=== PATIENT | male | born 1935 | race Caucasian/White ===

== ENCOUNTER 2016-10-31 03:19 | Inpatient (IN) | payer MEDICARE ==
[2016-10-31] VITALS (27 sets, daily range): BP systolic 87–135; BP diastolic 55–97
[~2016-10-31] VITALS: Ht 177.8 cm; Wt 83.6 kg
[~2016-10-31 03:19] MED LIST: AC500T PO; ACHD5005 PO; ADDR10T PO; ANTI1CAP2 PO; ATOR10TA PO; ATOR10TA66 PO; BISA5TAB PO; BISA5TAB8 PO; CALC-760 PO; CHOL200010 PO; CHOL200035 PO; CIPR-226 PO; CLON1TAB2 PO; CLON1TAB3 PO; CYAN10007 PO; CYAN3000 PO; CYCL10TA9 PO; DGX.125T PO; DIGO0.12 PO; DIGO125T PO; DIGO125T18 PO; DILT120C63 PO; DILT120T PO; DILT30TA PO; DLT180CCR PO; DLT30T PO; DOCU-161 PO; DULO60CA6 PO; DZPM2T PO; FLUC100T6 PO; GABA-488 PO; GABA-490 PO; GABA600T2 PO; GABA800T2 PO; GLUC-132 PO; GLUC-138 PO; GLUC-174 PO; GLUC-203 PO; Gabapentin PO; HYDR1TAB PO; KRIL1CAP PO; LACT1TAB19 PO; LAMO25TA PO; LEVO500T69 PO; LEVO50TA6 PO; LEVO750T6 PO; LEVO750T9 PO; LEVO75TA6 PO; LISI10TA PO; LORA0.5T PO; LORA1TAB PO; LVT.05T PO; MAGN400C PO; METO25TA6 PO; MIRT15TA6 PO; MULT-116 PO; NF-URO10 PO; NITR-65 PO; NSTR15C TP; Non Medication Item TP; OMEG1CAP51 PO; OMEP20CA12 PO; OMEP20CA6 PO; ONDA4TAB10 PO; ONDA4TAB11 PO; ONDA4TAB11 SL; ONDA4TAB8 PO; ONDN4T PO; OXYC-272 PO; OXYC-465 PO; OXYC1TAB12 PO; OXYC1TAB17 PO; PANT20TA PO; PANT20TA2 PO; PHEN-639 PO; POLY17PO6 PO; POLY255P PO; POTA10CA43 PO; POTA10TA17 PO; POTA10TA36 PO; POTA5TAB2 PO; PRM25T PO; PROBIOTIC1 EACH PO; QTP100T PO; QTP25T PO; QUET100T32 PO; QUET200T PO; QUET200T57 PO; QUET300T3 PO; Quetiapine Fumarate PO; SCP1.5TD TOP; TAMS0.4C2 PO; TAMS0.4C9 PO; TMSL.4C PO; TRAM50TA2 PO; VENL150C PO; VENL150C53 PO; VENL150C98 PO; VENL75CA PO; VIT1CAPS31 PO; VITA1CAP59 PO; Venlafaxine Hcl PO; ZLP5T PO; ZOLP10TA5 PO; ZOLP5TAB7 PO
[2016-10-31] MEDS ORDERED: NS IV 1000 ML 1,000 ML IV ONE (03:31)
[2016-10-31 03:44] LABS: BASOPHILS % (AUTO) 0 % (0-10); EOSINOPHILS # (AUTO) 0.3 10^3/uL (0.0-0.3); EOSINOPHILS % (AUTO) 3 % (0-10); LYMPHOCYTES # (AUTO) 4.4 X 10^3 (1.0-4.0); LYMPHOCYTES % (AUTO) 36 % (12-44); MEAN CORPUSCULAR HEMOGLOBIN 32 PG (25-34); MEAN CORPUSCULAR HGB CONC 34 G/DL (32-36); MEAN CORPUSCULAR VOLUME 93 FL (80-99); MEAN PLATELET VOLUME 9.1 FL (7.4-10.4); MONOCYTES # (AUTO) 1.2 X 10^3 (0.0-1.0); MONOCYTES % (AUTO) 10 % (0-12); NEUTROPHILS # (AUTO) 6.1 X 10^3 (1.8-7.8); NEUTROPHILS % (AUTO) 51 % (42-75); PLATELET COUNT 301 10^3/uL (130-400); RED BLOOD COUNT 4.45 10^6/uL (4.35-5.85); WHITE BLOOD COUNT 12.1 10^3/uL (4.3-11.0)
[2016-10-31 03:53] LABS: BILIRUBIN,URINE NEGATIVE (NEGATIVE); INR 1.1 (0.8-1.4); KETONES,URINE NEGATIVE (NEGATIVE); LEUKOCYTE ESTERASE ,URINE 1+ (NEGATIVE); NITRITE,URINE NEGATIVE (NEGATIVE); PH,URINE 8 (5-9); PROTEIN,URINE NEGATIVE (NEGATIVE); PROTHROMBIN TIME PATIENT 14.3 SEC (12.2-14.7); UROBILINOGEN,URINE NORMAL (NORMAL)
--- NOTE | 2016-10-31 03:55 | ED General ---
General Chief Complaint: Altered Mental Status Stated Complaint: AMS Source of Information: Patient, EMS Exam Limitations: Physical Impairments History of Present Illness Time Seen by Provider: 03:20 Initial Comments Here by EMS with report of altered mental status and apparently becoming unresponsive and pulseless briefly. Family called EMS to the scene because the patient was very confused. They noted this at about midnight. He apparently had slurred speech and was weak. On EMS arrival, patient was altered. They were assisting him up when he became unresponsive. They laid him to the ground and he was pulseless and apneic. EMS did provide 1 compression and the patient then moved and so they ceased and patient apparently started breathing. He was noted to be hypotensive. He apparently has had a cough for some dullness over the last several days. Patient has history of sepsis and altered mental status previously. Patient is unable to provide any details. Timing/Duration: 4-6 Hours, Getting Worse Severity: Moderate, Severe Associated Systoms: No Chest Pain, Cough, Syncope, Weakness Allergies and Home Medications Allergies Coded Allergies: Penicillins (Verified Allergy, Severe, PT HAS RECEIVED CEFEPIME & ROCEPHIN W/O ISSUE, 12/21/15) Shellfish (Verified Allergy, Unknown, 12/21/15) temazepam (Verified Adverse Reaction, Mild, PATIENT TAKES LORAZEPAM, ) VERY BAD DREAMS Home Medications Antiox#10/Om3/Dha/Epa/Lut/Zeax 1 Each Capsule, 1 CAP PO DAILY, (Reported) Atorvastatin Calcium 10 Mg Tablet, 10 MG PO HS, (Reported) Atorvastatin Calcium 10 Mg Tablet, 10 MG PO HS, #30 Prescribed by: ARRON ELLISON on 05/27/16 0852 Digoxin 125 Mcg Tablet, 125 MCG PO DAILY, (Reported) Glucosam/Chond/Hyalu/Cf Borate 1 Each Tablet, 1 TAB PO DAILY, (Reported) Levothyroxine Sodium 75 Mcg Tablet, 75 MCG PO DAILY, (Reported) LAST FILLED #90 11-24-15 Lorazepam 0.5 Mg Tablet, 0.5 MG PO BID PRN for ANXIETY, (Reported) Mirtazapine 15 Mg Tablet, 15 MG PO HS, (Reported) Omeprazole 20 Mg Capsule.dr, 20 MG PO DAILY, (Reported) Ondansetron 4 Mg Tab.rapdis, 4 MG PO Q4H, #10 Prescribed by: SHONDA JAMES on 06/24/16 0147 Potassium Citrate 10 Meq Tablet.er, 10 MEQ PO QID, (Reported) LAST FILLED 03-27-16 #120 Tamsulosin HCl 0.4 Mg Cap.er.24h, 0.4 MG PO DAILY, (Reported) Venlafaxine HCl 150 Mg Cap.er.24h, 150 MG PO DAILY, (Reported) Constitutional: see HPI, weakness Respiratory: see HPI Cardiovascular: see HPI, syncope Other Unable to complete review of systems due to altered mental status. Past Lpaiqvu-Rzxyfa-Fhwglu Hx Patient Social History Alcohol Use: Denies Use Recreational Drug Use: No Smoking Status: Never a Smoker Recent Foreign Travel: No Contact w/Someone Who Travel: No Recent Hopitalizations: Yes Immunizations Up To Date Tetanus Booster (TDap): More than 5yrs PED Vaccines UTD: No Date of Pneumonia Vaccine: Jan 29, 2015 Date of Influenza Vaccine: Apr 10, 2016 Seasonal Allergies Seasonal Allergies: No Surgeries HX Surgeries: Yes Surgeries: Gallbladder, Orthopedic Respiratory Hx Respiratory Disorders: Yes Respiratory Disorders: Pneumonia, Sleep Apnea, COPD Cardiovascular Hx Cardiac Disorders: Yes Cardiac Disorders: Atrial Fibrillation, Hypertension, Hypotension Neurological Hx Neurological Disorders: Yes Neurological Disorders: Dementia Reproductive System Hx Reproductive Disorders: No Sexually Transmitted Disease: No HIV/AIDS: No Genitourinary Hx Genitourinary Disorders: Yes (ONLY HAVE LEFT KIDNEY, erectile dysfunction) Genitourinary Disorders: Renal Failure Gastrointestinal Hx Gastrointestinal Disorders: Yes Gastrointestinal Disorders: Chronic Constipation Musculoskeletal Hx Musculoskeletal Disorders: Yes Musculoskeletal Disorders: Osteoporosis, Chronic Back Pain, Fractures Endocrine Hx Endocrine Disorders: Yes Endocrine Disorders: Hypothyroidsim HEENT HX ENT Disorders: Yes Loss of Vision: Denies Hearing Impairment: Denies Cancer Hx Cancer: No Psychosocial Hx Psychiatric Problems: Yes Behavioral Health Disorders: Anxiety, Depression Integumentary HX Skin/Integumentary Disorder: No Blood Transfusions Hx Blood Disorders: No Adverse Reaction to a Blood Tr: No Reviewed Nursing Assessment Reviewed/Agree w Nursing PMH: Yes Family Medical History Significant Family History: No Pertinent Family Hx Family Medial History: Patient reports no known family medical history. Physical Exam-Suspected Sepsis Physical Exam Vital Signs Vital Sign - Last 12Hours Capillary Refill : General Appearance: Chronically ill, Mild Distress HEENT: PERRL/EOMI, Pharynx Normal Neck: Normal Inspection, Non Tender, Supple Respiratory: No Accessory Muscle Use, Other (shallow and sometimes snoring type respirations) Cardiovascular: Regular Rate, Rhythm, No Murmur Gastrointestinal: Non Tender, Soft Back: Normal Inspection, No CVA Tenderness, No Vertebral Tenderness Extremity: Normal Range of Motion, Non Tender Neurologic/Psychiatric: Disoriented x3, Motor Weakness (global) Skin: cool, pallor Focused Exam Lactic Acid Level Laboratory Tests Test 10/31/16 03:30 Lactic Acid Level 2.16 MMOL/L (0.50-2.00) *H Lumen: triple Central Line Procedure: betadine prep, sterile drapes applied, sterile dressing applied Position: internal jugular (R) Anesthesia: Lidocaine Volume Anesthetic (ccs): 3 Complications: none Post Position: sutured, good blood return, position confirmed w/ CXR Progress Placed via ultrasound guidance using sterile procedure. One stick. Tolerated procedure well. No complications. Progress/Results/Core Measures Suspected Sepsis SIRS Temperature: Pulse: Respiratory Rate: Laboratory Tests 10/31/16 03:30: White Blood Count 12.1H Blood Pressure / Mean: Laboratory Tests 10/31/16 03:30: Creatinine 1.30, INR Comment 1.1, Platelet Count 301, Total Bilirubin 0.6 Results/Orders Lab Results Laboratory Tests Test 10/31/16 03:30 10/31/16 03:35 Range/Units White Blood Count 12.1 H 4.3-11.0 10^3/uL Red Blood Count 4.45 4.35-5.85 10^6/uL Hemoglobin 14.0 13.3-17.7 G/DL Hematocrit 41 40-54 % Mean Corpuscular Volume 93 80-99 FL Mean Corpuscular Hemoglobin 32 25-34 PG Mean Corpuscular Hemoglobin Concent 34 32-36 G/DL Red Cell Distribution Width 14.0 10.0-14.5 % Platelet Count 301 130-400 10^3/uL Mean Platelet Volume 9.1 7.4-10.4 FL Neutrophils (%) (Auto) 51 42-75 % Lymphocytes (%) (Auto) 36 12-44 % Monocytes (%) (Auto) 10 0-12 % Eosinophils (%) (Auto) 3 0-10 % Basophils (%) (Auto) 0 0-10 % Neutrophils # (Auto) 6.1 1.8-7.8 X 10^3 Lymphocytes # (Auto) 4.4 H 1.0-4.0 X 10^3 Monocytes # (Auto) 1.2 H 0.0-1.0 X 10^3 Eosinophils # (Auto) 0.3 0.0-0.3 10^3/uL Basophils # (Auto) 0.0 0.0-0.1 10^3/uL Prothrombin Time 14.3 12.2-14.7 SEC INR Comment 1.1 0.8-1.4 Activated Partial Thromboplast Time 30 24-35 SEC Urine Color YELLOW Urine Clarity VERY CLOUDY H Urine pH 8 5-9 Urine Specific Reading 1.010 L 1.016-1.022 Urine Protein NEGATIVE NEGATIVE Urine Glucose (UA) NEGATIVE NEGATIVE Urine Ketones NEGATIVE NEGATIVE Urine Nitrite NEGATIVE NEGATIVE Urine Bilirubin NEGATIVE NEGATIVE Urine Urobilinogen NORMAL NORMAL MG/DL Urine Leukocyte Esterase 1+ H NEGATIVE Urine RBC (Auto) NEGATIVE NEGATIVE Urine RBC NONE /HPF Urine WBC RARE /HPF Urine Squamous Epithelial Cells 5-10 /HPF Urine Crystals PRESENT H /LPF Urine Amorphous Sediment LARGE CHIOMA PHOSPHATE H /LPF Urine Bacteria NEGATIVE /HPF Urine Casts NONE /LPF Urine Mucus NEGATIVE /LPF Urine Culture Indicated NO Sodium Level 138 135-145 MMOL/L Potassium Level 3.7 3.6-5.0 MMOL/L Chloride Level 101 98-107 MMOL/L Carbon Dioxide Level 26 21-32 MMOL/L Anion Gap 11 5-14 MMOL/L Blood Urea Nitrogen 11 7-18 MG/DL Creatinine 1.30 0.60-1.30 MG/DL Estimat Glomerular Filtration Rate 53 BUN/Creatinine Ratio 8 Glucose Level 121 H 70-105 MG/DL Lactic Acid Level 2.16 *H 0.50-2.00 MMOL/L Calcium Level 8.7 8.5-10.1 MG/DL Total Bilirubin 0.6 0.1-1.0 MG/DL Aspartate Amino Transf (AST/SGOT) 25 5-34 U/L Alanine Aminotransferase (ALT/SGPT) 23 0-55 U/L Alkaline Phosphatase 91 40-136 U/L Total Protein 6.0 L 6.4-8.2 G/DL Albumin 3.1 L 3.2-4.5 G/DL Digoxin Level < 0.30 L 0.80-2.00 NG/ML Salicylates Level < 5.0 L 5.0-20.0 MG/DL Urine Opiates Screen NEGATIVE NEGATIVE Urine Oxycodone Screen NEGATIVE NEGATIVE Urine Methadone Screen NEGATIVE NEGATIVE Urine Propoxyphene Screen NEGATIVE NEGATIVE Acetaminophen Level < 10 L 10-30 UG/ML Urine Barbiturates Screen NEGATIVE NEGATIVE Ur Tricyclic Antidepressants Screen POSITIVE H NEGATIVE Urine Phencyclidine Screen NEGATIVE NEGATIVE Urine Amphetamines Screen NEGATIVE NEGATIVE Urine Methamphetamines Screen NEGATIVE NEGATIVE Urine Benzodiazepines Screen NEGATIVE NEGATIVE Urine Cocaine Screen NEGATIVE NEGATIVE Urine Cannabinoids Screen NEGATIVE NEGATIVE Serum Alcohol < 10 <10 MG/DL Blood Gas Puncture Site RIGHT RADIAL Blood Gas Patient Temperature 96.9 Arterial Blood pH 7.39 7.37-7.43 Arterial Blood Partial Pressure CO2 48 H 35-45 MMHG Arterial Blood Partial Pressure O2 102 H 79-93 MMHG Arterial Blood HCO3 29 H 23-27 MMOL/L Arterial Blood Total CO2 30.2 21.0-31.0 MMOL/L Arterial Blood Oxygen Saturation 99 94-100 % Arterial Blood Base Excess 3.8 H -2.5-2.5 MMOL/L Scar Test YES-POS Blood Gas Ventilator Setting NO Blood Gas Inspired Oxygen UNK My Orders Orders - SIENNA WHITMORE MD Cbc With Automated Diff (10/31/16 03:29) Comprehensive Metabolic Panel (10/31/16 03:29) Lactic Acid Analyzer (10/31/16 03:29) Blood Culture (10/31/16 03:29) Sputum Culture (10/31/16 03:29) Ua Culture If Indicated (10/31/16 03:29) Protime With Inr (10/31/16 03:29) Partial Thromboplastin Time (10/31/16 03:29) Chest 1 View, Ap/Pa Only (10/31/16 03:29) O2 (10/31/16 03:29) Saline Lock/Iv-Start (10/31/16 03:29) Ekg Tracing (10/31/16 03:29) Troponin I (10/31/16 03:29) Vital Signs Adult Sepsis Patie Q1HR (10/31/16 03:29) Remove Rings In Anticipation O (10/31/16 03:29) Arterial Blood Gas (10/31/16 03:29) Ns Iv 1000 Ml (Sodium Chloride 0.9%) (10/31/16 03:31) Saline Lock/Iv-Start (10/31/16 03:51) Ns Iv 1000 Ml (Sodium Chloride 0.9%) (10/31/16 04:00) Catheter(Urinary) Insert & Ass 03,15 (10/31/16 03:51) Digoxin (10/31/16 03:59) Acetaminophen (10/31/16 04:08) Alcohol (10/31/16 04:08) Drug Screen Stat (Urine) (10/31/16 04:08) Salicylate (10/31/16 04:08) Chest 1 View, Ap/Pa Only (10/31/16 04:33) Ceftriaxone Injection (Rocephin Injectio (10/31/16 04:45) Levofloxacin 750 Mg/150 Ml Iv (Levaquin (10/31/16 04:44) Medications Given in ED Current Medications Medications Dose Ordered Sig/Per Route Start Time Stop Time Status Last Admin Dose Admin Sodium Chloride 2,500 ml @ 1,250 mls/hr PRN PRN IV 10/31/16 04:00 10/31/16 03:54 1,250 MLS/HR Vital Signs/I&O Vital Sign - Last 12Hours 10/31/16 10/31/16 10/31/16 10/31/16 03:30 03:30 04:12 04:15 Temp 96.9 97.0 Pulse 95 96 94 Resp 14 16 14 B/P (MAP) 82/22 91/50 87/55 Pulse Ox 99 95 98 97 O2 Delivery Nasal Cannula Nasal Cannula Nasal Cannula Nasal Cannula O2 Flow Rate 2.00 2.00 2.00 2.00 10/31/16 10/31/16 04:32 04:47 Pulse 96 92 Resp 18 16 B/P (MAP) 113/67 117/67 Pulse Ox 97 98 O2 Delivery Nasal Cannula Nasal Cannula O2 Flow Rate 2.00 2.00 2.00 Capillary Refill : Progress Note : Progress Note Seen and evaluated on arrival by EMS. Patient is confused and even occasionally was snoring respirations. EMS did give 2 mg of Narcan without change in status. Second IV established, labs, UA, blood cultures, lactic acid , EKG and chest x-ray ordered. Initially ordered normal saline 1 L bolus with changed to 30 mL/kg bolus due to hypotension. Monitor patient. Central line placement indicated. This was discussed with patient and friend. Emergent consent the patient verbally consented. Placed via ultrasound guidance. Tolerated procedure well. Post x-ray shows line good position without pneumothorax. I did discuss the case with Dr. Ellison at 0440 and he accepts patient for admission, inpatient status to ICU. Consult Dr. Swanson in the morning. 30 mL/kg bolus continuing. Patient has improved mental status. 0450: I attest to focused exam. Admit ICU. Heart rate 95 with O2 sat 98 percent on 2 lt via nasal cannula, blood pressure 117/67 and respiratory rate 17. ECG Initial ECG Impression Date: Oct 31, 2016 Initial ECG Impression Time: 03:36 Initial ECG Rate: 99 Initial ECG Rhythm: Normal Sinus Comment Sinus rhythm with left axis deviation. No evidence of ST elevation [place]. [place] change from previous but otherwise similar morphology. Interpreted by me. Diagnostic Imaging Diagonstic Imaging: Xray Plain Films/CT/US/NM/MRI: chest Comments Right lung infiltrates noted. Reviewed: Reviewed by Me Diagonstic Imaging: Xray Plain Films/CT/US/NM/MRI: chest Comments Central line in good position without pneumothorax. No other acute findings. Departure Communication Time/Spoke to Admitting Phy: 04:40 Impression Impression: Primary Impression: Septic shock Additional Impression: Pneumonia Qualified Codes: J18.1 - Lobar pneumonia, unspecified organism Disposition: ADMITTED INPATIENT Condition: Critical Decision to Admit Reason: Admit from ER (General) Decision to Admit/Date: Oct 31, 2016 Time/Decision to Admit Time: 04:40 Departure-Patient Inst. Referrals: ARRON ELLISON DO (PCP/Family) Primary Care Physician SIENNA WHITMORE MD Oct 31, 2016 03:55
[2016-10-31] MEDS ORDERED: NS IV 1000 ML 2,500 ML IV PRN (04:00)
[2016-10-31 04:02] LABS: ABG BASE EXCESS 3.8 MMOL/L (-2.5-2.5); ABG HCO3 29 MMOL/L (23-27); ABG OXYGEN SATURATION 99 % (94-100); ABG PCO2 48 MMHG (35-45); ABG PH 7.39 (7.37-7.43); ABG PO2 102 MMHG (79-93); ABG TCO2 30.2 MMOL/L (21.0-31.0)
[2016-10-31 04:03] LABS: ALLENS TEST YES-POS; PATIENT TEMP 96.9
[2016-10-31 04:04] LABS: ALANINE AMINOTRANSFERASE 23 U/L (0-55); ALBUMIN 3.1 G/DL (3.2-4.5); ANION GAP 11 MMOL/L (5-14); ASPARTATE AMINO TRANSFERASE 25 U/L (5-34); BILIRUBIN,TOTAL 0.6 MG/DL (0.1-1.0); BLOOD UREA NITROGEN 11 MG/DL (7-18); BUN/CREATININE RATIO 8; CALCIUM 8.7 MG/DL (8.5-10.1); CARBON DIOXIDE 26 MMOL/L (21-32); CHLORIDE 101 MMOL/L (98-107); GFR ESTIMATED 53; GLUCOSE 121 MG/DL (70-105); POTASSIUM 3.7 MMOL/L (3.6-5.0); SODIUM 138 MMOL/L (135-145)
[2016-10-31 04:06] LABS: WBC,URINE RARE /HPF
[2016-10-31 04:31] LABS: SALICYLATE < 5.0 MG/DL (5.0-20.0)
[2016-10-31 04:36] LABS: ACETAMINOPHEN < 10 UG/ML (10-30); ALCOHOL < 10 MG/DL (<10)
[2016-10-31] MEDS ORDERED: LEVOFLOXACIN 750 MG/150 ML IV 150 ML IV STA (04:44)
[2016-10-31] MEDS ORDERED: cefTRIAXone INJECTION 1,000 MG in NS (IVPB) 50 ML IV ONE (04:45)
[2016-10-31] MEDS ORDERED: NS IV 500 ML 500 ML ONE (04:55)
[2016-10-31 05:16] LABS: TROPONIN I < 0.30 NG/ML (<0.30)
[2016-10-31] MEDS: NS IV 1000 ML 1,000 ML IV SCH ×5 (05:44→21:31)
[2016-10-31] MEDS: MAGNESIUM 1 GM/100 ML IVPB 100 ML IV SCH (05:44)
[2016-10-31] MEDS: POTASSIUM CL 10MEQ/50ML IVPB 50 ML IV SCH (05:44)
[2016-10-31] MEDS: KCL 20 MEQ TAB (K-DUR) PO SCH (05:44)
[2016-10-31] MEDS ORDERED: RT-ALBUTEROL/IPRATROPIUM 3 ML (DUONEB) VIAL INH PRN (06:30)
[2016-10-31] MEDS ORDERED: ACETAMINOPHEN 325 MG TABLET/CAPLET (TYLENOL) PO PRN (06:45)
[2016-10-31] MEDS ORDERED: ONDANSETRON 4 MG/2 ML (SDV) Z0FRAN IV PRN (06:45)
--- NOTE | 2016-10-31 07:07 | Pulmonary Consultation ---
History of Present Illness History of Present Illness Date of Consultation 10/31/16 07:01 Date of Admission History of Present Illness 80yo presented to ED secondary to altered MS, weakness, and slurred speech. PT was initially hypotensive however responded to IVF. Pt is still lethargic and hard to understand. I am consulted for ICU management. Allergies and Home Medications Allergies Coded Allergies: Penicillins (Verified Allergy, Severe, PT HAS RECEIVED CEFEPIME & ROCEPHIN W/O ISSUE, 12/21/15) Shellfish (Verified Allergy, Unknown, 12/21/15) temazepam (Verified Adverse Reaction, Mild, PATIENT TAKES LORAZEPAM, ) VERY BAD DREAMS Home Medications Antiox#10/Om3/Dha/Epa/Lut/Zeax 1 Each Capsule, 1 CAP PO DAILY, (Reported) Atorvastatin Calcium 10 Mg Tablet, 10 MG PO HS, (Reported) Atorvastatin Calcium 10 Mg Tablet, 10 MG PO HS, #30 Prescribed by: ARRON ELLISON on 05/27/16 0852 Digoxin 125 Mcg Tablet, 125 MCG PO DAILY, (Reported) Glucosam/Chond/Hyalu/Cf Borate 1 Each Tablet, 1 TAB PO DAILY, (Reported) Levothyroxine Sodium 75 Mcg Tablet, 75 MCG PO DAILY, (Reported) LAST FILLED #90 11-24-15 Lorazepam 0.5 Mg Tablet, 0.5 MG PO BID PRN for ANXIETY, (Reported) Mirtazapine 15 Mg Tablet, 15 MG PO HS, (Reported) Omeprazole 20 Mg Capsule.dr, 20 MG PO DAILY, (Reported) Ondansetron 4 Mg Tab.rapdis, 4 MG PO Q4H, #10 Prescribed by: SHONDA JAMES on 06/24/16 0147 Potassium Citrate 10 Meq Tablet.er, 10 MEQ PO QID, (Reported) LAST FILLED 03-27-16 #120 Tamsulosin HCl 0.4 Mg Cap.er.24h, 0.4 MG PO DAILY, (Reported) Venlafaxine HCl 150 Mg Cap.er.24h, 150 MG PO DAILY, (Reported) Past Pxzzour-Unhyqz-Oszkdd Hx Patient Social History Alcohol Use: Denies Use Recreational Drug Use: No Smoking Status: Never a Smoker Recent Foreign Travel: No Contact w/Someone Who Travel: No Recent Infectious Disease Expo: No Recent Hopitalizations: Yes Physical Abuse Screen: No Sexual Abuse: No Immunizations Up To Date Tetanus Booster (TDap): More than 5yrs PED Vaccines UTD: No Date of Pneumonia Vaccine: Jan 29, 2015 Date of Influenza Vaccine: Apr 10, 2016 Seasonal Allergies Seasonal Allergies: No Surgeries HX Surgeries: Yes Surgeries: Gallbladder, Orthopedic Respiratory Hx Respiratory Disorders: Yes Respiratory Disorders: Pneumonia, Sleep Apnea, COPD Cardiovascular Hx Cardiac Disorders: Yes Cardiac Disorders: Atrial Fibrillation, Hypertension, Hypotension Neurological Hx Neurological Disorders: Yes Neurological Disorders: Dementia Reproductive System Hx Reproductive Disorders: No Sexually Transmitted Disease: No HIV/AIDS: No Genitourinary Hx Genitourinary Disorders: Yes (ONLY HAVE LEFT KIDNEY, erectile dysfunction) Genitourinary Disorders: Renal Failure Gastrointestinal Hx Gastrointestinal Disorders: Yes Gastrointestinal Disorders: Chronic Constipation Musculoskeletal Hx Musculoskeletal Disorders: Yes Musculoskeletal Disorders: Osteoporosis, Chronic Back Pain, Fractures Endocrine Hx Endocrine Disorders: Yes Endocrine Disorders: Hypothyroidsim HEENT HX ENT Disorders: Yes Loss of Vision: Denies Hearing Impairment: Denies Cancer Hx Cancer: No Psychosocial Hx Psychiatric Problems: Yes Behavioral Health Disorders: Anxiety, Depression Integumentary HX Skin/Integumentary Disorder: No Blood Transfusions Hx Blood Disorders: No Adverse Reaction to a Blood Tr: No Reviewed Nursing Assessment Reviewed/Agree w Nursing PMH: Yes Family Medical History Significant Family History: No Pertinent Family Hx Family Medial History: Patient reports no known family medical history. Exam Exam Vital Signs Date Time Temp Pulse Resp B/P (MAP) Pulse Ox O2 Delivery O2 Flow Rate FiO2 10/31/16 06:45 100 17 129/83 97 Nasal Cannula 2.00 10/31/16 06:30 104 18 129/79 96 Nasal Cannula 2.00 10/31/16 06:15 99 10/31/16 06:15 99 2.00 10/31/16 06:15 99 16 102/88 96 Nasal Cannula 2.00 10/31/16 06:00 102 16 131/97 96 Nasal Cannula 2.00 10/31/16 05:50 2.00 10/31/16 05:46 101 10/31/16 05:40 98 22 117/77 96 Nasal Cannula 2.00 10/31/16 05:36 96.8 Nasal Cannula 2.00 10/31/16 05:30 96 17 118/67 96 Nasal Cannula 2.00 10/31/16 05:10 96 12 124/79 96 Nasal Cannula 2.00 10/31/16 05:04 97.1 94 16 97 2.00 10/31/16 04:47 92 16 117/67 98 Nasal Cannula 2.00 2.00 10/31/16 04:32 96 18 113/67 97 Nasal Cannula 2.00 10/31/16 04:15 94 14 87/55 97 Nasal Cannula 2.00 10/31/16 04:12 97.0 96 16 91/50 98 Nasal Cannula 2.00 10/31/16 03:30 95 Nasal Cannula 2.00 10/31/16 03:30 96.9 95 14 82/22 99 Nasal Cannula 2.00 I & O 10/31/16 07:00 Intake Total 2200 ml Output Total 650 ml Balance 1550 ml General Appearance: Chronically ill, Mild Distress HEENT: PERRL/EOMI, Pharynx Normal Neck: Normal Inspection, Non Tender, Supple Respiratory: No Accessory Muscle Use, Other (shallow and sometimes snoring type respirations) Cardiovascular: Regular Rate, Rhythm, No Murmur Capillary Refill: Less Than 3 Seconds Extremity: Normal Range of Motion, Non Tender Neurologic/Psychiatric: Disoriented x3, Motor Weakness (global) Skin: Normal Color, Warm/Dry Lymphatic: No Adenopathy Results Lab Laboratory Tests 10/31/16 03:30 Assessment/Plan Assessment/Plan Pneumonia with severe sepsis -Continue levaquin, and rocephin for now Clinical Quality Measures DVT/VTE Risk/Contraindication: Risk Factor Score Per Nursin RFS Level Per Nursing on Admit: 4+=Very High JERRY RODRIGUEZ DO Oct 31, 2016 07:07
--- NOTE | 2016-10-31 07:34 | History & Physicial ---
History of Present Illness History of Present Illness Reason for visit/HPI 80-year-old male patient with acute mental status change, weakness and hypotensive. EMS called to take patient to the hospital the patient had a short unresponsive spell and pulseless. Chest x-ray shows pneumonia. Serum lactic acid elevated. Patient has sepsis. Patient admitted to ICU Date of Admission Oct 31, 2016 at 04:45 I consulted on this patient on 10/31/16 07:29 Attending Physician Joel Ellison DO Admitting Physician Joel Ellison DO Consult Allergies and Home Medications Allergies Coded Allergies: Penicillins (Verified Allergy, Severe, PT HAS RECEIVED CEFEPIME & ROCEPHIN W/O ISSUE, 12/21/15) Shellfish (Verified Allergy, Unknown, 12/21/15) temazepam (Verified Adverse Reaction, Mild, PATIENT TAKES LORAZEPAM, ) VERY BAD DREAMS Home Medications Antiox#10/Om3/Dha/Epa/Lut/Zeax 1 Each Capsule, 1 CAP PO DAILY, (Reported) Atorvastatin Calcium 10 Mg Tablet, 10 MG PO HS, (Reported) Atorvastatin Calcium 10 Mg Tablet, 10 MG PO HS, #30 Prescribed by: JOEL ELLISON on 05/27/16 0852 Digoxin 125 Mcg Tablet, 125 MCG PO DAILY, (Reported) Glucosam/Chond/Hyalu/Cf Borate 1 Each Tablet, 1 TAB PO DAILY, (Reported) Levothyroxine Sodium 75 Mcg Tablet, 75 MCG PO DAILY, (Reported) LAST FILLED #90 11-24-15 Lorazepam 0.5 Mg Tablet, 0.5 MG PO BID PRN for ANXIETY, (Reported) Mirtazapine 15 Mg Tablet, 15 MG PO HS, (Reported) Omeprazole 20 Mg Capsule.dr, 20 MG PO DAILY, (Reported) Ondansetron 4 Mg Tab.rapdis, 4 MG PO Q4H, #10 Prescribed by: SHONDA JAMES on 06/24/16 0147 Potassium Citrate 10 Meq Tablet.er, 10 MEQ PO QID, (Reported) LAST FILLED 03-27-16 #120 Tamsulosin HCl 0.4 Mg Cap.er.24h, 0.4 MG PO DAILY, (Reported) Venlafaxine HCl 150 Mg Cap.er.24h, 150 MG PO DAILY, (Reported) Past Aryiekh-Gebxtp-Hrocej Hx Patient Social History Alcohol Use: Denies Use Recreational Drug Use: No Smoking Status: Never a Smoker Physical Abuse Screen: No Sexual Abuse: No Recent Foreign Travel: No Contact w/other who traveled: No Recent Hopitalizations: Yes Recent Infectious Disease Expo: No Immunizations Up To Date Tetanus Booster (TDap): More than 5yrs Date of Pneumonia Vaccine: Jan 29, 2015 Date of Influenza Vaccine: Apr 10, 2016 Seasonal Allergies Seasonal Allergies: No Surgeries HX Surgeries: Yes Surgeries: Gallbladder, Orthopedic Respiratory Hx Respiratory Disorders: Yes Respiratory Disorders: Pneumonia Cardiovascular Hx Cardiovascular Disorders: Yes Cardiac Disorders: Atrial Fibrillation, Hypertension, Hypotension Neurological Hx Neurological Disorders: Yes Neurological Disorders: Dementia Reproductive System Hx Reproductive Disorders: No Sexually Transmitted Disease: No HIV/AIDS: No Genitourinary Hx Genitourinary Disorders: Yes (ONLY HAVE LEFT KIDNEY, erectile dysfunction) Genitourinary Disorders: Renal Failure Gastrointestinal Hx Gastrointestinal Disorders: Yes Gastrointestinal Disorders: Chronic Constipation Musculoskeletal Hx Musculoskeletal Disorders: Yes Musculoskeletal Disorders: Osteoporosis, Chronic Back Pain, Fractures Endocrine Hx Endocrine Disorders: Yes Endocrine Disorders: Hypothyroidsim HEENT HX ENT Disorders: Yes Loss of Vision: Denies Hearing Impairment: Denies Cancer Hx Cancer: No Psychosocial Hx Psychiatric Problems: Yes Behavioral Health Disorders: Anxiety, Depression Integumentary HX Skin/Integumentary Disorder: No Blood Transfusions Hx Blood Disorders: No Adverse Reaction to a Blood Tr: No Reviewed Nursing Assessment Reviewed/Agree w Nursing PMH: Yes Family Medical History Significant Family History: No Pertinent Family Hx Family Hx: Patient reports no known family medical history. Constitutional: malaise, weakness, other (acute mental status change) EENTM: no symptoms reported Respiratory: no symptoms reported Cardiovascular: other (short episode of pulseless) Gastrointestinal: no symptoms reported Genitourinary: no symptoms reported Physical Exam Vital Signs Vital Sign - Last 12Hours Capillary Refill : Less Than 3 Seconds General Appearance: No Apparent Distress, WD/WN Eyes: Bilateral Eye Normal Inspection HEENT: Normal ENT Inspection Neck: Normal Inspection Respiratory: Chest Non Tender, Normal Breath Sounds, No Accessory Muscle Use, No Respiratory Distress Cardiovascular: Regular Rate, Rhythm, No Murmur Gastrointestinal: Non Tender, Soft Assessment/Plan Assessment and Plan septic shock. Pneumonia. Hypertension history. Hypotensive. Dementia history. Psychiatric history Problems: Clinical Quality Measures DVT/VTE Risk/Contraindication: Risk Factor Score Per Nursin RFS Level Per Nursing on Admit: 4+=Very High GELLENDER,JOEL A DO Oct 31, 2016 07:34
[2016-10-31] MEDS: ENOXAPARIN 40 MG/0.4 ML (LOVENOX) SYR SC SCH (08:17)
--- NOTE | 2016-10-31 08:21 | Diagnostic Imaging Report ---
INDICATION: Shortness of breath. Portable chest 4:39 AM FINDINGS: There is an infiltrate present in the right upper lung. Right IJ central line tip projects over the SVC. There is no effusion or pneumothorax. IMPRESSION: Infiltrate anterior segment right upper lobe stable compared to earlier in the day. Dictated by: Dictated on workstation # [id number]
--- NOTE | 2016-10-31 08:34 | Diagnostic Imaging Report ---
Portable AP view of the chest. INDICATION: Altered mental status. FINDINGS: There is a patchy interstitial infiltrates in the right perihilar region. The left lung appears clear. The heart size is normal. No effusion or pneumothorax. Mediastinum and isela appear unremarkable. Impression: There is mild interstitial right perihilar infiltrate may relate to atypical or viral pneumonia. Dictated by: Dictated on workstation # [id number]
[2016-10-31] MEDS ORDERED: ONDA4TAB10 PO (08:45)
[2016-10-31] MEDS ORDERED: LORA1TAB PO (08:45)
[2016-10-31] MEDS ORDERED: ONDA4TAB8 PO (08:45)
[2016-10-31] MEDS ORDERED: QUET200T57 PO (08:45)
[2016-10-31] MEDS: RT-ALBUTEROL/IPRATROPIUM 3 ML (DUONEB) VIAL INH SCH ×4 (10:31→21:31)
[2016-11-01] VITALS (12 sets, daily range): BP systolic 97–151; BP diastolic 55–87
[2016-11-01] MEDS: NS IV 1000 ML 1,000 ML IV SCH ×2 (01:27→08:56)
[2016-11-01] MEDS: RT-ALBUTEROL/IPRATROPIUM 3 ML (DUONEB) VIAL INH SCH ×6 (02:50→21:00)
[2016-11-01 04:30] LABS: BASOPHILS % (AUTO) 0 % (0-10); EOSINOPHILS # (AUTO) 0.5 10^3/uL (0.0-0.3); EOSINOPHILS % (AUTO) 4 % (0-10); LYMPHOCYTES # (AUTO) 2.8 X 10^3 (1.0-4.0); LYMPHOCYTES % (AUTO) 25 % (12-44); MEAN CORPUSCULAR HEMOGLOBIN 31 PG (25-34); MEAN CORPUSCULAR HGB CONC 32 G/DL (32-36); MEAN CORPUSCULAR VOLUME 97 FL (80-99); MONOCYTES # (AUTO) 1.3 X 10^3 (0.0-1.0); MONOCYTES % (AUTO) 12 % (0-12); NEUTROPHILS # (AUTO) 6.8 X 10^3 (1.8-7.8); NEUTROPHILS % (AUTO) 59 % (42-75); PLATELET COUNT 214 10^3/uL (130-400); RED BLOOD COUNT 3.67 10^6/uL (4.35-5.85); RED CELL DISTRIBUTION WIDTH 14.3 % (10.0-14.5); WHITE BLOOD COUNT 11.4 10^3/uL (4.3-11.0)
[2016-11-01 04:46] LABS: ANION GAP 9 MMOL/L (5-14); BLOOD UREA NITROGEN 7 MG/DL (7-18); BUN/CREATININE RATIO 9; CALCIUM 7.7 MG/DL (8.5-10.1); CARBON DIOXIDE 21 MMOL/L (21-32); CHLORIDE 108 MMOL/L (98-107); CREATININE SERUM 0.82 MG/DL (0.60-1.30); GFR ESTIMATED > 60; GLUCOSE 85 MG/DL (70-105); MAGNESIUM 1.6 MG/DL (1.8-2.4); PHOSPHORUS 3.2 MG/DL (2.3-4.7); POTASSIUM 3.8 MMOL/L (3.6-5.0); SODIUM 138 MMOL/L (135-145)
[2016-11-01] MEDS: cefTRIAXone INJECTION 1,000 MG in NS (IVPB) 50 ML IV SCH (04:52)
[2016-11-01] MEDS ORDERED: LEVOFLOXACIN 750 MG/D5W 150 ML (PRE-MIX) IV SCH (05:00)
[2016-11-01] MEDS: MAGNESIUM 1 GM/100 ML IVPB 100 ML IV SCH ×3 (05:50→06:51)
[2016-11-01] MEDS: POTASSIUM CL 10MEQ/50ML IVPB 50 ML IV SCH (06:00)
[2016-11-01] MEDS: KCL 20 MEQ TAB (K-DUR) PO SCH (06:00)
--- NOTE | 2016-11-01 06:54 | Pulmonary Progress Note ---
Subjective Subjective/Events-last exam Pt appears to be much improved. Exam Exam Vital Signs Date Time Temp Pulse Resp B/P (MAP) Pulse Ox O2 Delivery O2 Flow Rate FiO2 11/01/16 06:00 96 22 151/84 92 Nasal Cannula 1.00 11/01/16 05:00 90 12 135/79 97 Nasal Cannula 1.00 11/01/16 04:39 97.3 63 13 105/59 95 Nasal Cannula 1.00 11/01/16 04:00 98 1.00 11/01/16 03:00 65 13 97/55 96 Nasal Cannula 2.00 11/01/16 02:50 99 2.00 11/01/16 02:00 92 13 134/70 100 Nasal Cannula 2.00 11/01/16 01:07 90 11/01/16 01:00 95 10 140/73 99 Nasal Cannula 2.00 11/01/16 00:00 98 2.00 11/01/16 00:00 96.9 94 13 132/73 99 Nasal Cannula 2.00 10/31/16 23:00 93 12 132/72 100 Nasal Cannula 2.00 10/31/16 22:00 97 15 129/71 99 Nasal Cannula 2.00 10/31/16 21:31 98 2.00 10/31/16 21:00 92 10 125/62 97 Nasal Cannula 2.00 10/31/16 20:00 97.7 96 11 128/76 97 Nasal Cannula 2.00 10/31/16 20:00 98 2.00 10/31/16 19:00 96 10/31/16 19:00 97 12 135/78 97 Nasal Cannula 2.00 10/31/16 18:40 98 2.00 10/31/16 18:00 96 11 133/77 98 Nasal Cannula 2.00 10/31/16 17:00 101 15 133/77 97 Nasal Cannula 2.00 10/31/16 16:00 98 2.00 10/31/16 16:00 105 18 130/84 95 Nasal Cannula 2.00 10/31/16 16:00 98.7 Nasal Cannula 2.00 10/31/16 15:06 97 2.00 10/31/16 15:00 107 20 133/86 99 Nasal Cannula 2.00 10/31/16 14:00 106 18 124/80 97 Nasal Cannula 2.00 10/31/16 13:00 110 24 125/78 95 Nasal Cannula 2.00 10/31/16 13:00 112 10/31/16 12:04 97.9 Nasal Cannula 2.00 10/31/16 12:01 98 2.00 10/31/16 12:00 115 17 126/83 93 Nasal Cannula 2.00 10/31/16 11:00 108 29 89/62 98 Nasal Cannula 2.00 10/31/16 10:31 97 2.00 10/31/16 10:00 111 21 122/91 96 Nasal Cannula 2.00 10/31/16 09:00 109 23 100/59 92 Nasal Cannula 2.00 10/31/16 08:35 97.5 Nasal Cannula 2.00 10/31/16 08:21 98 2.00 10/31/16 08:00 110 22 130/83 97 Nasal Cannula 2.00 10/31/16 07:09 98 2.00 10/31/16 07:00 109 19 116/68 95 Nasal Cannula 2.00 10/31/16 07:00 105 I & O 11/01/16 07:00 Intake Total 5475 ml Output Total 3425 ml Balance 2050 ml General Appearance: No Apparent Distress, WD/WN HEENT: Normal ENT Inspection Neck: Normal Inspection Respiratory: Chest Non Tender, Normal Breath Sounds, No Accessory Muscle Use, No Respiratory Distress Cardiovascular: Regular Rate, Rhythm, No Murmur Capillary Refill: Less Than 3 Seconds Extremity: Normal Range of Motion, Non Tender Neurologic/Psychiatric: Disoriented x3, Motor Weakness (global) Skin: Normal Color, Warm/Dry Lymphatic: No Adenopathy Results Lab Laboratory Tests 10/31/16 03:30 11/01/16 04:20 Assessment/Plan Assessment/Plan Pneumonia with severe sepsis -Continue levaquin, and rocephin for now Pt is much improved will KVO IVF, D/C castro, D/c central line and transfer to 4th floor. Clinical Quality Measures DVT/VTE Risk/Contraindication: Risk Factor Score Per Nursin RFS Level Per Nursing on Admit: 4+=Very High JERRY RODRIGUEZ DO Nov 01, 2016 06:54
--- NOTE | 2016-11-01 07:55 | Progress Note (SOAP) ---
Subjective Subjective/Events-last exam patient looking better today. Patient breathing better today. Patient not confused and alert. Patient to be transferred to medical floor. Pneumonia. Sepsis. Hypomagnesemia Objective Exam Vital Signs Date Time Temp Pulse Resp B/P (MAP) Pulse Ox O2 Delivery O2 Flow Rate FiO2 11/01/16 06:57 97 1.00 11/01/16 06:00 96 22 151/84 92 Nasal Cannula 1.00 11/01/16 05:00 90 12 135/79 97 Nasal Cannula 1.00 11/01/16 04:39 97.3 63 13 105/59 95 Nasal Cannula 1.00 11/01/16 04:00 98 1.00 11/01/16 03:00 65 13 97/55 96 Nasal Cannula 2.00 11/01/16 02:50 99 2.00 11/01/16 02:00 92 13 134/70 100 Nasal Cannula 2.00 11/01/16 01:07 90 11/01/16 01:00 95 10 140/73 99 Nasal Cannula 2.00 11/01/16 00:00 98 2.00 11/01/16 00:00 96.9 94 13 132/73 99 Nasal Cannula 2.00 10/31/16 23:00 93 12 132/72 100 Nasal Cannula 2.00 10/31/16 22:00 97 15 129/71 99 Nasal Cannula 2.00 10/31/16 21:31 98 2.00 10/31/16 21:00 92 10 125/62 97 Nasal Cannula 2.00 10/31/16 20:00 97.7 96 11 128/76 97 Nasal Cannula 2.00 10/31/16 20:00 98 2.00 10/31/16 19:00 96 10/31/16 19:00 97 12 135/78 97 Nasal Cannula 2.00 10/31/16 18:40 98 2.00 10/31/16 18:00 96 11 133/77 98 Nasal Cannula 2.00 10/31/16 17:00 101 15 133/77 97 Nasal Cannula 2.00 10/31/16 16:00 98 2.00 10/31/16 16:00 105 18 130/84 95 Nasal Cannula 2.00 10/31/16 16:00 98.7 Nasal Cannula 2.00 10/31/16 15:06 97 2.00 10/31/16 15:00 107 20 133/86 99 Nasal Cannula 2.00 10/31/16 14:00 106 18 124/80 97 Nasal Cannula 2.00 10/31/16 13:00 110 24 125/78 95 Nasal Cannula 2.00 10/31/16 13:00 112 10/31/16 12:04 97.9 Nasal Cannula 2.00 10/31/16 12:01 98 2.00 10/31/16 12:00 115 17 126/83 93 Nasal Cannula 2.00 10/31/16 11:00 108 29 89/62 98 Nasal Cannula 2.00 10/31/16 10:31 97 2.00 10/31/16 10:00 111 21 122/91 96 Nasal Cannula 2.00 10/31/16 09:00 109 23 100/59 92 Nasal Cannula 2.00 10/31/16 08:35 97.5 Nasal Cannula 2.00 10/31/16 08:21 98 2.00 10/31/16 08:00 110 22 130/83 97 Nasal Cannula 2.00 I & O 11/01/16 07:00 Intake Total 5570 ml Output Total 3425 ml Balance 2145 ml Capillary Refill : Less Than 3 Seconds General Appearance: No Apparent Distress, WD/WN HEENT: Normal ENT Inspection Neck: Normal Inspection Respiratory: Chest Non Tender, Lungs Clear, Normal Breath Sounds, No Accessory Muscle Use, No Respiratory Distress Cardiovascular: Regular Rate, Rhythm, No Murmur Gastrointestinal: non tender, soft Results Lab Laboratory Tests 11/01/16 04:20 Laboratory Tests 10/31/16 12:01: Glucometer 107 10/31/16 18:30: Glucometer 85 11/01/16 00:13: Glucometer 73 11/01/16 04:20: White Blood Count 11.4H, Red Blood Count 3.67L, Hemoglobin 11.5L, Hematocrit 36L , Mean Corpuscular Volume 97, Mean Corpuscular Hemoglobin 31, Mean Corpuscular Hemoglobin Concent 32, Red Cell Distribution Width 14.3, Platelet Count 214, Mean Platelet Volume 9.0, Neutrophils (%) (Auto) 59, Lymphocytes (%) (Auto) 25, Monocytes (%) (Auto) 12, Eosinophils (%) (Auto) 4, Basophils (%) (Auto) 0, Neutrophils # (Auto) 6.8, Lymphocytes # (Auto) 2.8, Monocytes # (Auto) 1.3H, Eosinophils # (Auto) 0.5H, Basophils # (Auto) 0.0, Sodium Level 138, Potassium Level 3.8, Chloride Level 108H, Carbon Dioxide Level 21, Anion Gap 9, Blood Urea Nitrogen 7, Creatinine 0.82, Estimat Glomerular Filtration Rate > 60, BUN/ Creatinine Ratio 9, Glucose Level 85, Calcium Level 7.7L, Phosphorus Level 3.2, Magnesium Level 1.6L Assessment/Plan Assessment/Plan Assess & Plan/Chief Complaint pneumonia. Sepsis. Clinical Quality Measures DVT/VTE Risk/Contraindication: Risk Factor Score Per Nursin RFS Level Per Nursing on Admit: 4+=Very High ARRON ELLISON DO Nov 01, 2016 07:55
[2016-11-01] MEDS: DIGOXIN 0.125 MG (LANOXIN) TAB PO SCH (08:56)
[2016-11-01] MEDS: LEVOTHYROXINE 75 MCG (LEVOTHROID) TABLET PO SCH (08:56)
[2016-11-01] MEDS: ENOXAPARIN 40 MG/0.4 ML (LOVENOX) SYR SC SCH (08:56)
--- NOTE | 2016-11-01 09:07 | Diagnostic Imaging Report ---
EXAMINATION: Portable upright radiograph of the chest. INDICATION: Dyspnea. FINDINGS: When compared to 10/31/2016, similar predominately interstitial infiltrates in the right upper lobe and right perihilar region are seen. The left lung is clear. The heart size is normal. No effusion or pneumothorax. The mediastinum and isela appear unremarkable. IMPRESSION: Mild interstitial right upper lobe and perihilar infiltrates may relate to atypical pneumonia. Dictated by: Dictated on workstation # [id number]
--- NOTE | 2016-11-01 10:57 | Physical Therapy Evaluation ---
PT Evaluation-General Medical Diagnosis Admission Date Oct 31, 2016 at 04:45 Medical Diagnosis: sepsis, pneumonia Onset Date: Oct 31, 2016 Therapy Diagnosis Therapy Diagnosis: weakness;abn gait Height/Weight Height (Feet): 5 Height (Inches): 10.00 Weight (Pounds): 190 Weight (Ounces): 8.0 Precautions Precautions/Isolations: Fall Prevention, Standard Precautions Referral Physician: Noemy Reason for Referral: Evaluation/Treatment Medical History Pertinent Medical History: Atrial Fib, Arthritis, Dementia, HTN, Hypothroidism , OA, Renal Insufficiency Current History Pt admitted with altered mental status; found to have sepsis and pneumonia. Reviewed History: Yes Social History Home: Single Level Current Living Status: Friend Entry Into Home: Level Entry Prior/Core FIM Prior Level of Function Functional [place] Measure 0=Not Assessed/NA 4=Minimal Assistance 1=Total Assistance 5=Supervision or Setup 2=Maximal Assistance 6=Modified [place] 3=Moderate Assistance 7=Complete [place] Bed Mobility: 6 Transfers (B,C,W/C) (FIM): 6 Gait: 6 Limited out of house ambulation. PT Evaluation-Current Subjective Agreeable to PT. Reports he feels weak. Pain Numeric Pain Scale: 0-No Pain Location: No Pain Reported Pt/Family Goals Home when medically able. Objective Patient Orientation: Person, Place, Time, Situation Problem Solving: Fair Attachments: IV ROM/Strength ROM Lower Extremities WFL Strenght Lower Extremities WFL Integumentary/Posture Integumentary Intact Bowel Incontinence: No Bladder Incontinence: No Posture slight rounded shoulders; symmetrical and normal Neuromuscular (Tone, Coordination, Reflexes) WFL Sensory Vision: Functional Hearing: Functional Hand Dominance: Right Sensation Right Lower Extremit: Intact Sensation Left Lower Extremity: Intact Transfers Functional [place] Measure 0=Not Assessed/NA 4=Minimal Assistance 1=Total Assistance 5=Supervision or Setup 2=Maximal Assistance 6=Modified [place] 3=Moderate Assistance 7=Complete [place] Transfers (B, C, W/C) (FIM): 4 Supine to/from Sit: 4 Sit to/from Stand: 4 Min assist with transfers for safety and due to weakness generally. Rquires skilled cues to sequence as well. Gait Mode of Locomotion: Walk Anticipated Mode of Locomotion: Walk Gait (FIM): 2 Distance (FIM): 9=007-22 ft Distance: 75 ft Gait Assistive Device: FWW Comments/Gait Description slow gait with decreased foot clearance and decreased step length B Balance Sitting Static: Good Sitting Dynamic: Good Standing Static: Fair Standing Dynamic: Fair Treatment Functional transfers and gait training. Education on importance of mobility to promote improvement of pneumonia. Pt in chair post treatement with needs met Assessment/Needs Pt presents with generalized weakness with a decline in functional mobility. He is motivated and cooperative. He will benefit from short term skilled intervention to work on functional strength and mobility to allow him to return home as before. Rehab Potential: Good PT [facility] Goals [facility]itentiary Goals PT [facility] Goals Time Frame: November 08, 2016 Transfers (B,C,W/C) (FIM): 6 Gait (FIM): 6 Gait distance (FIM): 3=150 ft PT Plan Problem List Problem List: Activity Tolerance, Functional Strength, Safety, Balance, Gait, Transfer, Bed Mobility Treatment/Plan Treatment Plan: Continue Plan of Care Treatment Plan: Bed Mobility, Education, Functional Activity Silvio, Functional Strength, Gait, Safety, Therapeutic Exercise, Transfers Treatment Duration: November 08, 2016 # of days/week 5-6 Visits Per Week: 5-6 Pt/Family Agrees w/Plan: Yes Safety Risks/Education Patient Education: Safety Issues Teaching Recipient: Patient Teaching Methods: Discussion Response to Teaching: Reinforcement Needed Time/GCodes Time In: 1025 Time Out: 1055 Total Billed Treatment Time: 30 Total Billed Treatment visit EVM 15 FA 15 FAVIO CHRISTOPHER PT Nov 01, 2016 10:57
[2016-11-01] MEDS: LORazepam 1 MG (ATIVAN) TAB PO PRN (13:37)
[2016-11-01] MEDS ORDERED: FUROSEMIDE 40 MG/4 ML INJ (LASIX) IVP ONE (14:30)
[2016-11-01] MEDS: MILK OF MAGNESIA 400 MG/5 ML 30 ML UDC PO PRN (14:36)
[2016-11-01] MEDS: KCL 10 MEQ TAB (MICRO K) PO SCH ×2 (17:00→20:00)
[2016-11-01] MEDS: ATORVASTATIN 10 MG (LIPITOR) TABLET PO SCH (20:00)
[2016-11-01] MEDS: QUEtiapine 200 MG (SEROquel) TAB IMMEDIATE RELEASE PO SCH (20:00)
[2016-11-02] VITALS: BP 123/80
[2016-11-02] MEDS: RT-ALBUTEROL/IPRATROPIUM 3 ML (DUONEB) VIAL INH SCH ×5 (02:38→18:37)
[2016-11-02 04:03] VITALS: BP 116/74
[2016-11-02] MEDS: cefTRIAXone INJECTION 1,000 MG in NS (IVPB) 50 ML IV SCH (04:24)
[2016-11-02 04:51] LABS: BASOPHILS % (AUTO) 0 % (0-10); EOSINOPHILS # (AUTO) 0.5 10^3/uL (0.0-0.3); EOSINOPHILS % (AUTO) 4 % (0-10); LYMPHOCYTES % (AUTO) 21 % (12-44); MEAN CORPUSCULAR HEMOGLOBIN 32 PG (25-34); MEAN CORPUSCULAR HGB CONC 33 G/DL (32-36); MEAN CORPUSCULAR VOLUME 95 FL (80-99); MEAN PLATELET VOLUME 9.5 FL (7.4-10.4); MONOCYTES % (AUTO) 14 % (0-12); NEUTROPHILS # (AUTO) 8.9 X 10^3 (1.8-7.8); NEUTROPHILS % (AUTO) 61 % (42-75); PLATELET COUNT 225 10^3/uL (130-400); RED BLOOD COUNT 3.94 10^6/uL (4.35-5.85); RED CELL DISTRIBUTION WIDTH 13.8 % (10.0-14.5); WHITE BLOOD COUNT 14.5 10^3/uL (4.3-11.0)
[2016-11-02 05:09] LABS: ANION GAP 8 MMOL/L (5-14); BLOOD UREA NITROGEN 9 MG/DL (7-18); BUN/CREATININE RATIO 10; CALCIUM 8.3 MG/DL (8.5-10.1); CARBON DIOXIDE 26 MMOL/L (21-32); CHLORIDE 104 MMOL/L (98-107); CREATININE SERUM 0.86 MG/DL (0.60-1.30); GFR ESTIMATED > 60; GLUCOSE 88 MG/DL (70-105); PHOSPHORUS 3.2 MG/DL (2.3-4.7); POTASSIUM 3.9 MMOL/L (3.6-5.0); SODIUM 138 MMOL/L (135-145)
[2016-11-02 05:28] LABS: BAND NEUTROPHILS 0 %; BASOPHILS % (MANUAL) 0 %; EOSINOPHILS % (MANUAL) 0 %; LYMPHOCYTES % (MANUAL) 21 %; NEUTROPHILS % (MANUAL) 69 %
[2016-11-02] MEDS: NS IV 1000 ML 1,000 ML IV SCH ×2 (05:53→08:12)
[2016-11-02] MEDS: PANTOPRAZOLE 40 MG (PROTONIX) TAB PO SCH (06:00)
[2016-11-02] MEDS: VENlafaxine XR 75 MG (EFFEXOR XR) CAP PO SCH (06:00)
[2016-11-02 07:29] VITALS: BP 117/67
--- NOTE | 2016-11-02 08:00 | Progress Note (SOAP) ---
Subjective Subjective/Events-last exam septic shock. Pneumonia. Patient doing better today. patient states he feels 50 percent. White blood cell count increased 14,500. Objective Exam Vital Signs Date Time Temp Pulse Resp B/P (MAP) Pulse Ox O2 Delivery O2 Flow Rate FiO2 11/02/16 07:29 98.5 104 18 117/67 97 Nasal Cannula 2.00 11/02/16 06:14 97 2.00 11/02/16 04:03 97.8 96 12 116/74 98 Nasal Cannula 2.00 11/02/16 02:38 97 2.00 11/02/16 00:00 96.7 93 16 123/80 99 Nasal Cannula 2.00 11/01/16 21:00 95 2.00 11/01/16 19:50 98.2 98 20 134/76 98 Nasal Cannula 2.00 11/01/16 18:09 90 11/01/16 15:35 98.0 99 19 144/87 98 Room Air 11/01/16 12:00 97.2 104 18 129/75 92 Room Air 11/01/16 11:08 93 11/01/16 09:00 101 15 94 Nasal Cannula 1.00 11/01/16 08:00 92 12 142/73 95 Nasal Cannula 1.00 11/01/16 08:00 98 I & O 11/02/16 06:59 Intake Total 2040 ml Output Total 4375 ml Balance -2335 ml Capillary Refill : Less Than 3 Seconds General Appearance: No Apparent Distress, WD/WN, Other (Alert) HEENT: Normal ENT Inspection Neck: Full Range of Motion, Normal Inspection Respiratory: Chest Non Tender, Normal Breath Sounds, No Accessory Muscle Use, No Respiratory Distress Cardiovascular: Regular Rate, Rhythm, No Murmur Gastrointestinal: non tender, soft Results Lab Laboratory Tests 11/02/16 04:05 Laboratory Tests 11/01/16 12:28: Glucometer 121H 11/02/16 04:05: White Blood Count 14.5H, Red Blood Count 3.94L, Hemoglobin 12.5L, Hematocrit 37L , Mean Corpuscular Volume 95, Mean Corpuscular Hemoglobin 32, Mean Corpuscular Hemoglobin Concent 33, Red Cell Distribution Width 13.8, Platelet Count 225, Mean Platelet Volume 9.5, Neutrophils (%) (Auto) 61, Lymphocytes (%) (Auto) 21, Monocytes (%) (Auto) 14H, Eosinophils (%) (Auto) 4, Basophils (%) (Auto) 0, Neutrophils # (Auto) 8.9H, Lymphocytes # (Auto) 3.0, Monocytes # (Auto) 2.0H, Eosinophils # (Auto) 0.5H, Basophils # (Auto) 0.0, Neutrophils % (Manual) 69, Lymphocytes % (Manual) 21, Monocytes % (Manual) 10, Eosinophils % (Manual) 0, Basophils % (Manual) 0, Band Neutrophils 0, Blood Morphology Comment NORMAL, Sodium Level 138, Potassium Level 3.9, Chloride Level 104, Carbon Dioxide Level 26, Anion Gap 8, Blood Urea Nitrogen 9, Creatinine 0.86, Estimat Glomerular Filtration Rate > 60, BUN/Creatinine Ratio 10, Glucose Level 88, Calcium Level 8.3L, Phosphorus Level 3.2, Magnesium Level 2.0 Microbiology 10/31/16 Blood Culture - Preliminary, Resulted No growth 10/31/16 MRSA Screen - Final, Complete MRSA not isolated Assessment/Plan Assessment/Plan Assess & Plan/Chief Complaint pneumonia. Sepsis.. . 11/02/16. Sepsis. Pneumonia. Patient feeling better. White blood cell count 14,500 leukocytosis. Chest x-ray yesterday shows mild interstitial right upper lobe and perihilar infiltrates. Patient improving Clinical Quality Measures DVT/VTE Risk/Contraindication: Risk Factor Score Per Nursin RFS Level Per Nursing on Admit: 4+=Very High ARRON ELLISON DO Nov 02, 2016 08:00
[2016-11-02] MEDS: AZITHROMYCIN 500 MG/NS 250 ML IVPB IV SCH ×2 (08:11)
[2016-11-02] MEDS: ENOXAPARIN 40 MG/0.4 ML (LOVENOX) SYR SC SCH (08:11)
[2016-11-02] MEDS: KCL 10 MEQ TAB (MICRO K) PO SCH ×4 (08:11→20:12)
[2016-11-02] MEDS: DIGOXIN 0.125 MG (LANOXIN) TAB PO SCH (08:11)
[2016-11-02] MEDS: LEVOTHYROXINE 75 MCG (LEVOTHROID) TABLET PO SCH (08:12)
[2016-11-02] MEDS: MILK OF MAGNESIA 400 MG/5 ML 30 ML UDC PO PRN (08:12)
[2016-11-02] MEDS: LORazepam 1 MG (ATIVAN) TAB PO PRN ×2 (09:24→22:42)
--- NOTE | 2016-11-02 11:03 | Diagnostic Imaging Report ---
EXAM: AP and lateral views of the chest. INDICATION: Followup pneumonia. COMPARISON: 11/01/2016. FINDINGS: There is improvement in right upper lobe interstitial infiltrates. The heart size is normal. No effusion or pneumothorax The mediastinum and isela appear unremarkable. IMPRESSION: Improvement with minimal residual right upper lobe interstitial thickening suggestive of resolving atypical pneumonia. Dictated by: Dictated on workstation # [id number]
--- NOTE | 2016-11-02 11:21 | Physical Therapy Progress Note ---
Therapy Progress Note Patient adamantly declined PT this a.m. due to patient states, "All I want to do is sleep. Leave me alone." PT will attempt in p.m. 1 ref JAGRUTI SAUCEDO PT Nov 02, 2016 11:21
[2016-11-02 11:31] VITALS: BP 133/85
--- NOTE | 2016-11-02 13:38 | Physical Therapy Daily Note ---
PT Daily Note-Current Subjective Patient is in bed and incontinent urine requiring dependent assist to cleanse and change patient. Pain Numeric Pain Scale: 0-No Pain Location: No Pain Reported Mental Status Patient Orientation: Person, Time, Situation Attachments: Oxygen, IV Transfers Functional [place] Measure 0=Not Assessed/NA 4=Minimal Assistance 1=Total Assistance 5=Supervision or Setup 2=Maximal Assistance 6=Modified [place] 3=Moderate Assistance 7=Complete IndependenceIRFPAI Quality Coding Scale 6 Independent with activity with or without an assistive device 5 Patient requires set up or clean up by helper. Patient completes activity by themselves 4 Supervision or touching assist (CGA). [place] provide cues , steadying assist 3 The helper provides less than half the effort to complete the activity 2 The helper provides more than half the effort to complete the activity 1 Dependent. The helper does all the effort to complete an activity 7 Patient refused to complete or attempt activity 9 The patient did not perform the activity before the current illness or injury 88 Not attempted due to Medical conditions or safety concerns Transfers (B, C, W/C) (FIM): 4 Scootin Rollin Supine to/from Sit: 4 Sit to/from Stand: 4 CGA with gait belt in place for safety Gait Training Gait (FIM): 1 Distance (FIM): 1=up to 49 ft Distance: 35' Gait Level of Assist: 4 Gait Persons Needed: 1 Gait Assistive Device: FWW functional gait sequence, however, noted weakness with ambulation Assessment Patient has not eaten today and is up in recliner with ENVIRONMENTAL PROTECTION SPECIALIST ordering him lunch. PT to increase activity as tolerated by patient. 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
[2016-11-02 16:50] VITALS: BP 109/62
[2016-11-02] MEDS: ATORVASTATIN 10 MG (LIPITOR) TABLET PO SCH (20:12)
[2016-11-02] MEDS: QUEtiapine 200 MG (SEROquel) TAB IMMEDIATE RELEASE PO SCH (20:12)
[2016-11-02 20:45] VITALS: BP 137/86
[2016-11-03 00:15] VITALS: BP 131/68
[2016-11-03] MEDS: RT-ALBUTEROL/IPRATROPIUM 3 ML (DUONEB) VIAL INH SCH ×2 (01:56→06:59)
[2016-11-03 04:00] VITALS: BP 132/79
[2016-11-03] MEDS: cefTRIAXone INJECTION 1,000 MG in NS (IVPB) 50 ML IV SCH (04:32)
[2016-11-03] MEDS: VENlafaxine XR 75 MG (EFFEXOR XR) CAP PO SCH (06:33)
[2016-11-03] MEDS: PANTOPRAZOLE 40 MG (PROTONIX) TAB PO SCH (06:33)
[2016-11-03 06:54] LABS: BASOPHILS % (AUTO) 0 % (0-10); EOSINOPHILS # (AUTO) 0.5 10^3/uL (0.0-0.3); EOSINOPHILS % (AUTO) 5 % (0-10); LYMPHOCYTES # (AUTO) 3.2 X 10^3 (1.0-4.0); LYMPHOCYTES % (AUTO) 28 % (12-44); MEAN CORPUSCULAR HEMOGLOBIN 31 PG (25-34); MEAN CORPUSCULAR HGB CONC 33 G/DL (32-36); MEAN CORPUSCULAR VOLUME 96 FL (80-99); MEAN PLATELET VOLUME 9.4 FL (7.4-10.4); MONOCYTES # (AUTO) 1.5 X 10^3 (0.0-1.0); MONOCYTES % (AUTO) 13 % (0-12); NEUTROPHILS # (AUTO) 6.3 X 10^3 (1.8-7.8); NEUTROPHILS % (AUTO) 54 % (42-75); PLATELET COUNT 223 10^3/uL (130-400); RED BLOOD COUNT 3.95 10^6/uL (4.35-5.85); WHITE BLOOD COUNT 11.6 10^3/uL (4.3-11.0)
[2016-11-03 07:22] LABS: ALANINE AMINOTRANSFERASE 18 U/L (0-55); ALBUMIN 2.9 G/DL (3.2-4.5); ANION GAP 6 MMOL/L (5-14); ASPARTATE AMINO TRANSFERASE 22 U/L (5-34); BILIRUBIN,TOTAL 0.5 MG/DL (0.1-1.0); BLOOD UREA NITROGEN 10 MG/DL (7-18); BUN/CREATININE RATIO 12; CALCIUM 8.4 MG/DL (8.5-10.1); CARBON DIOXIDE 30 MMOL/L (21-32); CHLORIDE 104 MMOL/L (98-107); CREATININE SERUM 0.84 MG/DL (0.60-1.30); GFR ESTIMATED > 60; GLUCOSE 87 MG/DL (70-105); POTASSIUM 4.3 MMOL/L (3.6-5.0); SODIUM 140 MMOL/L (135-145); TOTAL PROTEIN 5.5 G/DL (6.4-8.2)
[2016-11-03 08:00] VITALS: BP 121/81
--- NOTE | 2016-11-03 08:00 | Progress Note (SOAP) ---
Subjective Subjective/Events-last exam sepsis. Pneumonia. History of psychiatric problems. Patient states she's feeling better. White blood cell count 11,000 compared to yesterday over 14,000. Patient afebrile. Patient did not get chest x-ray yet today Objective Exam Vital Signs Date Time Temp Pulse Resp B/P (MAP) Pulse Ox O2 Delivery O2 Flow Rate FiO2 11/03/16 07:00 96 2.00 11/03/16 04:00 97.9 94 19 132/79 96 Nasal Cannula 1.00 11/03/16 01:57 77 11/03/16 00:15 97.8 84 19 131/68 94 Nasal Cannula 1.00 11/02/16 21:00 2.00 11/02/16 20:45 97.2 95 20 137/86 98 Nasal Cannula 1.00 11/02/16 18:37 97 11/02/16 18:37 97 2.00 11/02/16 16:50 97.9 106 20 109/62 98 Nasal Cannula 2.00 11/02/16 14:23 95 2.00 11/02/16 11:31 98.6 101 20 133/85 95 Nasal Cannula 2.00 11/02/16 10:48 97 2.00 11/02/16 08:51 2.00 I & O 11/03/16 07:00 Intake Total 2210 ml Output Total 1925 ml Balance 285 ml Capillary Refill : Less Than 3 Seconds General Appearance: No Apparent Distress, WD/WN HEENT: Normal ENT Inspection Neck: Full Range of Motion, Normal Inspection Respiratory: Chest Non Tender, Lungs Clear, Normal Breath Sounds, No Accessory Muscle Use, No Respiratory Distress Cardiovascular: Regular Rate, Rhythm, No Murmur Gastrointestinal: non tender, soft Results Lab Laboratory Tests 11/03/16 06:15 Laboratory Tests 11/03/16 06:15: White Blood Count 11.6H, Red Blood Count 3.95L, Hemoglobin 12.4L, Hematocrit 38L , Mean Corpuscular Volume 96, Mean Corpuscular Hemoglobin 31, Mean Corpuscular Hemoglobin Concent 33, Red Cell Distribution Width 14.0, Platelet Count 223, Mean Platelet Volume 9.4, Neutrophils (%) (Auto) 54, Lymphocytes (%) (Auto) 28, Monocytes (%) (Auto) 13H, Eosinophils (%) (Auto) 5, Basophils (%) (Auto) 0, Neutrophils # (Auto) 6.3, Lymphocytes # (Auto) 3.2, Monocytes # (Auto) 1.5H, Eosinophils # (Auto) 0.5H, Basophils # (Auto) 0.0, Sodium Level 140, Potassium Level 4.3, Chloride Level 104, Carbon Dioxide Level 30, Anion Gap 6, Blood Urea Nitrogen 10, Creatinine 0.84, Estimat Glomerular Filtration Rate > 60, BUN/ Creatinine Ratio 12, Glucose Level 87, Calcium Level 8.4L, Total Bilirubin 0.5, Aspartate Amino Transf (AST/SGOT) 22, Alanine Aminotransferase (ALT/SGPT) 18, Alkaline Phosphatase 73, Total Protein 5.5L, Albumin 2.9L Microbiology 10/31/16 Blood Culture - Preliminary, Resulted No growth 10/31/16 MRSA Screen - Final, Complete MRSA not isolated Assessment/Plan Assessment/Plan Assess & Plan/Chief Complaint pneumonia. Sepsis.. . 11/02/16. Sepsis. Pneumonia. Patient feeling better. White blood cell count 14,500 leukocytosis. Chest x-ray yesterday shows mild interstitial right upper lobe and perihilar infiltrates. Patient improving. . 11/03/16. Sepsis. Pneumonia. Leukocytosis better patient improving. Waiting for chest x-ray report Clinical Quality Measures DVT/VTE Risk/Contraindication: Risk Factor Score Per Nursin RFS Level Per Nursing on Admit: 4+=Very High ARRON ELLISON DO Nov 03, 2016 08:00
[2016-11-03] MEDS: ENOXAPARIN 40 MG/0.4 ML (LOVENOX) SYR SC SCH (09:02)
[2016-11-03] MEDS: LEVOTHYROXINE 75 MCG (LEVOTHROID) TABLET PO SCH (09:02)
[2016-11-03] MEDS: KCL 10 MEQ TAB (MICRO K) PO SCH (09:02)
[2016-11-03] MEDS: AZITHROMYCIN 500 MG/NS 250 ML IVPB IV SCH ×2 (09:02)
[2016-11-03] MEDS: DIGOXIN 0.125 MG (LANOXIN) TAB PO SCH (09:02)
[2016-11-03] MEDS: NS IV 1000 ML 1,000 ML IV SCH (09:17)
--- NOTE | 2016-11-03 09:28 | Diagnostic Imaging Report ---
INDICATION: Dyspnea. TECHNIQUE: Single-view chest 8:32 AM. CORRELATION STUDY: 11/02/2016. FINDINGS: Heart size is mildly enlarged. Mediastinum is mildly prominent with calcification of the aortic arch. Pulmonary vasculature within normal limits. There is vague irregular density in the lateral aspect of the right mid/ upper lung field. This does appear to be somewhat changed from prior study. Additionally, there are slightly prominent markings about the right suprahilar region present. Asymmetric elevation of the right hemidiaphragm. IMPRESSION: 1. Irregular parenchymal density about the peripheral aspect of the right mid/ upper lung field with questionable fullness of the right isela. This may very well reflect area of continued infiltrate; however, close clinical and imaging followup correlation is recommended as possibility of underlying neoplasm is not excluded at this time. 2. Stable cardiac enlargement without overt failure. Dictated by: Dictated on workstation # [id number]
[2016-11-03] MEDS: MILK OF MAGNESIA 400 MG/5 ML 30 ML UDC PO PRN (10:13)
--- NOTE | 2016-11-03 10:52 | Physical Therapy Daily Note ---
PT Daily Note-Current Subjective Pt. in bed, asks if this DENTAL BILLER would leave pt in shower after rx as she anticipates he is DCing today and she would like for him to have a shower before he leaves. States she will help him in shower Pain Numeric Pain Scale: 0-No Pain Comment: pt. comments he feels weak when he stars moving around Mental Status Patient Orientation: Mumbles Attachments: IV Transfers Functional [place] Measure 0=Not Assessed/NA 4=Minimal Assistance 1=Total Assistance 5=Supervision or Setup 2=Maximal Assistance 6=Modified [place] 3=Moderate Assistance 7=Complete IndependenceIRFPAI Quality Coding Scale 6 Independent with activity with or without an assistive device 5 Patient requires set up or clean up by helper. Patient completes activity by themselves 4 Supervision or touching assist (CGA). Shirley provide cues , steadying assist 3 The helper provides less than half the effort to complete the activity 2 The helper provides more than half the effort to complete the activity 1 Dependent. The helper does all the effort to complete an activity 7 Patient refused to complete or attempt activity 9 The patient did not perform the activity before the current illness or injury 88 Not attempted due to Medical conditions or safety concerns Transfers (B, C, W/C) (FIM): 5 Scootin Rollin Supine to/from Sit: 5 Sit to/from Stand: 5 pt. slow moving and needed cues for rolling and technique Gait Training Gait (FIM): 1 Distance (FIM): 1=up to 49 ft Gait Level of Assist: 4 Gait Persons Needed: 1 Gait Assistive Device: FWW pt. ambulated 5-6 ft at a time and then wanted to sit stating his legs were so weak Exercises Supine Ex: Ankle pumps, Rolling, Heel Slides, Scooting, Hip abd/add Supine Reps: 12 Treatments pt. ambulated with min assist very slow with 2 sitting rest breaks into shower. with shower ready to go to assist pt with bathing Assessment Current Status: Fair Progress pts. PLOF requiring assist for many years waxing and waning in level of assist needed PT Residential Goals Residential Goals PT Residential Goals Time Frame: November 08, 2016 Transfers (B,C,W/C) (FIM): 6 Gait (FIM): 6 Gait distance (FIM): 3=150 ft PT Plan Treatment/Plan Treatment Plan: Continue Plan of Care Treatment Plan: Bed Mobility, Education, Functional Activity Silvio, Functional Strength, Gait, Safety, Therapeutic Exercise, Transfers Treatment Duration: November 08, 2016 Visits Per Week: 5-6 Safety Risks/Education Patient Education: Gait Training, Transfer Techniques, Correct Positioning, Instructions to Caregiver, Safety Issues Teaching Recipient: Patient, Significant Other Teaching Methods: Demonstration, Discussion Response to Teaching: Verbalize Understanding, Return Demonstration Time/GCodes Time In: 900 Time Out: 925 Total Billed Treatment Time: 25 Total Billed Treatment 1,FA10,GT15 G Codes Necessary: KAMILLA Reynoso DENTAL BILLER Nov 03, 2016 10:52
[2016-11-03] MEDS ORDERED: CEFD300C3 PO (11:27)
[2016-11-04] MEDS ORDERED: AZITHROMYCIN 250 MG TAB (ZITHROMAX) PO SCH (09:00)
--- NOTE | 2016-11-09 19:12 | Discharge Summary ---
Diagnosis/Chief Complaint Date of Admission Oct 31, 2016 at 04:45 Date of Discharge Nov 03, 2016 at 12:55 Discharge Date: Nov 03, 2016 Admission Diagnosis Admission Diagnosis septic shock. Pneumonia. Hypertension history. Hypotensive. Dementia history. Psychiatric history Discharge Diagnosis Sepsis. Acute mental status change. Unresponsive. Apnea. Pneumonia. Dementia. Osteoporosis. Anxiety. Chronic obstructive pulmonary disease. DO NOT RESUSCITATE. Essential hypertension. Hypothyroid. Hypomagnesemia. Reason Hospital Visit 80-year-old male patient with acute mental status change, weakness and hypotensive. EMS called to take patient to the hospital the patient had a short unresponsive spell and pulseless. Chest x-ray shows pneumonia. Serum lactic acid elevated. Patient has sepsis. Patient admitted to ICU Discharge Summary Consultations Pulmonology Discharge Physical Examination Allergies: Coded Allergies: Penicillins (Verified Allergy, Severe, PT HAS RECEIVED CEFEPIME & ROCEPHIN W/O ISSUE, 12/21/15) Shellfish (Verified Allergy, Unknown, 12/21/15) temazepam (Verified Adverse Reaction, Mild, PATIENT TAKES LORAZEPAM, ) VERY BAD DREAMS Vitals & I&Os Vital Signs Date Time Temp Pulse Resp B/P (MAP) Pulse Ox O2 Delivery O2 Flow Rate FiO2 11/03/16 08:00 96.3 95 20 121/81 95 Nasal Cannula 1.00 Hospital Course Patient did much better. Patient became more alert. Patient discharged home with workers' compensation magistrate Labs (last 24 hrs) Laboratory Tests 10/31/16 03:30: White Blood Count 12.1H, Red Blood Count 4.45, Hemoglobin 14.0, Hematocrit 41, Mean Corpuscular Volume 93, Mean Corpuscular Hemoglobin 32, Mean Corpuscular Hemoglobin Concent 34, Red Cell Distribution Width 14.0, Platelet Count 301, Mean Platelet Volume 9.1, Neutrophils (%) (Auto) 51, Lymphocytes (%) (Auto) 36, Monocytes (%) (Auto) 10, Eosinophils (%) (Auto) 3, Basophils (%) (Auto) 0, Neutrophils # (Auto) 6.1, Lymphocytes # (Auto) 4.4H, Monocytes # (Auto) 1.2H, Eosinophils # (Auto) 0.3, Basophils # (Auto) 0.0, Prothrombin Time 14.3, INR Comment 1.1, Activated Partial Thromboplast Time 30, Urine Color YELLOW, Urine Clarity VERY CLOUDYH, Urine pH 8, Urine Specific [place] 1.010L, Urine Protein NEGATIVE, Urine Glucose (UA) NEGATIVE, Urine Ketones NEGATIVE, Urine Nitrite NEGATIVE, Urine Bilirubin NEGATIVE, Urine Urobilinogen NORMAL, Urine Leukocyte Esterase 1+H, Urine RBC (Auto) NEGATIVE, Urine RBC NONE, Urine WBC RARE, Urine Squamous Epithelial Cells 5-10, Urine Crystals PRESENTH, Urine Amorphous Sediment LARGE CHIOMA PHOSPHATEH, Urine Bacteria NEGATIVE, Urine Casts NONE, Urine Mucus NEGATIVE, Urine Culture Indicated NO, Sodium Level 138, Potassium Level 3.7, Chloride Level 101, Carbon Dioxide Level 26, Anion Gap 11, Blood Urea Nitrogen 11, Creatinine 1.30, Estimat Glomerular Filtration Rate 53, BUN/ Creatinine Ratio 8, Glucose Level 121H, Lactic Acid Level 2.16*H, Calcium Level 8.7, Total Bilirubin 0.6, Aspartate Amino Transf (AST/SGOT) 25, Alanine Aminotransferase (ALT/SGPT) 23, Alkaline Phosphatase 91, Troponin I < 0.30, Total Protein 6.0L, Albumin 3.1L, Digoxin Level < 0.30L, Salicylates Level < 5.0L, Urine Opiates Screen NEGATIVE, Urine Oxycodone Screen NEGATIVE, Urine Methadone Screen NEGATIVE, Urine Propoxyphene Screen NEGATIVE, Acetaminophen Level < 10L, Urine Barbiturates Screen NEGATIVE, Ur Tricyclic Antidepressants Screen POSITIVEH, Urine Phencyclidine Screen NEGATIVE, Urine Amphetamines Screen NEGATIVE, Urine Methamphetamines Screen NEGATIVE, Urine Benzodiazepines Screen NEGATIVE, Urine Cocaine Screen NEGATIVE, Urine Cannabinoids Screen NEGATIVE, Serum Alcohol < 10 10/31/16 03:35: Blood Gas Puncture Site RIGHT RADIAL, Blood Gas Patient Temperature 96.9, Arterial Blood pH 7.39, Arterial Blood Partial Pressure CO2 48H, Arterial Blood Partial Pressure O2 102H, Arterial Blood HCO3 29H, Arterial Blood Total CO2 30.2 , Arterial Blood Oxygen Saturation 99, Arterial Blood Base Excess 3.8H, Scar Test YES-POS, Blood Gas Ventilator Setting NO, Blood Gas Inspired Oxygen UNK 10/31/16 05:53: Lactic Acid Level 1.48 10/31/16 12:01: Glucometer 107 10/31/16 18:30: Glucometer 85 11/01/16 00:13: Glucometer 73 11/01/16 04:20: White Blood Count 11.4H, Red Blood Count 3.67L, Hemoglobin 11.5L, Hematocrit 36L , Mean Corpuscular Volume 97, Mean Corpuscular Hemoglobin 31, Mean Corpuscular Hemoglobin Concent 32, Red Cell Distribution Width 14.3, Platelet Count 214, Mean Platelet Volume 9.0, Neutrophils (%) (Auto) 59, Lymphocytes (%) (Auto) 25, Monocytes (%) (Auto) 12, Eosinophils (%) (Auto) 4, Basophils (%) (Auto) 0, Neutrophils # (Auto) 6.8, Lymphocytes # (Auto) 2.8, Monocytes # (Auto) 1.3H, Eosinophils # (Auto) 0.5H, Basophils # (Auto) 0.0, Sodium Level 138, Potassium Level 3.8, Chloride Level 108H, Carbon Dioxide Level 21, Anion Gap 9, Blood Urea Nitrogen 7, Creatinine 0.82, Estimat Glomerular Filtration Rate > 60, BUN/ Creatinine Ratio 9, Glucose Level 85, Calcium Level 7.7L, Phosphorus Level 3.2, Magnesium Level 1.6L 11/01/16 12:28: Glucometer 121H 11/02/16 04:05: White Blood Count 14.5H, Red Blood Count 3.94L, Hemoglobin 12.5L, Hematocrit 37L , Mean Corpuscular Volume 95, Mean Corpuscular Hemoglobin 32, Mean Corpuscular Hemoglobin Concent 33, Red Cell Distribution Width 13.8, Platelet Count 225, Mean Platelet Volume 9.5, Neutrophils (%) (Auto) 61, Lymphocytes (%) (Auto) 21, Monocytes (%) (Auto) 14H, Eosinophils (%) (Auto) 4, Basophils (%) (Auto) 0, Neutrophils # (Auto) 8.9H, Lymphocytes # (Auto) 3.0, Monocytes # (Auto) 2.0H, Eosinophils # (Auto) 0.5H, Basophils # (Auto) 0.0, Neutrophils % (Manual) 69, Lymphocytes % (Manual) 21, Monocytes % (Manual) 10, Eosinophils % (Manual) 0, Basophils % (Manual) 0, Band Neutrophils 0, Blood Morphology Comment NORMAL, Sodium Level 138, Potassium Level 3.9, Chloride Level 104, Carbon Dioxide Level 26, Anion Gap 8, Blood Urea Nitrogen 9, Creatinine 0.86, Estimat Glomerular Filtration Rate > 60, BUN/Creatinine Ratio 10, Glucose Level 88, Calcium Level 8.3L, Phosphorus Level 3.2, Magnesium Level 2.0 11/03/16 06:15: White Blood Count 11.6H, Red Blood Count 3.95L, Hemoglobin 12.4L, Hematocrit 38L , Mean Corpuscular Volume 96, Mean Corpuscular Hemoglobin 31, Mean Corpuscular Hemoglobin Concent 33, Red Cell Distribution Width 14.0, Platelet Count 223, Mean Platelet Volume 9.4, Neutrophils (%) (Auto) 54, Lymphocytes (%) (Auto) 28, Monocytes (%) (Auto) 13H, Eosinophils (%) (Auto) 5, Basophils (%) (Auto) 0, Neutrophils # (Auto) 6.3, Lymphocytes # (Auto) 3.2, Monocytes # (Auto) 1.5H, Eosinophils # (Auto) 0.5H, Basophils # (Auto) 0.0, Sodium Level 140, Potassium Level 4.3, Chloride Level 104, Carbon Dioxide Level 30, Anion Gap 6, Blood Urea Nitrogen 10, Creatinine 0.84, Estimat Glomerular Filtration Rate > 60, BUN/ Creatinine Ratio 12, Glucose Level 87, Calcium Level 8.4L, Total Bilirubin 0.5, Aspartate Amino Transf (AST/SGOT) 22, Alanine Aminotransferase (ALT/SGPT) 18, Alkaline Phosphatase 73, Total Protein 5.5L, Albumin 2.9L Microbiology 10/31/16 Blood Culture - Final, Complete No growth 10/31/16 MRSA Screen - Final, Complete MRSA not isolated Laboratory Tests 10/31/16 03:30 11/01/16 04:20 11/02/16 04:05 11/03/16 06:15 Pending Labs Microbiology Date/Time Source Procedure Growth Status 10/31/16 03:50 Peripheral Lt Ac Blood Culture - Final No growth Complete 10/31/16 03:30 Peripheral Rt Ac Blood Culture - Final No growth Complete 10/31/16 05:30 Nasal MRSA Screen - Final MRSA not isolated Complete Laboratory Tests 10/31/16 03:30: White Blood Count 12.1, Red Blood Count 4.45, Hemoglobin 14.0, Hematocrit 41, Mean Corpuscular Volume 93, Mean Corpuscular Hemoglobin 32, Mean Corpuscular Hemoglobin Concent 34, Red Cell Distribution Width 14.0, Platelet Count 301, Mean Platelet Volume 9.1, Neutrophils (%) (Auto) 51, Lymphocytes (%) (Auto) 36, Monocytes (%) (Auto) 10, Eosinophils (%) (Auto) 3, Basophils (%) (Auto) 0, Neutrophils # (Auto) 6.1, Lymphocytes # (Auto) 4.4, Monocytes # (Auto) 1.2, Eosinophils # (Auto) 0.3, Basophils # (Auto) 0.0, Prothrombin Time 14.3, INR Comment 1.1, Activated Partial Thromboplast Time 30, Urine Color YELLOW, Urine Clarity VERY CLOUDY, Urine pH 8, Urine Specific [place] 1.010, Urine Protein NEGATIVE, Urine Glucose (UA) NEGATIVE, Urine Ketones NEGATIVE, Urine Nitrite NEGATIVE, Urine Bilirubin NEGATIVE, Urine Urobilinogen NORMAL, Urine Leukocyte Esterase 1+, Urine RBC (Auto) NEGATIVE, Urine RBC NONE, Urine WBC RARE, Urine Squamous Epithelial Cells 5-10, Urine Crystals PRESENT, Urine Amorphous Sediment LARGE CHIOMA PHOSPHATE, Urine Bacteria NEGATIVE, Urine Casts NONE, Urine Mucus NEGATIVE, Urine Culture Indicated NO, Sodium Level 138, Potassium Level 3.7, Chloride Level 101, Carbon Dioxide Level 26, Anion Gap 11, Blood Urea Nitrogen 11, Creatinine 1.30, Estimat Glomerular Filtration Rate 53, BUN/ Creatinine Ratio 8, Glucose Level 121, Lactic Acid Level 2.16, Calcium Level 8.7 , Total Bilirubin 0.6, Aspartate Amino Transf (AST/SGOT) 25, Alanine Aminotransferase (ALT/SGPT) 23, Alkaline Phosphatase 91, Troponin I < 0.30, Total Protein 6.0, Albumin 3.1, Digoxin Level < 0.30, Salicylates Level < 5.0, Urine Opiates Screen NEGATIVE, Urine Oxycodone Screen NEGATIVE, Urine Methadone Screen NEGATIVE, Urine Propoxyphene Screen NEGATIVE, Acetaminophen Level < 10, Urine Barbiturates Screen NEGATIVE, Ur Tricyclic Antidepressants Screen POSITIVE , Urine Phencyclidine Screen NEGATIVE, Urine Amphetamines Screen NEGATIVE, Urine Methamphetamines Screen NEGATIVE, Urine Benzodiazepines Screen NEGATIVE, Urine Cocaine Screen NEGATIVE, Urine Cannabinoids Screen NEGATIVE, Serum Alcohol < 10 10/31/16 03:35: Blood Gas Puncture Site RIGHT RADIAL, Blood Gas Patient Temperature 96.9, Arterial Blood pH 7.39, Arterial Blood Partial Pressure CO2 48, Arterial Blood Partial Pressure O2 102, Arterial Blood HCO3 29, Arterial Blood Total CO2 30.2, Arterial Blood Oxygen Saturation 99, Arterial Blood Base Excess 3.8, Scar Test YES-POS, Blood Gas Ventilator Setting NO, Blood Gas Inspired Oxygen UNK 10/31/16 05:53: Lactic Acid Level 1.48 10/31/16 12:01: Glucometer 107 10/31/16 18:30: Glucometer 85 11/01/16 00:13: Glucometer 73 11/01/16 04:20: White Blood Count 11.4, Red Blood Count 3.67, Hemoglobin 11.5, Hematocrit 36, Mean Corpuscular Volume 97, Mean Corpuscular Hemoglobin 31, Mean Corpuscular Hemoglobin Concent 32, Red Cell Distribution Width 14.3, Platelet Count 214, Mean Platelet Volume 9.0, Neutrophils (%) (Auto) 59, Lymphocytes (%) (Auto) 25, Monocytes (%) (Auto) 12, Eosinophils (%) (Auto) 4, Basophils (%) (Auto) 0, Neutrophils # (Auto) 6.8, Lymphocytes # (Auto) 2.8, Monocytes # (Auto) 1.3, Eosinophils # (Auto) 0.5, Basophils # (Auto) 0.0, Sodium Level 138, Potassium Level 3.8, Chloride Level 108, Carbon Dioxide Level 21, Anion Gap 9, Blood Urea Nitrogen 7, Creatinine 0.82, Estimat Glomerular Filtration Rate > 60, BUN/ Creatinine Ratio 9, Glucose Level 85, Calcium Level 7.7, Phosphorus Level 3.2, Magnesium Level 1.6 11/01/16 12:28: Glucometer 121 11/02/16 04:05: White Blood Count 14.5, Red Blood Count 3.94, Hemoglobin 12.5, Hematocrit 37, Mean Corpuscular Volume 95, Mean Corpuscular Hemoglobin 32, Mean Corpuscular Hemoglobin Concent 33, Red Cell Distribution Width 13.8, Platelet Count 225, Mean Platelet Volume 9.5, Neutrophils (%) (Auto) 61, Lymphocytes (%) (Auto) 21, Monocytes (%) (Auto) 14, Eosinophils (%) (Auto) 4, Basophils (%) (Auto) 0, Neutrophils # (Auto) 8.9, Lymphocytes # (Auto) 3.0, Monocytes # (Auto) 2.0, Eosinophils # (Auto) 0.5, Basophils # (Auto) 0.0, Neutrophils % (Manual) 69, Lymphocytes % (Manual) 21, Monocytes % (Manual) 10, Eosinophils % (Manual) 0, Basophils % (Manual) 0, Band Neutrophils 0, Blood Morphology Comment NORMAL, Sodium Level 138, Potassium Level 3.9, Chloride Level 104, Carbon Dioxide Level 26, Anion Gap 8, Blood Urea Nitrogen 9, Creatinine 0.86, Estimat Glomerular Filtration Rate > 60, BUN/Creatinine Ratio 10, Glucose Level 88, Calcium Level 8.3, Phosphorus Level 3.2, Magnesium Level 2.0 11/03/16 06:15: White Blood Count 11.6, Red Blood Count 3.95, Hemoglobin 12.4, Hematocrit 38, Mean Corpuscular Volume 96, Mean Corpuscular Hemoglobin 31, Mean Corpuscular Hemoglobin Concent 33, Red Cell Distribution Width 14.0, Platelet Count 223, Mean Platelet Volume 9.4, Neutrophils (%) (Auto) 54, Lymphocytes (%) (Auto) 28, Monocytes (%) (Auto) 13, Eosinophils (%) (Auto) 5, Basophils (%) (Auto) 0, Neutrophils # (Auto) 6.3, Lymphocytes # (Auto) 3.2, Monocytes # (Auto) 1.5, Eosinophils # (Auto) 0.5, Basophils # (Auto) 0.0, Sodium Level 140, Potassium Level 4.3, Chloride Level 104, Carbon Dioxide Level 30, Anion Gap 6, Blood Urea Nitrogen 10, Creatinine 0.84, Estimat Glomerular Filtration Rate > 60, BUN/ Creatinine Ratio 12, Glucose Level 87, Calcium Level 8.4, Total Bilirubin 0.5, Aspartate Amino Transf (AST/SGOT) 22, Alanine Aminotransferase (ALT/SGPT) 18, Alkaline Phosphatase 73, Total Protein 5.5, Albumin 2.9 Radiology Reviewed Chest x-ray emergency room mild interstitial right perihilar infiltrate atypical a viral pneumonia area Chest x-ray another day infiltrate right upper lobe. resolving atypical pneumonia. Chest x-ray. Chest x-ray if not improved to do CAT scan Discussion & Recommendations Patient to come to the office. To order another chest x-ray. If not resolved to do CAT scan Discharge Home Medications: Active Scripts Active Cefdinir 300 Mg Capsule 300 Mg PO BID Reported Ondansetron HCl 4 Mg Tablet 4 Mg PO Q4H PRN Lorazepam 1 Mg Tablet 1 Mg PO BID PRN Quetiapine Fumarate 200 Mg Tablet 200 Mg PO HS I-Caps with Lutein-[place] 3 Sfg (Antiox#10/Om3/Dha/Epa/Lut/Zeax) 1 Each Capsule 1 Cap PO DAILY Move Free Joint Health Tablet (Glucosam/Chond/Hyalu/Cf Borate) 1 Each Tablet 1 Tab PO DAILY Levothyroxine Sodium 75 Mcg Tablet 75 Mcg PO DAILY Digoxin 125 Mcg Tablet 125 Mcg PO DAILY Atorvastatin Calcium 10 Mg Tablet 10 Mg PO HS Potassium Citrate ER (Potassium Citrate) 10 Meq Tablet.er 10 Meq PO QID Omeprazole 20 Mg Capsule.dr 20 Mg PO DAILY Venlafaxine HCl ER (Venlafaxine HCl) 150 Mg Cap.er.24h 150 Mg PO DAILY Instructions to patient/family Please see electonic discharge instructions given to patient. Clinical Quality Measures DVT/VTE Risk/Contraindication: Risk Factor Score Per Nursin RFS Level Per Nursing on Admit: 4+=Very High ARRON ELLISON DO November 09, 2016 19:12
== END 2016-11-03 12:55 | disposition home or self-care (01) | DRG 871 ==
LOC: EDUNIT# 03:19 → ER 03:20 → ICU 04:45 → 4TH 11-01 10:16
PROVIDERS: ADMIT Family Medicine; ATTEND Family Medicine
PROC: 02HV33Z Insertion of Infusion Device into Superior Vena Cava, Percutaneous Approach (ICD-10-PCS; principal; 2016-10-31)
DX: A41.9 Sepsis, unspecified organism (principal); R65.21 Severe sepsis with septic shock; J44.0 Chronic obstructive pulmonary disease with (acute) lower respiratory infection; J18.9 Pneumonia, unspecified organism; G47.30 Sleep apnea, unspecified; I48.91 Unspecified atrial fibrillation; I10 Essential (primary) hypertension; Z66 Do not resuscitate; F03.90 Unspecified dementia, unspecified severity, without behavioral disturbance, psychotic disturbance, mood disturbance, and anxiety; N52.9 Male erectile dysfunction, unspecified; K59.09 Other constipation; M81.0 Age-related osteoporosis without current pathological fracture; M54.9 Dorsalgia, unspecified; E03.9 Hypothyroidism, unspecified; F41.9 Anxiety disorder, unspecified; F32.9 Major depressive disorder, single episode, unspecified; E83.42 Hypomagnesemia
CPT/HCPCS: 36415; 36556; 51702; 71010; 71020; 80048; 80053; 80162; 80306; 80320; 80329; 81000; 82805; 82962; 83605; 83735; 84100; 84484; 85007; 85025; 85027; 85610; 85730; 87040; 87081; 93005; 94640; 94664; 94760; 96361; 96374

== ENCOUNTER → 2016-11-23 | Outpatient (CLI) | payer MEDICARE ==
[~2016-11-23] MED LIST changes: +CEFD300C3 PO
--- NOTE | 2016-11-23 14:48 | Diagnostic Imaging Report ---
INDICATION: Lower respiratory infection. PA and lateral chest. Heart size and pulmonary vascularity are normal. Interval improvement of the infiltrate in the right upper lobe since 11/03/2016. There is no effusion or pneumothorax. IMPRESSION: Interval clearing of the right upper lobe pneumonia. Dictated by: Dictated on workstation # [id number]
== END ==
LOC: RAD 14:08
PROVIDERS: ATTEND Family Medicine
DX: J18.9 Pneumonia, unspecified organism (principal)
CPT/HCPCS: 71020

== ENCOUNTER 2017-01-02 13:38 | Inpatient (IN) | payer MEDICARE ==
[2017-01-02] VITALS (11 sets, daily range): BP systolic 91–111; BP diastolic 55–78
[~2017-01-02] VITALS: Ht 177.8 cm; Wt 88.3 kg
[2017-01-02] MEDS: NS IV 1000 ML 2,500 ML IV PRN ×2 (10:00→15:28)
--- OUTSIDE RECORDS SUMMARY | 2017-01-02 13:42 | XMS REPORT | Continuity of Care Document ---
Author Author [facility] Organization [facility] Address Unknown Phone Unavailable Care Team Providers Care Barbed Wire Machine Operator Name Role Phone Pedro Lux PCP [phone] Source Comments Some departments are not documenting in the electronic medical record. If you do not see the information that you expected, contact Release of Information in the Health Information Management department at [phone] for further assistance in locating additional records.[facility] Active Allergies and Adverse Reactions Allergen Noted Date Severity Reactions Comments Cheese 04/10/2012 UNKNOWN Dairy Products 04/10/2012 UNKNOWN Penicillins 08/21/2003 Medium Allergy recorded in SMS: PCN~Reactions: ANAPHYLAXIS Current Medications Prescription Sig. Disp. Refills Start End Date Status Date DULOXETINE HCL (CYMBALTA Take by mouth. Active PO) QUETIAPINE FUMARATE Take by mouth. Active (SEROQUEL PO) TAMSULOSIN HCL (FLOMAX Take by mouth. Active PO) CLONAZEPAM (KLONOPIN PO) Take by mouth. Active LISINOPRIL PO Take by mouth. Active LEVOTHYROXINE SODIUM Take by mouth. Active (LEVOTHYROXINE PO) OMEPRAZOLE PO Take by mouth. Active [id number] Take by mouth. Active D2 PO DOCOSAHEXANOIC ACID/EPA Take by mouth. Active (FISH OIL PO) ASCORBATE CALCIUM Take by mouth. Active (VITAMIN C PO) GLUCOSAMINE HCL/CHONDR QUEEN Take by mouth. Active A NA (OSTEO BI-FLEX PO) CYANOCOBALAMIN (VITAMIN Take by mouth. Active B-12) (VITAMIN B-12 PO) GLUCOSAMINE HCL/CHONDRO Take by mouth. Active QUEEN A (GLUCOSAMINE-CHONDROITIN PO) MAGNESIUM PO Take by mouth. Active LACTOBACILLUS RHAMNOSUS Take by mouth. Active GG (PROBIOTIC PO) CALCIUM CITRATE PO Take by mouth. Active lactobacillus acidoph & Take 1 Tab by mouth twice Active bulgar(+) (LACTINEX) 100 daily. million cell packet traMADol-acetaminophen(+) Take 1 Tab by mouth every Active (ULTRACET) 37.5-325 mg 4 hours as needed. tablet potassium citrate(+) TAKE 1 TABLET BY MOUTH 180 Tab 0 05/14/20 Active (UROCIT-K) 10 mEq tablet FOUR TIMES DAILY 13 Active Problems Problem Noted Date BPH (benign prostatic hyperplasia) 05/16/2012 Overview: Doing well on flomax 0.4 mg daily. L ast Assessment & Plan: Continue on flomax 0.4mg daily Erectile dysfunction 05/16/2012 Overview: Failed PO medications and max dose Caverject Doing well with RASHMI. 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 L ast Assessment & Plan: Continue RASHMI prn. Calculus of kidney 07/11/2007 Overview: Known history of nephrolithiasis, complicated by a solitary functioning left kidney. KUB reviewed: ABDOMEN AP ONLY IMPRESSION: TINY CALCIFIC DENSITIES OVERLYING THE LEFT RENAL [place]ET[place] LIKELY REPRESENTING NEPHROLITHIASIS. PERSISTENT CALCIFIC DENSITIES OVERLYING THE RIGHT RENAL [place] BUT IS ALSO OVERLYING THE TRANSVERSE COLON FILLED WITH MODERATE AMOUNT OF FECAL MATERIAL. THIS MAY BE DUE TO FECAL MATERIAL OR TINY NONOBSTRUCTIVE RENAL CALCULI. L ast Assessment & Plan: No evidence of calculi on today's KUB - Repeat KUB in 1 year - Check BMP at that time - Continue to maintain hydration and Urocit K - Encouraged increased dietary fiber, OTC daily stool softener, or supplement to maintain daily bowel regimen given stool burden on KUB RTC in 1 year Seen and examined with Dr. Mcwilliams. Plan of care directed under his supervision. Cassie Valencia MD ' Social History Tobacco Use Types Packs/Day Years Used Date Never Smoker Smokeless Tobacco: Never Used Alcohol Use Drinks/Week oz/Week Comments No Last Filed Vital Signs Vital Sign Reading Time Taken Blood Pressure 123/81 01/12/2014 3:59 PM CDT Pulse 96 01/12/2014 3:59 PM CDT Temperature - - Respiratory Rate 14 12/07/2011 1:46 AM CDT Height 1.753 m (5' 9") 01/12/2014 3:59 PM CDT Weight 117.028 kg (258 lb) 01/12/2014 3:59 PM CDT Body Mass Index 38.08 01/12/2014 3:59 PM CDT Oxygen Saturation - - Plan of Care Health Maintenance Due Date Last Done Comments Physical (Comprehensive) 1944 Exam Pertussis Vaccine 1948 Tetanus Vaccine 1954 Shingles Vaccine 1997 Prevnar/Pneumovax (#1) 2002 Influenza Vaccine 03/09/2017 Results from Last 3 Months Not on file
[2017-01-02 14:00] LABS: BASOPHILS # (AUTO) 0.1 10^3/uL (0.0-0.1); BASOPHILS % (AUTO) 1 % (0-10); EOSINOPHILS # (AUTO) 0.3 10^3/uL (0.0-0.3); EOSINOPHILS % (AUTO) 3 % (0-10); LYMPHOCYTES # (AUTO) 3.4 X 10^3 (1.0-4.0); LYMPHOCYTES % (AUTO) 33 % (12-44); MEAN CORPUSCULAR HEMOGLOBIN 31 PG (25-34); MEAN CORPUSCULAR HGB CONC 34 G/DL (32-36); MEAN CORPUSCULAR VOLUME 91 FL (80-99); MEAN PLATELET VOLUME 9.6 FL (7.4-10.4); MONOCYTES # (AUTO) 1.6 X 10^3 (0.0-1.0); MONOCYTES % (AUTO) 15 % (0-12); NEUTROPHILS % (AUTO) 49 % (42-75); PLATELET COUNT 237 10^3/uL (130-400); RED BLOOD COUNT 4.27 10^6/uL (4.35-5.85); RED CELL DISTRIBUTION WIDTH 13.9 % (10.0-14.5); WHITE BLOOD COUNT 10.3 10^3/uL (4.3-11.0)
[2017-01-02 14:08] LABS: BILIRUBIN,URINE NEGATIVE (NEGATIVE); KETONES,URINE NEGATIVE (NEGATIVE); LEUKOCYTE ESTERASE ,URINE 1+ (NEGATIVE); NITRITE,URINE NEGATIVE (NEGATIVE); PH,URINE 8 (5-9); PROTEIN,URINE 2+ (NEGATIVE); UROBILINOGEN,URINE 8 MG/DL (NORMAL)
[2017-01-02 14:09] LABS: INR 1.2 (0.8-1.4); PROTHROMBIN TIME PATIENT 15.3 SEC (12.2-14.7)
[2017-01-02 14:19] LABS: ALANINE AMINOTRANSFERASE 38 U/L (0-55); ANION GAP 9 MMOL/L (5-14); ASPARTATE AMINO TRANSFERASE 34 U/L (5-34); BILIRUBIN,TOTAL 0.9 MG/DL (0.1-1.0); BLOOD UREA NITROGEN 12 MG/DL (7-18); BUN/CREATININE RATIO 10; CALCIUM 8.1 MG/DL (8.5-10.1); CARBON DIOXIDE 23 MMOL/L (21-32); CHLORIDE 108 MMOL/L (98-107); CREATININE SERUM 1.16 MG/DL (0.60-1.30); GFR ESTIMATED > 60; GLUCOSE 111 MG/DL (70-105); HEMOLYSIS 10 (-100-29); ICTERUS 0.8 (-100-1.9); LIPEMIA 13 (-100-49); POTASSIUM 3.3 MMOL/L (3.6-5.0); SODIUM 140 MMOL/L (135-145); TOTAL PROTEIN 5.5 GM/DL (6.4-8.2)
[2017-01-02 14:20] LABS: SQUAMOUS EPITHELIAL CELL,UR 0-2 /HPF; WBC,URINE 0-2 /HPF
[2017-01-02 14:25] LABS: TROPONIN I < 0.30 NG/ML (<0.30)
--- NOTE | 2017-01-02 14:35 | ED General ---
General Chief Complaint: Cardiac/General Problems Stated Complaint: N/V Nursing Triage Note: PT ARRIVED PER EMS, PT VERY PALE SKIN W/D, PT HAS SL IN R HAND BY EMS, NS INFUSING PER EMS. PT VERY WEAK AND CONFUSED, PT STATES PASSED OUT AFTER GETTING UP OUT OF CHAIR, Nursing Sepsis Screen: No Definite Risk Source of Information: Patient Exam Limitations: No Limitations History of Present Illness Time Seen by Provider: 13:40 Initial Comments Here by EMS with report of confusion and altered mental status as well as significant weakness this morning. Apparently he passed out after standing up. Patient does have dementia and has history of pneumonia. Reported nausea and vomiting to EMS. IV established and fluids started. Zofran 4 mg IV given by EMS. Initial blood pressure 120s systolic but then noted to be in 90s systolic by EMS. On arrival here: Blood pressure declining into the 80s systolic. No reported fevers or diarrhea. Timing/Duration: 1-3 Hours Severity: Moderate Associated Systoms: No Chest Pain, No Cough, No Fever/Chills, Nausea/Vomiting, Weakness Allergies and Home Medications Allergies Coded Allergies: Penicillins (Verified Allergy, Severe, PT HAS RECEIVED CEFEPIME & ROCEPHIN W/O ISSUE, 12/21/15) Shellfish (Verified Allergy, Unknown, 12/21/15) temazepam (Verified Adverse Reaction, Mild, PATIENT TAKES LORAZEPAM, ) VERY BAD DREAMS Home Medications Antiox#10/Om3/Dha/Epa/Lut/Zeax 1 Each Capsule, 1 CAP PO DAILY, (Reported) Atorvastatin Calcium 10 Mg Tablet, 10 MG PO HS, (Reported) Digoxin 125 Mcg Tablet, 125 MCG PO DAILY, (Reported) Gabapentin 300 Mg Capsule, 300 MG PO TID PRN for LEG TWITCHES, (Reported) Glucosam/Chond/Hyalu/Cf Borate 1 Each Tablet, 1 TAB PO DAILY, (Reported) Levothyroxine Sodium 75 Mcg Tablet, 75 MCG PO DAILY, (Reported) Lorazepam 1 Mg Tablet, 1 MG PO BID PRN for ANXIETY, (Reported) Omeprazole 20 Mg Capsule.dr, 20 MG PO DAILY, (Reported) Ondansetron HCl 4 Mg Tablet, 4 MG PO TID PRN for NAUSEA/VOMITING-1ST LINE, ( Reported) Potassium Citrate 10 Meq Tablet.er, 10 MEQ PO BID, (Reported) Quetiapine Fumarate 200 Mg Tablet, 200 MG PO HS, (Reported) Tamsulosin HCl 0.4 Mg Cap, 0.4 MG PO DAILY, (Reported) Venlafaxine HCl 150 Mg Cap.er.24h, 150 MG PO DAILY, (Reported) Constitutional: see HPI, No chills, No fever, malaise, weakness EENTM: no symptoms reported Respiratory: no symptoms reported Cardiovascular: see HPI, No chest pain, syncope Gastrointestinal: No abdominal pain, No constipation, No diarrhea, nausea, vomiting Genitourinary: no symptoms reported Musculoskeletal: no symptoms reported Skin: no symptoms reported Psychiatric/Neurological: See HPI Hematologic/Lymphatic: No Symptoms Reported All Other Systems Reviewed Negative Unless Noted: Yes Past Yczzvir-Ptgouz-Qvsrsx Hx Patient Social History Alcohol Use: Denies Use Recreational Drug Use: No Smoking Status: Former Smoker Recent Foreign Travel: No Contact w/Someone Who Travel: No Recent Infectious Disease Expo: No Recent Hopitalizations: No Immunizations Up To Date Tetanus Booster (TDap): More than 5yrs PED Vaccines UTD: No Date of Pneumonia Vaccine: Jan 29, 2015 Date of Influenza Vaccine: Apr 10, 2016 Seasonal Allergies Seasonal Allergies: No Surgeries HX Surgeries: Yes Surgeries: Gallbladder, Orthopedic Respiratory Hx Respiratory Disorders: Yes Respiratory Disorders: Pneumonia, Sleep Apnea, COPD Cardiovascular Hx Cardiac Disorders: Yes Cardiac Disorders: Atrial Fibrillation, Hypertension, Hypotension Neurological Hx Neurological Disorders: Yes Neurological Disorders: Dementia Reproductive System Hx Reproductive Disorders: No Sexually Transmitted Disease: No HIV/AIDS: No Genitourinary Hx Genitourinary Disorders: Yes (ONLY HAVE LEFT KIDNEY, erectile dysfunction) Genitourinary Disorders: Renal Failure Gastrointestinal Hx Gastrointestinal Disorders: Yes Gastrointestinal Disorders: Chronic Constipation Musculoskeletal Hx Musculoskeletal Disorders: Yes Musculoskeletal Disorders: Osteoporosis, Chronic Back Pain, Fractures Endocrine Hx Endocrine Disorders: Yes Endocrine Disorders: Hypothyroidsim HEENT HX ENT Disorders: Yes Loss of Vision: Denies Hearing Impairment: Denies Cancer Hx Cancer: No Psychosocial Hx Psychiatric Problems: Yes Behavioral Health Disorders: Anxiety, Depression Integumentary HX Skin/Integumentary Disorder: No Blood Transfusions Hx Blood Disorders: No Adverse Reaction to a Blood Tr: No Reviewed Nursing Assessment Reviewed/Agree w Nursing PMH: Yes Family Medical History Significant Family History: No Pertinent Family Hx Family Medial History: Patient reports no known family medical history. Physical Exam-Suspected Sepsis Physical Exam Vital Signs Vital Sign - Last 12Hours 01/02/17 13:38 Temp 97.8 Pulse 71 Resp 18 B/P (MAP) 100/67 Pulse Ox 97 O2 Delivery Nasal Cannula O2 Flow Rate 2.00 Capillary Refill : Less Than 3 Seconds Blood Pressure Mean: 78 General Appearance: WD/WN, Mild Distress (nauseated) HEENT: PERRL/EOMI, Pharynx Normal Neck: Non Tender, Supple Respiratory: Lungs Clear, Normal Breath Sounds Cardiovascular: Regular Rate, Rhythm, No Murmur Gastrointestinal: Non Tender, Soft Back: Normal Inspection, No CVA Tenderness, No Vertebral Tenderness Extremity: Normal Capillary Refill, Normal Inspection, Normal Range of Motion, Non Tender Neurologic/Psychiatric: Alert, Normal Mood/Affect, Other (underlying dementia but at baseline.) Skin: normal color, warm/dry Focused Exam Evaluation Sepsis Stage: Septic Shock Possible Source: Pulmonary Time of Focused Exam: 15:50 Respiratory: Chest Non Tender, Lungs Clear, Normal Breath Sounds, No Accessory Muscle Use, No Respiratory Distress Cardiovascular: Regular Rate, Rhythm, No Murmur Capillary Refill: Less Than 3 Seconds Peripheral Pulses: 2+ Dorsalis Pedis (R), 2+ Left Dors-Pedis (L), 2+ Radial Pulses (R), 2+ Radial Pulses (L) Skin: normal color, warm/dry, No rash Lactic Acid Level Laboratory Tests Test 01/02/17 13:50 Lactic Acid Level 2.52 MMOL/L (0.50-2.00) *H Progress/Results/Core Measures Suspected Sepsis Recent Fever Within 48 Hours: No Infection Criteria Present: None New/Unexplained Altered Menta: No Sepsis Screen: No Definite Risk Sepsis Diagnosis: SIRS Temperature:97.8 Pulse: 71 Respiratory Rate: 18 Laboratory Tests 01/02/17 13:50: White Blood Count 10.3 Blood Pressure 100 /67 Mean: 78 Laboratory Tests 01/02/17 13:50: Creatinine 1.16, INR Comment 1.2, Platelet Count 237, Total Bilirubin 0.9 Results/Orders Lab Results Laboratory Tests Test 01/02/17 13:50 01/02/17 13:55 Range/Units White Blood Count 10.3 4.3-11.0 10^3/uL Red Blood Count 4.27 L 4.35-5.85 10^6/uL Hemoglobin 13.2 L 13.3-17.7 G/DL Hematocrit 39 L 40-54 % Mean Corpuscular Volume 91 80-99 FL Mean Corpuscular Hemoglobin 31 25-34 PG Mean Corpuscular Hemoglobin Concent 34 32-36 G/DL Red Cell Distribution Width 13.9 10.0-14.5 % Platelet Count 237 130-400 10^3/uL Mean Platelet Volume 9.6 7.4-10.4 FL Neutrophils (%) (Auto) 49 42-75 % Lymphocytes (%) (Auto) 33 12-44 % Monocytes (%) (Auto) 15 H 0-12 % Eosinophils (%) (Auto) 3 0-10 % Basophils (%) (Auto) 1 0-10 % Neutrophils # (Auto) 5.0 1.8-7.8 X 10^3 Lymphocytes # (Auto) 3.4 1.0-4.0 X 10^3 Monocytes # (Auto) 1.6 H 0.0-1.0 X 10^3 Eosinophils # (Auto) 0.3 0.0-0.3 10^3/uL Basophils # (Auto) 0.1 0.0-0.1 10^3/uL Prothrombin Time 15.3 H 12.2-14.7 SEC INR Comment 1.2 0.8-1.4 Activated Partial Thromboplast Time 30 24-35 SEC Sodium Level 140 135-145 MMOL/L Potassium Level 3.3 L 3.6-5.0 MMOL/L Chloride Level 108 H 98-107 MMOL/L Carbon Dioxide Level 23 21-32 MMOL/L Anion Gap 9 5-14 MMOL/L Blood Urea Nitrogen 12 7-18 MG/DL Creatinine 1.16 0.60-1.30 MG/DL Estimat Glomerular Filtration Rate > 60 BUN/Creatinine Ratio 10 Glucose Level 111 H 70-105 MG/DL Lactic Acid Level 2.52 *H 0.50-2.00 MMOL/L Calcium Level 8.1 L 8.5-10.1 MG/DL Total Bilirubin 0.9 0.1-1.0 MG/DL Aspartate Amino Transf (AST/SGOT) 34 5-34 U/L Alanine Aminotransferase (ALT/SGPT) 38 0-55 U/L Alkaline Phosphatase 94 40-136 U/L Troponin I < 0.30 <0.30 NG/ML Total Protein 5.5 L 6.4-8.2 GM/DL Albumin 3.0 L 3.2-4.5 GM/DL Thyroid Stimulating Hormone (TSH) 7.02 H 0.35-4.94 UIU/ML Digoxin Level 0.45 L 0.80-2.00 NG/ML Urine Color YELLOW Urine Clarity CLEAR Urine pH 8 5-9 Urine Specific [place] 1.015 L 1.016-1.022 Urine Protein 2+ H NEGATIVE Urine Glucose (UA) NEGATIVE NEGATIVE Urine Ketones NEGATIVE NEGATIVE Urine Nitrite NEGATIVE NEGATIVE Urine Bilirubin NEGATIVE NEGATIVE Urine Urobilinogen 8 H NORMAL MG/DL Urine Leukocyte Esterase 1+ H NEGATIVE Urine RBC (Auto) NEGATIVE NEGATIVE Urine RBC NONE /HPF Urine WBC 0-2 /HPF Urine Squamous Epithelial Cells 0-2 /HPF Urine Crystals PRESENT H /LPF Urine Amorphous Sediment FEW CHIOMA PHOSPHATE H /LPF Urine Bacteria NEGATIVE /HPF Urine Casts NONE /LPF Urine Mucus SMALL H /LPF Urine Culture Indicated NO My Orders Orders - SIENNA WHITMORE MD Cbc With Automated Diff (01/02/17 13:44) Comprehensive Metabolic Panel (01/02/17 13:44) Lactic Acid Analyzer (01/02/17 13:44) Blood Culture (01/02/17 13:44) Sputum Culture (01/02/17 13:44) Ua Culture If Indicated (01/02/17 13:44) Protime With Inr (01/02/17 13:44) Partial Thromboplastin Time (01/02/17 13:44) Chest 1 View, Ap/Pa Only (01/02/17 13:44) O2 (01/02/17 13:44) Saline Lock/Iv-Start (01/02/17 13:44) Ekg Tracing (01/02/17 13:44) Troponin I (01/02/17 13:44) Ns Iv 1000 Ml (Sodium Chloride 0.9%) (01/02/17 13:45) Vital Signs Adult Sepsis Patie Q1HR (01/02/17 13:44) Remove Rings In Anticipation O (01/02/17 13:44) Digoxin (01/02/17 14:52) Thyroid Stimulating Hormone (01/02/17 14:52) Ns Iv 500 Ml (Sodium Chloride 0.9%) (01/02/17 15:24) Levofloxacin 750 Mg/150 Ml Iv (Levaquin (01/02/17 15:53) Meropenem (Merrem 500 Mg) (01/02/17 15:49) Levofloxacin 750 Mg/150 Ml Iv (Levaquin (01/02/17 15:50) Medications Given in ED Current Medications Medications Dose Ordered Sig/Per Route Start Time Stop Time Status Last Admin Dose Admin Sodium Chloride 2,500 ml @ 1,250 mls/hr PRN PRN IV 01/02/17 13:45 01/02/17 15:28 500 MLS/HR Vital Signs/I&O Vital Sign - Last 12Hours 01/02/17 01/02/17 13:38 13:38 Temp 97.8 Pulse 71 Resp 18 B/P (MAP) 100/67 Pulse Ox 97 97 O2 Delivery Nasal Cannula O2 Flow Rate 2.00 Capillary Refill : Less Than 3 Seconds Blood Pressure Mean: 78 Progress Note : Progress Note Seen and evaluated on arrival by EMS. IV saline 1 L bolus running from EMS and this will be completed. Patient with hypotension. High volume fluid resuscitation initiated at 30 mL for kilogram which would be 2.5 L. 1 L will be from EMS bolus that has been started. Labs, blood cultures, lactic acid, chest x-ray, Ibanez catheter and UA ordered. Monitor patient. Lactic acid is elevated at 2.5. 1536: Patient is improved with blood pressure of 110 over 70s. I did discuss the case with Dr. Ellison in [facility]'s patient for admission, inpatient status. 1550: Focused assessment done by me and noted in chart. Levaquin 750 mg IV initiated. Admit, inpatient status. Family agrees with plan. ECG Initial ECG Impression Date: Jan 02, 2017 Initial ECG Impression Time: 14:18 Initial ECG Rate: 66 Initial ECG Rhythm: Normal Sinus Comment Sinus rhythm with first-degree AV block. No evidence of ST elevation [place]. Normal axis. Similar to previous of 10/31/16. Interpreted by me. Diagnostic Imaging Diagonstic Imaging: Xray Plain Films/CT/US/NM/MRI: chest Comments NAME: VISHNU BAJWA Carlos MED REC#: [id number] PT STATUS: REG ER : 1935 PHYSICIAN: SIENNA WHITMORE MD ADMIT DATE: 01/02/17/ER Signed Date of Exam: 01/02/17 CHEST 1 VIEW, AP/PA ONLY INDICATION: Nausea and vomiting. TECHNIQUE: Frontal chest obtained at 2:18 p.m. and compared to 11/23/2016. FINDINGS: Heart is normal in size. There is some minimal infiltrate or scarring in the right perihilar region. Left lung is clear. There is no pneumothorax or pleural fluid. IMPRESSION: Minimal infiltrate versus scarring in the right perihilar region. No consolidation, otherwise. No pneumothorax or pleural fluid. Consider followup as clinically warranted. Dictated by: Dictated on workstation # [id number] Dict: 01/02/17 1440 Trans: 01/02/17 1601 Interpreted by: RICARDO TIDWELL MD Electronically signed by: RICARDO TIDWELL MD 01/02/17 1601 Departure Communication Time/Spoke to Admitting Phy: 15:36 Impression Impression: Primary Impression: Right middle lobe pneumonia Qualified Codes: J18.1 - Lobar pneumonia, unspecified organism Disposition: ADMITTED INPATIENT Condition: Critical Decision to Admit Reason: Admit from ER (General) Decision to Admit/Date: Jan 02, 2017 Time/Decision to Admit Time: 16:06 Departure-Patient Inst. Referrals: ARRON ELLISON DO (PCP/Family) Primary Care Physician SIENNA WHITMORE MD Jan 02, 2017 14:35
--- NOTE | 2017-01-02 14:47 | Diagnostic Imaging Report ---
INDICATION: Nausea and vomiting. TECHNIQUE: Frontal chest obtained at 2:18 p.m. and compared to 11/23/2016. FINDINGS: Heart is normal in size. There is some minimal infiltrate or scarring in the right perihilar region. Left lung is clear. There is no pneumothorax or pleural fluid. IMPRESSION: Minimal infiltrate versus scarring in the right perihilar region. No consolidation, otherwise. No pneumothorax or pleural fluid. Consider followup as clinically warranted. Dictated by: Dictated on workstation # [id number]
[2017-01-02] MEDS ORDERED: GABA-488 PO (15:06)
[2017-01-02] MEDS ORDERED: TAMS0.4C98 PO (15:06)
[2017-01-02] MEDS ORDERED: NS IV 500 ML 500 ML ONE ×2 (15:24→17:27)
[2017-01-02 15:28] LABS: DIGOXIN 0.45 NG/ML (0.80-2.00); THYROID STIMULATING HORMONE 7.02 UIU/ML (0.35-4.94)
[2017-01-02] MEDS ORDERED: MEROPENEM 500 MG VIAL (MERREM) IV ONE (15:49)
[2017-01-02] MEDS ORDERED: LEVOFLOXACIN 750 MG/150 ML IV 150 ML IV ONE (15:50)
[2017-01-02] MEDS ORDERED: LEVOFLOXACIN 750 MG/150 ML IV 150 ML IV STA (15:53)
--- OUTSIDE RECORDS SUMMARY | 2017-01-02 16:18 | XMS REPORT | Continuity of Care Document ---
Author Author [facility] Organization [facility] Address Unknown Phone Unavailable Care Team Providers Care [employer] Worker Name Role Phone Pedro Lux PCP [phone] Source Comments Some departments are not documenting in the electronic medical record. If you do not see the information that you expected, contact Release of Information in the Health Information Management department at [phone] for further assistance in locating additional records.[facility] Active Allergies and Adverse [...] PO) OMEPRAZOLE PO Take by mouth. Active [id number] Take by mouth. Active D2 PO DOCOSAHEXANOIC [...]
[2017-01-02] MEDS ORDERED: CATHETER FLUSH 10 ML SYR IV PRN (16:45)
[2017-01-02] MEDS: NS IV 1000 ML 1,000 ML IV SCH (16:51)
[2017-01-02] MEDS ORDERED: VASOPRESSIN INJECTION 20 UNIT in NS (IVPB) 50 ML IV PRN (17:00)
[2017-01-02] MEDS ORDERED: NS IV 1000 ML 1,000 ML IV PRN (17:00)
[2017-01-02] MEDS ORDERED: VANCOMYCIN 2,500 MG/NS 500 ML IVPB IV NR ×2 (17:01)
[2017-01-02] MEDS: CEFEPIME INJECTION 1,000 MG in NS (IVPB) 50 ML IV SCH ×2 (17:30→19:24)
--- NOTE | 2017-01-02 19:23 | Diagnostic Imaging Report ---
INDICATION: Central line placement. EXAM: Frontal chest obtained at 6:47 hours p.m. COMPARISON to same day at 2:18 hours p.m. FINDINGS: The heart and mediastinal silhouette are normal in appearance. The lungs are unchanged with minimal scarring or infiltrate in the right midlung. There is no pneumothorax or pleural fluid. There is a new right IJ central line with tip overlying the upper SVC. IMPRESSION: New right IJ central catheter tip overlies the upper SVC. There is no pneumothorax or pleural fluid following line placement. Minimal scarring versus infiltrate in the right midlung again noted. Dictated by: Dictated on workstation # [id number]
[2017-01-02] MEDS: inSUlin (REGULAR) HUMAN 1 UNIT/0.01 ML (CHARGE PER UNIT) SC SCH (19:32)
[2017-01-02] MEDS ORDERED: RT-ALBUTEROL SULF 2.5 MG/3 ML PRE-MIX VIAL IH PRN (20:30)
[2017-01-03] VITALS (13 sets, daily range): BP systolic 112–138; BP diastolic 63–83
[2017-01-03] MEDS: NS IV 1000 ML 1,000 ML IV SCH ×3 (00:27→20:24)
[2017-01-03] MEDS: CEFEPIME INJECTION 1,000 MG in NS (IVPB) 50 ML IV SCH (01:37)
[2017-01-03 04:20] LABS: ABG BASE EXCESS -4.1 MMOL/L (-2.5-2.5); ABG HCO3 21 MMOL/L (23-27); ABG OXYGEN SATURATION 99 % (94-100); ABG PCO2 36 MMHG (35-45); ABG PH 7.37 (7.37-7.43); ABG PO2 139 MMHG (79-93); ABG TCO2 21.6 MMOL/L (21.0-31.0)
[2017-01-03 04:21] LABS: ALLENS TEST YES-POS; PATIENT TEMP 97.1
[2017-01-03 04:48] LABS: ALANINE AMINOTRANSFERASE 33 U/L (0-55); ALBUMIN 2.8 GM/DL (3.2-4.5); ANION GAP 7 MMOL/L (5-14); ASPARTATE AMINO TRANSFERASE 29 U/L (5-34); BILIRUBIN,TOTAL 1.2 MG/DL (0.1-1.0); BLOOD UREA NITROGEN 10 MG/DL (7-18); BUN/CREATININE RATIO 11; CARBON DIOXIDE 22 MMOL/L (21-32); CHLORIDE 114 MMOL/L (98-107); CREATININE SERUM 0.87 MG/DL (0.60-1.30); GFR ESTIMATED > 60; GLUCOSE 98 MG/DL (70-105); MAGNESIUM 1.7 MG/DL (1.8-2.4); PHOSPHORUS 3.7 MG/DL (2.3-4.7); POTASSIUM 3.9 MMOL/L (3.6-5.0); SODIUM 143 MMOL/L (135-145); TOTAL PROTEIN 5.5 GM/DL (6.4-8.2)
[2017-01-03] MEDS ORDERED: VANCOMYCIN 1500 MG/NS 500 ML IVPB IV SCH ×4 (05:00→06:00)
[2017-01-03 05:06] LABS: BASOPHILS % (AUTO) 0 % (0-10); EOSINOPHILS # (AUTO) 0.3 10^3/uL (0.0-0.3); EOSINOPHILS % (AUTO) 3 % (0-10); LYMPHOCYTES % (AUTO) 21 % (12-44); MEAN CORPUSCULAR HEMOGLOBIN 31 PG (25-34); MEAN CORPUSCULAR HGB CONC 33 G/DL (32-36); MEAN CORPUSCULAR VOLUME 93 FL (80-99); MONOCYTES # (AUTO) 1.4 X 10^3 (0.0-1.0); MONOCYTES % (AUTO) 15 % (0-12); NEUTROPHILS # (AUTO) 5.8 X 10^3 (1.8-7.8); NEUTROPHILS % (AUTO) 61 % (42-75); PLATELET COUNT 216 10^3/uL (130-400); RED CELL DISTRIBUTION WIDTH 14.5 % (10.0-14.5); WHITE BLOOD COUNT 9.4 10^3/uL (4.3-11.0)
[2017-01-03 05:16] LABS: INR 1.3 (0.8-1.4); PROTHROMBIN TIME PATIENT 15.7 SEC (12.2-14.7)
[2017-01-03] MEDS ORDERED: POTASSIUM CL 10MEQ/50ML IVPB 50 ML IV SCH (06:00)
[2017-01-03] MEDS ORDERED: KCL 20 MEQ TAB (K-DUR) PO SCH (06:00)
[2017-01-03] MEDS ORDERED: MAGNESIUM 1 GM/100 ML IVPB 100 ML IV SCH (06:00)
[2017-01-03] MEDS: inSUlin (REGULAR) HUMAN 1 UNIT/0.01 ML (CHARGE PER UNIT) SC SCH ×2 (06:00)
[2017-01-03] MEDS: MAGNESIUM 1 GM/100 ML IVPB 100 ML IV SCH ×2 (06:11→07:32)
[2017-01-03] MEDS: NOREPINEPHRINE 4 MG in D5W 250 ML (IVPB) 250 ML IV SCH ×3 (06:20)
--- NOTE | 2017-01-03 07:52 | History & Physicial ---
History of Present Illness History of Present Illness Reason for visit/HPI patient was seen last night. Computer was down and unable to do the H&P last night. Patient brought the hospital by ambulance. According to patient's helper patient was very weak and confused and passed out after getting out of chair. Patient was confused and had altered mental status and weak. Patient has history of dementia and history of pneumonia when x-rays are always taken. Patient had nausea and vomiting. Patient hypotensive. Serum lactic acid elevated. Patient has history of mental illness. Patient was confused last night. Patient this morning doing much better and less confused Date of Admission Jan 02, 2017 at 15:50 Time Seen by Provider: 19:00 I consulted on this patient on 01/03/17 07:46 Attending Physician Joel Ellison DO Admitting Physician Joel Ellison DO Consult Allergies and Home Medications Allergies Coded Allergies: Penicillins (Verified Allergy, Severe, PT HAS RECEIVED CEFEPIME & ROCEPHIN W/O ISSUE, 12/21/15) Shellfish (Verified Allergy, Unknown, 12/21/15) temazepam (Verified Adverse Reaction, Mild, PATIENT TAKES LORAZEPAM, ) VERY BAD DREAMS Home Medications Antiox#10/Om3/Dha/Epa/Lut/Zeax 1 Each Capsule, 1 CAP PO DAILY, (Reported) Atorvastatin Calcium 10 Mg Tablet, 10 MG PO HS, (Reported) Digoxin 125 Mcg Tablet, 125 MCG PO DAILY, (Reported) Gabapentin 300 Mg Capsule, 300 MG PO TID PRN for LEG TWITCHES, (Reported) Glucosam/Chond/Hyalu/Cf Borate 1 Each Tablet, 1 TAB PO DAILY, (Reported) Levothyroxine Sodium 75 Mcg Tablet, 75 MCG PO DAILY, (Reported) Lorazepam 1 Mg Tablet, 1 MG PO BID PRN for ANXIETY, (Reported) Omeprazole 20 Mg Capsule.dr, 20 MG PO DAILY, (Reported) Ondansetron HCl 4 Mg Tablet, 4 MG PO TID PRN for NAUSEA/VOMITING-1ST LINE, ( Reported) Potassium Citrate 10 Meq Tablet.er, 10 MEQ PO BID, (Reported) Quetiapine Fumarate 200 Mg Tablet, 200 MG PO HS, (Reported) Tamsulosin HCl 0.4 Mg Cap, 0.4 MG PO DAILY, (Reported) Venlafaxine HCl 150 Mg Cap.er.24h, 150 MG PO DAILY, (Reported) Past Xpcajpo-Gxjrkt-Ymlyee Hx Patient Social History Alcohol Use: Denies Use Recreational Drug Use: No Smoking Status: Never a Smoker Physical Abuse Screen: No Sexual Abuse: No Recent Foreign Travel: No Contact w/other who traveled: No Recent Hopitalizations: No Recent Infectious Disease Expo: No Immunizations Up To Date Tetanus Booster (TDap): More than 5yrs Date of Pneumonia Vaccine: Jan 29, 2015 Date of Influenza Vaccine: Apr 10, 2016 Seasonal Allergies Seasonal Allergies: No Surgeries HX Surgeries: Yes Surgeries: Gallbladder, Orthopedic Respiratory Hx Respiratory Disorders: Yes Respiratory Disorders: Pneumonia Cardiovascular Hx Cardiovascular Disorders: Yes Cardiac Disorders: Atrial Fibrillation, Hypertension, Hypotension Neurological Hx Neurological Disorders: Yes Neurological Disorders: Dementia Reproductive System Hx Reproductive Disorders: No Sexually Transmitted Disease: No HIV/AIDS: No Genitourinary Hx Genitourinary Disorders: Yes (ONLY HAVE LEFT KIDNEY, erectile dysfunction) Genitourinary Disorders: Kidney Stones, Renal Failure Gastrointestinal Hx Gastrointestinal Disorders: Yes Gastrointestinal Disorders: Chronic Constipation, Pancreatitis Musculoskeletal Hx Musculoskeletal Disorders: Yes Musculoskeletal Disorders: Osteoporosis, Chronic Back Pain, Fractures Endocrine Hx Endocrine Disorders: Yes Endocrine Disorders: Hypothyroidsim HEENT HX ENT Disorders: Yes Loss of Vision: Denies Hearing Impairment: Denies Cancer Hx Cancer: No Psychosocial Hx Psychiatric Problems: Yes Behavioral Health Disorders: Anxiety, Depression Integumentary HX Skin/Integumentary Disorder: No Blood Transfusions Hx Blood Disorders: No Adverse Reaction to a Blood Tr: No Reviewed Nursing Assessment Reviewed/Agree w Nursing PMH: Yes Family Medical History Significant Family History: No Pertinent Family Hx Family Hx: FH: stroke G8 SISTER, Onset:75 Constitutional: malaise, weakness EENTM: no symptoms reported Respiratory: no symptoms reported Cardiovascular: no symptoms reported Gastrointestinal: no symptoms reported Genitourinary: no symptoms reported Physical Exam Vital Signs Vital Sign - Last 12Hours 01/02/17 13:38 Temp 97.8 Pulse 71 Resp 18 B/P (MAP) 100/67 Pulse Ox 97 O2 Delivery Nasal Cannula O2 Flow Rate 2.00 Capillary Refill : Less Than 3 Seconds General Appearance: No Apparent Distress, WD/WN Eyes: Bilateral Eye Normal Inspection HEENT: Normal ENT Inspection Neck: Full Range of Motion, Normal Inspection Respiratory: Chest Non Tender, Lungs Clear, Normal Breath Sounds, No Accessory Muscle Use, No Respiratory Distress Cardiovascular: Regular Rate, Rhythm, No Murmur Gastrointestinal: Non Tender, Soft Assessment/Plan Assessment and Plan altered mental status. Syncope. Elevated lactic acid. Dementia. Hypotension. Pneumonia. Psychiatric problems. Hyperlipidemia Problems: Clinical Quality Measures DVT/VTE Risk/Contraindication: Risk Factor Score Per Nursin RFS Level Per Nursing on Admit: 2=Moderate JOEL ELLISON DO Jan 03, 2017 07:52
[2017-01-03] MEDS ORDERED: GABAPENTIN 300 MG (NEURONTIN) CAP PO PRN (08:00)
[2017-01-03] MEDS ORDERED: LORazepam 1 MG (ATIVAN) TAB PO PRN (08:00)
--- NOTE | 2017-01-03 08:04 | Pulmonary Consultation ---
History of Present Illness History of Present Illness Date of Consultation 01/03/17 07:56 Date of Admission History of Present Illness 81yo with hx of dementia presented to ED via EMS secondary to worsening confusion, n/v, weakness, and syncope upon standing from chair. Zofran was given via EMS which helped. Pt was hypotensive in ED with SBP 80's. No fever, diarrhea, or SOB. I am consulted for ICU management. Pt has lost 20-30 lbs over 6mo and is progressively becoming weaker. Allergies and Home Medications Allergies Coded Allergies: Penicillins (Verified Allergy, Severe, PT HAS RECEIVED CEFEPIME & ROCEPHIN W/O ISSUE, 12/21/15) temazepam (Verified Adverse Reaction, Mild, PATIENT TAKES LORAZEPAM, ) VERY BAD DREAMS Home Medications Antiox#10/Om3/Dha/Epa/Lut/Zeax 1 Each Capsule, 1 CAP PO DAILY, (Reported) Atorvastatin Calcium 10 Mg Tablet, 10 MG PO HS, (Reported) Digoxin 125 Mcg Tablet, 125 MCG PO DAILY, (Reported) Gabapentin 300 Mg Capsule, 300 MG PO TID PRN for LEG TWITCHES, (Reported) Glucosam/Chond/Hyalu/Cf Borate 1 Each Tablet, 1 TAB PO DAILY, (Reported) Levothyroxine Sodium 75 Mcg Tablet, 75 MCG PO DAILY, (Reported) Lorazepam 1 Mg Tablet, 1 MG PO BID PRN for ANXIETY, (Reported) Omeprazole 20 Mg Capsule.dr, 20 MG PO DAILY, (Reported) Ondansetron HCl 4 Mg Tablet, 4 MG PO TID PRN for NAUSEA/VOMITING-1ST LINE, ( Reported) Potassium Citrate 10 Meq Tablet.er, 10 MEQ PO BID, (Reported) Quetiapine Fumarate 200 Mg Tablet, 200 MG PO HS, (Reported) Tamsulosin HCl 0.4 Mg Cap, 0.4 MG PO DAILY, (Reported) Venlafaxine HCl 150 Mg Cap.er.24h, 150 MG PO DAILY, (Reported) Past Aeycqyu-Ymjuhd-Oyfwyq Hx Patient Social History Alcohol Use: Denies Use Recreational Drug Use: No Smoking Status: Never a Smoker Recent Foreign Travel: No Contact w/Someone Who Travel: No Recent Infectious Disease Expo: No Recent Hopitalizations: No Physical Abuse Screen: No Sexual Abuse: No Immunizations Up To Date Tetanus Booster (TDap): More than 5yrs PED Vaccines UTD: No Date of Pneumonia Vaccine: Jan 29, 2015 Date of Influenza Vaccine: Apr 10, 2016 Seasonal Allergies Seasonal Allergies: No Surgeries HX Surgeries: Yes Surgeries: Gallbladder, Orthopedic Respiratory Hx Respiratory Disorders: Yes Respiratory Disorders: Pneumonia, Sleep Apnea, COPD Cardiovascular Hx Cardiac Disorders: Yes Cardiac Disorders: Atrial Fibrillation, Hypertension, Hypotension Neurological Hx Neurological Disorders: Yes Neurological Disorders: Dementia Reproductive System Hx Reproductive Disorders: No Sexually Transmitted Disease: No HIV/AIDS: No Genitourinary Hx Genitourinary Disorders: Yes (ONLY HAVE LEFT KIDNEY, erectile dysfunction) Genitourinary Disorders: Kidney Stones, Renal Failure Gastrointestinal Hx Gastrointestinal Disorders: Yes Gastrointestinal Disorders: Chronic Constipation, Pancreatitis Musculoskeletal Hx Musculoskeletal Disorders: Yes Musculoskeletal Disorders: Osteoporosis, Chronic Back Pain, Fractures Endocrine Hx Endocrine Disorders: Yes Endocrine Disorders: Hypothyroidsim HEENT HX ENT Disorders: Yes Loss of Vision: Denies Hearing Impairment: Denies Cancer Hx Cancer: No Psychosocial Hx Psychiatric Problems: Yes Behavioral Health Disorders: Anxiety, Depression Integumentary HX Skin/Integumentary Disorder: No Blood Transfusions Hx Blood Disorders: No Adverse Reaction to a Blood Tr: No Reviewed Nursing Assessment Reviewed/Agree w Nursing PMH: Yes Family Medical History Significant Family History: No Pertinent Family Hx Family Medial History: FH: stroke G8 SISTER, Onset:77 Exam Exam Vital Signs Date Time Temp Pulse Resp B/P (MAP) Pulse Ox O2 Delivery O2 Flow Rate FiO2 01/03/17 06:00 66 14 122/74 97 Nasal Cannula 2.00 01/03/17 05:00 72 11 122/72 98 Nasal Cannula 2.00 01/03/17 04:00 99 Nasal Cannula 2.00 01/03/17 04:00 97.1 71 9 121/68 96 Nasal Cannula 2.00 01/03/17 03:00 89 16 138/71 97 Nasal Cannula 2.00 01/03/17 02:00 81 19 126/83 92 Nasal Cannula 2.00 01/03/17 01:00 30 01/03/17 01:00 61 11 112/63 100 Nasal Cannula 2.00 01/03/17 00:00 99 Nasal Cannula 2.00 01/03/17 00:00 97.4 68 15 121/72 97 Nasal Cannula 2.00 01/02/17 23:00 73 14 109/69 96 Nasal Cannula 2.00 01/02/17 22:00 71 8 98/61 95 Nasal Cannula 2.00 01/02/17 21:00 76 11 99/55 97 Nasal Cannula 2.00 01/02/17 20:00 93 Nasal Cannula 2.00 01/02/17 20:00 97.3 76 17 106/64 91 Nasal Cannula 2.00 01/02/17 19:37 98 01/02/17 19:37 Nasal Cannula 2.00 01/02/17 19:00 57 12 109/58 99 Nasal Cannula 2.00 01/02/17 19:00 57 01/02/17 18:00 58 9 110/78 99 Nasal Cannula 2.00 01/02/17 17:45 62 12 107/71 98 Nasal Cannula 2.00 01/02/17 17:30 61 11 91/67 97 Nasal Cannula 2.00 01/02/17 17:15 62 10 99/68 100 Nasal Cannula 2.00 01/02/17 17:05 Nasal Cannula 2.00 01/02/17 17:00 62 10 99/74 100 Nasal Cannula 2.00 01/02/17 16:45 97.4 64 10 111/57 97 Nasal Cannula 2.00 01/02/17 16:14 66 18 100 Nasal Cannula 2.00 01/02/17 13:38 97 Nasal Cannula 2.00 01/02/17 13:38 97.8 71 18 100/67 97 I & O 01/03/17 07:00 Intake Total 4586 ml Output Total 1550 ml Balance 3036 ml General Appearance: No Apparent Distress, WD/WN HEENT: Normal ENT Inspection Neck: Full Range of Motion, Normal Inspection Respiratory: Chest Non Tender, Lungs Clear, Normal Breath Sounds, No Accessory Muscle Use, No Respiratory Distress Cardiovascular: Regular Rate, Rhythm, No Murmur Capillary Refill: Less Than 3 Seconds Peripheral Pulses: 2+ Dorsalis Pedis (R), 2+ Left Dors-Pedis (L), 2+ Radial Pulses (R), 2+ Radial Pulses (L) Extremity: Normal Capillary Refill, Normal Inspection, Normal Range of Motion, Non Tender Neurologic/Psychiatric: Alert, Normal Mood/Affect, Other (underlying dementia but at baseline.) Results Lab Laboratory Tests 01/02/17 13:50 01/03/17 04:08 Assessment/Plan Assessment/Plan -Dehydration -IVF -Poor IV access upon admission so central line placed -RML infiltration - PNA 10/23 -Check CT with contrast r/o mass -PT is a never smoker -Weakness/debility -PT/OT Hypothyroid -Increase Synthroid to 125mcg -check T4,T3 255 60min spent with patient and medical team discussing current medical condition. Clinical Quality Measures DVT/VTE Risk/Contraindication: Risk Factor Score Per Nursin RFS Level Per Nursing on Admit: 2=Moderate JERRY RODRIGUEZ DO Jan 03, 2017 08:04
[2017-01-03 08:49] LABS: AMYLASE 48 U/L (25-125); LIPASE 10 U/L (8-78)
[2017-01-03] MEDS ORDERED: LEVOTHYROXINE 75 MCG (LEVOTHROID) TABLET PO SCH (09:00)
[2017-01-03] MEDS ORDERED: POTASSIUM CITRATE 10 MEQ (UROCIT-K) NON-FORMULARY PO SCH (09:00)
[2017-01-03] MEDS ORDERED: LEVOFLOXACIN 750 MG/D5W 150 ML PRE-MIX IV SCH (09:00)
[2017-01-03] MEDS: DIGOXIN 0.125 MG (LANOXIN) TAB PO SCH (09:22)
[2017-01-03] MEDS: LEVOTHYROXINE 125 MCG (LEVOTHROID) TABLET PO SCH (09:22)
[2017-01-03] MEDS: ENOXAPARIN 40 MG/0.4 ML (LOVENOX) SYR SC SCH (09:22)
--- NOTE | 2017-01-03 09:44 | Diagnostic Imaging Report ---
EXAMINATION: Portable upright radiograph of the chest. INDICATION: Dyspnea. FINDINGS: The lungs demonstrate slight interstitial thickening, similar to the prior exams. There is subsegmental right suprahilar infiltrate or atelectasis. The left lung is clear of airspace opacity. No effusion or pneumothorax. The mediastinum and isela appear unremarkable. There is a right internal jugular line with the tip at the SVC level. IMPRESSION: Mild right suprahilar subsegmental infiltrate or atelectasis. Dictated by: Dictated on workstation # [id number]
--- NOTE | 2017-01-03 09:49 | Consultation ---
History of Present Illness History of Present Illness Patient Consulted On(bi/time) 01/02/17 18:44 Date Seen by Provider: Jan 02, 2017 Time Seen by Provider: 18:44 History of Present Illness Consult requested by Dr. Salguero for central line placement. Late entry due to computer system being down. Patient is a 81-year-old male admitted for possible pneumonia and questionable sepsis. Patient with some slight confusion and fainting spell. Patient has had multiple x-rays demonstrating pneumonia. The patient blood pressure was in the 80s and low 90s systolic and was asked to place central line. Patient notes that he is had weight loss over the last 6 months. He states that he had colonoscopy approximately 7 years ago and he has had multiple polyps every time he's had a scope. Patient denies any nausea vomiting fever sweats chills chest pain abdominal pain at this time. Allergies and Home Medications Allergies Coded Allergies: Penicillins (Verified Allergy, Severe, PT HAS RECEIVED CEFEPIME & ROCEPHIN W/O ISSUE, 12/21/15) temazepam (Verified Adverse Reaction, Mild, PATIENT TAKES LORAZEPAM, ) VERY BAD DREAMS Home Medications Antiox#10/Om3/Dha/Epa/Lut/Zeax 1 Each Capsule, 1 CAP PO DAILY, (Reported) Atorvastatin Calcium 10 Mg Tablet, 10 MG PO HS, (Reported) Digoxin 125 Mcg Tablet, 125 MCG PO DAILY, (Reported) Gabapentin 300 Mg Capsule, 300 MG PO TID PRN for LEG TWITCHES, (Reported) Glucosam/Chond/Hyalu/Cf Borate 1 Each Tablet, 1 TAB PO DAILY, (Reported) Levothyroxine Sodium 75 Mcg Tablet, 75 MCG PO DAILY, (Reported) Lorazepam 1 Mg Tablet, 1 MG PO BID PRN for ANXIETY, (Reported) Omeprazole 20 Mg Capsule.dr, 20 MG PO DAILY, (Reported) Ondansetron HCl 4 Mg Tablet, 4 MG PO TID PRN for NAUSEA/VOMITING-1ST LINE, ( Reported) Potassium Citrate 10 Meq Tablet.er, 10 MEQ PO BID, (Reported) Quetiapine Fumarate 200 Mg Tablet, 200 MG PO HS, (Reported) Tamsulosin HCl 0.4 Mg Cap, 0.4 MG PO DAILY, (Reported) Venlafaxine HCl 150 Mg Cap.er.24h, 150 MG PO DAILY, (Reported) Past Xlonhoy-[place]tquau-Yysjeq Hx Patient Social History Alcohol Use: Denies Use Recreational Drug Use: No Smoking Status: Never a Smoker Recent Foreign Travel: No Contact w/Someone Who Travel: No Recent Infectious Disease Expo: No Recent Hopitalizations: No Physical Abuse Screen: No Sexual Abuse: No Immunizations Up To Date Tetanus Booster (TDap): More than 5yrs PED Vaccines UTD: No Date of Pneumonia Vaccine: Jan 29, 2015 Date of Influenza Vaccine: Apr 10, 2016 Seasonal Allergies Seasonal Allergies: No Surgeries HX Surgeries: Yes Surgeries: Gallbladder, Orthopedic Respiratory Hx Respiratory Disorders: Yes Respiratory Disorders: Pneumonia, Sleep Apnea, COPD Cardiovascular Hx Cardiac Disorders: Yes Cardiac Disorders: Atrial Fibrillation, Hypertension, Hypotension Neurological Hx Neurological Disorders: Yes Neurological Disorders: Dementia Reproductive System Hx Reproductive Disorders: No Sexually Transmitted Disease: No HIV/AIDS: No Genitourinary Hx Genitourinary Disorders: Yes (ONLY HAVE LEFT KIDNEY, erectile dysfunction) Genitourinary Disorders: Kidney Stones, Renal Failure Gastrointestinal Hx Gastrointestinal Disorders: Yes Gastrointestinal Disorders: Chronic Constipation, Pancreatitis Musculoskeletal Hx Musculoskeletal Disorders: Yes Musculoskeletal Disorders: Osteoporosis, Chronic Back Pain, Fractures Endocrine Hx Endocrine Disorders: Yes Endocrine Disorders: Hypothyroidsim HEENT HX ENT Disorders: Yes Loss of Vision: Denies Hearing Impairment: Denies Cancer Hx Cancer: No Psychosocial Hx Psychiatric Problems: Yes Behavioral Health Disorders: Anxiety, Depression Integumentary HX Skin/Integumentary Disorder: No Blood Transfusions Hx Blood Disorders: No Adverse Reaction to a Blood Tr: No Reviewed Nursing Assessment Reviewed/Agree w Nursing PMH: Yes Family Medical History Significant Family History: No Pertinent Family Hx Family Medial History: FH: stroke G8 SISTER, Onset:77 Review of Systems-General Constitutional: weight loss EENTM: no symptoms reported Respiratory: short of breath Cardiovascular: no symptoms reported Gastrointestinal: no symptoms reported, No abdominal pain Genitourinary: no symptoms reported Musculoskeletal: no symptoms reported Skin: no symptoms reported Psychiatric/Neurological: No Symptoms Reported Physical Exam-General Problems Physical Exam Vital Signs Vital Sign - Last 12Hours 01/02/17 13:38 Temp 97.8 Pulse 71 Resp 18 B/P (MAP) 100/67 Pulse Ox 97 O2 Delivery Nasal Cannula O2 Flow Rate 2.00 Capillary Refill : Less Than 3 Seconds General Appearance: no apparent distress HEENT: PERRL/EOMI, normal ENT inspection Neck: full range of motion, supple Respiratory: no respiratory distress, no accessory muscle use Cardiovascular: regular rate, rhythm Gastrointestinal: non tender, soft, no organomegaly Rectal: deferred Back: normal inspection Extremities: non-tender Neurologic/Psychiatric: woodwind reeds cutter II-XII nml as tested, alert, normal mood/affect, oriented x 3 Skin: warm/dry Data Review Labs Laboratory Tests 01/02/17 13:50: White Blood Count 10.3, Red Blood Count 4.27L, Hemoglobin 13.2L, Hematocrit 39L , Mean Corpuscular Volume 91, Mean Corpuscular Hemoglobin 31, Mean Corpuscular Hemoglobin Concent 34, Red Cell Distribution Width 13.9, Platelet Count 237, Mean Platelet Volume 9.6, Neutrophils (%) (Auto) 49, Lymphocytes (%) (Auto) 33, Monocytes (%) (Auto) 15H, Eosinophils (%) (Auto) 3, Basophils (%) (Auto) 1, Neutrophils # (Auto) 5.0, Lymphocytes # (Auto) 3.4, Monocytes # (Auto) 1.6H, Eosinophils # (Auto) 0.3, Basophils # (Auto) 0.1, Prothrombin Time 15.3H, INR Comment 1.2, Activated Partial Thromboplast Time 30, Sodium Level 140, Potassium Level 3.3L, Chloride Level 108H, Carbon Dioxide Level 23, Anion Gap 9 , Blood Urea Nitrogen 12, Creatinine 1.16, Estimat Glomerular Filtration Rate > 60, BUN/Creatinine Ratio 10, Glucose Level 111H, Lactic Acid Level 2.52*H, Calcium Level 8.1L, Total Bilirubin 0.9, Aspartate Amino Transf (AST/SGOT) 34, Alanine Aminotransferase (ALT/SGPT) 38, Alkaline Phosphatase 94, Troponin I < 0.30, Total Protein 5.5L, Albumin 3.0L, Thyroid Stimulating Hormone (TSH) 7.02H , Digoxin Level 0.45L 01/02/17 13:55: Urine Color YELLOW, Urine Clarity CLEAR, Urine pH 8, Urine Specific [place] 1.015L, Urine Protein 2+H, Urine Glucose (UA) NEGATIVE, Urine Ketones NEGATIVE, Urine Nitrite NEGATIVE, Urine Bilirubin NEGATIVE, Urine Urobilinogen 8H, Urine Leukocyte Esterase 1+H, Urine RBC (Auto) NEGATIVE, Urine RBC NONE, Urine WBC 0-2 , Urine Squamous Epithelial Cells 0-2, Urine Crystals PRESENTH, Urine Amorphous Sediment FEW CHIOMA PHOSPHATEH, Urine Bacteria NEGATIVE, Urine Casts NONE, Urine Mucus SMALLH, Urine Culture Indicated NO 01/02/17 15:55: Lactic Acid Level 1.21 01/02/17 19:29: Glucometer 82 01/02/17 20:55: Lactic Acid Level 0.98 01/03/17 00:24: Glucometer 87 01/03/17 04:08: Lactic Acid Level 0.66, White Blood Count 9.4, Red Blood Count 4.10L, Hemoglobin 12.6L, Hematocrit 38L, Mean Corpuscular Volume 93, Mean Corpuscular Hemoglobin 31, Mean Corpuscular Hemoglobin Concent 33, Red Cell Distribution Width 14.5, Platelet Count 216, Mean Platelet Volume 10.0, Neutrophils (%) (Auto ) 61, Lymphocytes (%) (Auto) 21, Monocytes (%) (Auto) 15H, Eosinophils (%) (Auto ) 3, Basophils (%) (Auto) 0, Neutrophils # (Auto) 5.8, Lymphocytes # (Auto) 2.0 , Monocytes # (Auto) 1.4H, Eosinophils # (Auto) 0.3, Basophils # (Auto) 0.0, Prothrombin Time 15.7H, INR Comment 1.3, Activated Partial Thromboplast Time 35 , Blood Gas Puncture Site R RAD, Blood Gas Patient Temperature 97.1, Arterial Blood pH 7.37, Arterial Blood Partial Pressure CO2 36, Arterial Blood Partial Pressure O2 139H, Arterial Blood HCO3 21L, Arterial Blood Total CO2 21.6, Arterial Blood Oxygen Saturation 99, Arterial Blood Base Excess -4.1L, Scar Test YES-POS, Blood Gas Ventilator Setting NO, Blood Gas Inspired Oxygen 2L, Sodium Level 143, Potassium Level 3.9, Chloride Level 114H, Carbon Dioxide Level 22, Anion Gap 7, Blood Urea Nitrogen 10, Creatinine 0.87, Estimat Glomerular Filtration Rate > 60, BUN/Creatinine Ratio 11, Glucose Level 98, Calcium Level 8.0L, Phosphorus Level 3.7, Magnesium Level 1.7L, Total Bilirubin 1.2H, Aspartate Amino Transf (AST/SGOT) 29, Alanine Aminotransferase (ALT/SGPT) 33, Alkaline Phosphatase 86, Total Protein 5.5L, Albumin 2.8L, Amylase Level 48 , Lipase 10 01/03/17 09:30: Assessment/Plan Assessment/Plan Assessment/Plan pneumonia right lung hypotension likely secondary to dehydration poor venous access weight loss history of colon polyps asked to place central line, discussed risk and benefits of central line placement with u/s guidance understands risks and benefits and wishes to proceed to be placed would recommend outpatient colonoscopy Clinical Quality Measures DVT/VTE Risk/Contraindication: Risk Factor Score Per Nursin RFS Level Per Nursing on Admit: 2=Moderate TYE GARCIA DO Jan 03, 2017 09:49
--- NOTE | 2017-01-03 09:58 | Progress Note ---
Subjective Date Seen by Provider: Jan 03, 2017 Time Seen by Provider: 09:56 Subjective/Events-last exam Patient with no new complaints. Central line place last night. Breathing a little easier. No cough. Patient no abdominal pain. Denies n/v fever sweats chills shortness of breath or chest pain at this time. Objective Exam Vital Signs Date Time Temp Pulse Resp B/P (MAP) Pulse Ox O2 Delivery O2 Flow Rate FiO2 01/03/17 08:52 97.6 66 7 131/73 96 Room Air 01/03/17 08:30 96 Room Air 01/03/17 07:00 69 01/03/17 06:00 66 14 122/74 97 Nasal Cannula 2.00 01/03/17 05:00 72 11 122/72 98 Nasal Cannula 2.00 01/03/17 04:00 99 Nasal Cannula 2.00 01/03/17 04:00 97.1 71 9 121/68 96 Nasal Cannula 2.00 01/03/17 03:00 89 16 138/71 97 Nasal Cannula 2.00 01/03/17 02:00 81 19 126/83 92 Nasal Cannula 2.00 01/03/17 01:00 30 01/03/17 01:00 61 11 112/63 100 Nasal Cannula 2.00 01/03/17 00:00 99 Nasal Cannula 2.00 01/03/17 00:00 97.4 68 15 121/72 97 Nasal Cannula 2.00 01/02/17 23:00 73 14 109/69 96 Nasal Cannula 2.00 01/02/17 22:00 71 8 98/61 95 Nasal Cannula 2.00 01/02/17 21:00 76 11 99/55 97 Nasal Cannula 2.00 01/02/17 20:00 93 Nasal Cannula 2.00 01/02/17 20:00 97.3 76 17 106/64 91 Nasal Cannula 2.00 01/02/17 19:37 98 01/02/17 19:37 Nasal Cannula 2.00 01/02/17 19:00 57 12 109/58 99 Nasal Cannula 2.00 01/02/17 19:00 57 01/02/17 18:00 58 9 110/78 99 Nasal Cannula 2.00 01/02/17 17:45 62 12 107/71 98 Nasal Cannula 2.00 01/02/17 17:30 61 11 91/67 97 Nasal Cannula 2.00 01/02/17 17:15 62 10 99/68 100 Nasal Cannula 2.00 01/02/17 17:05 Nasal Cannula 2.00 01/02/17 17:00 62 10 99/74 100 Nasal Cannula 2.00 01/02/17 16:45 97.4 64 10 111/57 97 Nasal Cannula 2.00 01/02/17 16:14 66 18 100 Nasal Cannula 2.00 01/02/17 13:38 97 Nasal Cannula 2.00 01/02/17 13:38 97.8 71 18 100/67 97 I & O 01/03/17 07:00 Intake Total 4586 ml Output Total 1550 ml Balance 3036 ml Capillary Refill : Less Than 3 Seconds General Appearance: No Apparent Distress, WD/WN HEENT: Normal ENT Inspection Neck: Full Range of Motion, Normal Inspection Respiratory: Chest Non Tender, No Accessory Muscle Use, No Respiratory Distress Cardiovascular: Regular Rate, Rhythm Peripheral Pulses: 2+ Dorsalis Pedis (R), 2+ Left Dors-Pedis (L), 2+ Radial Pulses (R), 2+ Radial Pulses (L) Gastrointestinal: non tender, soft, no organomegaly Extremity: Normal Inspection, Non Tender Neurologic/Psychiatric: Alert, Normal Mood/Affect Skin: Warm/Dry Results Lab Laboratory Tests 01/02/17 13:50: White Blood Count 10.3, Red Blood Count 4.27L, Hemoglobin 13.2L, Hematocrit 39L , Mean Corpuscular Volume 91, Mean Corpuscular Hemoglobin 31, Mean Corpuscular Hemoglobin Concent 34, Red Cell Distribution Width 13.9, Platelet Count 237, Mean Platelet Volume 9.6, Neutrophils (%) (Auto) 49, Lymphocytes (%) (Auto) 33, Monocytes (%) (Auto) 15H, Eosinophils (%) (Auto) 3, Basophils (%) (Auto) 1, Neutrophils # (Auto) 5.0, Lymphocytes # (Auto) 3.4, Monocytes # (Auto) 1.6H, Eosinophils # (Auto) 0.3, Basophils # (Auto) 0.1, Prothrombin Time 15.3H, INR Comment 1.2, Activated Partial Thromboplast Time 30, Sodium Level 140, Potassium Level 3.3L, Chloride Level 108H, Carbon Dioxide Level 23, Anion Gap 9 , Blood Urea Nitrogen 12, Creatinine 1.16, Estimat Glomerular Filtration Rate > 60, BUN/Creatinine Ratio 10, Glucose Level 111H, Lactic Acid Level 2.52*H, Calcium Level 8.1L, Total Bilirubin 0.9, Aspartate Amino Transf (AST/SGOT) 34, Alanine Aminotransferase (ALT/SGPT) 38, Alkaline Phosphatase 94, Troponin I < 0.30, Total Protein 5.5L, Albumin 3.0L, Thyroid Stimulating Hormone (TSH) 7.02H , Digoxin Level 0.45L 01/02/17 13:55: Urine Color YELLOW, Urine Clarity CLEAR, Urine pH 8, Urine Specific [place] 1.015L, Urine Protein 2+H, Urine Glucose (UA) NEGATIVE, Urine Ketones NEGATIVE, Urine Nitrite NEGATIVE, Urine Bilirubin NEGATIVE, Urine Urobilinogen 8H, Urine Leukocyte Esterase 1+H, Urine RBC (Auto) NEGATIVE, Urine RBC NONE, Urine WBC 0-2 , Urine Squamous Epithelial Cells 0-2, Urine Crystals PRESENTH, Urine Amorphous Sediment FEW CHIOMA PHOSPHATEH, Urine Bacteria NEGATIVE, Urine Casts NONE, Urine Mucus SMALLH, Urine Culture Indicated NO 01/02/17 15:55: Lactic Acid Level 1.21 01/02/17 19:29: Glucometer 82 01/02/17 20:55: Lactic Acid Level 0.98 01/03/17 00:24: Glucometer 87 01/03/17 04:08: Lactic Acid Level 0.66, White Blood Count 9.4, Red Blood Count 4.10L, Hemoglobin 12.6L, Hematocrit 38L, Mean Corpuscular Volume 93, Mean Corpuscular Hemoglobin 31, Mean Corpuscular Hemoglobin Concent 33, Red Cell Distribution Width 14.5, Platelet Count 216, Mean Platelet Volume 10.0, Neutrophils (%) (Auto ) 61, Lymphocytes (%) (Auto) 21, Monocytes (%) (Auto) 15H, Eosinophils (%) (Auto ) 3, Basophils (%) (Auto) 0, Neutrophils # (Auto) 5.8, Lymphocytes # (Auto) 2.0 , Monocytes # (Auto) 1.4H, Eosinophils # (Auto) 0.3, Basophils # (Auto) 0.0, Prothrombin Time 15.7H, INR Comment 1.3, Activated Partial Thromboplast Time 35 , Blood Gas Puncture Site R RAD, Blood Gas Patient Temperature 97.1, Arterial Blood pH 7.37, Arterial Blood Partial Pressure CO2 36, Arterial Blood Partial Pressure O2 139H, Arterial Blood HCO3 21L, Arterial Blood Total CO2 21.6, Arterial Blood Oxygen Saturation 99, Arterial Blood Base Excess -4.1L, Scar Test YES-POS, Blood Gas Ventilator Setting NO, Blood Gas Inspired Oxygen 2L, Sodium Level 143, Potassium Level 3.9, Chloride Level 114H, Carbon Dioxide Level 22, Anion Gap 7, Blood Urea Nitrogen 10, Creatinine 0.87, Estimat Glomerular Filtration Rate > 60, BUN/Creatinine Ratio 11, Glucose Level 98, Calcium Level 8.0L, Phosphorus Level 3.7, Magnesium Level 1.7L, Total Bilirubin 1.2H, Aspartate Amino Transf (AST/SGOT) 29, Alanine Aminotransferase (ALT/SGPT) 33, Alkaline Phosphatase 86, Total Protein 5.5L, Albumin 2.8L, Amylase Level 48 , Lipase 10 01/03/17 09:30: Assessment/Plan Assessment/Plan Assessment/Plan pneumonia right lung hypotension likely secondary to dehydration poor venous access weight loss history of colon polyps central line okay and functioning would recommend outpatient colonoscopy will sign off at this time call if needed. Clinical Quality Measures DVT/VTE Risk/Contraindication: Risk Factor Score Per Nursin RFS Level Per Nursing on Admit: 2=Moderate TYE GARCIA DO Jan 03, 2017 09:58
[2017-01-03] MEDS ORDERED: PATIENT MAY USE OWN MED,SINGLE MED PO SCH (10:15)
[2017-01-03] MEDS ORDERED: ONDANSETRON 4 MG/2 ML (SDV) Z0FRAN IVP PRN (10:30)
--- NOTE | 2017-01-03 11:37 | Physical Therapy Evaluation ---
PT Evaluation-General Medical Diagnosis Admission Date Jan 02, 2017 at 15:50 Medical Diagnosis: Dehydration, AMS Onset Date: Jan 02, 2017 Therapy Diagnosis Therapy Diagnosis: decreased mobility Height/Weight Height (Feet): 5 Height (Inches): 10.00 Weight (Pounds): 184 Weight (Ounces): 1.6 Precautions Precautions/Isolations: Fall Prevention, Standard Precautions Referral Physician: Kiki Reason for Referral: Evaluation/Treatment Medical History Pertinent Medical History: Atrial Fib, Arthritis, Dementia, HTN, Hypothroidism , OA, Renal Insufficiency Additional Medical History mental illness, osteoporosis, chronic back pain Current History Presented to ER via EMS due to weakness, confusion, AMS Reviewed History: Yes Social History Home: Single Level Current Living Status: Significant Other Prior/Core FIM Prior Level of Function Functional [place] Measure 0=Not Assessed/NA 4=Minimal Assistance 1=Total Assistance 5=Supervision or Setup 2=Maximal Assistance 6=Modified [place] 3=Moderate Assistance 7=Complete [place] Bed Mobility: 6 Transfers (B,C,W/C) (FIM): 6 Gait: 5 Locomotion: 5 (limited to household ambulation) PT Evaluation-Current Subjective Pt. in bed and agrees to therapy. He denies pain. Pt/Family Goals home with SO Objective Patient Orientation: Person, Place, Time, Situation Attachments: Central Line, Ibanez Catheter ROM/Strength ROM Upper Extremities WFL ROM Lower Extremities WFL Strength Upper Extremities WFL Strenght Lower Extremities Grossly 4/5 (B) Integumentary/Posture Integumentary see nursing notes Bowel Incontinence: No Bladder Incontinence: Ibanez Cath Posture generally upright standing posture Neuromuscular (Tone, Coordination, Reflexes) unremarkable Sensory Vision: Functional Hearing: Functional Sensation Right Upper Extremit: Intact Sensation Left Upper Extremity: Intact Sensation Right Lower Extremit: Intact Sensation Left Lower Extremity: Intact Transfers Functional [place] Measure 0=Not Assessed/NA 4=Minimal Assistance 1=Total Assistance 5=Supervision or Setup 2=Maximal Assistance 6=Modified [place] 3=Moderate Assistance 7=Complete [place] Transfers (B, C, W/C) (FIM): 4 Supine to/from Sit: 4 Sit to/from Stand: 4 (CGA) Gait Anticipated Mode of Locomotion: Walk Distance (FIM): 0=does not occure Comments/Gait Description pt. declined ambulation at this time Balance Sitting Static: Good Sitting Dynamic: Good Standing Static: Good Standing Dynamic: Fair Assessment/Needs Pt. is a 81 y.o. male who presented to ED with AMS, dehydration. Pt. stood at EOB with therapy requiring min A with supine to/from sit and CGA sit to stand. Pt. was steady with standing using a FWW, completed sidestepping to HOB with CGA. Pt. returned to supine position post session, all needs met. Pt. will benefit from skilled PT to progress mobility and strength to return to prior level of function of mod (I) with household mobility using a FWW. Rehab Potential: Good PT Accounts Payable Payroll Coordinator Goals Accounts Payable Payroll Coordinator Goals PT Accounts Payable Payroll Coordinator Goals Time Frame: Jan 12, 2017 Transfers (B,C,W/C) (FIM): 6 Gait (FIM): 5 Gait distance (FIM): 8=435-35 ft Distance: 50-100 ft Gait Level of Assist: 6 Gait Assistive Device: FWW PT Plan Problem List Problem List: Activity Tolerance, Functional Strength, Safety, Balance, Gait, Transfer, Bed Mobility, ROM Treatment/Plan Treatment Plan: Continue Plan of Care Treatment Plan: Bed Mobility, Education, Functional Activity Silvio, Functional Strength, Gait, Safety, Therapeutic Exercise, Transfers Treatment Duration: Jan 12, 2017 # of days/week 6 Visits Per Week: 6 Pt/Family Agrees w/Plan: Yes Time/GCodes Time In: 1100 Time Out: 1125 Total Billed Treatment Time: 25 Total Billed Treatment 1, ANDREI [address]' [address] PT Jan 03, 2017 11:37
--- NOTE | 2017-01-03 14:07 | Occupational Therapy Eval ---
OT Evaluation-General/PLF Medical Diagnosis Admission Date Jan 02, 2017 at 15:50 Medical Diagnosis: Dehydration, AMS Onset Date: Jan 02, 2017 Therapy Diagnosis Therapy Diagnosis: decreased self care skills Height/Weight Height (Feet): 5 Height (Inches): 10.00 Weight (Pounds): 184 Weight (Ounces): 1.6 Precautions Precautions/Isolations: Fall Prevention, Standard Precautions Safety Interventions: None Referral Physician: Kiki Medical History Pertinent Medical History: Atrial Fib, Arthritis, Dementia, HTN, Hypothroidism , OA, Renal Insufficiency Additional Medical History chronic constipation, only has left kidney, chronic back pain, anxiety, depression, sleep apnea, COPD, osteoporosis. Reviewed History: Yes Social History Home: Single Level Current Living Status: Significant Other Entry Into Home: Stairs With Railing Steps Into Home: 2 ADL-Prior Level of Function ADL PLOF Comments Pt reports minimal activity level. Uses FWW for mobility. Has some assist for most ADLs. DME/Equipment: Bath Chair, Bedside Commode (Uses BSC over toilet), Grab Bars, Tub/Shower OT Current Status Subjective Pt agrees to therapy. Pt has no c/o pain. Mental Status/Objective Patient Orientation: Person, Place Attachments: IV Current Hand Dominance: Right Upper Extremity ROM decreased shoulder ROM Upper Extremity Coordination Fair Upper Extremity Sensation intact per pt report Upper Extremity Strength Fair ADL-Treatment ADL-Current Pt in restroom when therapist arrives. Gait to EOB with minimal assistance for balance using FWW, cues for safety and assist to steer FWW. Pt participated in UE assessment while seated EOB. Pt has good sitting balance. Pt states he would like to remain seated EOB to eat lunch, RN notified. All needs met and visitor present after session. Functional [place] Measure 0=Not Assessed/NA 4=Minimal Assistance 1=Total Assistance 5=Supervision or Setup 2=Maximal Assistance 6=Modified [place] 3=Moderate Assistance 7=Complete IndependenceIRFPAI Quality Coding Scale 6 Independent with activity with or without an assistive device 5 Patient requires set up or clean up by helper. Patient completes activity by themselves 4 Supervision or touching assist (CGA). [place] provide cues , steadying assist 3 The helper provides less than half the effort to complete the activity 2 The helper provides more than half the effort to complete the activity 1 Dependent. The helper does all the effort to complete an activity 7 Patient refused to complete or attempt activity 9 The patient did not perform the activity before the current illness or injury 88 Not attempted due to Medical conditions or safety concerns Transfers (B, C, W/C) (FIM): 4 Education OT Patient Education: Rehab process Teaching Recipient: Patient Teaching Methods: Discussion Response to Teaching: Verbalize Understanding, Reinforcement Needed OT Short Term Goals Short Term Goals 1=Demonstrate adherence to instructed precautions during ADL tasks. 2=Patient will verbalize/demonstrate understanding of assistive devices/ modifications for ADL. 3=Patient will improve strength/tolerance for activity to enable patient to perform ADL's. OT [facility] Goals Supplemental Manager Goals Time Frame: Jan 17, 2017 Eating (FIM): 5 Grooming(FIM): 5 Upper Body Dressing(FIM): 5 Lower Body Dressing(FIM): 4 Toileting(FIM): 5 Toilet/Commode Transfer(FIM): 5 Additional Goals: 1-Demonstrate ADL Tasks, 2-Verbalize Understanding, 3- ImproveStrength/Silvio 1=Demonstrate adherence to instructed precautions during ADL tasks. 2=Patient will verbalize/demonstrate understanding of assistive devices/ modifications for ADL. 3=Patient will improve strength/tolerance for activity to enable patient to perform ADL's. OT Education/Plan Problem List/Assessment Assessment: Decreased Activ Tolerance, Decreased Safety Aware, Decreased UE Strength, Dependent Transfers, Impaired Self-Care Skills Pt demonstrates decreased mobility, strength, ADL performance, and activity tolerance. Pt to benefit from skilled OT intervention for ADL training, transfers, strengthening, and home safety education to maximize level of function and allow safe discharge plan. Discharge Recommendations Plan/Recommendations: Continue POC Treatment Plan/Plan of Care Treatment,Training & Education: Yes Patient would benefit from OT for education, treatment and training to promote independence in ADL's, mobility, safety and/or upper extremity function for ADL' s. Plan of Care: ADL Retraining, Functional Mobility, UE Funct Exercise/Act Treatment Duration: Jan 17, 2017 # of days/week 5 Visits Per Week: 5 Rehab Potential: Good Time/GCodes Start Time: 13:34 Stop Time: 13:53 Total Time Billed (hr/min): 19 Billed Treatment Time 1 visit, EVL(19minutes) ANITA TOM OT Jan 03, 2017 14:07
--- NOTE | 2017-01-03 14:28 | Diagnostic Imaging Report ---
PROCEDURE: CT chest, abdomen, and pelvis without contrast. TECHNIQUE: Multiple contiguous axial images were obtained through the chest, abdomen, and pelvis without the use of intravenous contrast. INDICATION: History of PE. Study compared with abdominopelvic CT 05/22/2015. FINDINGS: Chest: Pulmonary arterial patency cannot be addressed owing to the absence of vascular contrast media. There is air trapping and features of COPD. No bronchiectasis, blebs, bullous disease or cysts. There is groundglass opacity and infiltrate in the right upper lobe suspect for pneumonia. No effusion or pneumothorax. While hilar and mediastinal evaluation is limited by the absence of vascular contrast, no convincing evidence for pathological tissue within those spaces. Few fat-containing mediastinal nodes are felt to be within normal limits. There is no pleural or pericardial effusion. There are mild atherosclerotic calcifications. No acute chest wall abnormality. Abdomen and pelvis: The unopacified liver was nonfocal and unremarkable. The adrenals are negative. The pancreas negative. There are renal calcifications nonobstructing bilaterally. There is chronic nonobstructive right renal cortical atrophy. Left-sided nephrolithiasis showed mild increase from the prior with the largest stone measuring 7 mm, previously 4 mm. The unopacified pancreas appeared nonfocal. No peripancreatic fluid collection. There are no pathological appearing abdominopelvic mesenteric or retroperitoneal lymph nodes. There is no ascites, abscess, hematoma or other fluid collection. There appears to be some fluid within the right inguinal canal. The urinary bladder catheterized limiting its evaluation. The osseous structures nonacute. IMPRESSION: 1. Chest: Infiltrate in the right upper lobe. No suspicious mass or adenopathy. No chest effusion. Chronic COPD. 2. Abdomen and pelvis: No pancreatic or hepatic abnormality. Progressive nonobstructive renal calculi with chronic right renal atrophy. No lymphadenopathy or soft tissue mass. No ascites or fluid collection. No inflammatory process or acute pathological finding. Dictated by: Dictated on workstation # [id number]
[2017-01-03] MEDS: ALFUZOSIN HCL 10 MG TAB (UROXATRAL) PO SCH (17:40)
[2017-01-03] MEDS: QUEtiapine 200 MG (SEROquel) TAB IMMEDIATE RELEASE PO SCH (20:24)
[2017-01-03] MEDS: ATORVASTATIN 10 MG (LIPITOR) TABLET PO SCH (20:24)
[2017-01-03] MEDS: POTASSIUM CITRATE 10 MEQ (UROCIT-K) NON-FORMULARY PO SCH (20:25)
[2017-01-04] VITALS (7 sets, daily range): BP systolic 102–164; BP diastolic 63–84
[2017-01-04] MEDS: NS IV 1000 ML 1,000 ML IV SCH ×2 (00:55→19:18)
[2017-01-04] MEDS: PANTOPRAZOLE 20 MG TABLET (PROTONIX) PO SCH (06:17)
[2017-01-04] MEDS: VENlafaxine XR 75 MG (EFFEXOR XR) CAP PO SCH (06:17)
[2017-01-04 06:40] LABS: BASOPHILS % (AUTO) 0 % (0-10); EOSINOPHILS # (AUTO) 0.4 10^3/uL (0.0-0.3); EOSINOPHILS % (AUTO) 6 % (0-10); LYMPHOCYTES # (AUTO) 2.3 X 10^3 (1.0-4.0); LYMPHOCYTES % (AUTO) 32 % (12-44); MEAN CORPUSCULAR HEMOGLOBIN 30 PG (25-34); MEAN CORPUSCULAR HGB CONC 33 G/DL (32-36); MEAN CORPUSCULAR VOLUME 91 FL (80-99); MEAN PLATELET VOLUME 9.5 FL (7.4-10.4); MONOCYTES # (AUTO) 1.1 X 10^3 (0.0-1.0); MONOCYTES % (AUTO) 16 % (0-12); NEUTROPHILS # (AUTO) 3.3 X 10^3 (1.8-7.8); NEUTROPHILS % (AUTO) 46 % (42-75); PLATELET COUNT 206 10^3/uL (130-400); RED BLOOD COUNT 4.11 10^6/uL (4.35-5.85); RED CELL DISTRIBUTION WIDTH 14.2 % (10.0-14.5); WHITE BLOOD COUNT 7.1 10^3/uL (4.3-11.0)
[2017-01-04 06:51] LABS: INR 1.2 (0.8-1.4); PROTHROMBIN TIME PATIENT 14.9 SEC (12.2-14.7)
[2017-01-04 07:01] LABS: ALANINE AMINOTRANSFERASE 28 U/L (0-55); ALBUMIN 2.7 GM/DL (3.2-4.5); ANION GAP 7 MMOL/L (5-14); ASPARTATE AMINO TRANSFERASE 26 U/L (5-34); BLOOD UREA NITROGEN 6 MG/DL (7-18); BUN/CREATININE RATIO 8; CALCIUM 7.7 MG/DL (8.5-10.1); CARBON DIOXIDE 21 MMOL/L (21-32); CHLORIDE 115 MMOL/L (98-107); CREATININE SERUM 0.76 MG/DL (0.60-1.30); GFR ESTIMATED > 60; GLUCOSE 100 MG/DL (70-105); MAGNESIUM 1.8 MG/DL (1.8-2.4); POTASSIUM 3.4 MMOL/L (3.6-5.0); SODIUM 143 MMOL/L (135-145); TOTAL PROTEIN 5.3 GM/DL (6.4-8.2)
--- NOTE | 2017-01-04 07:50 | Progress Note (SOAP) ---
Subjective Time Seen by Provider: 07:40 Subjective/Events-last exam patient not feeling good since he doesn't like the food. Patient to speak to dietitian. CT of the chest abdomen pelvis shows infiltrate right upper lobe probably pneumonia. Pneumonia. Bipolar. Dementia Objective Exam Vital Signs Date Time Temp Pulse Resp B/P (MAP) Pulse Ox O2 Delivery O2 Flow Rate FiO2 01/04/17 04:15 99.3 87 18 140/70 98 Room Air 01/04/17 00:52 99.3 100 18 111/63 96 Room Air 01/03/17 19:45 98.9 99 21 129/79 98 Room Air 01/03/17 19:30 Room Air 01/03/17 15:35 98.9 78 20 126/75 99 Room Air 01/03/17 12:00 96 Room Air 01/03/17 11:40 97.2 01/03/17 11:00 66 13 129/75 98 Room Air 01/03/17 10:00 73 13 97 Room Air 01/03/17 08:52 97.6 66 7 131/73 96 Room Air 01/03/17 08:30 96 Room Air 01/03/17 08:00 65 17 131/73 99 Nasal Cannula 2.00 I & O 01/04/17 07:00 Intake Total 3690 ml Output Total 1675 ml Balance 2015 ml Capillary Refill : Less Than 3 Seconds General Appearance: No Apparent Distress, WD/WN HEENT: Normal ENT Inspection Neck: Full Range of Motion, Normal Inspection Respiratory: Chest Non Tender, No Accessory Muscle Use, No Respiratory Distress Cardiovascular: Regular Rate, Rhythm, No Murmur Gastrointestinal: non tender, soft Results Lab Laboratory Tests 01/04/17 06:30 Laboratory Tests 01/03/17 09:30: Free Thyroxine 0.77, Free Triiodothyronine 2.1L 01/04/17 06:30: White Blood Count 7.1, Red Blood Count 4.11L, Hemoglobin 12.5L, Hematocrit 37L, Mean Corpuscular Volume 91, Mean Corpuscular Hemoglobin 30, Mean Corpuscular Hemoglobin Concent 33, Red Cell Distribution Width 14.2, Platelet Count 206, Mean Platelet Volume 9.5, Neutrophils (%) (Auto) 46, Lymphocytes (%) (Auto) 32, Monocytes (%) (Auto) 16H, Eosinophils (%) (Auto) 6, Basophils (%) (Auto) 0, Neutrophils # (Auto) 3.3, Lymphocytes # (Auto) 2.3, Monocytes # (Auto) 1.1H, Eosinophils # (Auto) 0.4H, Basophils # (Auto) 0.0, Prothrombin Time 14.9H, INR Comment 1.2, Activated Partial Thromboplast Time 38H, Sodium Level 143, Potassium Level 3.4L, Chloride Level 115H, Carbon Dioxide Level 21, Anion Gap 7 , Blood Urea Nitrogen 6L, Creatinine 0.76, Estimat Glomerular Filtration Rate > 60, BUN/Creatinine Ratio 8, Glucose Level 100, Lactic Acid Level 1.37, Calcium Level 7.7L, Phosphorus Level 3.0, Magnesium Level 1.8, Total Bilirubin 1.0, Aspartate Amino Transf (AST/SGOT) 26, Alanine Aminotransferase (ALT/SGPT) 28, Alkaline Phosphatase 92, Total Protein 5.3L, Albumin 2.7L, Vancomycin Level Trough 15.7 Microbiology 01/02/17 Blood Culture - Preliminary, Resulted No growth Assessment/Plan Assessment/Plan Assess & Plan/Chief Complaint pneumonia. Sepsis. Dementia. Patient not enjoying the food. Bipolar Clinical Quality Measures DVT/VTE Risk/Contraindication: Risk Factor Score Per Nursin RFS Level Per Nursing on Admit: 2=Moderate ARRON ELLISON DO Jan 04, 2017 07:50
--- NOTE | 2017-01-04 07:54 | Pulmonary Progress Note ---
Subjective Time Seen by Provider: 07:50 Subjective/Events-last exam NO complications noted. Exam Exam Vital Signs Date Time Temp Pulse Resp B/P (MAP) Pulse Ox O2 Delivery O2 Flow Rate FiO2 01/04/17 04:15 99.3 87 18 140/70 98 Room Air 01/04/17 00:52 99.3 100 18 111/63 96 Room Air 01/03/17 19:45 98.9 99 21 129/79 98 Room Air 01/03/17 19:30 Room Air 01/03/17 15:35 98.9 78 20 126/75 99 Room Air 01/03/17 12:00 96 Room Air 01/03/17 11:40 97.2 01/03/17 11:00 66 13 129/75 98 Room Air 01/03/17 10:00 73 13 97 Room Air 01/03/17 08:52 97.6 66 7 131/73 96 Room Air 01/03/17 08:30 96 Room Air 01/03/17 08:00 65 17 131/73 99 Nasal Cannula 2.00 I & O 01/04/17 07:00 Intake Total 3690 ml Output Total 1675 ml Balance 2015 ml General Appearance: No Apparent Distress, WD/WN HEENT: Normal ENT Inspection Neck: Full Range of Motion, Normal Inspection Respiratory: Chest Non Tender, No Accessory Muscle Use, No Respiratory Distress Cardiovascular: Regular Rate, Rhythm Capillary Refill: Less Than 3 Seconds Peripheral Pulses: 2+ Dorsalis Pedis (R), 2+ Left Dors-Pedis (L), 2+ Radial Pulses (R), 2+ Radial Pulses (L) Gastrointestinal: non tender, soft, no organomegaly Extremity: Normal Inspection, Non Tender Neurologic/Psychiatric: Alert, Normal Mood/Affect Skin: Warm/Dry Results Lab Laboratory Tests 01/02/17 13:50 01/03/17 04:08 01/04/17 06:30 Assessment/Plan Assessment/Plan -Dehydration -IVF -RML infiltration - PNA 10/23 -CT - reviewed -PT is a never smoker -start Rocephin and azithromycin -Weakness/debility -PT/OT Hypothyroid -Increase Synthroid to 125mcg -check T4,T3 232 Clinical Quality Measures DVT/VTE Risk/Contraindication: Risk Factor Score Per Nursin RFS Level Per Nursing on Admit: 2=Moderate JERRY RODRIGUEZ DO Jan 04, 2017 07:54
[2017-01-04] MEDS ORDERED: AZITHROMYCIN INJECTION 500 MG in NS (IVPB) 250 ML IV SCH (08:00)
[2017-01-04] MEDS ORDERED: ACETAMINOPHEN 500 MG TAB (TYLENOL) PO PRN (08:00)
[2017-01-04] MEDS ORDERED: cefTRIAXone INJECTION 1,000 MG in NS (IVPB) 50 ML IV SCH (08:00)
[2017-01-04] MEDS: ENOXAPARIN 40 MG/0.4 ML (LOVENOX) SYR SC SCH (08:41)
[2017-01-04] MEDS: LEVOTHYROXINE 125 MCG (LEVOTHROID) TABLET PO SCH (09:40)
[2017-01-04] MEDS: DIGOXIN 0.125 MG (LANOXIN) TAB PO SCH (09:40)
[2017-01-04] MEDS: POTASSIUM CITRATE 10 MEQ (UROCIT-K) NON-FORMULARY PO SCH ×2 (09:41→20:59)
--- NOTE | 2017-01-04 11:35 | Diagnostic Imaging Report ---
EXAMINATION: Portable upright radiograph of the chest. INDICATION: Pneumonia. COMPARISON: 01/03/2017. FINDINGS: There is a mild infiltrate in the right upper lobe, similar to the previous exam. The left lung appears clear. The heart size is normal. There is no effusion or pneumothorax. The right hemidiaphragm is slightly elevated. The right internal jugular line terminates at the SVC level. IMPRESSION: Stable mild right suprahilar infiltrate. Dictated by: Dictated on workstation # [id number]
--- NOTE | 2017-01-04 12:34 | Physical Therapy Daily Note ---
PT Daily Note-Current Subjective Attempted to PT after second attempt to see him. Reports he did not sleep well last night and wanted to sleep today. Pain Numeric Pain Scale: 0-No Pain Location: No Pain Reported Mental Status Patient Orientation: Person, Place, Time, Situation Transfers Functional [place] Measure 0=Not Assessed/NA 4=Minimal Assistance 1=Total Assistance 5=Supervision or Setup 2=Maximal Assistance 6=Modified [place] 3=Moderate Assistance 7=Complete IndependenceIRFPAI Quality Coding Scale 6 Independent with activity with or without an assistive device 5 Patient requires set up or clean up by helper. Patient completes activity by themselves 4 Supervision or touching assist (CGA). [place] provide cues , steadying assist 3 The helper provides less than half the effort to complete the activity 2 The helper provides more than half the effort to complete the activity 1 Dependent. The helper does all the effort to complete an activity 7 Patient refused to complete or attempt activity 9 The patient did not perform the activity before the current illness or injury 88 Not attempted due to Medical conditions or safety concerns Transfers (B, C, W/C) (FIM): 3 (Mod assist to transfer OOB assist to lift trunk ) Sit to/from Stand: 4 (CGA with skilled cues to push up from the bed. ) Bed to/from Chair: 4 (Pt took 4-5 steps to transfer to the chair with FWW with CGA.) Up in chair post treatment. Assisted pt to order lunch. Assessment Pt needs encouragement to participate but did agree. PT Halfway Goals Halfway Goals PT Halfway Goals Time Frame: Jan 12, 2017 Transfers (B,C,W/C) (FIM): 6 Gait (FIM): 5 Gait distance (FIM): 7=128-46 ft Distance: 50-100 ft Gait Level of Assist: 6 Gait Assistive Device: FWW PT Plan Problem List Problem List: Activity Tolerance, Functional Strength, Safety, Balance, Gait, Transfer, Bed Mobility Treatment/Plan Treatment Plan: Continue Plan of Care Treatment Plan: Bed Mobility, Education, Functional Activity Silvio, Functional Strength, Gait, Safety, Therapeutic Exercise, Transfers Treatment Duration: Jan 12, 2017 Visits Per Week: 6 Safety Risks/Education Educated importance of participation with therapy, he voiced understanding. Time/GCodes Time In: 1201 Time Out: 1217 Total Billed Treatment Time: 16 Total Billed Treatment visit FA 16 FAVIO CHRISTOPHER PT Jan 04, 2017 12:34
--- NOTE | 2017-01-04 15:16 | Occupational Ther Daily Note ---
OT Current Status-Daily Note Subjective Pt sleeping in bed. Visitor present in room. Pt woke after saying name 3x's. Agreed to therapy. No c/o pain at this time. Mental Status/Objective Functional [place] Measure 0=Not Assessed/NA 4=Minimal Assistance 1=Total Assistance 5=Supervision or Setup 2=Maximal Assistance 6=Modified [place] 3=Moderate Assistance 7=Complete [place] Other Treatment Pt able to complete 4 UE exercises against gravity 2 sets 10 reps. Strengthening exercises completed for ability to complete daily functional tasks. Pt had lengthy recovery breaks between sets. Pt tolerated well and had no c/o pain. Pt stated he needed to move around so he could get better. After therapy, pt lying in bed with call light/phone in reach. All needs met in room. OT Short Term Goals Short Term Goals 1=Demonstrate adherence to instructed precautions during ADL tasks. 2=Patient will verbalize/demonstrate understanding of assistive devices/ modifications for ADL. 3=Patient will improve strength/tolerance for activity to enable patient to perform ADL's. OT Detention Goals Director [employer] Goals Time Frame: Jan 17, 2017 Eating (FIM): 5 Grooming(FIM): 5 Upper Body Dressing(FIM): 5 Lower Body Dressing(FIM): 4 Toileting(FIM): 5 Toilet/Commode Transfer(FIM): 5 Additional Goals: 1-Demonstrate ADL Tasks, 2-Verbalize Understanding, 3- ImproveStrength/Silvio 1=Demonstrate adherence to instructed precautions during ADL tasks. 2=Patient will verbalize/demonstrate understanding of assistive devices/ modifications for ADL. 3=Patient will improve strength/tolerance for activity to enable patient to perform ADL's. OT Education/Plan Problem List/Assessment Pt demonstrates decreased mobility, strength, ADL performance, and activity tolerance. Pt to benefit from skilled OT intervention for ADL training, transfers, strengthening, and home safety education to maximize level of function and allow safe discharge plan. Discharge Recommendations Plan/Recommendations: Continue POC Treatment Plan/Plan of Care Patient would benefit from OT for education, treatment and training to promote independence in ADL's, mobility, safety and/or upper extremity function for ADL' s. Plan of Care: ADL Retraining, Functional Mobility, UE Funct Exercise/Act Treatment Duration: Jan 17, 2017 Visits Per Week: 5 Rehab Potential: Good Time/GCodes Start Time: 03:00 Stop Time: 03:15 Total Time Billed (hr/min): 15 Billed Treatment Time 1 visit-EX 1 (15 min) FAVIO COLON Jan 04, 2017 15:16
[2017-01-04] MEDS: ALFUZOSIN HCL 10 MG TAB (UROXATRAL) PO SCH (18:20)
[2017-01-04] MEDS: QUEtiapine 200 MG (SEROquel) TAB IMMEDIATE RELEASE PO SCH (21:00)
[2017-01-04] MEDS: ATORVASTATIN 10 MG (LIPITOR) TABLET PO SCH (21:00)
[2017-01-05 06:03] LABS: BASOPHILS % (AUTO) 0 % (0-10); EOSINOPHILS # (AUTO) 0.4 10^3/uL (0.0-0.3); EOSINOPHILS % (AUTO) 6 % (0-10); LYMPHOCYTES # (AUTO) 2.2 X 10^3 (1.0-4.0); LYMPHOCYTES % (AUTO) 32 % (12-44); MEAN CORPUSCULAR HEMOGLOBIN 31 PG (25-34); MEAN CORPUSCULAR HGB CONC 33 G/DL (32-36); MEAN CORPUSCULAR VOLUME 92 FL (80-99); MEAN PLATELET VOLUME 9.6 FL (7.4-10.4); MONOCYTES # (AUTO) 1.1 X 10^3 (0.0-1.0); MONOCYTES % (AUTO) 15 % (0-12); NEUTROPHILS # (AUTO) 3.2 X 10^3 (1.8-7.8); NEUTROPHILS % (AUTO) 47 % (42-75); PLATELET COUNT 200 10^3/uL (130-400); RED BLOOD COUNT 3.72 10^6/uL (4.35-5.85); RED CELL DISTRIBUTION WIDTH 14.1 % (10.0-14.5); WHITE BLOOD COUNT 6.9 10^3/uL (4.3-11.0)
[2017-01-05 06:11] LABS: INR 1.1 (0.8-1.4); PROTHROMBIN TIME PATIENT 13.6 SEC (12.2-14.7)
[2017-01-05 06:22] LABS: ALANINE AMINOTRANSFERASE 28 U/L (0-55); ALBUMIN 2.6 GM/DL (3.2-4.5); ANION GAP 6 MMOL/L (5-14); ASPARTATE AMINO TRANSFERASE 25 U/L (5-34); BILIRUBIN,TOTAL 0.6 MG/DL (0.1-1.0); BLOOD UREA NITROGEN 6 MG/DL (7-18); BUN/CREATININE RATIO 8; CALCIUM 8.2 MG/DL (8.5-10.1); CARBON DIOXIDE 26 MMOL/L (21-32); CHLORIDE 108 MMOL/L (98-107); CREATININE SERUM 0.75 MG/DL (0.60-1.30); GFR ESTIMATED > 60; GLUCOSE 92 MG/DL (70-105); MAGNESIUM 1.8 MG/DL (1.8-2.4); PHOSPHORUS 2.9 MG/DL (2.3-4.7); POTASSIUM 3.7 MMOL/L (3.6-5.0); SODIUM 140 MMOL/L (135-145); TOTAL PROTEIN 5.2 GM/DL (6.4-8.2)
[2017-01-05] MEDS: VENlafaxine XR 75 MG (EFFEXOR XR) CAP PO SCH (06:30)
[2017-01-05] MEDS: PANTOPRAZOLE 20 MG TABLET (PROTONIX) PO SCH (06:30)
--- NOTE | 2017-01-05 07:15 | Diagnostic Imaging Report ---
Clinical indication: Patient with pneumonia. Exam: Portable chest x-ray upright view. Comparison: Portable chest x-ray dated 01/04/2017. FINDINGS: There is stable airspace opacity in the right upper lobe/superior right perihilar region. Otherwise, the remainder of the lungs are clear. There is no pleural effusion or pneumothorax. Pulmonary vasculature and cardiac silhouette is within normal limits. Stable appearance and position of the right IJ central line with tip in the distal superior vena cava. There are degenerative spurs seen throughout spine. IMPRESSION: 1.: Stable chest x-ray exam for right upper lobe/superior right perihilar infiltrate/pneumonia. 2: The remainder of this exam shows no significant interval change compared to the prior study of comparison. Dictated by: Dictated on workstation # [id number]
--- NOTE | 2017-01-05 08:03 | Progress Note (SOAP) ---
Subjective Time Seen by Provider: 08:00 Subjective/Events-last exam patient feeling better today. Patient wants to go home. Septic shock. Right medial lobe pneumonia. Chest x-ray stable chest x-ray exam of right upper lobe pneumonia. Dehydration. RML infiltrate. Weakness. Hypothyroid. Psychiatric problems Objective Exam Vital Signs Date Time Temp Pulse Resp B/P (MAP) Pulse Ox O2 Delivery O2 Flow Rate FiO2 01/04/17 23:35 97.5 86 18 128/68 95 Room Air 01/04/17 20:50 97.6 88 19 164/84 98 Room Air 01/04/17 18:56 Room Air 01/04/17 15:45 98.1 88 20 134/76 97 Room Air 01/04/17 12:00 98.2 98 16 102/63 96 Room Air 01/04/17 08:00 98.3 91 16 122/66 95 Room Air I & O 01/05/17 07:00 Intake Total 2700 ml Output Total 2800 ml Balance -100 ml Capillary Refill : Less Than 3 Seconds General Appearance: No Apparent Distress, WD/WN HEENT: Normal ENT Inspection Neck: Full Range of Motion, Normal Inspection Respiratory: Chest Non Tender, Lungs Clear, Normal Breath Sounds, No Accessory Muscle Use, No Respiratory Distress Cardiovascular: Regular Rate, Rhythm, No Murmur Gastrointestinal: non tender, soft Neurologic/Psychiatric: Alert, Oriented x3, No Motor/Sensory Deficits, Normal Mood/Affect Results Lab Laboratory Tests 01/05/17 05:50 Laboratory Tests 01/05/17 05:50: White Blood Count 6.9, Red Blood Count 3.72L, Hemoglobin 11.4L, Hematocrit 34L, Mean Corpuscular Volume 92, Mean Corpuscular Hemoglobin 31, Mean Corpuscular Hemoglobin Concent 33, Red Cell Distribution Width 14.1, Platelet Count 200, Mean Platelet Volume 9.6, Neutrophils (%) (Auto) 47, Lymphocytes (%) (Auto) 32, Monocytes (%) (Auto) 15H, Eosinophils (%) (Auto) 6, Basophils (%) (Auto) 0, Neutrophils # (Auto) 3.2, Lymphocytes # (Auto) 2.2, Monocytes # (Auto) 1.1H, Eosinophils # (Auto) 0.4H, Basophils # (Auto) 0.0, Prothrombin Time 13.6, INR Comment 1.1, Activated Partial Thromboplast Time 35, Sodium Level 140, Potassium Level 3.7, Chloride Level 108H, Carbon Dioxide Level 26, Anion Gap 6, Blood Urea Nitrogen 6L, Creatinine 0.75, Estimat Glomerular Filtration Rate > 60 , BUN/Creatinine Ratio 8, Glucose Level 92, Lactic Acid Level 1.26, Calcium Level 8.2L, Phosphorus Level 2.9, Magnesium Level 1.8, Total Bilirubin 0.6, Aspartate Amino Transf (AST/SGOT) 25, Alanine Aminotransferase (ALT/SGPT) 28, Alkaline Phosphatase 81, Total Protein 5.2L, Albumin 2.6L Microbiology 01/02/17 Blood Culture - Preliminary, Resulted No growth Assessment/Plan Assessment/Plan Assess & Plan/Chief Complaint pneumonia. Sepsis. Dementia. Patient not enjoying the food. Bipolar. . 01/05/17. Pneumonia. Sepsis. Dementia. Bipolar. Patient improved and feels better and would like to go home today Clinical Quality Measures DVT/VTE Risk/Contraindication: Risk Factor Score Per Nursin RFS Level Per Nursing on Admit: 2=Moderate ARRON ELLISON DO Jan 05, 2017 08:03
[2017-01-05 08:04] VITALS: BP 121/76
--- NOTE | 2017-01-05 08:30 | Pulmonary Progress Note ---
Subjective Time Seen by Provider: 08:29 Subjective/Events-last exam No complications noted. Exam Exam Vital Signs Date Time Temp Pulse Resp B/P (MAP) Pulse Ox O2 Delivery O2 Flow Rate FiO2 01/05/17 08:04 98.7 95 20 121/76 98 Room Air 01/04/17 23:35 97.5 86 18 128/68 95 Room Air 01/04/17 20:50 97.6 88 19 164/84 98 Room Air 01/04/17 18:56 Room Air 01/04/17 15:45 98.1 88 20 134/76 97 Room Air 01/04/17 12:00 98.2 98 16 102/63 96 Room Air I & O 01/05/17 07:00 Intake Total 2700 ml Output Total 2800 ml Balance -100 ml General Appearance: No Apparent Distress, WD/WN HEENT: Normal ENT Inspection Neck: Full Range of Motion, Normal Inspection Respiratory: Chest Non Tender, Lungs Clear, Normal Breath Sounds, No Accessory Muscle Use, No Respiratory Distress Cardiovascular: Regular Rate, Rhythm, No Murmur Capillary Refill: Less Than 3 Seconds Peripheral Pulses: 2+ Dorsalis Pedis (R), 2+ Left Dors-Pedis (L), 2+ Radial Pulses (R), 2+ Radial Pulses (L) Gastrointestinal: non tender, soft Extremity: Normal Inspection, Non Tender Neurologic/Psychiatric: Alert, Oriented x3, No Motor/Sensory Deficits, Normal Mood/Affect Skin: Warm/Dry Results Lab Laboratory Tests 01/04/17 06:30 01/05/17 05:50 Assessment/Plan Assessment/Plan -Dehydration -IVF -RML infiltration - PNA 10/23 -CT - reviewed -- repeat as out patient in 4-6 wks -PT is a never smoker -Weakness/debility -PT/OT Hypothyroid -Increase Synthroid to 125mcg -check T4,T3 232 Change to azithromycin and omnicef PO x 2 more days. Pt is ok for discharge from pulmonary standpoint. Will f/u as outpatient Clinical Quality Measures DVT/VTE Risk/Contraindication: Risk Factor Score Per Nursin RFS Level Per Nursing on Admit: 2=Moderate JERRY RODRIGUEZ DO Jan 05, 2017 08:29
[2017-01-05] MEDS ORDERED: CEFD300C3 PO (08:36)
[2017-01-05] MEDS ORDERED: AZIT250T5 PO (08:36)
== END 2017-01-05 09:00 | disposition home or self-care (01) | DRG 871 ==
LOC: EDUNIT# 13:38 → ER 13:39 → ICU 15:50 → 4TH 01-03 12:20
PROVIDERS: ADMIT Family Medicine; ATTEND Family Medicine
PROC: 02HV33Z Insertion of Infusion Device into Superior Vena Cava, Percutaneous Approach (ICD-10-PCS; principal; 2017-01-02)
DX: A41.9 Sepsis, unspecified organism (principal); R65.21 Severe sepsis with septic shock; J44.0 Chronic obstructive pulmonary disease with (acute) lower respiratory infection; J18.9 Pneumonia, unspecified organism; E86.0 Dehydration; R63.4 Abnormal weight loss; F31.9 Bipolar disorder, unspecified; F03.90 Unspecified dementia, unspecified severity, without behavioral disturbance, psychotic disturbance, mood disturbance, and anxiety; G47.30 Sleep apnea, unspecified; I48.91 Unspecified atrial fibrillation; I10 Essential (primary) hypertension; K59.09 Other constipation; M81.0 Age-related osteoporosis without current pathological fracture; E03.9 Hypothyroidism, unspecified; F41.9 Anxiety disorder, unspecified; F32.9 Major depressive disorder, single episode, unspecified; E78.5 Hyperlipidemia, unspecified; N52.9 Male erectile dysfunction, unspecified; Z90.5 Acquired absence of kidney; Z87.19 Personal history of other diseases of the digestive system; Z87.891 Personal history of nicotine dependence
CPT/HCPCS: 36415; 51702; 71010; 71250; 74176; 80053; 80162; 80202; 81000; 82150; 82805; 82962; 83605; 83690; 83735; 84100; 84439; 84443; 84481; 84484; 85025; 85610; 85730; 87040; 93005; 94664; 96361; 96374

== ENCOUNTER 2017-02-20 06:53 | Inpatient (IN) | payer MEDICARE, OTHER ==
[~2017-02-20] VITALS: Ht 175.3 cm; Wt 82.2 kg
[~2017-02-20 06:53] MED LIST changes: +AZIT250T5 PO; -MULT-116 PO; +MULT-324 PO; +TAMS0.4C98 PO
--- OUTSIDE RECORDS SUMMARY | 2017-02-20 06:59 | XMS REPORT | Clinical Summary ---
Author Author [facility] Organization [facility] Address Unknown Phone Unavailable Care Team Providers Care Shop Router Name Role Phone PCP Unavailable Source Comments Some departments are not documenting in the electronic medical record. If you do not see the information that you expected, contact Release of Information in the Health Information Management department at [phone] for further assistance in locating additional records.[facility] Allergies Active Allergy Reactions Severity Noted Date Comments Penicillins Medium 08/21/2003 Allergy recorded in SMS: PCN~Reactions: ANAPHYLAXIS Cheese UNKNOWN 04/10/2012 Milk Containing Products UNKNOWN 04/10/2012 Current Medications Prescription Sig. Disp. Refills Start End Date Status Date DULOXETINE HCL (CYMBALTA Take by mouth. Active PO) QUETIAPINE FUMARATE Take by mouth. Active (SEROQUEL PO) TAMSULOSIN HCL (FLOMAX Take by mouth. Active PO) CLONAZEPAM (KLONOPIN PO) Take by mouth. Active LISINOPRIL PO Take by mouth. Active LEVOTHYROXINE SODIUM Take by mouth. Active (LEVOTHYROXINE PO) OMEPRAZOLE PO Take by mouth. Active [id number] Take by mouth. Active D2 PO DOCOSAHEXANOIC [...] Used Alcohol Use Drinks/Week oz/Week Comments No Sex Assigned at Date Recorded Not on file Last Filed Vital Signs Vital Sign Reading Time Taken Blood Pressure 123/81 01/12/2014 3:59 PM CDT Pulse 96 01/12/2014 3:59 PM CDT Temperature - - Respiratory Rate 14 12/07/2011 1:46 AM CDT Oxygen Saturation - - Inhaled Oxygen - - Concentration Weight 117 kg (258 lb) 01/12/2014 3:59 PM CDT Height 175.3 cm (5' 9") 01/12/2014 3:59 PM CDT Body Mass Index 38.1 01/12/2014 3:59 PM CDT Plan of Treatment Health Maintenance Due Date Last Done Comments PHYSICAL (COMPREHENSIVE) 1944 EXAM PERTUSSIS VACCINE 1948 TETANUS VACCINE 1954 SHINGLES VACCINE 1997 PREVNAR/PNEUMOVAX (#1) 2002 INFLUENZA VACCINE 03/09/2017 Results Not on filefrom Last 3 Months
--- NOTE | 2017-02-20 07:24 | ED General ---
General Stated Complaint: HASN'T SLEPT FOR 3 DAYS,AMS Source of Information: Patient, Family Exam Limitations: No Limitations History of Present Illness Time Seen by Provider: 07:10 Initial Comments Here with report of not sleeping, increasing confusion and increasing weakness that has occurred over the last 3 days. Family member/care provider reports that he has been eating and drinking less and has been quite confused. She states that he will sleep for a few minutes and then wakes up. He thinks that he is in different places and there are different events going on that are not real but then will eventually reorient. Did have a fall 3 days ago and has an abrasion to the left knee. Patient states that that occurred when he was trying to walk to the bathroom. Patient admits to the confusion although did not understand that it was as bad as it was. Family reports decreased urination and decreased urine output. Timing/Duration: 3-4 Days, Getting Worse Severity: Moderate Associated Systoms: No Chest Pain, No Cough, No Fever/Chills, Loss of Appetite , No Nausea/Vomiting, No Shortness of Air, Weakness Allergies and Home Medications Allergies Coded Allergies: Penicillins (Verified Allergy, Severe, PT HAS RECEIVED CEFEPIME & ROCEPHIN W/O ISSUE, 12/21/15) temazepam (Verified Adverse Reaction, Mild, PATIENT TAKES LORAZEPAM, ) VERY BAD DREAMS Home Medications Antiox#10/Om3/Dha/Epa/Lut/Zeax 1 Each Capsule, 1 CAP PO DAILY, (Reported) Atorvastatin Calcium 10 Mg Tablet, 10 MG PO HS, (Reported) Azithromycin 250 Mg Tablet, 250 MG PO DAILY for 2 Days Prescribed by: HERNANDEZ HAQ on 01/05/17835 Cefdinir 300 Mg Capsule, 300 MG PO BID for 2 Days Prescribed by: HERNANDEZ HAQ on 01/05/17 08 Digoxin 125 Mcg Tablet, 125 MCG PO DAILY, (Reported) Gabapentin 300 Mg Capsule, 300 MG PO TID PRN for LEG TWITCHES, (Reported) Glucosam/Chond/Hyalu/Cf Borate 1 Each Tablet, 1 TAB PO DAILY, (Reported) Levothyroxine Sodium 75 Mcg Tablet, 75 MCG PO DAILY, (Reported) Lorazepam 1 Mg Tablet, 1 MG PO BID PRN for ANXIETY, (Reported) Omeprazole 20 Mg Capsule.dr, 20 MG PO DAILY, (Reported) Ondansetron HCl 4 Mg Tablet, 4 MG PO TID PRN for NAUSEA/VOMITING-1ST LINE, ( Reported) Potassium Citrate 10 Meq Tablet.er, 10 MEQ PO BID, (Reported) Quetiapine Fumarate 200 Mg Tablet, 200 MG PO HS, (Reported) Tamsulosin HCl 0.4 Mg Cap, 0.4 MG PO DAILY, (Reported) Venlafaxine HCl 150 Mg Cap.er.24h, 150 MG PO DAILY, (Reported) Constitutional: see HPI, No chills, No fever, weakness EENTM: no symptoms reported Respiratory: no symptoms reported Cardiovascular: no symptoms reported Gastrointestinal: no symptoms reported, No abdominal pain, No nausea, No vomiting Genitourinary: decreased output Musculoskeletal: muscle pain Skin: change in color, lesions (abrasion left knee) Psychiatric/Neurological: See HPI, Denies Headache, Other (moderate confusion) All Other Systems Reviewed Negative Unless Noted: Yes Past Slzmokf-Bmftya-Wcwdyv Hx Patient Social History Alcohol Use: Denies Use Recreational Drug Use: No Smoking Status: Former Smoker Recent Foreign Travel: No Contact w/Someone Who Travel: No Recent Hopitalizations: No Immunizations Up To Date Tetanus Booster (TDap): More than 5yrs PED Vaccines UTD: No Date of Pneumonia Vaccine: Jan 29, 2015 Date of Influenza Vaccine: Apr 10, 2016 Seasonal Allergies Seasonal Allergies: No Surgeries HX Surgeries: Yes Surgeries: Gallbladder, Orthopedic Respiratory Hx Respiratory Disorders: Yes Respiratory Disorders: Pneumonia, Sleep Apnea, COPD Cardiovascular Hx Cardiac Disorders: Yes Cardiac Disorders: Atrial Fibrillation, Hypertension, Hypotension Neurological Hx Neurological Disorders: Yes Neurological Disorders: Dementia Reproductive System Hx Reproductive Disorders: No Sexually Transmitted Disease: No HIV/AIDS: No Genitourinary Hx Genitourinary Disorders: Yes (ONLY HAVE LEFT KIDNEY, erectile dysfunction) Genitourinary Disorders: Kidney Stones, Renal Failure Gastrointestinal Hx Gastrointestinal Disorders: Yes Gastrointestinal Disorders: Chronic Constipation, Pancreatitis Musculoskeletal Hx Musculoskeletal Disorders: Yes Musculoskeletal Disorders: Osteoporosis, Chronic Back Pain, Fractures Endocrine Hx Endocrine Disorders: Yes Endocrine Disorders: Hypothyroidsim HEENT HX ENT Disorders: Yes Loss of Vision: Denies Hearing Impairment: Denies Cancer Hx Cancer: No Psychosocial Hx Psychiatric Problems: Yes Behavioral Health Disorders: Anxiety, Depression Integumentary HX Skin/Integumentary Disorder: No Blood Transfusions Hx Blood Disorders: No Adverse Reaction to a Blood Tr: No Reviewed Nursing Assessment Reviewed/Agree w Nursing PMH: Yes Family Medical History Significant Family History: No Pertinent Family Hx Family Medial History: FH: stroke G8 SISTER, Onset:75 Physical Exam-Suspected Sepsis Physical Exam Vital Signs Vital Sign - Last 12Hours 02/20/17 07:00 Temp 97.3 Pulse 109 Resp 20 B/P (MAP) 97/54 Pulse Ox 95 O2 Delivery Room Air Capillary Refill : General Appearance: No Apparent Distress, WD/WN HEENT: PERRL/EOMI, Pharynx Normal Neck: Non Tender, Supple Respiratory: Lungs Clear, Normal Breath Sounds Cardiovascular: No Murmur, Tachycardia Gastrointestinal: Non Tender, Soft Back: Normal Inspection, No CVA Tenderness, No Vertebral Tenderness Extremity: Non Tender, No Calf Tenderness, Slow Capillary Refill (5 seconds at the toes) Neurologic/Psychiatric: Alert, Oriented x3 Skin: warm/dry, No ulcerations, other (abrasion left anterior knee 3 x 5 cm with mild surrounding erythema) Focused Exam Lactic Acid Level Laboratory Tests Test 02/20/17 07:20 Lactic Acid Level 2.17 MMOL/L (0.50-2.00) *H Progress/Results/Core Measures Suspected Sepsis SIRS Temperature: Pulse: Respiratory Rate: Laboratory Tests 02/20/17 07:20: White Blood Count 12.3H Blood Pressure / Mean: Laboratory Tests 02/20/17 07:20: Creatinine 1.06, INR Comment 1.1, Platelet Count 289, Total Bilirubin 0.7 Results/Orders Lab Results Laboratory Tests Test 02/20/17 07:20 02/20/17 07:30 Range/Units White Blood Count 12.3 H 4.3-11.0 10^3/uL Red Blood Count 4.80 4.35-5.85 10^6/uL Hemoglobin 14.8 13.3-17.7 G/DL Hematocrit 44 40-54 % Mean Corpuscular Volume 91 80-99 FL Mean Corpuscular Hemoglobin 31 25-34 PG Mean Corpuscular Hemoglobin Concent 34 32-36 G/DL Red Cell Distribution Width 14.3 10.0-14.5 % Platelet Count 289 130-400 10^3/uL Mean Platelet Volume 9.3 7.4-10.4 FL Neutrophils (%) (Auto) 52 42-75 % Lymphocytes (%) (Auto) 31 12-44 % Monocytes (%) (Auto) 14 H 0-12 % Eosinophils (%) (Auto) 2 0-10 % Basophils (%) (Auto) 1 0-10 % Neutrophils # (Auto) 6.4 1.8-7.8 X 10^3 Lymphocytes # (Auto) 3.9 1.0-4.0 X 10^3 Monocytes # (Auto) 1.8 H 0.0-1.0 X 10^3 Eosinophils # (Auto) 0.2 0.0-0.3 10^3/uL Basophils # (Auto) 0.1 0.0-0.1 10^3/uL Prothrombin Time 13.8 12.2-14.7 SEC INR Comment 1.1 0.8-1.4 Activated Partial Thromboplast Time 38 H 24-35 SEC Sodium Level 138 135-145 MMOL/L Potassium Level 3.9 3.6-5.0 MMOL/L Chloride Level 104 98-107 MMOL/L Carbon Dioxide Level 23 21-32 MMOL/L Anion Gap 11 5-14 MMOL/L Blood Urea Nitrogen 11 7-18 MG/DL Creatinine 1.06 0.60-1.30 MG/DL Estimat Glomerular Filtration Rate > 60 BUN/Creatinine Ratio 10 Glucose Level 92 70-105 MG/DL Lactic Acid Level 2.17 *H 0.50-2.00 MMOL/L Calcium Level 9.2 8.5-10.1 MG/DL Total Bilirubin 0.7 0.1-1.0 MG/DL Aspartate Amino Transf (AST/SGOT) 29 5-34 U/L Alanine Aminotransferase (ALT/SGPT) 26 0-55 U/L Alkaline Phosphatase 100 40-136 U/L Troponin I < 0.30 <0.30 NG/ML Total Protein 6.8 6.4-8.2 GM/DL Albumin 3.5 3.2-4.5 GM/DL Urine Color YELLOW Urine Clarity SLIGHTLY CLOUDY Urine pH 7 5-9 Urine Specific [place] 1.010 L 1.016-1.022 Urine Protein 1+ H NEGATIVE Urine Glucose (UA) NEGATIVE NEGATIVE Urine Ketones NEGATIVE NEGATIVE Urine Nitrite NEGATIVE NEGATIVE Urine Bilirubin NEGATIVE NEGATIVE Urine Urobilinogen NORMAL NORMAL MG/DL Urine Leukocyte Esterase NEGATIVE NEGATIVE Urine RBC (Auto) NEGATIVE NEGATIVE Urine RBC NONE /HPF Urine WBC RARE /HPF Urine Squamous Epithelial Cells RARE /HPF Urine Crystals PRESENT H /LPF Urine Amorphous Sediment RARE [place] URATES H /LPF Urine Bacteria NEGATIVE /HPF Urine Casts PRESENT /LPF Urine Hyaline Casts 2-5 H /LPF Urine Mucus NEGATIVE /LPF Urine Culture Indicated NO My Orders Orders - SIENNA WHITMORE MD Cbc With Automated Diff (02/20/17 07:18) Comprehensive Metabolic Panel (02/20/17 07:18) Lactic Acid Analyzer (02/20/17 07:18) Blood Culture (02/20/17 07:18) Sputum Culture (02/20/17 07:18) Ua Culture If Indicated (02/20/17 07:18) Protime With Inr (02/20/17 07:18) Partial Thromboplastin Time (02/20/17 07:18) Chest 1 View, Ap/Pa Only (02/20/17 07:18) O2 (02/20/17 07:18) Saline Lock/Iv-Start (02/20/17 07:18) Saline Lock/Iv-Start (02/20/17 07:18) Ekg Tracing (02/20/17 07:18) Troponin I (02/20/17 07:18) Ns Iv 1000 Ml (Sodium Chloride 0.9%) (02/20/17 07:30) Vital Signs Adult Sepsis Patie Q1HR (02/20/17 07:18) Remove Rings In Anticipation O (02/20/17 07:18) Ct Head Wo (02/20/17 07:24) Ceftriaxone Injection (Rocephin Injectio (02/20/17 09:15) Medications Given in ED Current Medications Medications Dose Ordered Sig/Per Route Start Time Stop Time Status Last Admin Dose Admin Sodium Chloride 2,500 ml @ 1,250 mls/hr PRN PRN IV 02/20/17 07:30 02/20/17 08:08 1,250 MLS/HR Vital Signs/I&O Vital Sign - Last 12Hours 02/20/17 07:00 Temp 97.3 Pulse 109 Resp 20 B/P (MAP) 97/54 Pulse Ox 95 O2 Delivery Room Air Capillary Refill : Progress Note : Progress Note Seen and evaluated. IV, labs, EKG, chest x-ray, UA via straight catheter, normal saline 30 mL/kg IV bolus due to concerns for sepsis and patient has lower blood pressure with map of 64 and tachycardia. Monitor patient. Lactic acid noted to be greater than 2. Patient's blood pressure responded nicely to fluids. 0905: I attest to focused exam. Cap refill is now 3 seconds at the toes and less than 3 seconds at the hands bilateral and his mentation is much better. I did discuss the case with Dr. Ellison. Due to the lactic acidosis and altered mental status, we will admit the patient to the hospital in observation status. No indication of serious infection currently is UA and chest x-rays are negative and white count is only 12,000. Lactic acidosis may be related to dehydration and this will be further evaluated over time. This was discussed with patient and family who agree with plan. Diagnostic Imaging Diagonstic Imaging: CT Plain Films/CT/US/NM/MRI: head Comments NAME: VISHNU BAJWA [facility] REC#: [id number] PT STATUS: REG ER : 1935 PHYSICIAN: SIENNA WHITMORE MD ADMIT DATE: 02/20/17/ER Signed Date of Exam: 02/20/17 CT HEAD WO PROCEDURE: CT head without contrast. TECHNIQUE: Multiple contiguous axial images were obtained through the brain without the use of intravenous contrast. INDICATION: Confusion loss of sleep. Exam compared 05/20/2015. Generalized cerebral cortical atrophy is an unchanged finding. Ventricular white matter hypodensity is an unchanged finding likely small vessel sequelae. Atherosclerotic vascular calcifications and ossifications of the dura an unchanged chronic finding. There is no sulcal effacement. The basilar cisterns are patent. No hemorrhage or focal edema. No findings of elevated pressure. No change or new pathologic. The orbits, sinuses and calvarium appeared unremarkable. Impression: Stable chronic senescent changes. No hemorrhage, edema or acute pathology apparent. Dictated by: Dictated on workstation # [id number] Dict: 02/20/17807 Trans: 02/20/17809 Interpreted by: REECE COPELAND Electronically signed by: REECE COPELAND 02/20/17809 Diagonstic Imaging: Xray Plain Films/CT/US/NM/MRI: chest Comments NAME: VISHNU BAJWA [facility] REC#: [id number] PT STATUS: REG ER : 1935 PHYSICIAN: SIENNA WHITMORE MD ADMIT DATE: 02/20/17/ER Draft Date of Exam:02/20/17 CHEST 1 VIEW, AP/PA ONLY INDICATION: Recurrent urinary tract infections, confusion, weakness, lethargy. Compared with study 01/05/2017. FINDINGS: The lungs are clear. The heart size and vascularity within normal limits. No effusion or pneumothorax. No free air beneath the diaphragms. IMPRESSION: No acute appearing abnormality. Dictated on workstation # [id number] Dict: 02/20/1705 Trans: 02/20/1714 [id number] Interpreted by: REECE COPELAND Electronically signed by: Departure Communication Time/Spoke to Admitting Phy: 09:05 Impression Impression: Primary Impression: Lactic acidosis Additional Impression: Altered mental status Qualified Codes: R40.4 - Transient alteration of awareness Disposition: ADMITTED INPATIENT Condition: Stable Admissions Decision to Admit Reason: Admit from ER (General) Decision to Admit/Date: Feb 20, 2017 Time/Decision to Admit Time: 09:05 Departure-Patient Inst. Referrals: ARRON ELLISON DO (PCP/Family) Primary Care Physician SIENNA WHITMORE MD Feb 20, 2017 07:24
[2017-02-20] MEDS ORDERED: NS IV 1000 ML 2,500 ML IV PRN (07:30)
[2017-02-20 07:31] LABS: BASOPHILS # (AUTO) 0.1 10^3/uL (0.0-0.1); BASOPHILS % (AUTO) 1 % (0-10); EOSINOPHILS # (AUTO) 0.2 10^3/uL (0.0-0.3); EOSINOPHILS % (AUTO) 2 % (0-10); LYMPHOCYTES # (AUTO) 3.9 X 10^3 (1.0-4.0); LYMPHOCYTES % (AUTO) 31 % (12-44); MEAN CORPUSCULAR HEMOGLOBIN 31 PG (25-34); MEAN CORPUSCULAR HGB CONC 34 G/DL (32-36); MEAN CORPUSCULAR VOLUME 91 FL (80-99); MEAN PLATELET VOLUME 9.3 FL (7.4-10.4); MONOCYTES # (AUTO) 1.8 X 10^3 (0.0-1.0); MONOCYTES % (AUTO) 14 % (0-12); NEUTROPHILS # (AUTO) 6.4 X 10^3 (1.8-7.8); NEUTROPHILS % (AUTO) 52 % (42-75); PLATELET COUNT 289 10^3/uL (130-400); RED CELL DISTRIBUTION WIDTH 14.3 % (10.0-14.5); WHITE BLOOD COUNT 12.3 10^3/uL (4.3-11.0)
[2017-02-20 07:41] LABS: BILIRUBIN,URINE NEGATIVE (NEGATIVE); KETONES,URINE NEGATIVE (NEGATIVE); LEUKOCYTE ESTERASE ,URINE NEGATIVE (NEGATIVE); NITRITE,URINE NEGATIVE (NEGATIVE); PH,URINE 7 (5-9); PROTEIN,URINE 1+ (NEGATIVE); UROBILINOGEN,URINE NORMAL (NORMAL)
[2017-02-20 07:50] LABS: ALANINE AMINOTRANSFERASE 26 U/L (0-55); ALBUMIN 3.5 GM/DL (3.2-4.5); ANION GAP 11 MMOL/L (5-14); ASPARTATE AMINO TRANSFERASE 29 U/L (5-34); BILIRUBIN,TOTAL 0.7 MG/DL (0.1-1.0); BLOOD UREA NITROGEN 11 MG/DL (7-18); BUN/CREATININE RATIO 10; CALCIUM 9.2 MG/DL (8.5-10.1); CARBON DIOXIDE 23 MMOL/L (21-32); CHLORIDE 104 MMOL/L (98-107); CREATININE SERUM 1.06 MG/DL (0.60-1.30); GFR ESTIMATED > 60; GLUCOSE 92 MG/DL (70-105); POTASSIUM 3.9 MMOL/L (3.6-5.0); SODIUM 138 MMOL/L (135-145); TOTAL PROTEIN 6.8 GM/DL (6.4-8.2)
[2017-02-20 07:52] LABS: SQUAMOUS EPITHELIAL CELL,UR RARE /HPF; WBC,URINE RARE /HPF
[2017-02-20 07:53] LABS: INR 1.1 (0.8-1.4); PROTHROMBIN TIME PATIENT 13.8 SEC (12.2-14.7)
[2017-02-20 07:56] LABS: TROPONIN I < 0.30 NG/ML (<0.30)
--- NOTE | 2017-02-20 08:12 | Diagnostic Imaging Report ---
PROCEDURE: CT head without contrast. TECHNIQUE: Multiple contiguous axial images were obtained through the brain without the use of intravenous contrast. INDICATION: Confusion loss of sleep. Exam compared 05/20/2015. Generalized cerebral cortical atrophy is an unchanged finding. Ventricular white matter hypodensity is an unchanged finding likely small vessel sequelae. Atherosclerotic vascular calcifications and ossifications of the dura an unchanged chronic finding. There is no sulcal effacement. The basilar cisterns are patent. No hemorrhage or focal edema. No findings of elevated pressure. No change or new pathologic. The orbits, sinuses and calvarium appeared unremarkable. Impression: Stable chronic senescent changes. No hemorrhage, edema or acute pathology apparent. Dictated by: Dictated on workstation # [id number]
--- NOTE | 2017-02-20 08:15 | Diagnostic Imaging Report ---
INDICATION: Recurrent urinary tract infections, confusion, weakness, lethargy. Compared with study 01/05/2017. FINDINGS: The lungs are clear. The heart size and vascularity within normal limits. No effusion or pneumothorax. No free air beneath the diaphragms. IMPRESSION: No acute appearing abnormality. Dictated by: Dictated on workstation # [id number]
[2017-02-20] MEDS ORDERED: cefTRIAXone INJECTION 1,000 MG in NS (IVPB) 50 ML IV ONE (09:15)
--- OUTSIDE RECORDS SUMMARY | 2017-02-20 09:42 | XMS REPORT | Clinical Summary ---
Author Author [facility] Organization [facility] Address Unknown Phone Unavailable Care Team Providers Care Gravel Truck Driver Name Role Phone PCP Unavailable Source Comments Some departments are not documenting in the electronic medical record. If you do not see the information that you expected, contact Release of Information in the Health Information Management department at [phone] for further assistance in locating additional records.[facility] Allergies Active Allergy Reactions Severity Noted Date [...] PO) OMEPRAZOLE PO Take by mouth. Active [id number] Take by mouth. Active D2 PO DOCOSAHEXANOIC [...]
[2017-02-20 11:00] VITALS: BP 126/61
[2017-02-20] MEDS: NS IV 1000 ML 1,000 ML IV SCH (11:10)
[2017-02-20] MEDS ORDERED: CATHETER FLUSH 10 ML SYR IV PRN (11:15)
--- NOTE | 2017-02-20 12:05 | History & Physicial ---
History of Present Illness History of Present Illness Reason for visit/HPI patient came to the emergency room. Patient has not been sleeping last 3 days. Patient having increasing confusion. Eating and drinking has been last last 3 days. Patient fell 3 days ago. Patient had decreased urinary output decreased taking the water. Patient hypotensive in the emergency room. Serum lactic acid elevated and above 2. Patient has history of mental disorder. Patient has a case aide at home. Patient has some dementia Date of Admission Feb 20, 2017 at 09:11 Time Seen by Provider: 11:50 I consulted on this patient on 02/20/17 12:00 Attending Physician Joel Salguero DO Admitting Physician Joel Salguero DO Consult Allergies and Home Medications Allergies Coded Allergies: Penicillins (Verified Allergy, Severe, PT HAS RECEIVED CEFEPIME & ROCEPHIN W/O ISSUE, 12/21/15) temazepam (Verified Adverse Reaction, Mild, PATIENT TAKES LORAZEPAM, ) VERY BAD DREAMS Home Medications Antiox#10/Om3/Dha/Epa/Lut/Zeax 1 Each Capsule, 1 CAP PO DAILY, (Reported) Atorvastatin Calcium 10 Mg Tablet, 10 MG PO HS, (Reported) Azithromycin 250 Mg Tablet, 250 MG PO DAILY for 2 Days Prescribed by: HERNANDEZ HAQ on 01/05/17835 Cefdinir 300 Mg Capsule, 300 MG PO BID for 2 Days Prescribed by: HERNANDEZ HAQ on 01/05/17835 Digoxin 125 Mcg Tablet, 125 MCG PO DAILY, (Reported) Gabapentin 300 Mg Capsule, 300 MG PO TID PRN for LEG TWITCHES, (Reported) Glucosam/Chond/Hyalu/Cf Borate 1 Each Tablet, 1 TAB PO DAILY, (Reported) Levothyroxine Sodium 75 Mcg Tablet, 75 MCG PO DAILY, (Reported) Lorazepam 1 Mg Tablet, 1 MG PO BID PRN for ANXIETY, (Reported) Omeprazole 20 Mg Capsule.dr, 20 MG PO DAILY, (Reported) Ondansetron HCl 4 Mg Tablet, 4 MG PO TID PRN for NAUSEA/VOMITING-1ST LINE, ( Reported) Potassium Citrate 10 Meq Tablet.er, 10 MEQ PO BID, (Reported) Quetiapine Fumarate 200 Mg Tablet, 200 MG PO HS, (Reported) Tamsulosin HCl 0.4 Mg Cap, 0.4 MG PO DAILY, (Reported) Venlafaxine HCl 150 Mg Cap.er.24h, 150 MG PO DAILY, (Reported) Past Nqylwxv-Ylzqak-Cffgkc Hx Patient Social History Employed/Student: unemployed Alcohol Use: Denies Use Recreational Drug Use: No Smoking Status: Former Smoker 2nd Hand Smoke Exposure: No Physical Abuse Screen: No Sexual Abuse: No Recent Foreign Travel: No Contact w/other who traveled: No Recent Hopitalizations: Yes Recent Infectious Disease Expo: No Immunizations Up To Date Tetanus Booster (TDap): More than 5yrs Date of Pneumonia Vaccine: Jan 29, 2015 Date of Influenza Vaccine: Apr 10, 2016 Seasonal Allergies Seasonal Allergies: No Surgeries HX Surgeries: Yes Surgeries: Gallbladder, Orthopedic Respiratory Hx Respiratory Disorders: Yes Respiratory Disorders: Pneumonia Cardiovascular Hx Cardiovascular Disorders: Yes Cardiac Disorders: Atrial Fibrillation, Hypertension Neurological Hx Neurological Disorders: Yes Neurological Disorders: Dementia Reproductive System Hx Reproductive Disorders: No Sexually Transmitted Disease: No HIV/AIDS: No Genitourinary Hx Genitourinary Disorders: Yes (ONLY HAVE LEFT KIDNEY, erectile dysfunction) Genitourinary Disorders: Kidney Stones, Renal Failure Gastrointestinal Hx Gastrointestinal Disorders: Yes Gastrointestinal Disorders: Chronic Constipation, Pancreatitis Musculoskeletal Hx Musculoskeletal Disorders: Yes Musculoskeletal Disorders: Osteoporosis, Chronic Back Pain, Fractures Endocrine Hx Endocrine Disorders: Yes Endocrine Disorders: Hypothyroidsim HEENT HX ENT Disorders: Yes Loss of Vision: Denies Hearing Impairment: Denies Cancer Hx Cancer: No Psychosocial Hx Psychiatric Problems: Yes Behavioral Health Disorders: Anxiety, Depression Integumentary HX Skin/Integumentary Disorder: No Blood Transfusions Hx Blood Disorders: No Adverse Reaction to a Blood Tr: No Reviewed Nursing Assessment Reviewed/Agree w Nursing PMH: Yes Family Medical History Significant Family History: No Pertinent Family Hx Family Hx: FH: stroke G8 SISTER, Onset:75 Constitutional: malaise, weakness EENTM: no symptoms reported Respiratory: no symptoms reported Cardiovascular: no symptoms reported Genitourinary: other (decreased urination him a decrease in put) Physical Exam Vital Signs Vital Sign - Last 12Hours 02/20/17 07:00 Temp 97.3 Pulse 109 Resp 20 B/P (MAP) 97/54 Pulse Ox 95 O2 Delivery Room Air Capillary Refill : Greater Than 3 Seconds General Appearance: No Apparent Distress, WD/WN Eyes: Bilateral Eye Normal Inspection HEENT: Normal ENT Inspection Neck: Full Range of Motion, Normal Inspection Respiratory: Chest Non Tender, Normal Breath Sounds, No Accessory Muscle Use, No Respiratory Distress Cardiovascular: No Murmur Gastrointestinal: Non Tender, Soft Assessment/Plan Assessment and Plan lactic acidosis elevated. Acute mental status change. History of mental problems. Dementia Problems: Clinical Quality Measures DVT/VTE Risk/Contraindication: Risk Factor Score Per Nursin RFS Level Per Nursing on Admit: 2=Moderate JOEL SALGUERO DO Feb 20, 2017 12:05
[2017-02-20] MEDS ORDERED: ENOXAPARIN 40 MG/0.4 ML (LOVENOX) SYR SC SCH (12:15)
[2017-02-20 16:00] VITALS: BP 133/75
[2017-02-20] MEDS ORDERED: GABAPENTIN 300 MG (NEURONTIN) CAP PO PRN (16:00)
[2017-02-20] MEDS ORDERED: NON-FORMULARY MEDICATION 1 EA EA (Ondansetron HCl 4 MG) PO PRN (16:15)
[2017-02-20] MEDS ORDERED: PATIENT MAY USE OWN MEDS, ALL MC SCH (16:15)
[2017-02-20] MEDS ORDERED: ONDANSETRON 4 MG (ZOFRAN) ORAL DISSOLVE TAB PO PRN (16:15)
[2017-02-20] MEDS: POTASSIUM CITRATE 10 MEQ (UROCIT-K) NON-FORMULARY PO SCH (17:21)
[2017-02-20 18:02] LABS: DIGOXIN 0.3 NG/ML (0.80-2.00); THYROID STIMULATING HORMONE 3.62 UIU/ML (0.35-4.94)
--- NOTE | 2017-02-20 19:28 | Diagnostic Imaging Report ---
INDICATION: Fall COMPARISON: None. FINDINGS: 3 views of the right hand show no fractures, dislocations, or other acute bony abnormalities identified. Joint spaces are well maintained throughout. The soft tissues appear unremarkable. No radiopaque foreign bodies are identified. IMPRESSION: No acute fractures or dislocations of the right hand. Dictated by: Dictated on workstation # [id number]
--- NOTE | 2017-02-20 19:35 | Diagnostic Imaging Report ---
INDICATION: Fall. History of previous hip fracture. COMPARISON: 08/08/2014 FINDINGS: Frontal and lateral radiographic views of the right hip were obtained to insure expected postsurgical changes of previous ORIF. Dynamic compression screw is noted within the proximal right femur. There is no evidence of hardware fracture or failure. No unexpected radiopaque foreign bodies are seen. There is the suggestion of anterior cortical defect superiorly on the lateral view. This may correspond to basicervical. There is subtle basicervical lucency on the frontal view. Otherwise, no conspicuous acute abnormalities are seen. IMPRESSION: 1. Subtle basicervical lucency on the frontal view with cortical defect seen anteriorly on the lateral view. Findings are suspicious for acute fracture. 2. Findings consistent with old fracture and previous postsurgical changes of the proximal right femur. No evidence of hardware fracture or failure. Dictated by: Dictated on workstation # [id number]
--- NOTE | 2017-02-20 19:35 | Diagnostic Imaging Report ---
INDICATION: Fall. Back pain. COMPARISON: None. FINDINGS: Frontal and lateral views of the lumbar spine were obtained. Alignment and vertebral heights are maintained. There is no fracture or destructive process. Moderate multilevel degenerative disease is noted in the lumbar spine. Limited views of the abdomen demonstrate nonobstructive bowel gas pattern. IMPRESSION: 1. No acute fracture or dislocation of the lumbar spine. 2. Moderate multilevel degenerative changes. Dictated by: Dictated on workstation # [id number]
[2017-02-20] MEDS: ATORVASTATIN 10 MG (LIPITOR) TABLET PO SCH (20:45)
[2017-02-20] MEDS: QUEtiapine 200 MG (SEROquel) TAB IMMEDIATE RELEASE PO SCH (20:45)
--- NOTE | 2017-02-20 20:49 | Diagnostic Imaging Report ---
PROCEDURE: CT right lower extremity without contrast. TECHNIQUE: Axially acquired CT was obtained through the right lower extremity without intravenous contrast. Coronal and sagittal reformations were also performed. INDICATION: Right hip pain status post fall. Previous hip surgery. COMPARISON: Radiographs from earlier the same day and CT pelvis dated 01/03/2017 FINDINGS: Evaluation of the right hip demonstrates focal cortical defect anteriorly at the base of the neck (image 49, series 3 and image 61, series 6). This corresponds to subtle abnormality seen on right hip radiograph from earlier same day and is consistent with nondisplaced fracture. The fracture line appears to extend into the femoral neck. Extension through the medial cortex, however, is not identified. There is no displacement of fracture fragments. Postsurgical changes of previous placement of dynamic compression screw within the proximal right femur are identified. Surgical hardware is intact. There is no evidence of hardware fracture or failure. No unexpected radiopaque foreign bodies are seen. Femoral acetabular joint space is maintained. Evaluation of the remainder of the overlying soft tissue structures demonstrates no additional acute abnormalities. IMPRESSION: 1. Nondisplaced acute fracture of the right femoral neck as described above. 2. Postsurgical changes of the proximal right femur as described above. There is no evidence of hardware fracture or failure. Dictated by: Dictated on workstation # [id number]
[2017-02-20 23:50] VITALS: BP 131/73
[2017-02-21 03:48] VITALS: BP 147/83
[2017-02-21] MEDS: NS IV 1000 ML 1,000 ML IV SCH ×2 (04:07→07:55)
[2017-02-21 05:04] LABS: BASOPHILS % (AUTO) 0 % (0-10); EOSINOPHILS # (AUTO) 0.2 10^3/uL (0.0-0.3); EOSINOPHILS % (AUTO) 2 % (0-10); LYMPHOCYTES # (AUTO) 2.1 X 10^3 (1.0-4.0); LYMPHOCYTES % (AUTO) 20 % (12-44); MEAN CORPUSCULAR HEMOGLOBIN 31 PG (25-34); MEAN CORPUSCULAR HGB CONC 34 G/DL (32-36); MEAN CORPUSCULAR VOLUME 91 FL (80-99); MONOCYTES # (AUTO) 1.3 X 10^3 (0.0-1.0); MONOCYTES % (AUTO) 13 % (0-12); NEUTROPHILS # (AUTO) 6.9 X 10^3 (1.8-7.8); NEUTROPHILS % (AUTO) 66 % (42-75); PLATELET COUNT 196 10^3/uL (130-400); RED BLOOD COUNT 4.33 10^6/uL (4.35-5.85); RED CELL DISTRIBUTION WIDTH 14.2 % (10.0-14.5); WHITE BLOOD COUNT 10.5 10^3/uL (4.3-11.0)
[2017-02-21 05:25] LABS: ALANINE AMINOTRANSFERASE 37 U/L (0-55); ALBUMIN 3.2 GM/DL (3.2-4.5); ANION GAP 9 MMOL/L (5-14); ASPARTATE AMINO TRANSFERASE 40 U/L (5-34); BILIRUBIN,TOTAL 0.7 MG/DL (0.1-1.0); BLOOD UREA NITROGEN 6 MG/DL (7-18); BUN/CREATININE RATIO 7; CALCIUM 8.7 MG/DL (8.5-10.1); CARBON DIOXIDE 23 MMOL/L (21-32); CHLORIDE 108 MMOL/L (98-107); CHOLESTEROL 127 MG/DL (< 200); CREATININE SERUM 0.81 MG/DL (0.60-1.30); DIRECT LDL 85 MG/DL (1-129); GFR ESTIMATED > 60; GLUCOSE 95 MG/DL (70-105); POTASSIUM 3.9 MMOL/L (3.6-5.0); SODIUM 140 MMOL/L (135-145); TOTAL PROTEIN 5.9 GM/DL (6.4-8.2); TRIGLYCERIDES 110 MG/DL (<150); VLDL CHOLESTEROL 22 MG/DL (5-40)
[2017-02-21] MEDS: POTASSIUM CITRATE 10 MEQ (UROCIT-K) NON-FORMULARY PO SCH ×2 (06:11→19:50)
[2017-02-21] MEDS: LEVOTHYROXINE 75 MCG (LEVOTHROID) TABLET PO SCH (06:12)
[2017-02-21] MEDS: PANTOPRAZOLE 20 MG TABLET (PROTONIX) PO SCH (06:12)
[2017-02-21] MEDS: VENlafaxine XR 75 MG (EFFEXOR XR) CAP PO SCH (06:12)
--- NOTE | 2017-02-21 07:51 | Progress Note (SOAP) ---
Subjective Time Seen by Provider: 07:40 Subjective/Events-last exam patient was confused last night. Patient fell out of bed. Patient has a hip fracture. Patient had one previously . Patient this morning confused but less confused and doing better. Patient hurts in hip. Patient knows he needs his medicines for his psychiatric problems. Patient has dementia. Sun Down syndrome last night. 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 Consult with orthopedics. DC the [employer] Objective Exam Vital Signs Date Time Temp Pulse Resp B/P (MAP) Pulse Ox O2 Delivery O2 Flow Rate FiO2 02/21/17 03:48 98.2 97 18 147/83 95 Room Air 02/20/17 23:50 97.8 93 18 131/73 93 Room Air 02/20/17 20:40 Room Air 02/20/17 16:00 97.3 93 16 133/75 96 Room Air 02/20/17 11:30 Room Air 02/20/17 11:00 97.3 85 22 126/61 97 Room Air 02/20/17 10:40 97.3 84 16 96 Room Air Capillary Refill : Less Than 3 SecondsGreater Than 3 Seconds General Appearance: No Apparent Distress, WD/WN HEENT: Normal ENT Inspection Neck: Full Range of Motion Respiratory: Chest Non Tender, Lungs Clear, Normal Breath Sounds, No Accessory Muscle Use Cardiovascular: Regular Rate, Rhythm, No Murmur Gastrointestinal: non tender, soft Results Lab Laboratory Tests 02/21/17 04:54 Laboratory Tests 02/20/17 09:28: Lactic Acid Level 1.02 02/21/17 04:54: Lactic Acid Level 1.07, White Blood Count 10.5, Red Blood Count 4.33L, Hemoglobin 13.5, Hematocrit 40, Mean Corpuscular Volume 91, Mean Corpuscular Hemoglobin 31, Mean Corpuscular Hemoglobin Concent 34, Red Cell Distribution Width 14.2, Platelet Count 196, Mean Platelet Volume 9.0, Neutrophils (%) (Auto ) 66, Lymphocytes (%) (Auto) 20, Monocytes (%) (Auto) 13H, Eosinophils (%) (Auto ) 2, Basophils (%) (Auto) 0, Neutrophils # (Auto) 6.9, Lymphocytes # (Auto) 2.1 , Monocytes # (Auto) 1.3H, Eosinophils # (Auto) 0.2, Basophils # (Auto) 0.0, Sodium Level 140, Potassium Level 3.9, Chloride Level 108H, Carbon Dioxide Level 23, Anion Gap 9, Blood Urea Nitrogen 6L, Creatinine 0.81, Estimat Glomerular Filtration Rate > 60, BUN/Creatinine Ratio 7, Glucose Level 95, Calcium Level 8.7, Total Bilirubin 0.7, Aspartate Amino Transf (AST/SGOT) 40H, Alanine Aminotransferase (ALT/SGPT) 37, Alkaline Phosphatase 96, Total Protein 5.9L, Albumin 3.2, Triglycerides Level 110, Cholesterol Level 127, LDL Cholesterol Direct 85, VLDL Cholesterol 22, HDL Cholesterol 29L Assessment/Plan Assessment/Plan Assess & Plan/Chief Complaint lactic acidosis resolved. Fall. Confusion. Hip fracture. Dementia. Mental illness. Consult with orthopedics. 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 Last night patient confused. Got out of bed and fell. And hip fracture. Patient had previous fracture there and has hardware in that hip Clinical Quality Measures DVT/VTE Risk/Contraindication: Risk Factor Score Per Nursin RFS Level Per Nursing on Admit: 2=Moderate ARRON ELLISON DO Feb 21, 2017 07:51
[2017-02-21] MEDS: cefTRIAXone 1 GM/NS 50 ML IVPB IV SCH ×2 (07:56)
[2017-02-21] MEDS: DIGOXIN 0.125 MG (LANOXIN) TAB PO SCH (08:04)
[2017-02-21 08:22] VITALS: BP 138/86
[2017-02-21] MEDS: HYDROcodone/APAP 7.5 MG/325 MG (LORTAB, LORCET PLUS) TABLET PO PRN ×3 (08:47→19:50)
[2017-02-21] MEDS: LORazepam 1 MG (ATIVAN) TAB PO PRN (08:47)
[2017-02-21] MEDS ORDERED: NON-FORMULARY MEDICATION 1 EA EA (Venlafaxine HCl (Venlafaxine HCl ER) 150 MG) PO SCH (09:00)
[2017-02-21] MEDS ORDERED: EPA PO SCH (09:00)
[2017-02-21] MEDS ORDERED: DHA PO SCH (09:00)
[2017-02-21] MEDS ORDERED: NON-FORMULARY MEDICATION 1 EA EA (Tamsulosin HCl (Flomax) 0.4 MG) PO SCH (09:00)
[2017-02-21] MEDS ORDERED: [UNRECOGNIZED DRUG - OTHER] PO SCH (09:00)
[2017-02-21] MEDS ORDERED: NON-FORMULARY MEDICATION 1 EA EA (Glucosam/Chond/Hyalu/Cf Borate (Move Free Joint Health T PO SCH (09:00)
[2017-02-21] MEDS ORDERED: OMEPRAZOLE 20 MG (PriLOSEC) CAP NON-FORMULARY PO SCH (09:00)
[2017-02-21] MEDS ORDERED: ANTIOX PO SCH (09:00)
[2017-02-21] MEDS ORDERED: LUT PO SCH (09:00)
[2017-02-21] MEDS ORDERED: ZEAX PO SCH (09:00)
[2017-02-21 12:00] VITALS: BP 124/75
--- NOTE | 2017-02-21 14:48 | Physical Therapy Progress Note ---
Therapy Progress Note Order received, chart reviewed. Patient is having surgery for a hip fracture tomorrow. We will postpone his evaluation until appropriate. NANI JIMENEZ PT Feb 21, 2017 14:48
[2017-02-21 15:53] VITALS: BP 131/74
--- NOTE | 2017-02-21 19:16 | Consultation ---
History of Present Illness History of Present Illness Patient Consulted On(bi/time) 02/21/17 19:11 Time Seen by Provider: 19:11 Reason for Visit: Right hip pain History of Present Illness Patient is a 81 y/o male who reportedly fell, and developed right hip pain. Patient underwent a Right hip CT scan which revealed a right femoral neck fracture. Fracture does not traverse to the medial cortex. There his a Dynamic Hip Screw present. There is no hardware failure or loosening. Our service was consulted for Orthopaedic evaluation. Allergies and Home Medications Allergies Coded Allergies: Penicillins (Verified Allergy, Severe, PT HAS RECEIVED CEFEPIME & ROCEPHIN W/O ISSUE, 12/21/15) temazepam (Verified Adverse Reaction, Mild, PATIENT TAKES LORAZEPAM, ) VERY BAD DREAMS Home Medications Antiox#10/Om3/Dha/Epa/Lut/Zeax 1 Each Capsule, 1 CAP PO DAILY, (Reported) Atorvastatin Calcium 10 Mg Tablet, 10 MG PO HS, (Reported) Digoxin 125 Mcg Tablet, 125 MCG PO DAILY, (Reported) Gabapentin 300 Mg Capsule, 300 MG PO TID PRN for LEG TWITCHES, (Reported) Glucosam/Chond/Hyalu/Cf Borate 1 Each Tablet, 1 TAB PO DAILY, (Reported) Levothyroxine Sodium 75 Mcg Tablet, 75 MCG PO DAILY, (Reported) Lorazepam 1 Mg Tablet, 1 MG PO BID PRN for ANXIETY, (Reported) Omeprazole 20 Mg Capsule.dr, 20 MG PO DAILY, (Reported) Ondansetron HCl 4 Mg Tablet, 4 MG PO TID PRN for NAUSEA/VOMITING-1ST LINE, ( Reported) Potassium Citrate 10 Meq Tablet.er, 10 MEQ PO BID, (Reported) Quetiapine Fumarate 200 Mg Tablet, 200 MG PO HS, (Reported) Tamsulosin HCl 0.4 Mg Cap, 0.4 MG PO DAILY, (Reported) LAST FILLED #7 10-30-16 Venlafaxine HCl 150 Mg Cap.er.24h, 150 MG PO DAILY, (Reported) Past Jwgxlxb-Hwcdob-Plhdmy Hx Patient Social History Alcohol Use: Denies Use Recreational Drug Use: No Smoking Status: Former Smoker 2nd Hand Smoke Exposure: No Recent Foreign Travel: No Contact w/Someone Who Travel: No Recent Infectious Disease Expo: No Recent Hopitalizations: Yes Physical Abuse Screen: No Sexual Abuse: No Immunizations Up To Date Tetanus Booster (TDap): More than 5yrs PED Vaccines UTD: No Date of Pneumonia Vaccine: Jan 29, 2015 Date of Influenza Vaccine: Apr 10, 2016 Seasonal Allergies Seasonal Allergies: No Surgeries HX Surgeries: Yes Surgeries: Gallbladder, Orthopedic Respiratory Hx Respiratory Disorders: Yes Respiratory Disorders: Pneumonia, Sleep Apnea, COPD Cardiovascular Hx Cardiac Disorders: Yes Cardiac Disorders: Atrial Fibrillation, Hypertension Neurological Hx Neurological Disorders: Yes Neurological Disorders: Dementia Reproductive System Hx Reproductive Disorders: No Sexually Transmitted Disease: No HIV/AIDS: No Genitourinary Hx Genitourinary Disorders: Yes (ONLY HAVE LEFT KIDNEY, erectile dysfunction) Genitourinary Disorders: Kidney Stones, Renal Failure Gastrointestinal Hx Gastrointestinal Disorders: Yes Gastrointestinal Disorders: Chronic Constipation, Pancreatitis Musculoskeletal Hx Musculoskeletal Disorders: Yes Musculoskeletal Disorders: Osteoporosis, Chronic Back Pain, Fractures Endocrine Hx Endocrine Disorders: Yes Endocrine Disorders: Hypothyroidsim HEENT HX ENT Disorders: Yes Loss of Vision: Denies Hearing Impairment: Denies Cancer Hx Cancer: No Psychosocial Hx Psychiatric Problems: Yes Behavioral Health Disorders: Anxiety, Depression Integumentary HX Skin/Integumentary Disorder: No Blood Transfusions Hx Blood Disorders: No Adverse Reaction to a Blood Tr: No Reviewed Nursing Assessment Reviewed/Agree w Nursing PMH: Yes Family Medical History Significant Family History: No Pertinent Family Hx Family Medial History: FH: stroke G8 SISTER, Onset:75 Review of Systems-General Constitutional: no symptoms reported Gastrointestinal: no symptoms reported Musculoskeletal: joint pain Skin: no symptoms reported Physical Exam-General Problems Physical Exam Vital Signs Vital Sign - Last 12Hours 02/20/17 07:00 Temp 97.3 Pulse 109 Resp 20 B/P (MAP) 97/54 Pulse Ox 95 O2 Delivery Room Air Capillary Refill : Less Than 3 SecondsGreater Than 3 Seconds General Appearance: no apparent distress Eyes: Bilateral Eye Normal Inspection, Bilateral Eye PERRL Neck: non-tender Respiratory: chest non-tender Cardiovascular: other (+1 BLE edema, capillary refill < 2 seconds) Gastrointestinal: soft Extremities: other (Right groin tenderness with range of motion of the RLE. Normal dosiflexion and plantar flexion of BLE. ) Neurologic/Psychiatric: lot porter II-XII nml as tested, no motor/sensory deficits, alert, normal mood/affect, oriented x 3 Skin: normal color Assessment/Plan Assessment/Plan Admission Diagnosis/Plan Right femoral neck periprosthetic femur fracture Lactic acidosis Dementia Patient's fracture is stable, due to prior hardware. No surgical intervention is necessary. Activity and weight bearing as tolerated. Follow up with Dr. Velazquez as needed. Clinical Quality Measures DVT/VTE Risk/Contraindication: Risk Factor Score Per Nursin RFS Level Per Nursing on Admit: 2=Moderate SCOTTIE CORTEZ Feb 21, 2017 19:16
[2017-02-21] MEDS: ALFUZOSIN HCL 10 MG TAB (UROXATRAL) PO SCH (19:50)
[2017-02-21 20:00] VITALS: BP 157/84
[2017-02-21] MEDS: ATORVASTATIN 10 MG (LIPITOR) TABLET PO SCH (20:44)
[2017-02-21] MEDS: QUEtiapine 200 MG (SEROquel) TAB IMMEDIATE RELEASE PO SCH (20:44)
[2017-02-22] VITALS: BP 120/67
[2017-02-22] MEDS: NS IV 1000 ML 1,000 ML IV SCH (01:09)
[2017-02-22] MEDS: LORazepam 1 MG (ATIVAN) TAB PO PRN ×2 (01:13→07:46)
[2017-02-22 03:41] VITALS: BP 112/70
[2017-02-22] MEDS: POTASSIUM CITRATE 10 MEQ (UROCIT-K) NON-FORMULARY PO SCH ×3 (06:09→18:32)
[2017-02-22] MEDS: PANTOPRAZOLE 20 MG TABLET (PROTONIX) PO SCH (06:19)
[2017-02-22] MEDS: LEVOTHYROXINE 75 MCG (LEVOTHROID) TABLET PO SCH (06:20)
[2017-02-22] MEDS: VENlafaxine XR 75 MG (EFFEXOR XR) CAP PO SCH (06:20)
[2017-02-22 06:50] LABS: MEAN PLATELET VOLUME 9.3 FL (7.4-10.4); RED BLOOD COUNT 4.31 10^6/uL (4.35-5.85); RED CELL DISTRIBUTION WIDTH 14.1 % (10.0-14.5); WHITE BLOOD COUNT 10.3 10^3/uL (4.3-11.0)
[2017-02-22 07:07] LABS: ANION GAP 7 MMOL/L (5-14); BLOOD UREA NITROGEN 7 MG/DL (7-18); BUN/CREATININE RATIO 9; CALCIUM 8.5 MG/DL (8.5-10.1); CARBON DIOXIDE 25 MMOL/L (21-32); CHLORIDE 105 MMOL/L (98-107); CREATININE SERUM 0.82 MG/DL (0.60-1.30); GFR ESTIMATED > 60; GLUCOSE 84 MG/DL (70-105); POTASSIUM 3.8 MMOL/L (3.6-5.0); SODIUM 137 MMOL/L (135-145)
--- NOTE | 2017-02-22 07:43 | Progress Note (SOAP) ---
Subjective Time Seen by Provider: 07:30 Subjective/Events-last exam patient feeling good today. Patient caregiver in room today. Patient seen by orthopedic. Hip fracture does not need surgery. Patient is confused. Patient to have physical therapy. Patient tomorrow to go to [facility]. clinical services specialist to make arrangements Objective Exam Vital Signs Date Time Temp Pulse Resp B/P (MAP) Pulse Ox O2 Delivery O2 Flow Rate FiO2 02/22/17 03:41 97.5 84 20 112/70 95 Room Air 02/22/17 00:00 98.0 20 120/67 95 Room Air 02/21/17 20:15 Room Air 02/21/17 20:00 98.4 107 18 157/84 95 Room Air 02/21/17 15:53 97.9 76 19 131/74 93 Room Air 02/21/17 12:00 97.3 86 18 124/75 96 Room Air 02/21/17 09:00 Room Air 02/21/17 08:22 97.3 119 20 138/86 91 Room Air Capillary Refill : Less Than 3 SecondsGreater Than 3 Seconds General Appearance: No Apparent Distress, WD/WN HEENT: Normal ENT Inspection Neck: Full Range of Motion, Normal Inspection Respiratory: Chest Non Tender, No Accessory Muscle Use, No Respiratory Distress Cardiovascular: Regular Rate, Rhythm, No Murmur Gastrointestinal: non tender, soft Results Lab Laboratory Tests 02/22/17 06:39 Laboratory Tests 02/22/17 06:39: White Blood Count 10.3, Red Blood Count 4.31L, Hemoglobin 13.2L, Hematocrit 40, Mean Corpuscular Volume 92, Mean Corpuscular Hemoglobin 31, Mean Corpuscular Hemoglobin Concent 33, Red Cell Distribution Width 14.1, Platelet Count 188, Mean Platelet Volume 9.3, Sodium Level 137, Potassium Level 3.8, Chloride Level 105, Carbon Dioxide Level 25, Anion Gap 7, Blood Urea Nitrogen 7, Creatinine 0.82, Estimat Glomerular Filtration Rate > 60, BUN/Creatinine Ratio 9, Glucose Level 84, Calcium Level 8.5 Microbiology 02/20/17 Blood Culture - Preliminary, Resulted No growth Radiology [facility] REC#: [id number] PT STATUS: ADM IN : 1935 PHYSICIAN: ARRON ELLISON DO ADMIT DATE: 02/21/17 Signed Date of Exam: 02/20/17 CT EXTREMITY LOWER RIGHT WO PROCEDURE: CT right lower extremity without contrast. TECHNIQUE: Axially acquired CT was obtained through the right lower extremity without intravenous contrast. Coronal and sagittal reformations were also performed. INDICATION: Right hip pain status post fall. Previous hip surgery. COMPARISON: Radiographs from earlier the same day and CT pelvis dated 01/03/2017 FINDINGS: Evaluation of the right hip demonstrates focal cortical defect anteriorly at the base of the neck (image 49, series 3 and image 61, series 6). This corresponds to subtle abnormality seen on right hip radiograph from earlier same day and is consistent with nondisplaced fracture. The fracture line appears to extend into the femoral neck. Extension through the medial cortex, however, is not identified. There is no displacement of fracture fragments. Postsurgical changes of previous placement of dynamic compression screw within the proximal right femur are identified. Surgical hardware is intact. There is no evidence of hardware fracture or failure. No unexpected radiopaque foreign bodies are seen. Femoral acetabular joint space is maintained. Evaluation of the remainder of the overlying soft tissue structures demonstrates no additional acute abnormalities. IMPRESSION: 1. Nondisplaced acute fracture of the right femoral neck as described above. Assessment/Plan Assessment/Plan Assess & Plan/Chief Complaint lactic acidosis resolved. Fall. Confusion. Hip fracture. Dementia. Mental illness. Consult with orthopedics. Consult with social worker. Last night patient confused. Got out of bed and fell. And hip fracture. Patient had previous fracture there and has hardware in that hip. . 02/22/17. Lactic acidosis resolved. Fall. Confusion. Dementia. Hip fracture does not need surgery. Patient confused this a.m. Spoke to patient's caregiver who is power of health care attorney. Plan to discharge to via [facility] tomorrow Clinical Quality Measures DVT/VTE Risk/Contraindication: Risk Factor Score Per Nursin RFS Level Per Nursing on Admit: 2=Moderate ARRON ELLISON DO Feb 22, 2017 07:42
[2017-02-22] MEDS: DIGOXIN 0.125 MG (LANOXIN) TAB PO SCH (07:46)
[2017-02-22] MEDS: HYDROcodone/APAP 7.5 MG/325 MG (LORTAB, LORCET PLUS) TABLET PO PRN (07:46)
[2017-02-22] MEDS: cefTRIAXone 1 GM/NS 50 ML IVPB IV SCH ×2 (07:47)
[2017-02-22 08:16] VITALS: BP 131/84
--- NOTE | 2017-02-22 09:49 | Physical Therapy Evaluation ---
PT Evaluation-General Medical Diagnosis Admission Date Feb 21, 2017 at 08:20 Medical Diagnosis: AMS Onset Date: Feb 21, 2017 Therapy Diagnosis Therapy Diagnosis: generalized weakness and debility Height/Weight Height (Feet): 5 Height (Inches): 9.00 Weight (Pounds): 181 Weight (Ounces): 3.0 Precautions Precautions/Isolations: Fall Prevention, Standard Precautions Weight Bear Status Weight Bearing Restriction: Weight Bearing/Tolerated Location Restriction: R LE Referral Physician: Noemy Reason for Referral: Evaluation/Treatment Medical History Pertinent Medical History: Atrial Fib, Arthritis, Dementia, HTN, Hypothroidism , OA, Renal Insufficiency Additional Medical History increase in dementia symptoms Current History s/p fall getting up independently in room Reviewed History: Yes Social History Home: Single Level Current Living Status: Significant Other Prior/Core FIM Prior Level of Function Functional [place] Measure 0=Not Assessed/NA 4=Minimal Assistance 1=Total Assistance 5=Supervision or Setup 2=Maximal Assistance 6=Modified [place] 3=Moderate Assistance 7=Complete [place] Bed Mobility: 5 Transfers (B,C,W/C) (FIM): 5 Gait: 5 requires assistance from caregiver PLOF PT Evaluation-Current Subjective Patient agrees to PT. Pain Numeric Pain Scale: 5-Moderate Pain Location: Right Location Body Site: Hip Comment: FLACC Objective Patient Orientation: Confused Problem Solving: Poor ROM/Strength ROM Lower Extremities bilateral LE WNL Strenght Lower Extremities 4-/5 grossly bilaterally (unable to formally test due to dementia and inability to follow simple direction) Integumentary/Posture Integumentary refer to nursing notes Bowel Incontinence: No Bladder Incontinence: Yes Posture slight trunk flexed posture Neuromuscular (Tone, Coordination, Reflexes) diminished coordination due to dementia Sensory Vision: Functional Hearing: Impaired Sensation Right Lower Extremit: Intact Sensation Left Lower Extremity: Intact Transfers Functional [place] Measure 0=Not Assessed/NA 4=Minimal Assistance 1=Total Assistance 5=Supervision or Setup 2=Maximal Assistance 6=Modified [place] 3=Moderate Assistance 7=Complete [place] Transfers (B, C, W/C) (FIM): 4 Scootin Rollin Supine to/from Sit: 5 Sit to/from Stand: 4 close CGA with use of gait belt for sit to stand Gait Mode of Locomotion: Both Anticipated Mode of Locomotion: Both Gait (FIM): 1 Distance (FIM): 1=up to 49 ft Distance: 5' x 2 Gait Level of Assist: 4 Gait Persons Needed: 1 Gait Assistive Device: FWW Comments/Gait Description slightly unsteady; patient is impulsive to sit due to right hip pain and confusion Balance Sitting Static: Normal Sitting Dynamic: Normal Standing Static: Fair Standing Dynamic: Fair Assessment/Needs 81 y.o. male, will benefit from skilled PT to address functional strength and mobility to improve current LOF and to safely transfer to NH tomorrow. Patient is limited due to dementia and recent fall. Rehab Potential: Fair PT Short Term Goals Short Term Goals Time Frame: Feb 25, 2017 Transfers (B,C,W/C) (FIM): 5 Gait (FIM): 1 Distance (FIM): 1=up to 49 ft Gait Distance Comment: 15' Gait Level of Assist: 4 Gait Assistive Device: FWW PT Plan Problem List Problem List: Activity Tolerance, Functional Strength, Safety, Balance, Gait, Transfer Treatment/Plan Treatment Plan: Continue Plan of Care Treatment Plan: Bed Mobility, Education, Functional Activity Silvio, Functional Strength, Gait, Safety, Therapeutic Exercise, Transfers Treatment Duration: Feb 25, 2017 Frequency: Twice Daily Estimated Hrs Per Day: .5 hour per day Patient and/or Family Agrees t: Yes Safety Risks/Education Patient Education: Safety Issues Teaching Recipient: Patient Teaching Methods: Discussion Response to Teaching: Reinforcement Needed Discharge Recommendations Therapy D/C Recommendations: Senior Living Placement, [facility] (TCU/NH) Time/GCodes Time In: 910 Time Out: 925 Total Billed Treatment Time: 15 Total Billed Treatment 1 visit EVModC 15 min G Codes Necessary: JAGRUTI Felipe PT Feb 22, 2017 09:49
[2017-02-22 12:00] VITALS: BP 111/64
--- NOTE | 2017-02-22 14:48 | Physical Therapy Progress Note ---
Therapy Progress Note Patient has had increase in confusion and is currently resting peacefully. No treatment per RN, at this time. JAGRUTI SAUCEDO PT Feb 22, 2017 14:48
[2017-02-22 16:04] VITALS: BP 121/58
[2017-02-22] MEDS: ALFUZOSIN HCL 10 MG TAB (UROXATRAL) PO SCH (18:32)
[2017-02-22] MEDS: QUEtiapine 200 MG (SEROquel) TAB IMMEDIATE RELEASE PO SCH (20:42)
[2017-02-22] MEDS: ATORVASTATIN 10 MG (LIPITOR) TABLET PO SCH (20:42)
[2017-02-23] VITALS: BP 120/65
[2017-02-23] MEDS: LORazepam 1 MG (ATIVAN) TAB PO PRN ×2 (04:19→18:01)
[2017-02-23] MEDS: POTASSIUM CITRATE 10 MEQ (UROCIT-K) NON-FORMULARY PO SCH ×2 (06:26→17:11)
[2017-02-23] MEDS: LEVOTHYROXINE 75 MCG (LEVOTHROID) TABLET PO SCH (06:26)
[2017-02-23] MEDS: VENlafaxine XR 75 MG (EFFEXOR XR) CAP PO SCH (06:26)
[2017-02-23] MEDS: PANTOPRAZOLE 20 MG TABLET (PROTONIX) PO SCH (06:26)
[2017-02-23 06:35] LABS: ANION GAP 11 MMOL/L (5-14); BLOOD UREA NITROGEN 7 MG/DL (7-18); BUN/CREATININE RATIO 9; CALCIUM 8.6 MG/DL (8.5-10.1); CARBON DIOXIDE 21 MMOL/L (21-32); CHLORIDE 105 MMOL/L (98-107); CREATININE SERUM 0.81 MG/DL (0.60-1.30); GFR ESTIMATED > 60; GLUCOSE 81 MG/DL (70-105); POTASSIUM 4.1 MMOL/L (3.6-5.0); SODIUM 137 MMOL/L (135-145)
[2017-02-23 06:42] LABS: MEAN PLATELET VOLUME 9.1 FL (7.4-10.4); RED BLOOD COUNT 4.24 10^6/uL (4.35-5.85); RED CELL DISTRIBUTION WIDTH 14.2 % (10.0-14.5); WHITE BLOOD COUNT 10.6 10^3/uL (4.3-11.0)
--- NOTE | 2017-02-23 07:34 | Progress Note (SOAP) ---
Subjective Time Seen by Provider: 07:25 Subjective/Events-last exam lactic acidosis. Acute mental status change. Hip fracture. Patient to be discharged tomorrow morning. Objective Exam Vital Signs Date Time Temp Pulse Resp B/P (MAP) Pulse Ox O2 Delivery O2 Flow Rate FiO2 02/23/17 00:00 98.3 101 17 120/65 94 Room Air 02/22/17 20:30 Room Air 02/22/17 16:04 98.7 71 22 121/58 94 Room Air 02/22/17 12:00 97.3 72 22 111/64 93 Room Air 02/22/17 08:16 97.3 104 20 131/84 90 Room Air Capillary Refill : Less Than 3 SecondsGreater Than 3 Seconds General Appearance: No Apparent Distress, WD/WN HEENT: Normal ENT Inspection Neck: Full Range of Motion, Normal Inspection Respiratory: Chest Non Tender, Lungs Clear, No Accessory Muscle Use, No Respiratory Distress Cardiovascular: Regular Rate, Rhythm Gastrointestinal: non tender, soft Results Lab Laboratory Tests 02/23/17 05:41 02/23/17 06:32 Laboratory Tests 02/23/17 05:41: Sodium Level 137, Potassium Level 4.1, Chloride Level 105, Carbon Dioxide Level 21, Anion Gap 11, Blood Urea Nitrogen 7, Creatinine 0.81, Estimat Glomerular Filtration Rate > 60, BUN/Creatinine Ratio 9, Glucose Level 81, Calcium Level 8.6 02/23/17 06:32: White Blood Count 10.6, Red Blood Count 4.24L, Hemoglobin 13.2L, Hematocrit 39L , Mean Corpuscular Volume 92, Mean Corpuscular Hemoglobin 31, Mean Corpuscular Hemoglobin Concent 34, Red Cell Distribution Width 14.2, Platelet Count 188, Mean Platelet Volume 9.1 Microbiology 02/20/17 Blood Culture - Preliminary, Resulted No growth Assessment/Plan Assessment/Plan Assess & Plan/Chief Complaint lactic acidosis resolved. Fall. Confusion. Hip fracture. Dementia. Mental illness. Consult with orthopedics. Consult with social work professor. Last night patient confused. Got out of bed and fell. And hip fracture. Patient had previous fracture there and has hardware in that hip. . 02/22/17. Lactic acidosis resolved. Fall. Confusion. Dementia. Hip fracture does not need surgery. Patient confused this a.m. Spoke to patient's caregiver who is power of banking attorney. Plan to discharge to via [facility] tomorrow. . 02/23/17. fall Confusion. Hip fracture. Lactic acidosis. Dementia Acute mental status change. Weakness. To discharge tomorrow to long term via [facility] Clinical Quality Measures DVT/VTE Risk/Contraindication: Risk Factor Score Per Nursin RFS Level Per Nursing on Admit: 2=Moderate ARRON ELLISON DO Feb 23, 2017 07:34
[2017-02-23] MEDS ORDERED: HYDR-87 PO (07:40)
--- NOTE | 2017-02-23 07:43 | Discharge Inst-Skilled Nursing ---
Discharge Inst-Skilled NF Patient Instructions Patient Problems: fractured hip. Dementia. Mental problems. Needs physical therapy Consult/Follow Up/Orders Follow Up Appt.: one week Skilled NF Admit to: Via [facility] Certification (SNF) I certify that SNF services are required to be given on an inpatient basis because of the above named patient's need for senior care care on a continuing basis for the conditions(s) for which he/she was receiving inpatient hospital services prior to his/her transfer to the SNF. Senior Care Facility Order: Nursing Services, Physical Therapy-Evaluate & Treat Discharge Diet: No Restrictions Daily Activity as Tolerated: Yes New & Resume Previous Orders Joel Ellison Feb 23, 2017 07:42 JOEL ELLISON DO Feb 23, 2017 07:43
[2017-02-23 08:30] VITALS: BP 99/65
[2017-02-23] MEDS: DIGOXIN 0.125 MG (LANOXIN) TAB PO SCH (09:17)
--- NOTE | 2017-02-23 09:36 | Physical Therapy Daily Note ---
PT Daily Note-Current Subjective Patient is more alert on this date and reluctantly agrees to PT. Pain Numeric Pain Scale: 5-Moderate Pain Location: Right Location Body Site: Hip Pain Description: Acute Mental Status Patient Orientation: Person, Time, Situation Transfers Functional [place] Measure 0=Not Assessed/NA 4=Minimal Assistance 1=Total Assistance 5=Supervision or Setup 2=Maximal Assistance 6=Modified [place] 3=Moderate Assistance 7=Complete IndependenceIRFPAI Quality Coding Scale 6 Independent with activity with or without an assistive device 5 Patient requires set up or clean up by helper. Patient completes activity by themselves 4 Supervision or touching assist (CGA). Tyler provide cues , steadying assist 3 The helper provides less than half the effort to complete the activity 2 The helper provides more than half the effort to complete the activity 1 Dependent. The helper does all the effort to complete an activity 7 Patient refused to complete or attempt activity 9 The patient did not perform the activity before the current illness or injury 88 Not attempted due to Medical conditions or safety concerns Transfers (B, C, W/C) (FIM): 4 Scootin Rollin Supine to/from Sit: 4 Sit to/from Stand: 4 CGA with sit to stand transfer to FWW. Patient is impulsive to sit with turn to sit from stand after gait training. Weight Bearing Weight Bearing Restriction: Weight Bearing/Tolerated, Full Weight Bearing Location Restriction: R LE Gait Training Gait (FIM): 1 Distance (FIM): 1=up to 49 ft (20') Distance: 20' Gait Level of Assist: 4 Gait Persons Needed: 1 Gait Assistive Device: FWW functional gait sequence with FWW; patient requires much encouragement to participate with perform gait training to improve functional mobility. Assessment Patient tolerated treatment well and declined exercises at this time. PT educated patient on importance of participating with therapy to improve strength and mobility to safely return to home, however, patient continued to decline exercises. PT Short Term Goals Short Term Goals Time Frame: Feb 25, 2017 Transfers (B,C,W/C) (FIM): 5 Gait (FIM): 1 Distance (FIM): 1=up to 49 ft Gait Distance Comment: 15' Gait Level of Assist: 4 Gait Assistive Device: FWW PT Plan Treatment/Plan Treatment Plan: Continue Plan of Care Treatment Plan: Bed Mobility, Education, Functional Activity Silvio, Functional Strength, Gait, Safety, Therapeutic Exercise, Transfers Treatment Duration: Feb 25, 2017 Frequency: Twice Daily Estimated Hrs Per Day: .5 hour per day Patient and/or Family Agrees t: Yes Time/GCodes Time In: 906 Time Out: 916 Total Billed Treatment Time: 10 Total Billed Treatment 1 visit GT 10 min G Codes Necessary: No JAGRUTI SAUCEDO PT Feb 23, 2017 09:36
[2017-02-23] MEDS: HYDROcodone/APAP 7.5 MG/325 MG (LORTAB, LORCET PLUS) TABLET PO PRN (11:04)
--- NOTE | 2017-02-23 14:01 | Physical Therapy Progress Note ---
Therapy Progress Note Visited with caregiver who declined PT this p.m. due to patient is resting and she does not want him disturbed. Patient will transfer to [place] tomorrow. 1 visit JAGRUTI SAUCEDO PT Feb 23, 2017 14:01
[2017-02-23 16:15] VITALS: BP 109/70
[2017-02-23] MEDS: ALFUZOSIN HCL 10 MG TAB (UROXATRAL) PO SCH (17:12)
[2017-02-23] MEDS: ATORVASTATIN 10 MG (LIPITOR) TABLET PO SCH (20:55)
[2017-02-23] MEDS: QUEtiapine 200 MG (SEROquel) TAB IMMEDIATE RELEASE PO SCH (20:55)
[2017-02-24] VITALS: BP 127/83
[2017-02-24] MEDS: VENlafaxine XR 75 MG (EFFEXOR XR) CAP PO SCH (06:29)
[2017-02-24] MEDS: POTASSIUM CITRATE 10 MEQ (UROCIT-K) NON-FORMULARY PO SCH (06:29)
[2017-02-24] MEDS: PANTOPRAZOLE 20 MG TABLET (PROTONIX) PO SCH (06:29)
[2017-02-24] MEDS: LEVOTHYROXINE 75 MCG (LEVOTHROID) TABLET PO SCH (06:29)
[2017-02-24] MEDS: HYDROcodone/APAP 7.5 MG/325 MG (LORTAB, LORCET PLUS) TABLET PO PRN (06:38)
[2017-02-24 07:59] VITALS: BP 109/57
[2017-02-24] MEDS: DIGOXIN 0.125 MG (LANOXIN) TAB PO SCH (08:27)
[2017-02-24] MEDS ORDERED: HYDR-3990 PO (10:03)
[2017-02-24 10:38] VITALS: BP 109/57
--- NOTE | 2017-02-28 07:31 | Discharge Summary ---
Diagnosis/Chief Complaint Date of Admission Feb 21, 2017 at 08:20 Date of Discharge Feb 24, 2017 at 10:50 Discharge Date: Feb 24, 2017 Discharge Time: 07:15 Admission Diagnosis Admission Diagnosis lactic acidosis elevated. Acute mental status change. History of mental problems. Dementia Discharge Diagnosis acute mental status change. Increase in lactic acidosis. Dementia. Psychiatric problems. Abrasion left knee. Anxiety disorder. COPD. Hypertension. Hypothyroid. Nondisplaced acute fracture of right femoral head Reason Hospital Visit patient came to the emergency room. Patient has not been sleeping last 3 days. Patient having increasing confusion. Eating and drinking has been last last 3 days. Patient fell 3 days ago. Patient had decreased urinary output decreased taking the water. Patient hypotensive in the emergency room. Serum lactic acid elevated and above 2. Patient has history of mental disorder. Patient has a enterer at home. Patient has some dementia Discharge Summary Consultations orthopedic Discharge Physical Examination Allergies: Coded Allergies: Penicillins (Verified Allergy, Severe, PT HAS RECEIVED CEFEPIME & ROCEPHIN W/O ISSUE, 12/21/15) temazepam (Verified Adverse Reaction, Mild, PATIENT TAKES LORAZEPAM, ) VERY BAD DREAMS Vitals & I&Os Vital Signs Date Time Temp Pulse Resp B/P (MAP) Pulse Ox O2 Delivery O2 Flow Rate FiO2 02/24/17 10:38 94 16 109/57 93 Room Air 02/24/17 07:59 97.1 Hospital Course patient in hospital fell out of bed. Labs (last 24 hrs) Laboratory Tests 02/20/17 07:20: White Blood Count 12.3H, Red Blood Count 4.80, Hemoglobin 14.8, Hematocrit 44, Mean Corpuscular Volume 91, Mean Corpuscular Hemoglobin 31, Mean Corpuscular Hemoglobin Concent 34, Red Cell Distribution Width 14.3, Platelet Count 289, Mean Platelet Volume 9.3, Neutrophils (%) (Auto) 52, Lymphocytes (%) (Auto) 31, Monocytes (%) (Auto) 14H, Eosinophils (%) (Auto) 2, Basophils (%) (Auto) 1, Neutrophils # (Auto) 6.4, Lymphocytes # (Auto) 3.9, Monocytes # (Auto) 1.8H, Eosinophils # (Auto) 0.2, Basophils # (Auto) 0.1, Prothrombin Time 13.8, INR Comment 1.1, Activated Partial Thromboplast Time 38H, Sodium Level 138, Potassium Level 3.9, Chloride Level 104, Carbon Dioxide Level 23, Anion Gap 11, Blood Urea Nitrogen 11, Creatinine 1.06, Estimat Glomerular Filtration Rate > 60 , BUN/Creatinine Ratio 10, Glucose Level 92, Lactic Acid Level 2.17*H, Calcium Level 9.2, Total Bilirubin 0.7, Aspartate Amino Transf (AST/SGOT) 29, Alanine Aminotransferase (ALT/SGPT) 26, Alkaline Phosphatase 100, Troponin I < 0.30, Total Protein 6.8, Albumin 3.5, Thyroid Stimulating Hormone (TSH) 3.62, Digoxin Level 0.30L 02/20/17 07:30: Urine Color YELLOW, Urine Clarity SLIGHTLY CLOUDY, Urine pH 7, Urine Specific [place] 1.010L, Urine Protein 1+H, Urine Glucose (UA) NEGATIVE, Urine Ketones NEGATIVE, Urine Nitrite NEGATIVE, Urine Bilirubin NEGATIVE, Urine Urobilinogen NORMAL, Urine Leukocyte Esterase NEGATIVE, Urine RBC (Auto) NEGATIVE, Urine RBC NONE, Urine WBC RARE, Urine Squamous Epithelial Cells RARE, Urine Crystals PRESENTH, Urine Amorphous Sediment RARE CHIOMA URATESH, Urine Bacteria NEGATIVE, Urine Casts PRESENT, Urine Hyaline Casts 2-5H, Urine Mucus NEGATIVE, Urine Culture Indicated NO 02/20/17 09:28: Lactic Acid Level 1.02 02/21/17 04:54: White Blood Count 10.5, Red Blood Count 4.33L, Hemoglobin 13.5, Hematocrit 40, Mean Corpuscular Volume 91, Mean Corpuscular Hemoglobin 31, Mean Corpuscular Hemoglobin Concent 34, Red Cell Distribution Width 14.2, Platelet Count 196, Mean Platelet Volume 9.0, Neutrophils (%) (Auto) 66, Lymphocytes (%) (Auto) 20, Monocytes (%) (Auto) 13H, Eosinophils (%) (Auto) 2, Basophils (%) (Auto) 0, Neutrophils # (Auto) 6.9, Lymphocytes # (Auto) 2.1, Monocytes # (Auto) 1.3H, Eosinophils # (Auto) 0.2, Basophils # (Auto) 0.0, Sodium Level 140, Potassium Level 3.9, Chloride Level 108H, Carbon Dioxide Level 23, Anion Gap 9, Blood Urea Nitrogen 6L, Creatinine 0.81, Estimat Glomerular Filtration Rate > 60, BUN/ Creatinine Ratio 7, Glucose Level 95, Lactic Acid Level 1.07, Calcium Level 8.7 , Total Bilirubin 0.7, Aspartate Amino Transf (AST/SGOT) 40H, Alanine Aminotransferase (ALT/SGPT) 37, Alkaline Phosphatase 96, Total Protein 5.9L, Albumin 3.2, Triglycerides Level 110, Cholesterol Level 127, LDL Cholesterol Direct 85, VLDL Cholesterol 22, HDL Cholesterol 29L 02/22/17 06:39: White Blood Count 10.3, Red Blood Count 4.31L, Hemoglobin 13.2L, Hematocrit 40, Mean Corpuscular Volume 92, Mean Corpuscular Hemoglobin 31, Mean Corpuscular Hemoglobin Concent 33, Red Cell Distribution Width 14.1, Platelet Count 188, Mean Platelet Volume 9.3, Sodium Level 137, Potassium Level 3.8, Chloride Level 105, Carbon Dioxide Level 25, Anion Gap 7, Blood Urea Nitrogen 7, Creatinine 0.82, Estimat Glomerular Filtration Rate > 60, BUN/Creatinine Ratio 9, Glucose Level 84, Calcium Level 8.5 02/23/17 05:41: Sodium Level 137, Potassium Level 4.1, Chloride Level 105, Carbon Dioxide Level 21, Anion Gap 11, Blood Urea Nitrogen 7, Creatinine 0.81, Estimat Glomerular Filtration Rate > 60, BUN/Creatinine Ratio 9, Glucose Level 81, Calcium Level 8.6 02/23/17 06:32: White Blood Count 10.6, Red Blood Count 4.24L, Hemoglobin 13.2L, Hematocrit 39L , Mean Corpuscular Volume 92, Mean Corpuscular Hemoglobin 31, Mean Corpuscular Hemoglobin Concent 34, Red Cell Distribution Width 14.2, Platelet Count 188, Mean Platelet Volume 9.1 Microbiology 02/20/17 Blood Culture - Final, Complete No growth Laboratory Tests 02/20/17 07:20 02/21/17 04:54 02/22/17 06:39 02/23/17 05:41 02/23/17 06:32 Pending Labs Microbiology Date/Time Source Procedure Growth Status 02/20/17 07:30 Peripheral Lt Ac Blood Culture - Final No growth Complete 02/20/17 07:20 Peripheral Rt Ac Blood Culture - Final No growth Complete Laboratory Tests 02/20/17 07:20: White Blood Count 12.3, Red Blood Count 4.80, Hemoglobin 14.8, Hematocrit 44, Mean Corpuscular Volume 91, Mean Corpuscular Hemoglobin 31, Mean Corpuscular Hemoglobin Concent 34, Red Cell Distribution Width 14.3, Platelet Count 289, Mean Platelet Volume 9.3, Neutrophils (%) (Auto) 52, Lymphocytes (%) (Auto) 31, Monocytes (%) (Auto) 14, Eosinophils (%) (Auto) 2, Basophils (%) (Auto) 1, Neutrophils # (Auto) 6.4, Lymphocytes # (Auto) 3.9, Monocytes # (Auto) 1.8, Eosinophils # (Auto) 0.2, Basophils # (Auto) 0.1, Prothrombin Time 13.8, INR Comment 1.1, Activated Partial Thromboplast Time 38, Sodium Level 138, Potassium Level 3.9, Chloride Level 104, Carbon Dioxide Level 23, Anion Gap 11, Blood Urea Nitrogen 11, Creatinine 1.06, Estimat Glomerular Filtration Rate > 60 , BUN/Creatinine Ratio 10, Glucose Level 92, Lactic Acid Level 2.17, Calcium Level 9.2, Total Bilirubin 0.7, Aspartate Amino Transf (AST/SGOT) 29, Alanine Aminotransferase (ALT/SGPT) 26, Alkaline Phosphatase 100, Troponin I < 0.30, Total Protein 6.8, Albumin 3.5, Thyroid Stimulating Hormone (TSH) 3.62, Digoxin Level 0.30 02/20/17 07:30: Urine Color YELLOW, Urine Clarity SLIGHTLY CLOUDY, Urine pH 7, Urine Specific [place] 1.010, Urine Protein 1+, Urine Glucose (UA) NEGATIVE, Urine Ketones NEGATIVE, Urine Nitrite NEGATIVE, Urine Bilirubin NEGATIVE, Urine Urobilinogen NORMAL, Urine Leukocyte Esterase NEGATIVE, Urine RBC (Auto) NEGATIVE, Urine RBC NONE, Urine WBC RARE, Urine Squamous Epithelial Cells RARE, Urine Crystals PRESENT, Urine Amorphous Sediment RARE CHIOMA URATES, Urine Bacteria NEGATIVE, Urine Casts PRESENT, Urine Hyaline Casts 2-5, Urine Mucus NEGATIVE, Urine Culture Indicated NO 02/20/17 09:28: Lactic Acid Level 1.02 02/21/17 04:54: White Blood Count 10.5, Red Blood Count 4.33, Hemoglobin 13.5, Hematocrit 40, Mean Corpuscular Volume 91, Mean Corpuscular Hemoglobin 31, Mean Corpuscular Hemoglobin Concent 34, Red Cell Distribution Width 14.2, Platelet Count 196, Mean Platelet Volume 9.0, Neutrophils (%) (Auto) 66, Lymphocytes (%) (Auto) 20, Monocytes (%) (Auto) 13, Eosinophils (%) (Auto) 2, Basophils (%) (Auto) 0, Neutrophils # (Auto) 6.9, Lymphocytes # (Auto) 2.1, Monocytes # (Auto) 1.3, Eosinophils # (Auto) 0.2, Basophils # (Auto) 0.0, Sodium Level 140, Potassium Level 3.9, Chloride Level 108, Carbon Dioxide Level 23, Anion Gap 9, Blood Urea Nitrogen 6, Creatinine 0.81, Estimat Glomerular Filtration Rate > 60, BUN/ Creatinine Ratio 7, Glucose Level 95, Lactic Acid Level 1.07, Calcium Level 8.7 , Total Bilirubin 0.7, Aspartate Amino Transf (AST/SGOT) 40, Alanine Aminotransferase (ALT/SGPT) 37, Alkaline Phosphatase 96, Total Protein 5.9, Albumin 3.2, Triglycerides Level 110, Cholesterol Level 127, LDL Cholesterol Direct 85, VLDL Cholesterol 22, HDL Cholesterol 29 02/22/17 06:39: White Blood Count 10.3, Red Blood Count 4.31, Hemoglobin 13.2, Hematocrit 40, Mean Corpuscular Volume 92, Mean Corpuscular Hemoglobin 31, Mean Corpuscular Hemoglobin Concent 33, Red Cell Distribution Width 14.1, Platelet Count 188, Mean Platelet Volume 9.3, Sodium Level 137, Potassium Level 3.8, Chloride Level 105, Carbon Dioxide Level 25, Anion Gap 7, Blood Urea Nitrogen 7, Creatinine 0.82, Estimat Glomerular Filtration Rate > 60, BUN/Creatinine Ratio 9, Glucose Level 84, Calcium Level 8.5 02/23/17 05:41: Sodium Level 137, Potassium Level 4.1, Chloride Level 105, Carbon Dioxide Level 21, Anion Gap 11, Blood Urea Nitrogen 7, Creatinine 0.81, Estimat Glomerular Filtration Rate > 60, BUN/Creatinine Ratio 9, Glucose Level 81, Calcium Level 8.6 02/23/17 06:32: White Blood Count 10.6, Red Blood Count 4.24, Hemoglobin 13.2, Hematocrit 39, Mean Corpuscular Volume 92, Mean Corpuscular Hemoglobin 31, Mean Corpuscular Hemoglobin Concent 34, Red Cell Distribution Width 14.2, Platelet Count 188, Mean Platelet Volume 9.1 Radiology Reviewed chest x-ray negative. CT of the head without contrast no acute process. Lumbar x-ray no acute fracture. Hand x-ray no acute fracture. Hip x-ray possible acute fracture and old fracture. CT of the lower extremity nondisplaced acute fracture of right femoral neck Discussion & Recommendations patient seen by orthopedic. No surgery needed. Patient transferred to via [facility] Discharge Home Medications: Active Scripts Active Hydrocodone-Ibuprofen 5-200 mg (Hydrocodone/Ibuprofen) 1 Each Tablet 1 Each PO BID WITH MEALS PRN Hydrocodone-Ibuprofen 7.5-200 (Hydrocodone/Ibuprofen) 1 Each Tablet 1 Each PO TID PRN PAIN 10 Days Reported Gabapentin 300 Mg Capsule 300 Mg PO TID PRN Flomax (Tamsulosin HCl) 0.4 Mg Cap 0.4 Mg PO DAILY LAST FILLED #7 10-30-16 Ondansetron HCl 4 Mg Tablet 4 Mg PO TID PRN Lorazepam 1 Mg Tablet 1 Mg PO BID PRN Quetiapine Fumarate 200 Mg Tablet 200 Mg PO HS I-Caps with Lutein-[place] 3 Sfg (Antiox#10/Om3/Dha/Epa/Lut/Zeax) 1 Each Capsule 1 Cap PO DAILY Move Free Joint Health Tablet (Glucosam/Chond/Hyalu/Cf Borate) 1 Each Tablet 1 Tab PO DAILY Levothyroxine Sodium 75 Mcg Tablet 75 Mcg PO DAILY Digoxin 125 Mcg Tablet 125 Mcg PO DAILY Atorvastatin Calcium 10 Mg Tablet 10 Mg PO HS Potassium Citrate ER (Potassium Citrate) 10 Meq Tablet.er 10 Meq PO BID Omeprazole 20 Mg Capsule.dr 20 Mg PO DAILY Venlafaxine HCl ER (Venlafaxine HCl) 150 Mg Cap.er.24h 150 Mg PO DAILY Instructions to patient/family Please see electonic discharge instructions given to patient. Clinical Quality Measures DVT/VTE Risk/Contraindication: Risk Factor Score Per Nursin RFS Level Per Nursing on Admit: 2=Moderate ARRON ELLISON DO Feb 28, 2017 07:31
== END 2017-02-24 10:50 | DRG 543 ==
LOC: EDUNIT# 06:53 → ER 06:55 → 4TH 09:11 → OBSVTOIN 02-21 08:20
PROVIDERS: ADMIT Family Medicine; ATTEND Family Medicine
DX: M80.051A Age-related osteoporosis with current pathological fracture, right femur, initial encounter for fracture (principal); M97.01XA Periprosthetic fracture around internal prosthetic right hip joint, initial encounter; E87.2 Acidosis; S80.212A Abrasion, left knee, initial encounter; J44.9 Chronic obstructive pulmonary disease, unspecified; G47.30 Sleep apnea, unspecified; I48.91 Unspecified atrial fibrillation; I10 Essential (primary) hypertension; F03.90 Unspecified dementia, unspecified severity, without behavioral disturbance, psychotic disturbance, mood disturbance, and anxiety; E03.9 Hypothyroidism, unspecified; F41.9 Anxiety disorder, unspecified; F32.9 Major depressive disorder, single episode, unspecified; M54.9 Dorsalgia, unspecified; N52.9 Male erectile dysfunction, unspecified; K59.09 Other constipation; W06.XXXA Fall from bed, initial encounter; Y92.193 Bedroom in other specified residential institution as the place of occurrence of the external cause; Z87.891 Personal history of nicotine dependence; Z90.5 Acquired absence of kidney
CPT/HCPCS: 36415; 51701; 70450; 71010; 72100; 73130; 73502; 73700; 80048; 80053; 80061; 80162; 81000; 83605; 84443; 84484; 85025; 85027; 85610; 85730; 87040; 96361; 96365; G0378

== ENCOUNTER 2017-04-04 06:33 | Observation (INO) | payer MEDICARE, OTHER ==
[~2017-04-04] VITALS: Ht 175.3 cm; Wt 82.2 kg
[~2017-04-04 06:33] MED LIST changes: +HYDR-3990 PO; +HYDR-87 PO
[2017-04-04 07:10] LABS: BASOPHILS # (AUTO) 0.1 10^3/uL (0.0-0.1); BASOPHILS % (AUTO) 1 % (0-10); EOSINOPHILS # (AUTO) 0.3 10^3/uL (0.0-0.3); EOSINOPHILS % (AUTO) 2 % (0-10); LYMPHOCYTES # (AUTO) 2.4 X 10^3 (1.0-4.0); LYMPHOCYTES % (AUTO) 20 % (12-44); MEAN CORPUSCULAR HEMOGLOBIN 31 PG (25-34); MEAN CORPUSCULAR HGB CONC 34 G/DL (32-36); MEAN CORPUSCULAR VOLUME 92 FL (80-99); MEAN PLATELET VOLUME 9.5 FL (7.4-10.4); MONOCYTES # (AUTO) 2.2 X 10^3 (0.0-1.0); MONOCYTES % (AUTO) 18 % (0-12); NEUTROPHILS # (AUTO) 7.5 X 10^3 (1.8-7.8); NEUTROPHILS % (AUTO) 60 % (42-75); PLATELET COUNT 251 10^3/uL (130-400); RED BLOOD COUNT 4.41 10^6/uL (4.35-5.85); RED CELL DISTRIBUTION WIDTH 14.3 % (10.0-14.5); WHITE BLOOD COUNT 12.5 10^3/uL (4.3-11.0)
[2017-04-04 07:29] LABS: ALANINE AMINOTRANSFERASE 38 U/L (0-55); ALBUMIN 3.4 GM/DL (3.2-4.5); ANION GAP 10 MMOL/L (5-14); ASPARTATE AMINO TRANSFERASE 37 U/L (5-34); BILIRUBIN,TOTAL 1.1 MG/DL (0.1-1.0); BLOOD UREA NITROGEN 10 MG/DL (7-18); BUN/CREATININE RATIO 11; CALCIUM 9.2 MG/DL (8.5-10.1); CARBON DIOXIDE 25 MMOL/L (21-32); CHLORIDE 104 MMOL/L (98-107); CREATININE SERUM 0.93 MG/DL (0.60-1.30); GFR ESTIMATED > 60; GLUCOSE 109 MG/DL (70-105); POTASSIUM 3.8 MMOL/L (3.6-5.0); SODIUM 139 MMOL/L (135-145); TOTAL PROTEIN 6.7 GM/DL (6.4-8.2)
[2017-04-04 07:50] LABS: BILIRUBIN,URINE NEGATIVE (NEGATIVE); KETONES,URINE NEGATIVE (NEGATIVE); LEUKOCYTE ESTERASE ,URINE 1+ (NEGATIVE); NITRITE,URINE NEGATIVE (NEGATIVE); PH,URINE 7 (5-9); PROTEIN,URINE NEGATIVE (NEGATIVE); UROBILINOGEN,URINE 1 MG/DL (NORMAL)
[2017-04-04 07:52] LABS: DIGOXIN 0.81 NG/ML (0.80-2.00); THYROID STIMULATING HORMONE 5.36 UIU/ML (0.35-4.94)
--- NOTE | 2017-04-04 07:57 | Diagnostic Imaging Report ---
INDICATION: Fall. FINDINGS: AP pelvis shows SI joints to be symmetrical. Pubic symphysis in good alignment. No fractures are demonstrated. Femoral heads are in normal articulation. The compression screw appears in good position in the right hip. IMPRESSION: No acute abnormalities. Dictated by: Dictated on workstation # [id number]
--- NOTE | 2017-04-04 07:58 | Diagnostic Imaging Report ---
INDICATION: Unwitnessed fall. FINDINGS: Portable chest show the lungs to be well-aerated and clear. Heart is enlarged. No pulmonary edema. No pneumothorax or pleural effusion. No evidence of rib fractures. IMPRESSION: Normal portable chest. Dictated by: Dictated on workstation # [id number]
[2017-04-04 07:59] LABS: SQUAMOUS EPITHELIAL CELL,UR 0-2 /HPF
--- NOTE | 2017-04-04 08:14 | ED General ---
General Chief Complaint: Trauma-Non Activation Stated Complaint: UNWITNESSED FALL AT HOME Nursing Triage Note: SEE OTHER TRIAGE NOTES Nursing Sepsis Screen: No Definite Risk Source of Information: Patient Exam Limitations: No Limitations History of Present Illness Time Seen by Provider: 06:35 Initial Comments This 81-year-old gentleman with dementia arrives to the ER via EMS after being found on the floor in his home via his daughter when she woke at 05:30. Patient has a history of dementia which sometimes becomes exacerbated. She reports he has episodes of syncope, near-syncope, or questionable seizure-like activity with altered mental status that follows for several days. He had one of these episodes 2 or 3 days ago and has been below baseline functioning since then. He has had difficulty feeding himself and has not been drinking well. He is not safe to ambulate. On my assessment patient states he fell a couple of days ago and has neck discomfort with movement. The c-collar was placed at 06:44. Patient also reports that he has just generalized aching. He is afebrile. Daughter reports urine has been dark. Daughter also reports patient had a right hip fracture this summer for which she was admitted at [facility]. She believes he returned home to soon after that stay in the senior living and is now struggling. Location Injury Occurred: HOME Allergies and Home Medications Allergies Coded Allergies: Penicillins (Verified Allergy, Severe, PT HAS RECEIVED CEFEPIME & ROCEPHIN W/O ISSUE, 12/21/15) temazepam (Verified Adverse Reaction, Mild, PATIENT TAKES LORAZEPAM, ) VERY BAD DREAMS Home Medications Antiox#10/Om3/Dha/Epa/Lut/Zeax 1 Each Capsule, 1 CAP PO DAILY, (Reported) Atorvastatin Calcium 10 Mg Tablet, 10 MG PO HS, (Reported) Digoxin 125 Mcg Tablet, 125 MCG PO DAILY, (Reported) Gabapentin 300 Mg Capsule, 300 MG PO TID PRN for LEG TWITCHES, (Reported) Glucosam/Chond/Hyalu/Cf Borate 1 Each Tablet, 1 TAB PO DAILY, (Reported) Hydrocodone/Ibuprofen 1 Each Tablet, 1 EACH PO tid prn pain for 10 Days, #30 Prescribed by: ARRON ELLISON on 02/23/17 0740 Hydrocodone/Ibuprofen 1 Each Tablet, 1 EACH PO BID WITH MEALS PRN for PAIN- MODERATE, #30 Prescribed by: ELIS WOOD on 02/24/17 1003 Levothyroxine Sodium 75 Mcg Tablet, 75 MCG PO DAILY, (Reported) Lorazepam 1 Mg Tablet, 1 MG PO BID PRN for ANXIETY, (Reported) Omeprazole 20 Mg Capsule.dr, 20 MG PO DAILY, (Reported) Ondansetron HCl 4 Mg Tablet, 4 MG PO TID PRN for NAUSEA/VOMITING-1ST LINE, ( Reported) Potassium Citrate 10 Meq Tablet.er, 10 MEQ PO BID, (Reported) Quetiapine Fumarate 200 Mg Tablet, 200 MG PO HS, (Reported) Tamsulosin HCl 0.4 Mg Cap, 0.4 MG PO DAILY, (Reported) LAST FILLED #7 10-30-16 Venlafaxine HCl 150 Mg Cap.er.24h, 150 MG PO DAILY, (Reported) Constitutional: see HPI, weakness EENTM: no symptoms reported Respiratory: no symptoms reported Cardiovascular: no symptoms reported Gastrointestinal: see HPI Genitourinary: see HPI Musculoskeletal: see HPI Skin: no symptoms reported Psychiatric/Neurological: See HPI Hematologic/Lymphatic: No Symptoms Reported Immunological/Allergic: no symptoms reported Past Fqabtbg-Alphyd-Zwewiw Hx Patient Social History Alcohol Use: Denies Use Recreational Drug Use: No Smoking Status: Never a Smoker 2nd Hand Smoke Exposure: No Recent Foreign Travel: No Contact w/Someone Who Travel: No Recent Infectious Disease Expo: No Recent Hopitalizations: No Physical Abuse: No Sexual Abuse: No Immunizations Up To Date Tetanus Booster (TDap): More than 5yrs PED Vaccines UTD: No Date of Pneumonia Vaccine: Jan 29, 2015 Date of Influenza Vaccine: Apr 10, 2016 Seasonal Allergies Seasonal Allergies: No Surgeries History of Surgeries: Yes Surgeries: Gallbladder, Orthopedic Respiratory History of Respiratory Disorde: Yes Respiratory Disorders: Pneumonia, Sleep Apnea, COPD Currently Using CPAP: Yes (PT REFUSES TO USE PER SIG. 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, Renal Failure Gastrointestinal History of Gastrointestinal Di: Yes Gastrointestinal Disorders: Chronic Constipation, Pancreatitis Musculoskeletal History of Musculoskeletal Dis: Yes Musculoskeletal Disorders: Osteoporosis, Chronic Back Pain, Fractures Endocrine History of Endocrine Disorders: Yes Endocrine Disorders: Hypothyroidsim HEENT History of HEENT Disorders: No Loss of Vision: Denies Hearing Impairment: Denies Cancer History of Cancer: No Psychosocial History of Psychiatric Problem: Yes Behavioral Health Disorders: Anxiety, Depression Suicide Risk Score: 0 Integumentary History of Skin or Integumenta: No Blood Transfusions History of Blood Disorders: No Adverse Reaction to a Blood Tr: No Family Medical History Significant Family History: No Pertinent Family Hx Family Medial History: FH: stroke G8 SISTER, Onset:75 Physical Exam Vital Signs Vital Sign - Last 12Hours 04/04/17 06:33 Temp 98.1 Pulse 106 Resp 20 B/P (MAP) 140/73 Pulse Ox 97 O2 Delivery Nasal Cannula O2 Flow Rate 2.00 FiO2 97 Capillary Refill : Less Than 3 Seconds General Appearance: No Apparent Distress, WD/WN HEENT: PERRL/EOMI, Other (oropharynx is dry) Neck: Normal Inspection, Supple, Tender Midline Respiratory: Lungs Clear, Normal Breath Sounds, No Accessory Muscle Use, No Respiratory Distress Cardiovascular: Regular Rate, Rhythm, No Edema, No Murmur Gastrointestinal: Normal Bowel Sounds, Non Tender, Soft Extremity: Normal Inspection, No Pedal Edema Neurologic/Psychiatric: Alert, Motor Weakness (generalized but moves all 4 extremities), Other (confused) Skin: Normal Color, Warm/Dry Progress/Results/Core Measures Results/Orders Lab Results Laboratory Tests Test 04/04/17 07:03 04/04/17 07:40 Range/Units White Blood Count 12.5 H 4.3-11.0 10^3/uL Red Blood Count 4.41 4.35-5.85 10^6/uL Hemoglobin 13.8 13.3-17.7 G/DL Hematocrit 41 40-54 % Mean Corpuscular Volume 92 80-99 FL Mean Corpuscular Hemoglobin 31 25-34 PG Mean Corpuscular Hemoglobin Concent 34 32-36 G/DL Red Cell Distribution Width 14.3 10.0-14.5 % Platelet Count 251 130-400 10^3/uL Mean Platelet Volume 9.5 7.4-10.4 FL Neutrophils (%) (Auto) 60 42-75 % Lymphocytes (%) (Auto) 20 12-44 % Monocytes (%) (Auto) 18 H 0-12 % Eosinophils (%) (Auto) 2 0-10 % Basophils (%) (Auto) 1 0-10 % Neutrophils # (Auto) 7.5 1.8-7.8 X 10^3 Lymphocytes # (Auto) 2.4 1.0-4.0 X 10^3 Monocytes # (Auto) 2.2 H 0.0-1.0 X 10^3 Eosinophils # (Auto) 0.3 0.0-0.3 10^3/uL Basophils # (Auto) 0.1 0.0-0.1 10^3/uL Sodium Level 139 135-145 MMOL/L Potassium Level 3.8 3.6-5.0 MMOL/L Chloride Level 104 98-107 MMOL/L Carbon Dioxide Level 25 21-32 MMOL/L Anion Gap 10 5-14 MMOL/L Blood Urea Nitrogen 10 7-18 MG/DL Creatinine 0.93 0.60-1.30 MG/DL Estimat Glomerular Filtration Rate > 60 BUN/Creatinine Ratio 11 Glucose Level 109 H 70-105 MG/DL Calcium Level 9.2 8.5-10.1 MG/DL Total Bilirubin 1.1 H 0.1-1.0 MG/DL Aspartate Amino Transf (AST/SGOT) 37 H 5-34 U/L Alanine Aminotransferase (ALT/SGPT) 38 0-55 U/L Alkaline Phosphatase 126 40-136 U/L Total Creatine Kinase 35 30-200 U/L Total Protein 6.7 6.4-8.2 GM/DL Albumin 3.4 3.2-4.5 GM/DL Thyroid Stimulating Hormone (TSH) 5.36 H 0.35-4.94 UIU/ML Free Thyroxine 1.10 0.70-1.48 NG/DL Digoxin Level 0.81 0.80-2.00 NG/ML Urine Color YELLOW Urine Clarity CLEAR Urine pH 7 5-9 Urine Specific [place] 1.010 L 1.016-1.022 Urine Protein NEGATIVE NEGATIVE Urine Glucose (UA) NEGATIVE NEGATIVE Urine Ketones NEGATIVE NEGATIVE Urine Nitrite NEGATIVE NEGATIVE Urine Bilirubin NEGATIVE NEGATIVE Urine Urobilinogen 1 NORMAL MG/DL Urine Leukocyte Esterase 1+ H NEGATIVE Urine RBC (Auto) NEGATIVE NEGATIVE Urine RBC NONE /HPF Urine WBC 2-5 /HPF Urine Squamous Epithelial Cells 0-2 /HPF Urine Crystals PRESENT H /LPF Urine Amorphous Sediment FEW CHIOMA PHOSPHATE H /LPF Urine Bacteria TRACE /HPF Urine Casts NONE /LPF Urine Mucus NEGATIVE /LPF Urine Culture Indicated YES My Orders Orders - ESTRELLITA RODRIGUEZ MD Cbc With Automated Diff (04/04/17 06:44) Comprehensive Metabolic Panel (04/04/17 06:44) Ua Culture If Indicated (04/04/17 06:44) Saline Lock/Iv-Start (04/04/17 06:44) O2 (04/04/17 06:44) Monitor-Rhythm Ecg Trace Only (04/04/17 06:44) Chest 1 View, Ap/Pa Only (04/04/17 06:44) Pelvis (04/04/17 06:44) Ct Head/Cervical Spine Wo (04/04/17 06:44) Digoxin (04/04/17 06:49) Thyroid Stimulating Hormone (04/04/17 06:49) Free T4 (Free Thyroxine) (04/04/17 06:49) Creatine Kinase (04/04/17 07:39) Ibanez Cath Insertion (04/04/17 07:40) Urine Culture (04/04/17 07:40) Ns Iv 1000 Ml (Sodium Chloride 0.9%) (04/04/17 09:00) Vital Signs/I&O Vital Sign - Last 12Hours 04/04/17 04/04/17 06:33 06:33 Temp 98.1 Pulse 106 Resp 20 B/P (MAP) 140/73 Pulse Ox 97 97 O2 Delivery Nasal Cannula Nasal Cannula O2 Flow Rate 2.00 2.00 FiO2 97 Blood Pressure Mean: 95 Progress Note : Progress Note Workup failed to reveal any acute injury or source of infection. I discussed disposition with the patient's daughter. She does not feel she can safely take care of him in his current state. Case was reviewed with Dr. Ellison who agrees with admission to the hospital. Patient will receive some IV hydration as he has not been drinking well recently. Dr. Ellison requests an MRI of the brain without contrast and an EEG be placed on the bridging orders. C- collar was removed after review of CT reports. Diagnostic Imaging Diagonstic Imaging: Xray Plain Films/CT/US/NM/MRI: chest Comments Chest x-ray viewed by me and report reviewed. See report below: NAME: [facility]ISHNU [facility] REC#: [id number] PT STATUS: REG ER : 1935 PHYSICIAN: ESTRELLITA RODRIGUEZ MD ADMIT DATE: 04/04/17/ER Draft Date of Exam:04/04/17 CHEST 1 VIEW, AP/PA ONLY INDICATION: Unwitnessed fall. FINDINGS: Portable chest show the lungs to be well-aerated and clear. Heart is enlarged. No pulmonary edema. No pneumothorax or pleural effusion. No evidence of rib fractures. IMPRESSION: Normal portable chest. Dictated on workstation # [id number] Dict: 04/04/17749 Trans: 04/04/17756 JUS [id number] Interpreted by: EDDIE VILLAGOMEZ MD Diagonstic Imaging: Xray Plain Films/CT/US/NM/MRI: pelvis Comments Pelvis x-ray viewed by me and report reviewed. See report below: NAME: VISHNU BAJWA [facility] REC#: [id number] PT STATUS: REG ER : 1935 PHYSICIAN: ESTRELLITA RODRIGUEZ MD ADMIT DATE: 04/04/17/ER Draft Date of Exam:04/04/17 PELVIS INDICATION: Fall. FINDINGS: AP pelvis shows SI joints to be symmetrical. Pubic symphysis in good alignment. No fractures are demonstrated. Femoral heads are in normal articulation. The compression screw appears in good position in the right hip. IMPRESSION: No acute abnormalities. Dictated on workstation # [id number] Dict: 04/04/17749 Trans: 04/04/17756 NORM [id number] Interpreted by: EDDIE VILLAGOMEZ MD Departure Communication (Admissions) Time/Spoke to Admitting Phy: 08:[address] Ellison Impression Impression: Primary Impression: Altered mental status Qualified Codes: R41.82 - Altered mental status, unspecified Additional Impressions: Generalized weakness Fall on same level Qualified Codes: W18.30XA - Fall on same level, unspecified, initial encounter Disposition: ADMITTED INPATIENT Condition: Stable Admissions Decision to Admit Reason: Admit from ER (General) Decision to Admit/Date: Apr 04, 2017 Time/Decision to Admit Time: 08:30 Departure-Patient Inst. Referrals: ARRON ELLISON DO (PCP/Family) Primary Care Physician ESTRELLITA RODRIGUEZ MD Apr 04, 2017 08:14
--- NOTE | 2017-04-04 08:15 | Diagnostic Imaging Report ---
PROCEDURE: CT head and CT cervical spine without contrast. TECHNIQUE: Multiple contiguous axial images were obtained through the brain and cervical spine without the use of intravenous contrast. Sagittal and coronal reformations through the cervical spine were then performed. INDICATION: Fall. FINDINGS: CT HEAD: There is no intracranial hemorrhage, edema or mass effect. There is periventricular and deep white matter hypodensities compatible with chronic microvascular ischemic changes. No hydrocephalus. No extra-axial fluid collection is seen. There is encephalomalacia in the occipital regions which may relate to small old infarcts. The calvarium, the paranasal sinuses and orbits appear grossly unremarkable. CT CERVICAL SPINE: There is satisfactory alignment of the posterior spinal line. Normal alignment at the facet joints is seen. No widening of the predental space. There is satisfactory alignment of the lateral masses of C1 and C2 and atlantooccipital joints. The vertebral body heights are preserved. Disc heights are also preserved. There are prominent anterior osteophytes and ossification of the anterior longitudinal ligament seen at multiple levels. Posterior osteophytes are seen at C3/4, C4/5, C5/6 and C6/7. No fracture is identified. There is a prominent neural foramina narrowing seen bilaterally at C4/5 level of moderate severe degree. The soft tissues demonstrate a calcified lesion in the right thyroid lobe. Thyroid ultrasound may offer better evaluation. IMPRESSION: CT HEAD: No intracranial hemorrhage. CT cervical spine: Advanced degenerative changes. No fracture seen. Dictated by: Dictated on workstation # [id number]
--- OUTSIDE RECORDS SUMMARY | 2017-04-04 08:47 | XMS REPORT | Clinical Summary ---
Author Author [facility] Organization [facility] Address Unknown Phone Unavailable Care Team Providers Care Support Associate Name Role Phone PCP Unavailable Source Comments Some departments are not documenting in the electronic medical record. If you do not see the information that you expected, contact Release of Information in the Health Information Management department at [phone] for further assistance in locating additional records.[facility] Allergies Active Allergy Reactions Severity Noted [...] PO) OMEPRAZOLE PO Take by mouth. Active [id number] Take by mouth. Active D2 PO DOCOSAHEXANOIC [...] VACCINE 1997 PREVNAR/PNEUMOVAX (#1) 2002 INFLUENZA VACCINE 04/08/2017 Results Not on filefrom Last 3 Months
[2017-04-04] MEDS ORDERED: NS IV 1000 ML 1,000 ML IV ONE (09:00)
[2017-04-04] MEDS ORDERED: CATHETER FLUSH 10 ML SYR IV PRN (09:30)
[2017-04-04] MEDS: NS IV 1000 ML 1,000 ML IV SCH ×2 (09:40→17:38)
[2017-04-04 10:10] LABS: BASOPHILS % (AUTO) 0 % (0-10); EOSINOPHILS # (AUTO) 0.3 10^3/uL (0.0-0.3); EOSINOPHILS % (AUTO) 3 % (0-10); LYMPHOCYTES # (AUTO) 3.2 X 10^3 (1.0-4.0); LYMPHOCYTES % (AUTO) 25 % (12-44); MEAN CORPUSCULAR HEMOGLOBIN 31 PG (25-34); MEAN CORPUSCULAR HGB CONC 34 G/DL (32-36); MEAN CORPUSCULAR VOLUME 92 FL (80-99); MEAN PLATELET VOLUME 9.2 FL (7.4-10.4); MONOCYTES # (AUTO) 2.1 X 10^3 (0.0-1.0); MONOCYTES % (AUTO) 16 % (0-12); NEUTROPHILS # (AUTO) 7.2 X 10^3 (1.8-7.8); NEUTROPHILS % (AUTO) 56 % (42-75); PLATELET COUNT 245 10^3/uL (130-400); RED BLOOD COUNT 4.28 10^6/uL (4.35-5.85); RED CELL DISTRIBUTION WIDTH 14.5 % (10.0-14.5); WHITE BLOOD COUNT 12.8 10^3/uL (4.3-11.0)
[2017-04-04 10:28] LABS: ANION GAP 10 MMOL/L (5-14); BLOOD UREA NITROGEN 10 MG/DL (7-18); BUN/CREATININE RATIO 11; CARBON DIOXIDE 26 MMOL/L (21-32); CHLORIDE 103 MMOL/L (98-107); CREATININE SERUM 0.89 MG/DL (0.60-1.30); GFR ESTIMATED > 60; GLUCOSE 105 MG/DL (70-105); POTASSIUM 3.8 MMOL/L (3.6-5.0); SODIUM 139 MMOL/L (135-145)
[2017-04-04 12:00] VITALS: BP 126/82
[2017-04-04] MEDS ORDERED: HYDR-3990 PO (13:49)
[2017-04-04 15:40] VITALS: BP 143/79
--- NOTE | 2017-04-04 19:06 | Diagnostic Imaging Report ---
PROCEDURE: MR imaging of the brain without contrast. TECHNIQUE: Multiplanar, multisequence MR imaging of the brain was performed without contrast. INDICATION: Blackout episodes with episodes of unresponsiveness. Confusion and altered mental status. COMPARISON: Head CT dated 02/20/2017. FINDINGS: There is moderate to severe diffuse atrophy. Ventricles are prominent but proportionate to the degree of atrophy. There is fairly prominent signal abnormality in the white matter consistent with chronic microvascular ischemic changes, similar to the prior CT. No focal restricted diffusion is seen to suggest an acute lesion. Gradient echo images show no evidence of intracranial blood product. There is inflammatory signal in the left mastoid air cells. IMPRESSION: 1. Chronic findings of diffuse cerebral atrophy and chronic appearing white matter changes without focal acute lesion suspected. 2. Left mastoiditis. Dictated by: Dictated on workstation # [id number]
--- NOTE | 2017-04-04 19:10 | History & Physicial ---
History of Present Illness History of Present Illness Reason for visit/HPI patient has dementia. Patient is confused. Patient knows his date of . Patient does not know the year. Patient does not know why he is in the hospital. Patient came by ambulance to the emergency room. Patient's agitator operator found the mother the floor. Patient may had syncope and seizure-like activity. According to agitator operator patient has acute mental status change for the last several days. Patient fell 3 days ago. Patient has difficulty in feeding himself lately and not drinking much. Patient not states to ambulate Patient was in via [facility] in both patient and nurse wound care wanted to be discharged back to home Date of Admission Apr 04, 2017 at 08:34 Time Seen by Provider: 18:50 I consulted on this patient on 04/04/17 19:04 Attending Physician Joel Ellison DO Admitting Physician Joel Ellison DO Consult Allergies and Home Medications Allergies Coded Allergies: Penicillins (Verified Allergy, Severe, PT HAS RECEIVED CEFEPIME & ROCEPHIN W/O ISSUE, 12/21/15) temazepam (Verified Adverse Reaction, Mild, PATIENT TAKES LORAZEPAM, ) VERY BAD DREAMS Home Medications Antiox#10/Om3/Dha/Epa/Lut/Zeax 1 Each Capsule, 1 CAP PO DAILY, (Reported) Atorvastatin Calcium 10 Mg Tablet, 10 MG PO HS, (Reported) Digoxin 125 Mcg Tablet, 125 MCG PO DAILY, (Reported) Gabapentin 300 Mg Capsule, 300 MG PO TID PRN for LEG TWITCHES, (Reported) Glucosam/Chond/Hyalu/Cf Borate 1 Each Tablet, 1 TAB PO DAILY, (Reported) Hydrocodone/Ibuprofen 1 Each Tablet, 1 TAB PO BID PRN for PAIN-MODERATE, ( Reported) Levothyroxine Sodium 75 Mcg Tablet, 75 MCG PO DAILY, (Reported) Lorazepam 1 Mg Tablet, 1 MG PO BID PRN for ANXIETY, (Reported) Omeprazole 20 Mg Capsule.dr, 20 MG PO DAILY, (Reported) Ondansetron HCl 4 Mg Tablet, 4 MG PO TID PRN for NAUSEA/VOMITING-1ST LINE, ( Reported) Potassium Citrate 10 Meq Tablet.er, 10 MEQ PO BID, (Reported) Quetiapine Fumarate 200 Mg Tablet, 200 MG PO HS, (Reported) Tamsulosin HCl 0.4 Mg Cap, 0.4 MG PO DAILY, (Reported) Venlafaxine HCl 150 Mg Cap.er.24h, 150 MG PO DAILY, (Reported) Past Vvfdidd-Jlqgry-Yczpvb Hx Patient Social History Employed/Student: unemployed Alcohol Use: Denies Use Recreational Drug Use: No Smoking Status: Never a Smoker 2nd Hand Smoke Exposure: No Physical Abuse Screen: No Sexual Abuse: No Recent Foreign Travel: No Contact w/other who traveled: No Recent Hopitalizations: No Recent Infectious Disease Expo: No Immunizations Up To Date Tetanus Booster (TDap): More than 5yrs Pediatric: No Date of Pneumonia Vaccine: Jan 29, 2015 Date of Influenza Vaccine: Apr 10, 2016 Seasonal Allergies Seasonal Allergies: No Surgeries Yes Gallbladder, Orthopedic Respiratory Yes Pneumonia Currently Using CPAP: Yes (PT REFUSES TO USE PER SIG. OTHER) Currently Using BIPAP: No Cardiovascular Yes (TACHYCARDIA) Atrial Fibrillation, Hypertension Neurological Yes (OCCASSIONAL CONFUSION) Dementia Reproductive System Hx Reproductive Disorders: No Sexually Transmitted Disease: No HIV/AIDS: No Genitourinary Yes (ONE KIDNEY) Kidney Stones, Renal Failure Gastrointestinal Yes Chronic Constipation, Pancreatitis Musculoskeletal Yes Osteoporosis, Chronic Back Pain, Fractures Endocrine History of Endocrine Disorders: Yes Endocrine Disorders: Hypothyroidsim HEENT History of HEENT Disorders: No Loss of Vision: Denies Hearing Impairment: Denies Cancer No Psychosocial History of Psychiatric Problem: Yes Behavioral Health Disorders: Anxiety, Depression Integumentary History of Skin or Integumenta: No Blood Transfusions History of Blood Disorders: No Adverse Reaction to a Blood Tr: No Family Medical History Significant Family History: No Pertinent Family Hx Family Hx: FH: stroke G8 SISTER, Onset:75 Constitutional: malaise, weakness, other (falling) EENTM: no symptoms reported Respiratory: no symptoms reported Cardiovascular: no symptoms reported Gastrointestinal: no symptoms reported Genitourinary: no symptoms reported Physical Exam Vital Signs Vital Sign - Last 12Hours 04/04/17 06:33 Temp 98.1 Pulse 106 Resp 20 B/P (MAP) 140/73 Pulse Ox 97 O2 Delivery Nasal Cannula O2 Flow Rate 2.00 FiO2 97 Capillary Refill : Less Than 3 Seconds General Appearance: No Apparent Distress, WD/WN Eyes: Bilateral Eye Normal Inspection HEENT: Normal ENT Inspection Neck: Normal Inspection Respiratory: Chest Non Tender, Lungs Clear, No Accessory Muscle Use, No Respiratory Distress Cardiovascular: Regular Rate, Rhythm Gastrointestinal: Non Tender, Soft Assessment/Plan Assessment and Plan acute mental status change. Dementia. Bipolar. falling Hypertension. Confusion Seizure may be. generalized weakness Problems: Clinical Quality Measures DVT/VTE Risk/Contraindication: Risk Factor Score Per Nursin RFS Level Per Nursing on Admit: 4+=Very High JOEL ELLISON DO Apr 04, 2017 19:10
[2017-04-04] MEDS ORDERED: GABAPENTIN 300 MG (NEURONTIN) CAP PO PRN (19:15)
[2017-04-04 19:20] VITALS: BP 151/83
[2017-04-04] MEDS: ENOXAPARIN 40 MG/0.4 ML (LOVENOX) SYR SC SCH (20:12)
[2017-04-04] MEDS: POTASSIUM CITRATE 10 MEQ (UROCIT-K) NON-FORMULARY PO SCH (21:07)
[2017-04-04] MEDS: QUEtiapine 200 MG (SEROquel) TAB IMMEDIATE RELEASE PO SCH (21:07)
[2017-04-04] MEDS: ATORVASTATIN 10 MG (LIPITOR) TABLET PO SCH (21:07)
[2017-04-05] VITALS: BP 137/82
[2017-04-05] MEDS: NS IV 1000 ML 1,000 ML IV SCH ×3 (02:45→17:54)
[2017-04-05 04:00] VITALS: BP 171/80
[2017-04-05 05:51] LABS: MEAN PLATELET VOLUME 9.7 FL (7.4-10.4); RED BLOOD COUNT 3.95 10^6/uL (4.35-5.85); RED CELL DISTRIBUTION WIDTH 14.4 % (10.0-14.5); WHITE BLOOD COUNT 9.2 10^3/uL (4.3-11.0)
[2017-04-05 06:11] LABS: ANION GAP 10 MMOL/L (5-14); BLOOD UREA NITROGEN 7 MG/DL (7-18); BUN/CREATININE RATIO 9; CALCIUM 8.8 MG/DL (8.5-10.1); CARBON DIOXIDE 24 MMOL/L (21-32); CHLORIDE 106 MMOL/L (98-107); CREATININE SERUM 0.75 MG/DL (0.60-1.30); GFR ESTIMATED > 60; GLUCOSE 93 MG/DL (70-105); SODIUM 140 MMOL/L (135-145)
[2017-04-05] MEDS: LEVOTHYROXINE 75 MCG (LEVOTHROID) TABLET PO SCH (07:10)
[2017-04-05] MEDS: PANTOPRAZOLE 20 MG TABLET (PROTONIX) PO SCH (07:10)
--- NOTE | 2017-04-05 07:31 | Progress Note (SOAP) ---
Subjective Time Seen by Provider: 07:15 Subjective/Events-last exam patient is confused today. Patient does not know where he is today. Patient had an EEG and appeared to have sleep apnea. Consult pulmonology sleep apnea. Consult physical therapy. Consult social media manager for placement. Acute mental status change. Weakness. Dementia. Bipolar. Objective Exam Vital Signs Date Time Temp Pulse Resp B/P (MAP) Pulse Ox O2 Delivery O2 Flow Rate FiO2 04/05/17 04:00 97.0 95 24 171/80 98 Nasal Cannula 1.50 04/05/17 00:00 97.5 98 18 137/82 97 Nasal Cannula 1.50 04/04/17 21:00 98 Nasal Cannula 2.00 97 04/04/17 19:20 97.3 95 18 151/83 98 Nasal Cannula 1.50 04/04/17 15:40 98.0 97 22 143/79 96 Nasal Cannula 1.50 04/04/17 12:00 97.1 100 24 126/82 97 Room Air 04/04/17 09:55 96 Nasal Cannula 2.00 04/04/17 09:06 98.0 114 18 96 Nasal Cannula 2.00 Capillary Refill : Less Than 3 Seconds General Appearance: No Apparent Distress, Anxious HEENT: Normal ENT Inspection Neck: Normal Inspection Respiratory: Chest Non Tender, Lungs Clear, Normal Breath Sounds, No Accessory Muscle Use, No Respiratory Distress Cardiovascular: Regular Rate, Rhythm Gastrointestinal: non tender Results Lab Laboratory Tests 04/04/17 10:05 04/05/17 05:20 Laboratory Tests 04/04/17 07:40: Urine Color YELLOW, Urine Clarity CLEAR, Urine pH 7, Urine Specific [place] 1.010L, Urine Protein NEGATIVE, Urine Glucose (UA) NEGATIVE, Urine Ketones NEGATIVE, Urine Nitrite NEGATIVE, Urine Bilirubin NEGATIVE, Urine Urobilinogen 1 , Urine Leukocyte Esterase 1+H, Urine RBC (Auto) NEGATIVE, Urine RBC NONE, Urine WBC 2-5, Urine Squamous Epithelial Cells 0-2, Urine Crystals PRESENTH, Urine Amorphous Sediment FEW CHIOMA PHOSPHATEH, Urine Bacteria TRACE, Urine Casts NONE, Urine Mucus NEGATIVE, Urine Culture Indicated YES 04/04/17 10:05: White Blood Count 12.8H, Red Blood Count 4.28L, Hemoglobin 13.4, Hematocrit 40, Mean Corpuscular Volume 92, Mean Corpuscular Hemoglobin 31, Mean Corpuscular Hemoglobin Concent 34, Red Cell Distribution Width 14.5, Platelet Count 245, Mean Platelet Volume 9.2, Neutrophils (%) (Auto) 56, Lymphocytes (%) (Auto) 25, Monocytes (%) (Auto) 16H, Eosinophils (%) (Auto) 3, Basophils (%) (Auto) 0, Neutrophils # (Auto) 7.2, Lymphocytes # (Auto) 3.2, Monocytes # (Auto) 2.1H, Eosinophils # (Auto) 0.3, Basophils # (Auto) 0.0, Sodium Level 139, Potassium Level 3.8, Chloride Level 103, Carbon Dioxide Level 26, Anion Gap 10, Blood Urea Nitrogen 10, Creatinine 0.89, Estimat Glomerular Filtration Rate > 60, BUN/ Creatinine Ratio 11, Glucose Level 105, Calcium Level 9.0 04/05/17 05:20: White Blood Count 9.2, Red Blood Count 3.95L, Hemoglobin 12.3L, Hematocrit 37L, Mean Corpuscular Volume 93, Mean Corpuscular Hemoglobin 31, Mean Corpuscular Hemoglobin Concent 33, Red Cell Distribution Width 14.4, Platelet Count 261, Mean Platelet Volume 9.7, Sodium Level 140, Potassium Level 4.0, Chloride Level 106, Carbon Dioxide Level 24, Anion Gap 10, Blood Urea Nitrogen 7, Creatinine 0.75, Estimat Glomerular Filtration Rate > 60, BUN/Creatinine Ratio 9, Glucose Level 93, Calcium Level 8.8 Assessment/Plan Assessment/Plan Assess & Plan/Chief Complaint acute mental status change. Confusion. Weakness. fall. Dementia. Bipolar. patient appears to have sleep apnea when had EEG done Clinical Quality Measures DVT/VTE Risk/Contraindication: Risk Factor Score Per Nursin RFS Level Per Nursing on Admit: 4+=Very High ARRON ELLISON DO Apr 05, 2017 07:31
--- NOTE | 2017-04-05 07:44 | Pulmonary Consultation ---
History of Present Illness History of Present Illness Date of Consultation 04/05/17 07:38 Time Seen by Provider: 07:39 Date of Admission History of Present Illness 81yo with hx of SHANT (per pt), dementia, syncope, and suspected seizures presented to ED after being found on floor by daughter. last syncopal episode was 2-3 days ago. He has also had decreased appetite not eating or drinking well. He had a recent hip fracture over the summer and spent time at [facility] for rehab. I am consulted for SHANT. 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 He states he does use it most nights at home. He believes it is around 3 years old. He states he is not having any difficulty with it. He is unsure of his pressure. Pt does have dementia and I am not sure how accurate the information is that he is providing me. T Allergies and Home Medications Allergies Coded Allergies: Penicillins (Verified Allergy, Severe, PT HAS RECEIVED CEFEPIME & ROCEPHIN W/O ISSUE, 12/21/15) temazepam (Verified Adverse Reaction, Mild, PATIENT TAKES LORAZEPAM, ) VERY BAD DREAMS Home Medications Antiox#10/Om3/Dha/Epa/Lut/Zeax 1 Each Capsule, 1 CAP PO DAILY, (Reported) Atorvastatin Calcium 10 Mg Tablet, 10 MG PO HS, (Reported) Digoxin 125 Mcg Tablet, 125 MCG PO DAILY, (Reported) Gabapentin 300 Mg Capsule, 300 MG PO TID PRN for LEG TWITCHES, (Reported) Glucosam/Chond/Hyalu/Cf Borate 1 Each Tablet, 1 TAB PO DAILY, (Reported) Hydrocodone/Ibuprofen 1 Each Tablet, 1 TAB PO BID PRN for PAIN-MODERATE, ( Reported) Levothyroxine Sodium 75 Mcg Tablet, 75 MCG PO DAILY, (Reported) Lorazepam 1 Mg Tablet, 1 MG PO BID PRN for ANXIETY, (Reported) Omeprazole 20 Mg Capsule.dr, 20 MG PO DAILY, (Reported) Ondansetron HCl 4 Mg Tablet, 4 MG PO TID PRN for NAUSEA/VOMITING-1ST LINE, ( Reported) Potassium Citrate 10 Meq Tablet.er, 10 MEQ PO BID, (Reported) Quetiapine Fumarate 200 Mg Tablet, 200 MG PO HS, (Reported) Tamsulosin HCl 0.4 Mg Cap, 0.4 MG PO DAILY, (Reported) Venlafaxine HCl 150 Mg Cap.er.24h, 150 MG PO DAILY, (Reported) Past Vonwmrp-Pmheyz-Owtnud Hx Patient Social History Alcohol Use: Denies Use Recreational Drug Use: No Smoking Status: Never a Smoker 2nd Hand Smoke Exposure: No Recent Foreign Travel: No Contact w/Someone Who Travel: No Recent Infectious Disease Expo: No Recent Hopitalizations: No Physical Abuse: No Sexual Abuse: No Immunizations Up To Date Tetanus Booster (TDap): More than 5yrs PED Vaccines UTD: No Date of Pneumonia Vaccine: Jan 29, 2015 Date of Influenza Vaccine: Apr 10, 2016 Seasonal Allergies Seasonal Allergies: No Surgeries History of Surgeries: Yes Surgeries: Gallbladder, Orthopedic Respiratory History of Respiratory Disorde: Yes Respiratory Disorders: Pneumonia, Sleep Apnea, COPD Currently Using CPAP: Yes (PT REFUSES TO USE PER SIG. 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, Renal Failure Gastrointestinal History of Gastrointestinal Di: Yes Gastrointestinal Disorders: Chronic Constipation, Pancreatitis Musculoskeletal History of Musculoskeletal Dis: Yes Musculoskeletal Disorders: Osteoporosis, Chronic Back Pain, Fractures Endocrine History of Endocrine Disorders: Yes Endocrine Disorders: Hypothyroidsim HEENT History of HEENT Disorders: No Loss of Vision: Denies Hearing Impairment: Denies Cancer History of Cancer: No Psychosocial History of Psychiatric Problem: Yes Behavioral Health Disorders: Anxiety, Depression Suicide Risk Score: 0 Integumentary History of Skin or Integumenta: No Blood Transfusions History of Blood Disorders: No Adverse Reaction to a Blood Tr: No Family Medical History Significant Family History: No Pertinent Family Hx Family Medial History: FH: stroke G8 SISTER, Onset:75 Review of Systems Time Seen by Provider: 07:43 Constitutional: Weakness, Malaise, No: Fever, Chills, Sweats, Other Eyes: No: Pain, Vision change, Conjunctivae inflammation, Eyelid inflammation, Other, Redness ENT: No: Ear pain, Ear discharge, Nose pain, Nose discharge, Nose congestion, Mouth pain, Mouth swelling, Throat pain, Throat swelling, Other Respiratory: Shortness of breath, SOB with excertion, No: Cough, Dry, Wheezing , Hemoptysis, Pleuritic Pain, Sputum, Wheezing, Other Cardiovascular: No: Chest Pain, Palpitations, Orthopnea, Paroxysmal Noc. Dyspnea, Edema, Lt Headedness, Other Gastrointestinal: No: Nausea, Vomiting, Abdominal Pain, Diarrhea, Constipation , Melena, Hematochezia, Other Genitourinary: No Dysuria, No Frequency, No Incontinence, No Hematuria, No Retention, No Other Neurological: Weakness, Incoordination, Confusion Exam Exam Vital Signs Date Time Temp Pulse Resp B/P (MAP) Pulse Ox O2 Delivery O2 Flow Rate FiO2 04/05/17 04:00 97.0 95 24 171/80 98 Nasal Cannula 1.50 04/05/17 00:00 97.5 98 18 137/82 97 Nasal Cannula 1.50 04/04/17 21:00 98 Nasal Cannula 2.00 97 04/04/17 19:20 97.3 95 18 151/83 98 Nasal Cannula 1.50 04/04/17 15:40 98.0 97 22 143/79 96 Nasal Cannula 1.50 04/04/17 12:00 97.1 100 24 126/82 97 Room Air 04/04/17 09:55 96 Nasal Cannula 2.00 04/04/17 09:06 98.0 114 18 96 Nasal Cannula 2.00 General Appearance: No Apparent Distress, Anxious HEENT: Normal ENT Inspection Neck: Normal Inspection Respiratory: Chest Non Tender, Lungs Clear, Normal Breath Sounds, No Accessory Muscle Use, No Respiratory Distress Cardiovascular: Regular Rate, Rhythm Capillary Refill: Less Than 3 Seconds Gastrointestinal: non tender Extremity: Normal Inspection, No Pedal Edema Neurologic/Psychiatric: Alert, Motor Weakness (generalized but moves all 4 extremities), Other (confused) Skin: Normal Color, Warm/Dry Results Lab Laboratory Tests 04/04/17 07:03 04/04/17 10:05 04/05/17 05:20 Assessment/Plan Assessment/Plan acute mental status change. SHANT -will obtain CPAP down load as out patient -See if daughter can bring pt's home CPAP in Dementia. Bipolar. falling Hypertension. Confusion Seizure may be. generalized weakness 254 Clinical Quality Measures DVT/VTE Risk/Contraindication: Risk Factor Score Per Nursin RFS Level Per Nursing on Admit: 4+=Very High JERRY RODRIGUEZ DO Apr 05, 2017 07:44
[2017-04-05 08:00] VITALS: BP 124/65
[2017-04-05] MEDS: DIGOXIN 0.125 MG (LANOXIN) TAB PO SCH (08:12)
[2017-04-05] MEDS: POTASSIUM CITRATE 10 MEQ (UROCIT-K) NON-FORMULARY PO SCH ×2 (08:13→21:39)
[2017-04-05] MEDS: LORazepam 1 MG (ATIVAN) TAB PO PRN (08:44)
[2017-04-05] MEDS ORDERED: OMEPRAZOLE 20 MG (PriLOSEC) CAP NON-FORMULARY PO SCH (09:00)
--- NOTE | 2017-04-05 10:45 | Physical Therapy Evaluation ---
PT Evaluation-General Medical Diagnosis Admission Date Apr 04, 2017 at 08:34 Medical Diagnosis: AMS Onset Date: Apr 04, 2017 Therapy Diagnosis Therapy Diagnosis: generalized weakness/debility Height/Weight Height (Feet): 5 Height (Inches): 9.00 Weight (Pounds): 181 Weight (Ounces): 3.0 Precautions Precautions/Isolations: Fall Prevention, Standard Precautions Referral Physician: Noemy Reason for Referral: Evaluation/Treatment Medical History Pertinent Medical History: Atrial Fib, Arthritis, Dementia, HTN, Hypothroidism , OA, Renal Insufficiency Additional Medical History multiple hospital admissions this year Current History unwitnessed fall at home increase in confusion Reviewed History: Yes Social History Home: Single Level Current Living Status: Significant Other Entry Into Home: Level Entry Prior/Core FIM Prior Level of Function Functional [place] Measure 0=Not Assessed/NA 4=Minimal Assistance 1=Total Assistance 5=Supervision or Setup 2=Maximal Assistance 6=Modified [place] 3=Moderate Assistance 7=Complete [place] Bed Mobility: 5 Transfers (B,C,W/C) (FIM): 5 Gait: 5 caregiver 29/01 PT Evaluation-Current Subjective Patient agrees to PT. He is very alert and happy. Pain Numeric Pain Scale: 0-No Pain Location: No Pain Reported Objective Patient Orientation: Confused Problem Solving: Fair Attachments: Oxygen, Ibanez Catheter, IV ROM/Strength ROM Lower Extremities bilateral LE WNL Strenght Lower Extremities unable to follow simple direction for formal testing; grossly 4/5 Integumentary/Posture Integumentary refer to nursing notes Bladder Incontinence: Ibanez Cath Posture trunk flexed posture Neuromuscular (Tone, Coordination, Reflexes) grossly intact Sensory Vision: Functional Hearing: Functional Sensation Right Lower Extremit: Intact Sensation Left Lower Extremity: Intact Transfers Functional [place] Measure 0=Not Assessed/NA 4=Minimal Assistance 1=Total Assistance 5=Supervision or Setup 2=Maximal Assistance 6=Modified [place] 3=Moderate Assistance 7=Complete [place] Transfers (B, C, W/C) (FIM): 4 Scootin Rollin Supine to/from Sit: 4 Sit to/from Stand: 4 Gait Mode of Locomotion: Walk Anticipated Mode of Locomotion: Walk Gait (FIM): 4 Distance (FIM): 3=150 ft Distance: 200' Gait Level of Assist: 4 Gait Persons Needed: 1 Gait Assistive Device: FWW Comments/Gait Description 50% skilled verbal instruction for body placement in FWW; patient demonstrates extended arm with FWW; shuffle gait sequence Balance Sitting Static: Normal Sitting Dynamic: Normal Standing Static: Normal Standing Dynamic: Fair Assessment/Needs 81 y.o. male, will benefit from short term skilled PT to address functional mobility to improve current LOF and to safely return to home or care facility. Patient and significant other both voice desire to transfer to [facility] for continued care. Rehab Potential: Fair PT Intermediate Goals Intermediate Goals PT Intermediate Goals Time Frame: Apr 13, 2017 Transfers (B,C,W/C) (FIM): 6 Gait (FIM): 5 Gait distance (FIM): 3=150 ft Gait Level of Assist: 5 Gait Assistive Device: FWW PT Plan Problem List Problem List: Activity Tolerance, Safety, Gait Treatment/Plan Treatment Plan: Continue Plan of Care Treatment Plan: Bed Mobility, Education, Functional Activity Silvio, Functional Strength, Gait, Safety, Therapeutic Exercise, Transfers Treatment Duration: Apr 13, 2017 Frequency: 6 times per week Estimated Hrs Per Day: .25 hour per day Patient and/or Family Agrees t: Yes Safety Risks/Education Patient Education: Safety Issues Teaching Recipient: Patient, Significant Other Teaching Methods: Discussion Response to Teaching: Verbalize Understanding (significant other), Reinforcement Needed (patient) Discharge Recommendations Therapy D/C Recommendations: Snf Placement, Care Home (TCU/NH) Time/GCodes Time In: 901 Time Out: 916 Total Billed Treatment Time: 15 Total Billed Treatment 1 visit EVLowC 15 min G Codes Necessary: Yes PT/OT Therapy GCodes Therapy Functional Limitation: Physical Therapy Test(s)/Tool used to determine: Level of Assistance Scale Functional Limitation-Current Charge Code: MOBCUR Modifier: CK Functional Limitation-Goal Charge Code: MOBGOAL Modifier: JAGRUTI ROGEL PT Apr 05, 2017 10:45
[2017-04-05 12:00] VITALS: BP 131/85
[2017-04-05 16:00] VITALS: BP 131/80
[2017-04-05] MEDS: ENOXAPARIN 40 MG/0.4 ML (LOVENOX) SYR SC SCH (19:48)
[2017-04-05 20:21] VITALS: BP 167/81
[2017-04-05] MEDS: QUEtiapine 200 MG (SEROquel) TAB IMMEDIATE RELEASE PO SCH (21:39)
[2017-04-05] MEDS: ATORVASTATIN 10 MG (LIPITOR) TABLET PO SCH (21:39)
[2017-04-06 00:45] VITALS: BP 117/68
[2017-04-06] MEDS: NS IV 1000 ML 1,000 ML IV SCH (02:22)
[2017-04-06 04:10] VITALS: BP 138/89
[2017-04-06] MEDS: PANTOPRAZOLE 20 MG TABLET (PROTONIX) PO SCH (06:42)
[2017-04-06] MEDS: LEVOTHYROXINE 75 MCG (LEVOTHROID) TABLET PO SCH (06:42)
--- NOTE | 2017-04-06 06:50 | Pulmonary Progress Note ---
Subjective Time Seen by Provider: 06:49 Subjective/Events-last exam No respiratory complications noted. Exam Exam Vital Signs Date Time Temp Pulse Resp B/P (MAP) Pulse Ox O2 Delivery O2 Flow Rate FiO2 04/06/17 04:10 97.5 93 18 138/89 100 Nasal Cannula 2.00 04/06/17 00:45 97.9 108 18 117/68 98 Nasal Cannula 2.00 04/05/17 21:00 Nasal Cannula 2.00 04/05/17 20:27 Nasal Cannula 1.50 04/05/17 20:21 97.9 109 21 167/81 98 Nasal Cannula 1.50 04/05/17 16:00 98.7 93 20 131/80 97 Nasal Cannula 1.50 04/05/17 12:00 98.2 97 18 131/85 96 Nasal Cannula 1.50 04/05/17 09:00 Nasal Cannula 2.00 04/05/17 08:00 97.1 93 22 124/65 98 Nasal Cannula 1.50 General Appearance: No Apparent Distress, Anxious HEENT: Normal ENT Inspection Neck: Normal Inspection Respiratory: Chest Non Tender, Lungs Clear, Normal Breath Sounds, No Accessory Muscle Use, No Respiratory Distress Cardiovascular: Regular Rate, Rhythm Capillary Refill: Less Than 3 Seconds Gastrointestinal: non tender Extremity: Normal Inspection, No Pedal Edema Neurologic/Psychiatric: Alert, Motor Weakness (generalized but moves all 4 extremities), Other (confused) Skin: Normal Color, Warm/Dry Results Lab Laboratory Tests 04/04/17 07:03 04/04/17 10:05 04/05/17 05:20 Assessment/Plan Assessment/Plan acute mental status change. SHANT -will obtain CPAP down load as out patient -See if daughter can bring pt's home CPAP in Dementia. Bipolar. falling Hypertension. Confusion Seizure may be. generalized weakness 232 Clinical Quality Measures DVT/VTE Risk/Contraindication: Risk Factor Score Per Nursin RFS Level Per Nursing on Admit: 4+=Very High JERRY RODRIGUEZ DO Apr 06, 2017 06:50
--- NOTE | 2017-04-06 07:32 | Progress Note (SOAP) ---
Subjective Time Seen by Provider: 07:30 Subjective/Events-last exam acute mental status change. Obstructive sleep apnea. Dementia. Bipolar. Fall. Hypertension. Confusion. Generalized weakness. Maybe seizure. Plan for patient either [facility] psychiatric inpatient or via [place]. At home patient belligerent, delusional, agitated. And hateful. Patient knows my name. Patient does not know where he is at Objective Exam Vital Signs Date Time Temp Pulse Resp B/P (MAP) Pulse Ox O2 Delivery O2 Flow Rate FiO2 04/06/17 04:10 97.5 93 18 138/89 100 Nasal Cannula 2.00 04/06/17 00:45 97.9 108 18 117/68 98 Nasal Cannula 2.00 04/05/17 21:00 Nasal Cannula 2.00 04/05/17 20:27 Nasal Cannula 1.50 04/05/17 20:21 97.9 109 21 167/81 98 Nasal Cannula 1.50 04/05/17 16:00 98.7 93 20 131/80 97 Nasal Cannula 1.50 04/05/17 12:00 98.2 97 18 131/85 96 Nasal Cannula 1.50 04/05/17 09:00 Nasal Cannula 2.00 04/05/17 08:00 97.1 93 22 124/65 98 Nasal Cannula 1.50 Capillary Refill : Less Than 3 Seconds General Appearance: No Apparent Distress, WD/WN HEENT: Normal ENT Inspection Neck: Normal Inspection Respiratory: Chest Non Tender, No Accessory Muscle Use, No Respiratory Distress Cardiovascular: Regular Rate, Rhythm, No Murmur Gastrointestinal: non tender, soft Results Lab Microbiology 04/04/17 Urine Culture - Preliminary, Resulted NO GROWTH Assessment/Plan Assessment/Plan Assess & Plan/Chief Complaint acute mental status change. Confusion. Weakness. fall. Dementia. Bipolar. patient appears to have sleep apnea when had EEG done. . 04/06/17. Acute mental status change. Confusion. Weakness. Dementia.. Obstructive sleep apnea. Discharge planning being worked out Clinical Quality Measures DVT/VTE Risk/Contraindication: Risk Factor Score Per Nursin RFS Level Per Nursing on Admit: 4+=Very High ARRON ELLISON DO Apr 06, 2017 07:32
[2017-04-06] MEDS ORDERED: INFLUENZA TRIvalent 2017-2018 0.5 ML/45 MCG SYR IM ONE (07:45)
[2017-04-06 08:00] VITALS: BP 113/57
[2017-04-06] MEDS: DIGOXIN 0.125 MG (LANOXIN) TAB PO SCH (08:41)
[2017-04-06] MEDS: POTASSIUM CITRATE 10 MEQ (UROCIT-K) NON-FORMULARY PO SCH (08:41)
--- NOTE | 2017-04-06 10:21 | Physical Therapy Daily Note ---
PT Daily Note-Current Subjective Patient is in bed and very confused and agitated. PT encouraged patient to participate with PT. Pain Numeric Pain Scale: 5-Moderate Pain Location: Right Location Body Site: Hip Pain Description: Chronic Mental Status Patient Orientation: Confused Attachments: IV Transfers Functional [place] Measure 0=Not Assessed/NA 4=Minimal Assistance 1=Total Assistance 5=Supervision or Setup 2=Maximal Assistance 6=Modified [place] 3=Moderate Assistance 7=Complete IndependenceIRFPAI Quality Coding Scale 6 Independent with activity with or without an assistive device 5 Patient requires set up or clean up by helper. Patient completes activity by themselves 4 Supervision or touching assist (CGA). [place] provide cues , steadying assist 3 The helper provides less than half the effort to complete the activity 2 The helper provides more than half the effort to complete the activity 1 Dependent. The helper does all the effort to complete an activity 7 Patient refused to complete or attempt activity 9 The patient did not perform the activity before the current illness or injury 88 Not attempted due to Medical conditions or safety concerns Transfers (B, C, W/C) (FIM): 4 Scootin Rollin Supine to/from Sit: 5 Sit to/from Stand: 4 Bed to/from Chair: 4 CGA for safety Gait Training Gait (FIM): 4 Distance (FIM): 3=150 ft Distance: 200' Gait Level of Assist: 4 Gait Persons Needed: 1 Gait Assistive Device: FWW CGA with use of gait belt due to confusion Assessment Patient is up in recline with chair alarm activated. Plan dismissal to NH or psych facility for continued care. PT to dismiss at this time. PT Spool [place]ander Goals Fdc Goals PT Fdc Goals Time Frame: Apr 13, 2017 Transfers (B,C,W/C) (FIM): 6 Gait (FIM): 5 Gait distance (FIM): 3=150 ft Gait Level of Assist: 5 Gait Assistive Device: FWW PT Plan Treatment/Plan Treatment Plan: Discontinue PT Treatment Plan: Bed Mobility, Education, Functional Activity Silvio, Functional Strength, Gait, Safety, Therapeutic Exercise, Transfers Treatment Duration: Apr 13, 2017 Frequency: 6 times per week Estimated Hrs Per Day: .25 hour per day Patient and/or Family Agrees t: Yes Discharge Recommendations Therapy D/C Recommendations: Group Home Placement Time/GCodes Time In: 945 Time Out: 955 Total Billed Treatment Time: 10 Total Billed Treatment 1 visit GT 10 min PT/OT Therapy GCodes Therapy Functional Limitation: Physical Therapy Test(s)/Tool used to determine: Level of Assistance Scale Functional Limitation-Current Charge Code: MOBCUR Modifier: FRANCHESCA Functional Limitation-Goal Charge Code: MOBGOAL Modifier: CJ Functional Limitation-D/C Charge Codes: MOBDC Modifier: JAGRUTI ADAMES PT Apr 06, 2017 10:21
[2017-04-06] MEDS: LORazepam 1 MG (ATIVAN) TAB PO PRN (12:27)
--- NOTE | 2017-04-09 07:20 | Clinic Account Progress/Dx ---
Clinic Account Progress/Dx DIAGNOSIS: Time Seen by Provider: 07:15 acute mental status change. Fall. Dementia. Bipolar. Obstructive sleep apnea. Confusion. Generalized weakness. Syncope ARRON ELLISON DO Apr 09, 2017 07:20
== END 2017-04-06 12:13 ==
LOC: EDUNIT# 06:33 → ER 06:35 → 4TH 08:34 → UNDOADMOB 08:34 → 4TH 09:15
PROVIDERS: ADMIT Family Medicine; ATTEND Family Medicine
DX: F03.90 Unspecified dementia, unspecified severity, without behavioral disturbance, psychotic disturbance, mood disturbance, and anxiety (principal); R53.1 Weakness; G47.33 Obstructive sleep apnea (adult) (pediatric); I10 Essential (primary) hypertension; I48.2 Chronic atrial fibrillation; F31.9 Bipolar disorder, unspecified; E03.9 Hypothyroidism, unspecified; Z79.899 Other long term (current) drug therapy
CPT/HCPCS: 36415; 51702; 70450; 70551; 71010; 72125; 72170; 80048; 80053; 80162; 81000; 82550; 84439; 84443; 85025; 85027; 87088; 93041; 95819; 96360; G0378

== ENCOUNTER 2017-06-28 23:50 | Inpatient (IN) | payer MEDICARE, OTHER ==
[~2017-06-28] VITALS: Ht 175.3 cm; Wt 77.4 kg
[~2017-06-28 23:50] MED LIST changes: +AZIT250T12 PO; -AZIT250T5 PO; +DESV50TA18 PO; +DIVA125C10 PO; +HALO1TAB PO; +LACT10SO PO; +LEVO500T2 PO; +LURA40TA3 PO; +QUET100T69 PO; +RIVA1PAT11 TD; +SIMV10TA3 PO
[2017-06-29] VITALS (9 sets, daily range): BP systolic 119–144; BP diastolic 57–88
[2017-06-29] MEDS ORDERED: NS IV 1000 ML 1,000 ML IV ONE ×3 (00:43→02:00)
[2017-06-29 00:45] LABS: BASOPHILS % (AUTO) 0 % (0-10); EOSINOPHILS # (AUTO) 0.3 10^3/uL (0.0-0.3); EOSINOPHILS % (AUTO) 3 % (0-10); LYMPHOCYTES # (AUTO) 2.9 X 10^3 (1.0-4.0); LYMPHOCYTES % (AUTO) 36 % (12-44); MEAN CORPUSCULAR HEMOGLOBIN 31 PG (25-34); MEAN CORPUSCULAR HGB CONC 33 G/DL (32-36); MEAN CORPUSCULAR VOLUME 93 FL (80-99); MEAN PLATELET VOLUME 9.5 FL (7.4-10.4); MONOCYTES # (AUTO) 0.8 X 10^3 (0.0-1.0); MONOCYTES % (AUTO) 9 % (0-12); NEUTROPHILS # (AUTO) 4.2 X 10^3 (1.8-7.8); NEUTROPHILS % (AUTO) 51 % (42-75); PLATELET COUNT 237 10^3/uL (130-400); RED BLOOD COUNT 4.66 10^6/uL (4.35-5.85); WHITE BLOOD COUNT 8.2 10^3/uL (4.3-11.0)
[2017-06-29] MEDS ORDERED: NS IV 1000 ML 2,313.33 ML IV PRN (00:45)
[2017-06-29 00:54] LABS: PROTHROMBIN TIME PATIENT 13.2 SEC (12.2-14.7)
[2017-06-29 01:04] LABS: ALANINE AMINOTRANSFERASE 250 U/L (0-55); ALBUMIN 3.4 GM/DL (3.2-4.5); ANION GAP 13 MMOL/L (5-14); ASPARTATE AMINO TRANSFERASE 293 U/L (5-34); BILIRUBIN,TOTAL 1.6 MG/DL (0.1-1.0); BLOOD UREA NITROGEN 9 MG/DL (7-18); BUN/CREATININE RATIO 9; CALCIUM 9.4 MG/DL (8.5-10.1); CARBON DIOXIDE 30 MMOL/L (21-32); CHLORIDE 97 MMOL/L (98-107); CREATININE SERUM 0.98 MG/DL (0.60-1.30); GFR ESTIMATED > 60; GLUCOSE 149 MG/DL (70-105); POTASSIUM 3.9 MMOL/L (3.6-5.0); SODIUM 140 MMOL/L (135-145); TOTAL PROTEIN 7.1 GM/DL (6.4-8.2)
[2017-06-29 01:07] LABS: BILIRUBIN,URINE 1+ (NEGATIVE); KETONES,URINE NEGATIVE (NEGATIVE); LEUKOCYTE ESTERASE ,URINE 1+ (NEGATIVE); NITRITE,URINE NEGATIVE (NEGATIVE); PH,URINE 6.5 (5-9); PROTEIN,URINE 1+ (NEGATIVE); UROBILINOGEN,URINE 4 MG/DL (NORMAL)
[2017-06-29 01:08] LABS: HYALINE CASTS, URINE RARE /LPF; SQUAMOUS EPITHELIAL CELL,UR RARE /HPF
[2017-06-29] MEDS ORDERED: NS (IVPB) 50 ML ONE (01:55)
[2017-06-29] MEDS ORDERED: cefTRIAXone 1 GM (ROCEPHIN) VIAL ONE (01:55)
[2017-06-29] MEDS ORDERED: cefTRIAXone INJECTION 1,000 MG in NS (IVPB) 50 ML IV ONE (02:00)
--- NOTE | 2017-06-29 02:04 | ED General ---
General Chief Complaint: Altered Mental Status Stated Complaint: POSS UTI,NOT SLEEPING,AMS Nursing Triage Note: Pt significant other reports AMS Nursing Sepsis Screen: No Definite Risk Source of Information: Patient, Family Exam Limitations: No Limitations History of Present Illness Time Seen by Provider: 23:55 Initial Comments This 81-year-old man is brought to the emergency room by his significant other with multiple complaints including not eating well, not sleeping well, chills and tremors a couple days ago, and being too weak to walk. Patient struggles with dysphasia which is a persistent problem. He also has recently been having delusions about his lnxyci-lf-hlf in [place] being in danger from others seeking to harm her. His significant other states these claims are not true. Patient has a history of sepsis, UTIs, pneumonia, and confusion. Allergies and Home Medications Allergies Coded Allergies: Penicillins (Verified Allergy, Severe, PT HAS RECEIVED CEFEPIME & ROCEPHIN W/O ISSUE, 12/21/15) temazepam (Verified Adverse Reaction, Mild, PATIENT TAKES LORAZEPAM, ) VERY BAD DREAMS Home Medications Antiox#10/Om3/Dha/Epa/Lut/Zeax 1 Each Capsule, 1 CAP PO DAILY, (Reported) Desvenlafaxine Succinate 50 Mg Tab.er.24h, 50 MG PO DAILY, (Reported) Digoxin 125 Mcg Tablet, 125 MCG PO DAILY, (Reported) Divalproex Sodium 125 Mg Cap.sprink, 125 MG PO BID, (Reported) Gabapentin 300 Mg Capsule, 300 MG PO TID PRN for NERVE PAIN, (Reported) Glucosam/Chond/Hyalu/Cf Borate 1 Each Tablet, 1 TAB PO DAILY, (Reported) Haloperidol 1 Mg Tablet, 2 MG PO BID, (Reported) TAKES 2 (1MG) TABLETS Lactulose 10 Gm/15 Ml Solution, 30 ML PO 1700, (Reported) Levofloxacin 500 Mg Tablet, 500 MG PO DAILY for 5 Days Prescribed by: ARRON ELLISON on 05/25/17 0718 Levothyroxine Sodium 75 Mcg Tablet, 75 MCG PO DAILY, (Reported) Lorazepam 1 Mg Tablet, 1 MG PO HS, (Reported) Lurasidone HCl 40 Mg Tablet, 40 MG PO HS, (Reported) Omeprazole 20 Mg Capsule.dr, 20 MG PO DAILY, (Reported) Ondansetron HCl 4 Mg Tablet, 4 MG PO TID PRN for NAUSEA/VOMITING-1ST LINE, ( Reported) Potassium Citrate 10 Meq Tablet.er, 10 MEQ PO BID, (Reported) Quetiapine Fumarate 100 Mg Tablet, 100 MG PO HS, (Reported) Rivastigmine 1 Each Patch.td24, 4.6 MG TD DAILY, (Reported) Simvastatin 10 Mg Tablet, 10 MG PO HS, (Reported) Tamsulosin HCl 0.4 Mg Cap, 0.4 MG PO HS, (Reported) Tramadol HCl 50 Mg Tablet, 50 MG PO BID PRN for PAIN-MODERATE, (Reported) Constitutional: see HPI EENTM: no symptoms reported Respiratory: no symptoms reported Cardiovascular: no symptoms reported Gastrointestinal: see HPI Genitourinary: no symptoms reported Musculoskeletal: no symptoms reported Skin: no symptoms reported Psychiatric/Neurological: See HPI Hematologic/Lymphatic: No Symptoms Reported Past Bjrylyr-Dkcxoh-Byyyjr Hx Patient Social History Alcohol Use: Denies Use Recreational Drug Use: No Smoking Status: Never a Smoker 2nd Hand Smoke Exposure: No Recent Foreign Travel: No Contact w/Someone Who Travel: No Recent Infectious Disease Expo: No Recent Hopitalizations: Yes Physical Abuse: No Sexual Abuse: No Mistreated: No Fear: No Immunizations Up To Date Tetanus Booster (TDap): More than 5yrs PED Vaccines UTD: No Date of Pneumonia Vaccine: Jan 29, 2017 Date of Influenza Vaccine: May 23, 2017 Seasonal Allergies Seasonal Allergies: No Surgeries History of Surgeries: Yes Surgeries: Gallbladder, Orthopedic Respiratory History of Respiratory Disorde: Yes Respiratory Disorders: Pneumonia, Sleep Apnea, COPD Currently Using CPAP: Yes (PT REFUSES TO USE PER SIG. 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, Renal Failure Gastrointestinal History of Gastrointestinal Di: Yes Gastrointestinal Disorders: Chronic Constipation, Pancreatitis Musculoskeletal History of Musculoskeletal Dis: Yes Musculoskeletal Disorders: Osteoporosis, Chronic Back Pain, Fractures Endocrine History of Endocrine Disorders: Yes Endocrine Disorders: Hypothyroidsim HEENT History of HEENT Disorders: No Loss of Vision: Denies Hearing Impairment: Denies Cancer History of Cancer: No Did You Recieve Any Treatments: No Psychosocial History of Psychiatric Problem: Yes Behavioral Health Disorders: Anxiety, Depression Suicide Risk Score: 1 Integumentary History of Skin or Integumenta: No Blood Transfusions History of Blood Disorders: No Adverse Reaction to a Blood Tr: No Family Medical History Significant Family History: No Pertinent Family Hx Family Medial History: FH: stroke G8 SISTER, Onset:75 Physical Exam Vital Signs Vital Sign - Last 12Hours 06/29/17 06/29/17 00:01 02:55 Temp 97.4 Pulse 115 Resp 18 B/P (MAP) 106/71 (83) Pulse Ox 95 O2 Delivery Room Air O2 Flow Rate 1.00 Capillary Refill : Less Than 3 Seconds General Appearance: No Apparent Distress, WD/WN, Other (Ill appearing) HEENT: PERRL/EOMI, Normal ENT Inspection, Other (oropharynx dry) Neck: Normal Inspection Respiratory: Lungs Clear, Normal Breath Sounds, No Accessory Muscle Use, No Respiratory Distress Cardiovascular: Regular Rate, Rhythm, No Edema, No Murmur Gastrointestinal: Normal Bowel Sounds, Non Tender, Soft Extremity: Normal Inspection, No Pedal Edema Neurologic/Psychiatric: Alert, Oriented x3, Normal Mood/Affect, economic analysis director II-XII Norm as Tested, Motor Weakness (generalized), Other (patient is technically alert and oriented but he is having delusions about family members being in danger situations) Skin: Normal Color, Warm/Dry Focused Exam Evaluation Lactate Level Laboratory Tests 06/29/17 00:14: Lactic Acid Level 3.41*H 06/29/17 02:15: Lactic Acid Level 1.18 Lactic Acid Level Laboratory Tests Test 06/29/17 02:15 Lactic Acid Level 1.18 MMOL/L (0.50-2.00) Progress/Results/Core Measures Suspected Sepsis Recent Fever Within 48 Hours: No Infection Criteria Present: None New/Unexplained Altered Menta: Yes Sepsis Screen: No Definite Risk Sepsis Diagnosis: SIRS Temperature:97.4 Pulse: 115 Respiratory Rate: 18 Laboratory Tests 06/29/17 00:14: White Blood Count 8.2 Blood Pressure 106 /71 Mean: 83 Laboratory Tests 06/29/17 00:14: Lactic Acid Level 3.41*H 06/29/17 02:15: Lactic Acid Level 1.18 Laboratory Tests 06/29/17 00:14: Creatinine 0.98, INR Comment 1.0, Platelet Count 237, Total Bilirubin 1.6H Results/Orders Lab Results Laboratory Tests Test 06/29/17 00:14 06/29/17 00:36 06/29/17 02:15 Range/Units White Blood Count 8.2 4.3-11.0 10^3/uL Red Blood Count 4.66 4.35-5.85 10^6/uL Hemoglobin 14.4 13.3-17.7 G/DL Hematocrit 43 40-54 % Mean Corpuscular Volume 93 80-99 FL Mean Corpuscular Hemoglobin 31 25-34 PG Mean Corpuscular Hemoglobin Concent 33 32-36 G/DL Red Cell Distribution Width 14.0 10.0-14.5 % Platelet Count 237 130-400 10^3/uL Mean Platelet Volume 9.5 7.4-10.4 FL Neutrophils (%) (Auto) 51 42-75 % Lymphocytes (%) (Auto) 36 12-44 % Monocytes (%) (Auto) 9 0-12 % Eosinophils (%) (Auto) 3 0-10 % Basophils (%) (Auto) 0 0-10 % Neutrophils # (Auto) 4.2 1.8-7.8 X 10^3 Lymphocytes # (Auto) 2.9 1.0-4.0 X 10^3 Monocytes # (Auto) 0.8 0.0-1.0 X 10^3 Eosinophils # (Auto) 0.3 0.0-0.3 10^3/uL Basophils # (Auto) 0.0 0.0-0.1 10^3/uL Prothrombin Time 13.2 12.2-14.7 SEC INR Comment 1.0 0.8-1.4 Activated Partial Thromboplast Time 34 24-35 SEC Sodium Level 140 135-145 MMOL/L Potassium Level 3.9 3.6-5.0 MMOL/L Chloride Level 97 L 98-107 MMOL/L Carbon Dioxide Level 30 21-32 MMOL/L Anion Gap 13 5-14 MMOL/L Blood Urea Nitrogen 9 7-18 MG/DL Creatinine 0.98 0.60-1.30 MG/DL Estimat Glomerular Filtration Rate > 60 BUN/Creatinine Ratio 9 Glucose Level 149 H 70-105 MG/DL Lactic Acid Level 3.41 *H 1.18 0.50-2.00 MMOL/L Calcium Level 9.4 8.5-10.1 MG/DL Total Bilirubin 1.6 H 0.1-1.0 MG/DL Aspartate Amino Transf (AST/SGOT) 293 H 5-34 U/L Alanine Aminotransferase (ALT/SGPT) 250 H 0-55 U/L Alkaline Phosphatase 161 H 40-136 U/L C-Reactive Protein High Sensitivity 2.11 H 0.00-0.50 MG/DL Total Protein 7.1 6.4-8.2 GM/DL Albumin 3.4 3.2-4.5 GM/DL Urine Color YELLOW Urine Clarity SLIGHTLY CLOUDY Urine pH 6.5 5-9 Urine Specific [place] 1.020 1.016-1.022 Urine Protein 1+ H NEGATIVE Urine Glucose (UA) NEGATIVE NEGATIVE Urine Ketones NEGATIVE NEGATIVE Urine Nitrite NEGATIVE NEGATIVE Urine Bilirubin 1+ H NEGATIVE Urine Urobilinogen 4 H NORMAL MG/DL Urine Leukocyte Esterase 1+ H NEGATIVE Urine RBC (Auto) NEGATIVE NEGATIVE Urine RBC NONE /HPF Urine WBC 2-5 /HPF Urine Squamous Epithelial Cells RARE /HPF Urine Crystals NONE /LPF Urine Bacteria MODERATE H /HPF Urine Casts PRESENT /LPF Urine Hyaline Casts RARE /LPF Urine Mucus NEGATIVE /LPF Urine Culture Indicated YES My Orders Orders - ESTRELLITA RODRIGUEZ MD Cbc With Automated Diff (06/28/17 23:55) Comprehensive Metabolic Panel (06/28/17 23:55) Ua Culture If Indicated (06/28/17 23:55) Saline Lock/Iv-Start (06/28/17 23:55) Ns Iv 1000 Ml (Sodium Chloride 0.9%) (06/29/17 00:43) Lactic Acid Analyzer (06/29/17 00:43) Blood Culture (06/29/17 00:43) Sputum Culture (06/29/17 00:43) Protime With Inr (06/29/17 00:43) Partial Thromboplastin Time (06/29/17 00:43) Chest 1 View, Ap/Pa Only (06/29/17 00:43) O2 (06/29/17 00:43) Ns Iv 1000 Ml (Sodium Chloride 0.9%) (06/29/17 00:45) Vital Signs Adult Sepsis Patie Q1H (06/29/17 00:43) Remove Rings In Anticipation O (06/29/17 00:43) Urine Culture (06/29/17 00:36) Hs C Reactive Protein (06/29/17 01:11) Ceftriaxone Injection (Rocephin Injectio (06/29/17 02:00) Ns Iv 1000 Ml (Sodium Chloride 0.9%) (06/29/17 01:56) Ns Iv 1000 Ml (Sodium Chloride 0.9%) (06/29/17 02:00) Ceftriaxone Injection (Rocephin Injectio (06/29/17 01:55) Ns (Ivpb) (Sodium Chloride 0.9% Ivpb Bag (06/29/17 01:55) Medications Given in ED Current Medications Medications Dose Ordered Sig/Per Route Start Time Stop Time Status Last Admin Dose Admin Sodium Chloride 1,000 ml @ 0 mls/hr Q0M ONCE IV 06/29/17 00:43 06/29/17 00:45 DC 06/29/17 00:54 0 MLS/HR Sodium Chloride 1,000 ml @ 0 mls/hr Q0M ONCE IV 06/29/17 01:56 06/29/17 01:57 DC 06/29/17 00:30 0 MLS/HR Vital Signs/I&O Vital Sign - Last 12Hours 06/29/17 06/29/17 06/29/17 06/29/17 00:01 00:30 01:00 01:30 Temp 97.4 Pulse 115 115 101 96 Resp 18 18 18 20 B/P (MAP) 106/71 (83) 92/70 108/66 116/63 Pulse Ox 95 98 98 97 O2 Delivery Room Air Room Air Room Air Room Air 06/29/17 06/29/17 06/29/17 06/29/17 02:00 02:30 02:54 02:55 Temp 98.2 96.8 Pulse 92 92 92 101 Resp 18 18 18 18 B/P (MAP) 118/68 125/62 132/84 (100) Pulse Ox 97 97 97 98 O2 Delivery Room Air Room Air Room Air Nasal Cannula O2 Flow Rate 1.00 06/29/17 06/29/17 03:33 04:00 Temp 96.7 Pulse 102 Resp 16 B/P (MAP) 144/88 (106) Pulse Ox 97 O2 Delivery OxyMask Room Air O2 Flow Rate 2.00 Capillary Refill : Less Than 3 Seconds Blood Pressure Mean: 83 Progress Note : Progress Note No definite source of infection was identified and workup although there is moderate bacteria in the urine specimen. This could represent urinary tract infection. Transaminases are also elevated without clear explanation. Patient has had prior cholecystectomy and does not complain of any upper abdominal pain. Case was reviewed with Dr. Dr. Ellison. Plan at this time is to empirically treat with Rocephin. Patient has a penicillin allergy but review of chart notes that he has received Rocephin in the past. Patient will be hydrated and labs will be repeated later in the morning. He received 2 L of IV normal saline in the ER. Normal saline will be continued on the floor at 100 mL per hour. The first dose of Rocephin was started in the emergency room. Blood cultures and lactic acid were performed prior to the administration of Rocephin. Lactic acid was elevated but his normal WBC and low CRP would suggest he does not have sepsis. I suspect lactic acid is elevated due to hydration status. Cause of transaminases elevation is uncertain at this time. He could relate to a medication effect. If hydration and consideration for medication effect does not result in improved labs, screening for hepatitis could be ordered. Diagnostic Imaging Diagonstic Imaging: Xray Plain Films/CT/US/NM/MRI: chest Comments Chest x-ray viewed by me. Compared with prior. No report available. No acute changes appreciated. Departure Communication (Admissions) Time/Spoke to Admitting Phy: 01:[address] Ellison Impression Impression: Primary Impression: Urinary tract infection Qualified Codes: N39.0 - Urinary tract infection, site not specified Additional Impressions: Generalized weakness Confusion Elevated transaminase level Disposition: ADMITTED INPATIENT Condition: Improved Admissions Decision to Admit Reason: Admit from ER (General) Decision to Admit/Date: Jun 29, 2017 Time/Decision to Admit Time: 01:50 Departure-Patient Inst. Referrals: ARRON ELLISON DO (PCP/Family) Primary Care Physician ESTRELLITA RODRIGUEZ MD Jun 29, 2017 02:04
--- OUTSIDE RECORDS SUMMARY | 2017-06-29 02:43 | XMS REPORT | Clinical Summary ---
Author Author [facility] Organization 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 If you do not see the information that you expected, contact Release of Information in the Health Information Management department at [phone] for further assistance in locating additional records.[facility] Allergies Active Allergy Reactions Severity [...] PO) OMEPRAZOLE PO Take by mouth. Active [id number] Take by mouth. Active D2 PO DOCOSAHEXANOIC [...] VACCINE 1997 PREVNAR/PNEUMOVAX (#1) 2002 INFLUENZA VACCINE 02/06/2017 Results Not on filefrom Last 3 Months
[2017-06-29] MEDS: NS IV 1000 ML 1,000 ML IV SCH ×2 (03:15→14:37)
[2017-06-29 06:28] LABS: BASOPHILS % (AUTO) 0 % (0-10); EOSINOPHILS # (AUTO) 0.2 10^3/uL (0.0-0.3); EOSINOPHILS % (AUTO) 2 % (0-10); LYMPHOCYTES # (AUTO) 2.4 X 10^3 (1.0-4.0); LYMPHOCYTES % (AUTO) 27 % (12-44); MEAN CORPUSCULAR HEMOGLOBIN 32 PG (25-34); MEAN CORPUSCULAR HGB CONC 34 G/DL (32-36); MEAN CORPUSCULAR VOLUME 93 FL (80-99); MEAN PLATELET VOLUME 9.1 FL (7.4-10.4); MONOCYTES # (AUTO) 1.2 X 10^3 (0.0-1.0); MONOCYTES % (AUTO) 13 % (0-12); NEUTROPHILS # (AUTO) 5.1 X 10^3 (1.8-7.8); NEUTROPHILS % (AUTO) 57 % (42-75); PLATELET COUNT 186 10^3/uL (130-400); RED BLOOD COUNT 4.02 10^6/uL (4.35-5.85); RED CELL DISTRIBUTION WIDTH 13.9 % (10.0-14.5); WHITE BLOOD COUNT 8.9 10^3/uL (4.3-11.0)
--- NOTE | 2017-06-29 06:39 | Diagnostic Imaging Report ---
INDICATION: Altered mental status EXAMINATION: Portable chest at 12:58 AM. Heart size and pulmonary vascularity are normal. Lungs are clear. There are no effusions or pneumothoraces. IMPRESSION: Negative chest. Dictated by: Dictated on workstation # [id number]
[2017-06-29 06:56] LABS: ALANINE AMINOTRANSFERASE 183 U/L (0-55); ALBUMIN 2.8 GM/DL (3.2-4.5); ANION GAP 8 MMOL/L (5-14); ASPARTATE AMINO TRANSFERASE 187 U/L (5-34); BILIRUBIN,TOTAL 0.9 MG/DL (0.1-1.0); BLOOD UREA NITROGEN 8 MG/DL (7-18); BUN/CREATININE RATIO 11; CALCIUM 8.2 MG/DL (8.5-10.1); CARBON DIOXIDE 25 MMOL/L (21-32); CHLORIDE 107 MMOL/L (98-107); CREATININE SERUM 0.75 MG/DL (0.60-1.30); GFR ESTIMATED > 60; GLUCOSE 103 MG/DL (70-105); POTASSIUM 3.8 MMOL/L (3.6-5.0); SODIUM 140 MMOL/L (135-145); TOTAL PROTEIN 5.5 GM/DL (6.4-8.2)
--- NOTE | 2017-06-29 07:44 | History & Physicial ---
History of Present Illness History of Present Illness Reason for visit/HPI patient brought to the emergency room. History by caregiver. Patient has not been eating and not sleeping and having chills and tremors. Patient weak and trouble getting around . Patient has been hallucinating about cjyqeh-mo-nmq in [place] Patient had elevated liver tests but recently put on Depakote. Patient bipolar. Patient has altered mental status with confusion. In hospital has elevated lactic acid which is coming back to normal this morning. Caregiver states patient is dehydrated. Patient depressed Caregiver states patient getting so weak. Previous surgery gallbladder and hip Date of Admission Jun 29, 2017 at 1:58 am Time Seen by Provider: 07:40 I consulted on this patient on 06/29/17 07:39 Attending Physician Joel Ellison DO Admitting Physician Joel Ellison DO Consult Allergies and Home Medications Allergies Coded Allergies: Penicillins (Verified Allergy, Severe, PT HAS RECEIVED CEFEPIME & ROCEPHIN W/O ISSUE, 12/21/15) temazepam (Verified Adverse Reaction, Mild, PATIENT TAKES LORAZEPAM, ) VERY BAD DREAMS Home Medications Antiox#10/Om3/Dha/Epa/Lut/Zeax 1 Each Capsule, 1 CAP PO DAILY, (Reported) Desvenlafaxine Succinate 50 Mg Tab.er.24h, 50 MG PO DAILY, (Reported) Digoxin 125 Mcg Tablet, 125 MCG PO DAILY, (Reported) Divalproex Sodium 125 Mg Cap.sprink, 125 MG PO BID, (Reported) Gabapentin 300 Mg Capsule, 300 MG PO TID PRN for NERVE PAIN, (Reported) Glucosam/Chond/Hyalu/Cf Borate 1 Each Tablet, 1 TAB PO DAILY, (Reported) Haloperidol 1 Mg Tablet, 2 MG PO BID, (Reported) TAKES 2 (1MG) TABLETS Lactulose 10 Gm/15 Ml Solution, 30 ML PO 1700, (Reported) Levofloxacin 500 Mg Tablet, 500 MG PO DAILY for 5 Days Prescribed by: JOEL ELLISON on 05/25/17 0718 Levothyroxine Sodium 75 Mcg Tablet, 75 MCG PO DAILY, (Reported) Lorazepam 1 Mg Tablet, 1 MG PO HS, (Reported) Lurasidone HCl 40 Mg Tablet, 40 MG PO HS, (Reported) Omeprazole 20 Mg Capsule.dr, 20 MG PO DAILY, (Reported) Ondansetron HCl 4 Mg Tablet, 4 MG PO TID PRN for NAUSEA/VOMITING-1ST LINE, ( Reported) Potassium Citrate 10 Meq Tablet.er, 10 MEQ PO BID, (Reported) Quetiapine Fumarate 100 Mg Tablet, 100 MG PO HS, (Reported) Rivastigmine 1 Each Patch.td24, 4.6 MG TD DAILY, (Reported) Simvastatin 10 Mg Tablet, 10 MG PO HS, (Reported) Tamsulosin HCl 0.4 Mg Cap, 0.4 MG PO HS, (Reported) Tramadol HCl 50 Mg Tablet, 50 MG PO BID PRN for PAIN-MODERATE, (Reported) Past Ntbfpxd-Lezmol-Dxvdnc Hx Patient Social History Employed/Student: unemployed Alcohol Use: Denies Use Recreational Drug Use: No Smoking Status: Never a Smoker 2nd Hand Smoke Exposure: No Physical Abuse Screen: No Sexual Abuse: No Recent Foreign Travel: No Contact w/other who traveled: No Recent Hopitalizations: Yes Recent Infectious Disease Expo: No Immunizations Up To Date Tetanus Booster (TDap): More than 5yrs Pediatric: No Date of Pneumonia Vaccine: Jan 29, 2017 Date of Influenza Vaccine: May 23, 2017 Seasonal Allergies Seasonal Allergies: No Surgeries Yes Gallbladder, Orthopedic Respiratory Yes Pneumonia Currently Using CPAP: Yes (PT REFUSES TO USE PER SIG. OTHER) Currently Using BIPAP: No Cardiovascular Yes (TACHYCARDIA) Atrial Fibrillation, Hypertension Neurological Yes (OCCASSIONAL CONFUSION) Dementia Reproductive System Hx Reproductive Disorders: No Sexually Transmitted Disease: No HIV/AIDS: No Genitourinary Yes (ONE KIDNEY) Kidney Stones, Renal Failure Gastrointestinal Yes Chronic Constipation, Pancreatitis Musculoskeletal Yes Osteoporosis, Chronic Back Pain, Fractures Endocrine History of Endocrine Disorders: Yes Endocrine Disorders: Hypothyroidsim HEENT History of HEENT Disorders: No Loss of Vision: Denies Hearing Impairment: Denies Cancer No Did You Recieve Any Treatments: No Psychosocial History of Psychiatric Problem: Yes Behavioral Health Disorders: Anxiety, Depression Integumentary History of Skin or Integumenta: No Blood Transfusions History of Blood Disorders: No Adverse Reaction to a Blood Tr: No Family Medical History Significant Family History: No Pertinent Family Hx Family Hx: FH: stroke G8 SISTER, Onset:75 Constitutional: malaise, weakness EENTM: no symptoms reported Respiratory: no symptoms reported Cardiovascular: no symptoms reported Gastrointestinal: no symptoms reported Genitourinary: no symptoms reported Physical Exam Vital Signs Vital Sign - Last 12Hours 06/29/17 06/29/17 00:01 02:55 Temp 97.4 Pulse 115 Resp 18 B/P (MAP) 106/71 (83) Pulse Ox 95 O2 Delivery Room Air O2 Flow Rate 1.00 Capillary Refill : Less Than 3 Seconds General Appearance: No Apparent Distress, WD/WN HEENT: Normal ENT Inspection Neck: Normal Inspection Respiratory: Chest Non Tender, Lungs Clear, Normal Breath Sounds, No Accessory Muscle Use, No Respiratory Distress Cardiovascular: Regular Rate, Rhythm, No Murmur Gastrointestinal: Non Tender, Soft Assessment/Plan Assessment and Plan UTI. Altered mental status. Stopped eating. Bipolar. Depression. Recent onset of Depakote. Elevated liver tests Elevated lactic acid. Confusion. Problems: Clinical Quality Measures DVT/VTE Risk/Contraindication: Risk Factor Score Per Nursin RFS Level Per Nursing on Admit: 4+=Very High JOEL ELLISON DO Jun 29, 2017 7:44 am
--- NOTE | 2017-06-29 11:01 | Physical Therapy Evaluation ---
PT Evaluation-General Medical Diagnosis Admission Date Jun 29, 2017 at 01:58 Medical Diagnosis: UTI/AMS Onset Date: Jun 29, 2017 Therapy Diagnosis Therapy Diagnosis: generalized weakness/debility Height/Weight Height (Feet): 5 Height (Inches): 9.00 Weight (Pounds): 170 Weight (Ounces): 9.0 Precautions Precautions/Isolations: Fall Prevention, Standard Precautions, Pressure Ulcer Weight Bear Status Right Lower Extremity: Right Full Weight Bearing Left Lower Extremity: Left Full Weight Bearing Referral Physician: Noemy Reason for Referral: Evaluation/Treatment Medical History Pertinent Medical History: Atrial Fib, Arthritis, Dementia, HTN, Hypothroidism , OA, Renal Insufficiency Current History home with significant other, dehydration, hallucinating, etc Reviewed History: Yes Social History Home: Single Level Current Living Status: Significant Other Prior/Core FIM Prior Level of Function Functional [place] Measure 0=Not Assessed/NA 4=Minimal Assistance 1=Total Assistance 5=Supervision or Setup 2=Maximal Assistance 6=Modified Boron 3=Moderate Assistance 7=Complete [place] Bed Mobility: 5 Transfers (B,C,W/C) (FIM): 5 Gait: 1 uses FWW PLOF PT Evaluation-Current Subjective Patient is responsive to painful stimuli only. Will not open eyes. Objective Patient Orientation: Listless Problem Solving: Poor Attachments: Oxygen, IV ROM/Strength ROM Lower Extremities bilateral LE WNL Strength Lower Extremities NT Integumentary/Posture Integumentary refer to nursing notes Bladder Incontinence: Yes Neuromuscular (Tone, Coordination, Reflexes) NT Sensory Vision: Unable to Assess Hearing: Unable to Assess Transfers Functional [place] Measure 0=Not Assessed/NA 4=Minimal Assistance 1=Total Assistance 5=Supervision or Setup 2=Maximal Assistance 6=Modified [place] 3=Moderate Assistance 7=Complete [place] Transfers (B, C, W/C) (FIM): 1 Scootin Rollin Supine to/from Sit: 1 dependent assist to sit EOB to attempt to wake patient. Not successful Gait Anticipated Mode of Locomotion: Both Balance Standing Static: Poor Assessment/Needs 81 y.o. male, will be seen for short term skilled PT to address functional strength and mobility. This patient is very well known by this PT. It appears he is successful at IA, then returns to home with significant other, then returns to hospital with a change in status. When patient awakes, PT will address goals. Rehab Potential: Guarded PT Middleware Developer Goals Skilled Nursing Goals PT Skilled Nursing Goals Time Frame: Jul 06, 2017 Transfers (B,C,W/C) (FIM): 5 Gait (FIM): 1 Gait distance (FIM): 1=up to 49 ft Distance: 45' Gait Level of Assist: 4 Gait Assistive Device: FWW PT Plan Problem List Problem List: Activity Tolerance, Functional Strength, Safety, Balance, Gait, Transfer, Bed Mobility Treatment/Plan Treatment Plan: Continue Plan of Care Treatment Plan: Bed Mobility, Education, Functional Activity Silvio, Functional Strength, Gait, Safety, Therapeutic Exercise, Transfers Treatment Duration: Jul 06, 2017 Frequency: 6 times per week Estimated Hrs Per Day: .25 hour per day Patient and/or Family Agrees t: Yes Discharge Recommendations Therapy D/C Recommendations: Alf Placement, Residential (TCU/NH) Time/GCodes Time In: 956 Time Out: 1008 Total Billed Treatment Time: 12 Total Billed Treatment 1 visit EVLowC 12 min JAGRUTI SAUCEDO PT Jun 29, 2017 11:01
--- NOTE | 2017-06-29 11:01 | Speech Therapy Progress Note ---
Therapy Progress Note Speech pathology consult received and chart reviewed. The clinician attempted the bedside swallowing evaluation, however, the patient would not wake regardless of maximum verbal prompting. Due to the patient's reduced alertness, he is not appropriate for a swallowing evaluation at this time. Speech pathology will re-attempt as patient is appropriate and willing to participate. JA HERBERT Jun 29, 2017 11:01
[2017-06-29] MEDS ORDERED: MIRT15TA6 PO (11:32)
--- NOTE | 2017-06-29 12:56 | Diagnostic Imaging Report ---
EXAM: CT HEAD WO-R/O STROKE INDICATION: Stroke. Unresponsive. COMPARISON: CT head without contrast 05/21/2017. FINDINGS: Advanced generalized cerebral and cerebellar parenchymal volume loss. 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 No CT evidence of an acute infarct. No intracranial hemorrhage, mass effect, hydrocephalus or extra-axial fluid collections. Osseous structures are intact. The paranasal sinuses and mastoids are clear. IMPRESSION: 1. No acute intracranial CT findings. 2. Advanced generalized parenchymal volume loss and leukoaraiosis. Dictated by: Dictated on workstation # [id number]
[2017-06-29] MEDS: RIVASTIGMINE 4.6 MG PATCH (EXELON) TD SCH (13:09)
[2017-06-29] MEDS: RIVASTIGMINE PATCH REMOVAL TP SCH (13:09)
[2017-06-29] MEDS: ENOXAPARIN 40 MG/0.4 ML (LOVENOX) SYR SC SCH (15:39)
[2017-06-29] MEDS: LACTULOSE SYRUP 10GM/15ML (ENULOSE) 30ML UDC PO SCH (16:04)
[2017-06-29] MEDS: ALFUZOSIN HCL 10 MG TAB (UROXATRAL) PO SCH (18:51)
[2017-06-29] MEDS: QUEtiapine 100 MG (SEROquel) TAB IMMEDIATE RELEASE PO SCH (20:12)
[2017-06-29] MEDS: MIRTAZAPINE 15 MG (REMERON) TAB PO SCH (20:12)
[2017-06-30] VITALS (7 sets, daily range): BP systolic 108–135; BP diastolic 61–87
[2017-06-30 05:34] LABS: BASOPHILS % (AUTO) 0 % (0-10); EOSINOPHILS # (AUTO) 0.3 10^3/uL (0.0-0.3); EOSINOPHILS % (AUTO) 4 % (0-10); LYMPHOCYTES # (AUTO) 2.2 X 10^3 (1.0-4.0); LYMPHOCYTES % (AUTO) 29 % (12-44); MEAN CORPUSCULAR HEMOGLOBIN 31 PG (25-34); MEAN CORPUSCULAR HGB CONC 34 G/DL (32-36); MEAN CORPUSCULAR VOLUME 92 FL (80-99); MEAN PLATELET VOLUME 9.4 FL (7.4-10.4); MONOCYTES # (AUTO) 0.9 X 10^3 (0.0-1.0); MONOCYTES % (AUTO) 12 % (0-12); NEUTROPHILS # (AUTO) 4.1 X 10^3 (1.8-7.8); NEUTROPHILS % (AUTO) 54 % (42-75); PLATELET COUNT 195 10^3/uL (130-400); RED BLOOD COUNT 3.96 10^6/uL (4.35-5.85); RED CELL DISTRIBUTION WIDTH 13.8 % (10.0-14.5); WHITE BLOOD COUNT 7.6 10^3/uL (4.3-11.0)
[2017-06-30] MEDS: PANTOPRAZOLE 20 MG TABLET (PROTONIX) PO SCH (05:41)
[2017-06-30] MEDS: VENlafaxine XR 75 MG (EFFEXOR XR) CAP PO SCH (05:41)
[2017-06-30] MEDS: LEVOTHYROXINE 75 MCG (LEVOTHROID) TABLET PO SCH (05:41)
[2017-06-30 05:53] LABS: ALANINE AMINOTRANSFERASE 127 U/L (0-55); ALBUMIN 2.8 GM/DL (3.2-4.5); ANION GAP 9 MMOL/L (5-14); ASPARTATE AMINO TRANSFERASE 103 U/L (5-34); BLOOD UREA NITROGEN 6 MG/DL (7-18); BUN/CREATININE RATIO 9; CALCIUM 8.4 MG/DL (8.5-10.1); CARBON DIOXIDE 26 MMOL/L (21-32); CHLORIDE 106 MMOL/L (98-107); CREATININE SERUM 0.69 MG/DL (0.60-1.30); GFR ESTIMATED > 60; GLUCOSE 90 MG/DL (70-105); POTASSIUM 3.8 MMOL/L (3.6-5.0); SODIUM 141 MMOL/L (135-145); TOTAL PROTEIN 5.6 GM/DL (6.4-8.2)
[2017-06-30] MEDS: RIVASTIGMINE PATCH REMOVAL TP SCH (08:53)
[2017-06-30] MEDS: cefTRIAXone INJECTION 1,000 MG in NS (IVPB) 50 ML IV SCH (08:54)
[2017-06-30] MEDS: DIGOXIN 0.125 MG (LANOXIN) TAB PO SCH (08:55)
[2017-06-30] MEDS: GABAPENTIN 300 MG (NEURONTIN) CAP PO PRN (08:55)
[2017-06-30] MEDS: RIVASTIGMINE 4.6 MG PATCH (EXELON) TD SCH (08:55)
[2017-06-30] MEDS: NS IV 1000 ML 1,000 ML IV SCH (08:56)
--- NOTE | 2017-06-30 11:03 | Physical Therapy Daily Note ---
PT Daily Note-Current Subjective Pt is up in chair having breakfast. He is alert. Sat with patient and discussed the benefits of physical activity. Pt refused to participate. He was not unpleasant, but was adamant that he would not be doing therapy today. Transfers Functional [place] Measure 0=Not Assessed/NA 4=Minimal Assistance 1=Total Assistance 5=Supervision or Setup 2=Maximal Assistance 6=Modified [place] 3=Moderate Assistance 7=Complete IndependenceIRFPAI Quality Coding Scale 6 Independent with activity with or without an assistive device 5 Patient requires set up or clean up by helper. Patient completes activity by themselves 4 Supervision or touching assist (CGA). [place] provide cues , steadying assist 3 The helper provides less than half the effort to complete the activity 2 The helper provides more than half the effort to complete the activity 1 Dependent. The helper does all the effort to complete an activity 7 Patient refused to complete or attempt activity 9 The patient did not perform the activity before the current illness or injury 88 Not attempted due to Medical conditions or safety concerns Weight Bearing Right Lower Extremity: Right Full Weight Bearing Left Lower Extremity: Left Full Weight Bearing Assessment Pt refusal PT Graphic Engineer Goals Graphic Engineer Goals PT Graphic Engineer Goals Time Frame: Jul 06, 2017 Transfers (B,C,W/C) (FIM): 5 Gait (FIM): 1 Gait distance (FIM): 1=up to 49 ft Distance: 45' Gait Level of Assist: 4 Gait Assistive Device: FWW PT Plan Treatment/Plan Treatment Plan: Continue Plan of Care Treatment Plan: Bed Mobility, Education, Functional Activity Silvio, Functional Strength, Gait, Safety, Therapeutic Exercise, Transfers Treatment Duration: Jul 06, 2017 Frequency: 6 times per week Estimated Hrs Per Day: .25 hour per day Patient and/or Family Agrees t: Yes Time/GCodes Time In: 1050 Time Out: 1055 Total Billed Treatment Time: 5 Total Billed Treatment visit BHUPINDER LOZADA PT Jun 30, 2017 11:03
--- NOTE | 2017-06-30 12:37 | Progress Note-Hospitalist ---
Progress Note Progress Notes/Assess & Plan Date Seen 06/30/17 Time Seen by Provider: 11:30 Diagonsis/Assessment & Plan Patient "just can't do it anymore." Very difficult to motivate to get OOB States he has had a BM but nurses state he has not since before he was admitted Pt very declined since I last assessed him in the [facility] Very difficult to redirect and talk to Liver enzymes are improving AFVSS, Pleasant, fatigued, chronically ill, slightly confused RRR, CTAB No edema Laboratory Tests 06/30/17 04:53 Assessment: AMS Sepsis UTI on abx Elevated LFT's Chronic anemia Dementia Mental illness Constipation Plan: BM treatment Check labs in am Diff to motivate CHRIS ELIAS DO Jun 30, 2017 12:36
[2017-06-30] MEDS ORDERED: BISACODYL 10 MG SUPP (DULCOLAX) PR NR (12:41)
[2017-06-30] MEDS: LACTULOSE SYRUP 10GM/15ML (ENULOSE) 30ML UDC PO SCH ×3 (12:54→20:19)
[2017-06-30] MEDS: ENOXAPARIN 40 MG/0.4 ML (LOVENOX) SYR SC SCH (13:22)
[2017-06-30] MEDS: ONDANSETRON 4 MG (ZOFRAN) ORAL DISSOLVE TAB PO PRN (14:05)
[2017-06-30] MEDS: ALFUZOSIN HCL 10 MG TAB (UROXATRAL) PO SCH (17:08)
[2017-06-30] MEDS: QUEtiapine 100 MG (SEROquel) TAB IMMEDIATE RELEASE PO SCH (20:18)
[2017-06-30] MEDS: MIRTAZAPINE 15 MG (REMERON) TAB PO SCH (20:19)
[2017-07-01] VITALS: BP 153/81
[2017-07-01] MEDS: NS IV 1000 ML 1,000 ML IV SCH ×2 (00:04→17:54)
[2017-07-01] MEDS: VENlafaxine XR 75 MG (EFFEXOR XR) CAP PO SCH (06:18)
[2017-07-01] MEDS: LEVOTHYROXINE 75 MCG (LEVOTHROID) TABLET PO SCH (06:18)
[2017-07-01] MEDS: PANTOPRAZOLE 20 MG TABLET (PROTONIX) PO SCH (06:18)
[2017-07-01 06:31] LABS: BASOPHILS % (AUTO) 0 % (0-10); EOSINOPHILS # (AUTO) 0.2 10^3/uL (0.0-0.3); EOSINOPHILS % (AUTO) 3 % (0-10); LYMPHOCYTES # (AUTO) 2.1 X 10^3 (1.0-4.0); LYMPHOCYTES % (AUTO) 24 % (12-44); MEAN CORPUSCULAR HEMOGLOBIN 32 PG (25-34); MEAN CORPUSCULAR HGB CONC 34 G/DL (32-36); MEAN CORPUSCULAR VOLUME 93 FL (80-99); MEAN PLATELET VOLUME 9.4 FL (7.4-10.4); MONOCYTES % (AUTO) 11 % (0-12); NEUTROPHILS # (AUTO) 5.4 X 10^3 (1.8-7.8); NEUTROPHILS % (AUTO) 62 % (42-75); PLATELET COUNT 203 10^3/uL (130-400); RED CELL DISTRIBUTION WIDTH 13.9 % (10.0-14.5); WHITE BLOOD COUNT 8.7 10^3/uL (4.3-11.0)
[2017-07-01 06:59] LABS: ALANINE AMINOTRANSFERASE 98 U/L (0-55); ALBUMIN 3.1 GM/DL (3.2-4.5); ANION GAP 10 MMOL/L (5-14); ASPARTATE AMINO TRANSFERASE 61 U/L (5-34); BILIRUBIN,TOTAL 1.1 MG/DL (0.1-1.0); BLOOD UREA NITROGEN 6 MG/DL (7-18); BUN/CREATININE RATIO 9; CALCIUM 8.6 MG/DL (8.5-10.1); CARBON DIOXIDE 25 MMOL/L (21-32); CHLORIDE 102 MMOL/L (98-107); GFR ESTIMATED > 60; GLUCOSE 85 MG/DL (70-105); POTASSIUM 3.8 MMOL/L (3.6-5.0); SODIUM 137 MMOL/L (135-145); TOTAL PROTEIN 6.2 GM/DL (6.4-8.2)
[2017-07-01] MEDS: cefTRIAXone INJECTION 1,000 MG in NS (IVPB) 50 ML IV SCH (08:17)
[2017-07-01] MEDS: RIVASTIGMINE PATCH REMOVAL TP SCH (08:17)
[2017-07-01] MEDS: RIVASTIGMINE 4.6 MG PATCH (EXELON) TD SCH (08:18)
[2017-07-01] MEDS: LACTULOSE SYRUP 10GM/15ML (ENULOSE) 30ML UDC PO SCH ×2 (08:18→20:56)
[2017-07-01] MEDS: DIGOXIN 0.125 MG (LANOXIN) TAB PO SCH (08:18)
[2017-07-01] MEDS: GABAPENTIN 300 MG (NEURONTIN) CAP PO PRN (08:18)
[2017-07-01 08:30] VITALS: BP 133/77
--- NOTE | 2017-07-01 11:30 | Progress Note-Hospitalist ---
Subjective HPI/CC On Admission Date Seen by Provider: Jul 01, 2017 Time Seen by Provider: 10:45 Subjective/Events-last exam patient is very delusional and somewhat paranoid today. Is not eating well. hepatic enzymes are going down. he is wrapped up in blankets and complains of being very cold Review of Systems General: Other (paranoid) Neurological: Confusion Objective Exam Vital Signs Vital Sign - Last 12Hours 06/29/17 06/29/17 00:01 02:55 Temp 97.4 Pulse 115 Resp 18 B/P (MAP) 106/71 (83) Pulse Ox 95 O2 Delivery Room Air O2 Flow Rate 1.00 Capillary Refill : Less Than 3 Seconds General Appearance: Anxious HEENT: Normal ENT Inspection Respiratory: Lungs Clear, Normal Breath Sounds, No Accessory Muscle Use, No Respiratory Distress Cardiovascular: Regular Rate, Rhythm, No Gallop, No Murmur Gastrointestinal: Non Tender, Soft Neurologic/Psychiatric: Alert, Disoriented x3, Other (paranoid and delusional) Results/Procedures Lab Laboratory Tests 07/01/17 06:15 Assessment/Plan Assessment and Plan Assess & Plan/Chief Complaint confusion-acute on chronic with increased delusional thinking Sepsis on Rocephin UTI on abx Elevated LFT's-improving Chronic anemia Dementia Mental illness-consider restarting Haldol Constipation RICHARD QUINTERO MD Jul 01, 2017 11:30
[2017-07-01] MEDS ORDERED: HALOPERIDOL 0.5 MG (HALDOL) TAB PO SCH (13:00)
[2017-07-01] MEDS: ENOXAPARIN 40 MG/0.4 ML (LOVENOX) SYR SC SCH (13:22)
[2017-07-01] MEDS: HALOPERIDOL 0.5 MG (HALDOL) TAB PO SCH ×2 (13:22→20:56)
[2017-07-01 15:54] VITALS: BP 148/89
[2017-07-01] MEDS: ALFUZOSIN HCL 10 MG TAB (UROXATRAL) PO SCH (17:54)
[2017-07-01] MEDS: QUEtiapine 100 MG (SEROquel) TAB IMMEDIATE RELEASE PO SCH (20:56)
[2017-07-01] MEDS: MIRTAZAPINE 15 MG (REMERON) TAB PO SCH (20:56)
[2017-07-02] VITALS: BP 141/65
[2017-07-02 05:25] LABS: BASOPHILS % (AUTO) 0 % (0-10); EOSINOPHILS # (AUTO) 0.1 10^3/uL (0.0-0.3); EOSINOPHILS % (AUTO) 2 % (0-10); LYMPHOCYTES # (AUTO) 1.6 X 10^3 (1.0-4.0); LYMPHOCYTES % (AUTO) 21 % (12-44); MEAN CORPUSCULAR HEMOGLOBIN 32 PG (25-34); MEAN CORPUSCULAR HGB CONC 34 G/DL (32-36); MEAN CORPUSCULAR VOLUME 93 FL (80-99); MEAN PLATELET VOLUME 9.3 FL (7.4-10.4); MONOCYTES # (AUTO) 1.1 X 10^3 (0.0-1.0); MONOCYTES % (AUTO) 14 % (0-12); NEUTROPHILS # (AUTO) 4.6 X 10^3 (1.8-7.8); NEUTROPHILS % (AUTO) 62 % (42-75); PLATELET COUNT 193 10^3/uL (130-400); RED BLOOD COUNT 3.99 10^6/uL (4.35-5.85); RED CELL DISTRIBUTION WIDTH 13.8 % (10.0-14.5); WHITE BLOOD COUNT 7.4 10^3/uL (4.3-11.0)
[2017-07-02 05:49] LABS: ALANINE AMINOTRANSFERASE 68 U/L (0-55); ALBUMIN 2.9 GM/DL (3.2-4.5); ANION GAP 9 MMOL/L (5-14); ASPARTATE AMINO TRANSFERASE 41 U/L (5-34); BILIRUBIN,TOTAL 0.5 MG/DL (0.1-1.0); BLOOD UREA NITROGEN 8 MG/DL (7-18); BUN/CREATININE RATIO 11; CALCIUM 8.5 MG/DL (8.5-10.1); CARBON DIOXIDE 26 MMOL/L (21-32); CHLORIDE 104 MMOL/L (98-107); CREATININE SERUM 0.73 MG/DL (0.60-1.30); GFR ESTIMATED > 60; GLUCOSE 96 MG/DL (70-105); POTASSIUM 3.7 MMOL/L (3.6-5.0); SODIUM 139 MMOL/L (135-145)
[2017-07-02] MEDS: VENlafaxine XR 75 MG (EFFEXOR XR) CAP PO SCH (06:24)
[2017-07-02] MEDS: LEVOTHYROXINE 75 MCG (LEVOTHROID) TABLET PO SCH (06:24)
[2017-07-02] MEDS: PANTOPRAZOLE 20 MG TABLET (PROTONIX) PO SCH (06:24)
[2017-07-02 08:00] VITALS: BP 155/72
[2017-07-02] MEDS: LACTULOSE SYRUP 10GM/15ML (ENULOSE) 30ML UDC PO SCH ×2 (08:32→20:18)
[2017-07-02] MEDS: cefTRIAXone INJECTION 1,000 MG in NS (IVPB) 50 ML IV SCH (08:32)
[2017-07-02] MEDS: HALOPERIDOL 0.5 MG (HALDOL) TAB PO SCH ×3 (08:32→20:19)
[2017-07-02] MEDS: DIGOXIN 0.125 MG (LANOXIN) TAB PO SCH (08:32)
[2017-07-02] MEDS: RIVASTIGMINE 4.6 MG PATCH (EXELON) TD SCH (08:38)
[2017-07-02] MEDS: RIVASTIGMINE PATCH REMOVAL TP SCH (08:42)
--- NOTE | 2017-07-02 09:15 | Progress Note-Hospitalist ---
Subjective HPI/CC On Admission Date Seen by Provider: Jul 02, 2017 Time Seen by Provider: 07:15 Subjective/Events-last exam patient is sitting up in a chair this morning and is completely lucid. Has no delusional thoughts and is eating breakfast. We started him on low-dose Haldol yesterday and he seems to be tolerating that very well. Liver enzymes are almost all back to normal. Review of Systems Neurological: Weakness Objective Exam Vital Signs Vital Sign - Last 12Hours 06/29/17 06/29/17 00:01 02:55 Temp 97.4 Pulse 115 Resp 18 B/P (MAP) 106/71 (83) Pulse Ox 95 O2 Delivery Room Air O2 Flow Rate 1.00 Capillary Refill : Less Than 3 Seconds General Appearance: No Apparent Distress, WD/WN Neck: Supple Respiratory: Lungs Clear, Normal Breath Sounds, No Accessory Muscle Use, No Respiratory Distress Cardiovascular: Regular Rate, Rhythm, No Gallop Gastrointestinal: Soft Extremity: Non Tender, No Calf Tenderness, No Pedal Edema Neurologic/Psychiatric: Alert, Normal Mood/Affect Skin: Warm/Dry Results/Procedures Lab Laboratory Tests 07/02/17 05:15 Assessment/Plan Assessment and Plan Assess & Plan/Chief Complaint confusion-acute on chronic with increased delusional thinking-improved today on low-dose Haldol. Sepsis on Rocephin-day number 3 UTI on abx Elevated LFT's-improving Chronic anemia-hemoglobin stable at 12.6 Dementia-on Exelon Mental illness-on Effexor, Remeron, Haldol, Seroquel Constipation-resolved. Patient had a large bowel movement on the with secondary syncope hypothyroid replaced discharge planning for possible discharge in the next day or 2 RICHARD QUINTERO MD Jul 02, 2017 9:15 am
[2017-07-02] MEDS: NS IV 1000 ML 1,000 ML IV SCH (11:39)
[2017-07-02 14:00] VITALS: BP 140/70
[2017-07-02] MEDS: ENOXAPARIN 40 MG/0.4 ML (LOVENOX) SYR SC SCH (14:06)
[2017-07-02] MEDS: ONDANSETRON 4 MG (ZOFRAN) ORAL DISSOLVE TAB PO PRN (16:03)
[2017-07-02] MEDS: GABAPENTIN 300 MG (NEURONTIN) CAP PO PRN (16:06)
[2017-07-02] MEDS: ALFUZOSIN HCL 10 MG TAB (UROXATRAL) PO SCH (17:16)
[2017-07-02] MEDS: POTASSIUM CITRATE 10 MEQ (UROCIT-K) NON-FORMULARY PO SCH ×2 (20:18→21:53)
[2017-07-02] MEDS: MIRTAZAPINE 15 MG (REMERON) TAB PO SCH (20:19)
[2017-07-02] MEDS: QUEtiapine 100 MG (SEROquel) TAB IMMEDIATE RELEASE PO SCH (20:19)
[2017-07-02 23:53] VITALS: BP 169/97
[2017-07-03] MEDS: NS IV 1000 ML 1,000 ML IV SCH (04:30)
[2017-07-03] MEDS: VENlafaxine XR 75 MG (EFFEXOR XR) CAP PO SCH (06:10)
[2017-07-03] MEDS: LEVOTHYROXINE 75 MCG (LEVOTHROID) TABLET PO SCH (06:10)
[2017-07-03] MEDS: PANTOPRAZOLE 20 MG TABLET (PROTONIX) PO SCH (06:10)
--- NOTE | 2017-07-03 07:33 | Progress Note (SOAP) ---
Subjective Time Seen by Provider: 07:30 Subjective/Events-last exam she doing better today. Patient is lucid. patient wanting to go to long term. To get social work assistant involved for placement Objective Exam Vital Signs Date Time Temp Pulse Resp B/P (MAP) Pulse Ox O2 Delivery O2 Flow Rate FiO2 07/02/17 23:53 97.5 75 18 169/97 (121) 98 Room Air 07/02/17 20:00 Room Air 07/02/17 14:00 97.9 75 20 140/70 (93) 98 Room Air 07/02/17 08:50 Room Air 07/02/17 08:00 98.1 88 22 155/72 (99) 97 Nasal Cannula I & O 07/03/17 07:00 Intake Total 2340 ml Output Total 275 ml Balance 2065 ml Capillary Refill : Less Than 3 Seconds General Appearance: No Apparent Distress, WD/WN HEENT: Normal ENT Inspection Neck: Full Range of Motion, Normal Inspection Respiratory: Chest Non Tender, Lungs Clear, No Accessory Muscle Use, No Respiratory Distress Cardiovascular: Regular Rate, Rhythm, No Murmur Gastrointestinal: non tender, soft Results Lab Microbiology 06/29/17 Blood Culture - Preliminary, Resulted No growth 06/29/17 Urine Culture - Final, Complete Strep Agalactiae Group B Assessment/Plan Assessment/Plan Assess & Plan/Chief Complaint confusion. Alzheimer's disease. infection. psych disorder. Bipolar. Elevated liver enzymes near-normal. Plan to discharge to long term.. Social service consult Clinical Quality Measures DVT/VTE Risk/Contraindication: Risk Factor Score Per Nursin RFS Level Per Nursing on Admit: 4+=Very High ARRON ELLISON DO Jul 03, 2017 07:33
[2017-07-03 08:00] VITALS: BP 130/80
[2017-07-03] MEDS: POTASSIUM CITRATE 10 MEQ (UROCIT-K) NON-FORMULARY PO SCH (08:23)
[2017-07-03] MEDS: DIGOXIN 0.125 MG (LANOXIN) TAB PO SCH (08:23)
[2017-07-03] MEDS: LACTULOSE SYRUP 10GM/15ML (ENULOSE) 30ML UDC PO SCH (08:23)
[2017-07-03] MEDS: HALOPERIDOL 0.5 MG (HALDOL) TAB PO SCH ×2 (08:23→12:07)
[2017-07-03] MEDS: RIVASTIGMINE 4.6 MG PATCH (EXELON) TD SCH (08:23)
[2017-07-03] MEDS: cefTRIAXone INJECTION 1,000 MG in NS (IVPB) 50 ML IV SCH (08:23)
[2017-07-03] MEDS: RIVASTIGMINE PATCH REMOVAL TP SCH (08:24)
--- NOTE | 2017-07-03 11:02 | ST Dysphagia Evaluation ---
Speech Evaluation-General Medical Diagnosis UTI/AMS Onset Date: Jun 29, 2017 Therapy Diagnosis Therapy Diagnosis: Mild Oropharyngeal Dysphagia Precautions Precautions/Isolations: Fall Prevention, Standard Precautions, Pressure Ulcer Referral Referring Physician: Dr. Salguero Reason for Referral: Evaluation/Treatment Clinical Bedside Swallowing Evaluation Medical History Pertinent Medical History: Atrial Fib, Arthritis, Dementia, HTN, Hypothroidism , OA, Renal Insufficiency Current History The patient was recently admitted to [facility] with an UTI. Reviewed History: Yes Social History Current Living Status: Significant Other Speech PLF/Current-Dysphagia Prior Level of Function The patient stated, "Oh yeah, I have a lot of trouble swallowing." The patient was unable to provide specifics regarding the swallowing difficulty or the signs /symptoms of aspiration he experiences. Subjective The patient was laying in bed, upright upon entrance. The patient greeted the clinician and was agreeable to participation in the dysphagia evaluation. Cognitive Status Patient Orientation: Person, Place Oral Motor Skills Dentition: Natural (Poor condition.) Current Food Consistancy: Regular, Thin Liquids Ability to Follow Directions: Fair Oral Expression Ability: Moderate Impairment Voice Voice Phonatory-Based Quality: Breathy, Weak Voice Pitch: Mildly High Voice Loudness: Mildly Soft/Quiet Face Facial Symmetry: Symmetrical Oral-Facial Assessment Oral-Facial Dentition: Normal Labial Seal Description: Normal Smile: Normal Lingual Protrusion: Normal (Tremors present.) Lingual ROM: Normal Lingual Strength: Normal Pharynx Velopharyngeal Move.: Normal Volitional Dry Swallow: Yes Voluntary Cough: Yes Dysphagia Evaluation Consistencies Presented: Thin Liquid, [place] Thick Liquid, Pureed Oral Phase: Oral Residue, Reduced Oral Transit - Oral residue was noted with puree consistencies tested. The patient was able to reduce lingual residue with a subsequent dry swallow. - To note, the patient deferred solid consistencies and requested to be placed on a soft diet secondary to the poor condition of his dentition. Pharyngeal Phase: Multiple Swallow Attempts, Clears Throat Funct. Velo/Pharyngeal Symptom: Clears Throat, Cough After Swallow - The patient displayed a delayed throat clear and cough, as well as, reported a "tickle" in his throat following cup sips of water. No signs/symptoms of aspiration were demonstrated with teaspoons or cup drinks of nectar-thick liquids or puree (multiple boluses provided). Dietary Recommendations: Mechanical Soft Liquid Recommendations: [place] Consistancy Swallowing Precautions: No Straw, Small Bites and Sips, Sitting Upright 90 Degrees Dysphagia Evaluation Summary The patient demonstrated mild oropharyngeal dysphagia characterized by reduced mastication and reduced protection of the airway in the presence of bolus material (thin liquid). Barriers to Learning Cognition, Reduced Strength Speech Short Term Goals Short Term Goals Short Term Goals 1. The patient will display 80% accuracy with swallowing strategies with mild clinician verbal prompting. Time Frame-STG: Three Days Speech Group Home Goals Group Home Goals 1. The patient will tolerate the least restrictive diet without signs/symptoms of aspiration or laryngeal penetration. Time Frame: One Week Speech-Plan Treatment Plan Speech Therapy Treatment Plan: Continue Plan of Care Continue skilled speech pathology to target swallowing safety and a reduction of aspiration with the least restrictive diet. Treatment Duration: Jul 10, 2017 Frequency: 3 times per week Estimated Hrs Per Day: .25 hour per day Rehab Potential: Guarded Safety Risks/Education Teaching Recipient: Patient Teaching Methods: Handout, Discussion Response to Teaching: Reinforcement Needed Education Topics Provided: Signs/Symptoms of Aspiration, Swallowing Strategies, Recommendations (posted in room) Time Speech Therapy Time In: 09:30 Speech Therapy Time Out: 10:00 Total Billed Time: 30 Billed Treatment Time 1, JA CAMPOS Jul 03, 2017 11:02
--- NOTE | 2017-07-03 11:55 | Physical Therapy Daily Note ---
PT Daily Note-Current Subjective Pt sitting up in bed with family upon arrival. Pt reports discharging today to [facility], confirmed with Nurse. Mental Status Patient Orientation: Person, Place, Situation Transfers Functional [place] Measure 0=Not Assessed/NA 4=Minimal Assistance 1=Total Assistance 5=Supervision or Setup 2=Maximal Assistance 6=Modified [place] 3=Moderate Assistance 7=Complete IndependenceIRFPAI Quality Coding Scale 6 Independent with activity with or without an assistive device 5 Patient requires set up or clean up by helper. Patient completes activity by themselves 4 Supervision or touching assist (CGA). [place] provide cues , steadying assist 3 The helper provides less than half the effort to complete the activity 2 The helper provides more than half the effort to complete the activity 1 Dependent. The helper does all the effort to complete an activity 7 Patient refused to complete or attempt activity 9 The patient did not perform the activity before the current illness or injury 88 Not attempted due to Medical conditions or safety concerns Weight Bearing Right Lower Extremity: Right Full Weight Bearing Left Lower Extremity: Left Full Weight Bearing Treatments Pt & family discuss with PROCESS AREA SUPERVISOR where pt is going and what will happen when he gets there. Pt is in good spirits about discharging. Pt has all needs met at end of tx. Assessment Current Status: Good Progress Pt to discharge to [facility] ([facility]) shortly. PT Director Financial Systems Goals Director Financial Systems Goals PT Custodial Goals Time Frame: Jul 06, 2017 Transfers (B,C,W/C) (FIM): 5 Gait (FIM): 1 Gait distance (FIM): 1=up to 49 ft Distance: 45' Gait Level of Assist: 4 Gait Assistive Device: FWW PT Plan Problem List Problem List: Activity Tolerance, Functional Strength, Safety, Balance, Gait, Transfer Treatment/Plan Treatment Plan: Continue Plan of Care Treatment Plan: Bed Mobility, Education, Functional Activity Silvio, Functional Strength, Gait, Safety, Therapeutic Exercise, Transfers Treatment Duration: Jul 06, 2017 Frequency: 6 times per week Estimated Hrs Per Day: .25 hour per day Patient and/or Family Agrees t: Yes Time/GCodes Time In: 1135 Time Out: 1143 Total Billed Treatment Time: 8 Total Billed Treatment 1, LUKAS (8m) AVEL KULKARNI PROCESS AREA SUPERVISOR Jul 03, 2017 11:55
[2017-07-03] MEDS ORDERED: LORA1TAB PO (11:56)
[2017-07-03] MEDS ORDERED: TRAM50TA2 PO (11:56)
--- NOTE | 2017-07-04 10:20 | Physician Query Clarification ---
PQ-Conflicting Diagnosis Admission/Discharge Admission Date: Jun 29, 2017 at 01:58 Discharge Date: Jul 03, 2017 at 14:48 The medical record reflects the following clinical scenario: History/Risk Factors: UTI, ALZHEIMER'S DEMENTIA, DYSPHAGIA Clinical Findings: R97.4, P115, R12, LACTIC ACID 3:41, BP 106/71 Treatment: IV ROCEPHIN Question: Do you agree with the impression of the Sepsis per Dr. Pratt and Dr. Garcia. Please document a response below. PHYSICIAN RESPONSE Do you agree w/Consulting Dx?: No In responding to this query, please exercise your independent professional judgment. The purpose of this communication is to more accurately reflect the complexity of your patients condition. The fact that a question is asked does not imply that any particular answer is desired or expected. Thank you for your timely response to this clarification. Requestors name: Michael THIS PHYSICIAN QUERY FORM IS A PERMANENT PART OF THE MEDICAL RECORD MICHAEL PEGUERO Jul 04, 2017 10:20 ARRON ELLISON DO Jul 05, 2017 07:43
--- NOTE | 2017-07-05 07:35 | Discharge Summary ---
Diagnosis/Chief Complaint Date of Admission Jun 29, 2017 at 01:58 Date of Discharge Jul 03, 2017 at 14:48 Discharge Date: Jul 03, 2017 Admission Diagnosis Admission Diagnosis UTI. Altered mental status. Stopped eating. Bipolar. Depression. Recent onset of Depakote. Elevated liver tests Elevated lactic acid. Confusion. Discharge Diagnosis UTI. Strep agalactiae group B. Acute mental status change with confusion. Elevated lactic acid. Generalized weakness. Increased liver enzymes probably due to Depakote. Elevated lactic acid. Mental illness. Bipolar Reason Hospital Visit patient brought to the emergency room. History by caregiver. Patient has not been eating and not sleeping and having chills and tremors. Patient weak and trouble getting around . Patient has been hallucinating about [id number] in [place] Patient had elevated liver tests but recently put on Depakote. Patient bipolar. Patient has altered mental status with confusion. In hospital has elevated lactic acid which is coming back to normal this morning. Caregiver states patient is dehydrated. Patient depressed Caregiver states patient getting so weak. Previous surgery gallbladder and hip Discharge Summary Discharge Physical Examination Allergies: Coded Allergies: Penicillins (Verified Allergy, Severe, PT HAS RECEIVED CEFEPIME & ROCEPHIN W/O ISSUE, 12/21/15) temazepam (Verified Adverse Reaction, Mild, PATIENT TAKES LORAZEPAM, ) VERY BAD DREAMS Vitals & I&Os Vital Signs Date Time Temp Pulse Resp B/P (MAP) Pulse Ox O2 Delivery O2 Flow Rate FiO2 07/03/17 14:45 07/03/17 08:00 99.3 92 22 96 Nasal Cannula 07/02/17 08:00 Hospital Course patient in hospital did improve. Patient to go back to [facility]. Labs (last 24 hrs) Laboratory Tests 06/29/17 00:14: White Blood Count 8.2, Red Blood Count 4.66, Hemoglobin 14.4, Hematocrit 43, Mean Corpuscular Volume 93, Mean Corpuscular Hemoglobin 31, Mean Corpuscular Hemoglobin Concent 33, Red Cell Distribution Width 14.0, Platelet Count 237, Mean Platelet Volume 9.5, Neutrophils (%) (Auto) 51, Lymphocytes (%) (Auto) 36, Monocytes (%) (Auto) 9, Eosinophils (%) (Auto) 3, Basophils (%) (Auto) 0, Neutrophils # (Auto) 4.2, Lymphocytes # (Auto) 2.9, Monocytes # (Auto) 0.8, Eosinophils # (Auto) 0.3, Basophils # (Auto) 0.0, Prothrombin Time 13.2, INR Comment 1.0, Activated Partial Thromboplast Time 34, Sodium Level 140, Potassium Level 3.9, Chloride Level 97L, Carbon Dioxide Level 30, Anion Gap 13, Blood Urea Nitrogen 9, Creatinine 0.98, Estimat Glomerular Filtration Rate > 60 , BUN/Creatinine Ratio 9, Glucose Level 149H, Lactic Acid Level 3.41*H, Calcium Level 9.4, Total Bilirubin 1.6H, Aspartate Amino Transf (AST/SGOT) 293H, Alanine Aminotransferase (ALT/SGPT) 250H, Alkaline Phosphatase 161H, C-Reactive Protein High Sensitivity 2.11H, Total Protein 7.1, Albumin 3.4 06/29/17 00:36: Urine Color YELLOW, Urine Clarity SLIGHTLY CLOUDY, Urine pH 6.5, Urine Specific Harrison 1.020, Urine Protein 1+H, Urine Glucose (UA) NEGATIVE, Urine Ketones NEGATIVE, Urine Nitrite NEGATIVE, Urine Bilirubin 1+H, Urine Urobilinogen 4H, Urine Leukocyte Esterase 1+H, Urine RBC (Auto) NEGATIVE, Urine RBC NONE, Urine WBC 2-5, Urine Squamous Epithelial Cells RARE, Urine Crystals NONE, Urine Bacteria MODERATEH, Urine Casts PRESENT, Urine Hyaline Casts RARE, Urine Mucus NEGATIVE, Urine Culture Indicated YES 06/29/17 02:15: Lactic Acid Level 1.18 06/29/17 06:10: White Blood Count 8.9, Red Blood Count 4.02L, Hemoglobin 12.7L, Hematocrit 37L, Mean Corpuscular Volume 93, Mean Corpuscular Hemoglobin 32, Mean Corpuscular Hemoglobin Concent 34, Red Cell Distribution Width 13.9, Platelet Count 186, Mean Platelet Volume 9.1, Neutrophils (%) (Auto) 57, Lymphocytes (%) (Auto) 27, Monocytes (%) (Auto) 13H, Eosinophils (%) (Auto) 2, Basophils (%) (Auto) 0, Neutrophils # (Auto) 5.1, Lymphocytes # (Auto) 2.4, Monocytes # (Auto) 1.2H, Eosinophils # (Auto) 0.2, Basophils # (Auto) 0.0, Sodium Level 140, Potassium Level 3.8, Chloride Level 107, Carbon Dioxide Level 25, Anion Gap 8, Blood Urea Nitrogen 8, Creatinine 0.75, Estimat Glomerular Filtration Rate > 60, BUN/ Creatinine Ratio 11, Glucose Level 103, Calcium Level 8.2L, Total Bilirubin 0.9 , Aspartate Amino Transf (AST/SGOT) 187H, Alanine Aminotransferase (ALT/SGPT) 183H, Alkaline Phosphatase 131, Total Protein 5.5L, Albumin 2.8L 06/30/17 04:53: White Blood Count 7.6, Red Blood Count 3.96L, Hemoglobin 12.2L, Hematocrit 36L, Mean Corpuscular Volume 92, Mean Corpuscular Hemoglobin 31, Mean Corpuscular Hemoglobin Concent 34, Red Cell Distribution Width 13.8, Platelet Count 195, Mean Platelet Volume 9.4, Neutrophils (%) (Auto) 54, Lymphocytes (%) (Auto) 29, Monocytes (%) (Auto) 12, Eosinophils (%) (Auto) 4, Basophils (%) (Auto) 0, Neutrophils # (Auto) 4.1, Lymphocytes # (Auto) 2.2, Monocytes # (Auto) 0.9, Eosinophils # (Auto) 0.3, Basophils # (Auto) 0.0, Sodium Level 141, Potassium Level 3.8, Chloride Level 106, Carbon Dioxide Level 26, Anion Gap 9, Blood Urea Nitrogen 6L, Creatinine 0.69, Estimat Glomerular Filtration Rate > 60, BUN/ Creatinine Ratio 9, Glucose Level 90, Calcium Level 8.4L, Total Bilirubin 1.0, Aspartate Amino Transf (AST/SGOT) 103H, Alanine Aminotransferase (ALT/SGPT) 127H , Alkaline Phosphatase 118, Total Protein 5.6L, Albumin 2.8L 07/01/17 06:15: White Blood Count 8.7, Red Blood Count 3.90L, Hemoglobin 12.3L, Hematocrit 36L, Mean Corpuscular Volume 93, Mean Corpuscular Hemoglobin 32, Mean Corpuscular Hemoglobin Concent 34, Red Cell Distribution Width 13.9, Platelet Count 203, Mean Platelet Volume 9.4, Neutrophils (%) (Auto) 62, Lymphocytes (%) (Auto) 24, Monocytes (%) (Auto) 11, Eosinophils (%) (Auto) 3, Basophils (%) (Auto) 0, Neutrophils # (Auto) 5.4, Lymphocytes # (Auto) 2.1, Monocytes # (Auto) 1.0, Eosinophils # (Auto) 0.2, Basophils # (Auto) 0.0, Sodium Level 137, Potassium Level 3.8, Chloride Level 102, Carbon Dioxide Level 25, Anion Gap 10, Blood Urea Nitrogen 6L, Creatinine 0.70, Estimat Glomerular Filtration Rate > 60, BUN/ Creatinine Ratio 9, Glucose Level 85, Calcium Level 8.6, Total Bilirubin 1.1H, Aspartate Amino Transf (AST/SGOT) 61H, Alanine Aminotransferase (ALT/SGPT) 98H, Alkaline Phosphatase 115, Total Protein 6.2L, Albumin 3.1L 07/02/17 05:15: White Blood Count 7.4, Red Blood Count 3.99L, Hemoglobin 12.6L, Hematocrit 37L, Mean Corpuscular Volume 93, Mean Corpuscular Hemoglobin 32, Mean Corpuscular Hemoglobin Concent 34, Red Cell Distribution Width 13.8, Platelet Count 193, Mean Platelet Volume 9.3, Neutrophils (%) (Auto) 62, Lymphocytes (%) (Auto) 21, Monocytes (%) (Auto) 14H, Eosinophils (%) (Auto) 2, Basophils (%) (Auto) 0, Neutrophils # (Auto) 4.6, Lymphocytes # (Auto) 1.6, Monocytes # (Auto) 1.1H, Eosinophils # (Auto) 0.1, Basophils # (Auto) 0.0, Sodium Level 139, Potassium Level 3.7, Chloride Level 104, Carbon Dioxide Level 26, Anion Gap 9, Blood Urea Nitrogen 8, Creatinine 0.73, Estimat Glomerular Filtration Rate > 60, BUN/ Creatinine Ratio 11, Glucose Level 96, Calcium Level 8.5, Total Bilirubin 0.5, Aspartate Amino Transf (AST/SGOT) 41H, Alanine Aminotransferase (ALT/SGPT) 68H, Alkaline Phosphatase 109, Total Protein 6.0L, Albumin 2.9L Microbiology 06/29/17 Blood Culture - Final, Complete No growth 06/29/17 Urine Culture - Final, Complete Strep Agalactiae Group B Laboratory Tests 06/29/17 00:14 06/29/17 06:10 06/30/17 04:53 07/01/17 06:15 07/02/17 05:15 Pending Labs Microbiology Date/Time Source Procedure Growth Status 06/29/17 01:15 Peripheral Rt Ac Blood Culture - Final No growth Complete 06/29/17 00:14 Peripheral Lt Ac Blood Culture - Final No growth Complete 06/29/17 00:36 Urine Clean Catch Urine Culture - Final Strep Agalactiae Group B Complete Laboratory Tests 06/29/17 00:14: White Blood Count 8.2, Red Blood Count 4.66, Hemoglobin 14.4, Hematocrit 43, Mean Corpuscular Volume 93, Mean Corpuscular Hemoglobin 31, Mean Corpuscular Hemoglobin Concent 33, Red Cell Distribution Width 14.0, Platelet Count 237, Mean Platelet Volume 9.5, Neutrophils (%) (Auto) 51, Lymphocytes (%) (Auto) 36, Monocytes (%) (Auto) 9, Eosinophils (%) (Auto) 3, Basophils (%) (Auto) 0, Neutrophils # (Auto) 4.2, Lymphocytes # (Auto) 2.9, Monocytes # (Auto) 0.8, Eosinophils # (Auto) 0.3, Basophils # (Auto) 0.0, Prothrombin Time 13.2, INR Comment 1.0, Activated Partial Thromboplast Time 34, Sodium Level 140, Potassium Level 3.9, Chloride Level 97, Carbon Dioxide Level 30, Anion Gap 13, Blood Urea Nitrogen 9, Creatinine 0.98, Estimat Glomerular Filtration Rate > 60 , BUN/Creatinine Ratio 9, Glucose Level 149, Lactic Acid Level 3.41, Calcium Level 9.4, Total Bilirubin 1.6, Aspartate Amino Transf (AST/SGOT) 293, Alanine Aminotransferase (ALT/SGPT) 250, Alkaline Phosphatase 161, C-Reactive Protein High Sensitivity 2.11, Total Protein 7.1, Albumin 3.4 06/29/17 00:36: Urine Color YELLOW, Urine Clarity SLIGHTLY CLOUDY, Urine pH 6.5, Urine Specific Harrison 1.020, Urine Protein 1+, Urine Glucose (UA) NEGATIVE, Urine Ketones NEGATIVE, Urine Nitrite NEGATIVE, Urine Bilirubin 1+, Urine Urobilinogen 4, Urine Leukocyte Esterase 1+, Urine RBC (Auto) NEGATIVE, Urine RBC NONE, Urine WBC 2-5, Urine Squamous Epithelial Cells RARE, Urine Crystals NONE, Urine Bacteria MODERATE, Urine Casts PRESENT, Urine Hyaline Casts RARE, Urine Mucus NEGATIVE, Urine Culture Indicated YES 06/29/17 02:15: Lactic Acid Level 1.18 06/29/17 06:10: White Blood Count 8.9, Red Blood Count 4.02, Hemoglobin 12.7, Hematocrit 37, Mean Corpuscular Volume 93, Mean Corpuscular Hemoglobin 32, Mean Corpuscular Hemoglobin Concent 34, Red Cell Distribution Width 13.9, Platelet Count 186, Mean Platelet Volume 9.1, Neutrophils (%) (Auto) 57, Lymphocytes (%) (Auto) 27, Monocytes (%) (Auto) 13, Eosinophils (%) (Auto) 2, Basophils (%) (Auto) 0, Neutrophils # (Auto) 5.1, Lymphocytes # (Auto) 2.4, Monocytes # (Auto) 1.2, Eosinophils # (Auto) 0.2, Basophils # (Auto) 0.0, Sodium Level 140, Potassium Level 3.8, Chloride Level 107, Carbon Dioxide Level 25, Anion Gap 8, Blood Urea Nitrogen 8, Creatinine 0.75, Estimat Glomerular Filtration Rate > 60, BUN/ Creatinine Ratio 11, Glucose Level 103, Calcium Level 8.2, Total Bilirubin 0.9, Aspartate Amino Transf (AST/SGOT) 187, Alanine Aminotransferase (ALT/SGPT) 183, Alkaline Phosphatase 131, Total Protein 5.5, Albumin 2.8 06/30/17 04:53: White Blood Count 7.6, Red Blood Count 3.96, Hemoglobin 12.2, Hematocrit 36, Mean Corpuscular Volume 92, Mean Corpuscular Hemoglobin 31, Mean Corpuscular Hemoglobin Concent 34, Red Cell Distribution Width 13.8, Platelet Count 195, Mean Platelet Volume 9.4, Neutrophils (%) (Auto) 54, Lymphocytes (%) (Auto) 29, Monocytes (%) (Auto) 12, Eosinophils (%) (Auto) 4, Basophils (%) (Auto) 0, Neutrophils # (Auto) 4.1, Lymphocytes # (Auto) 2.2, Monocytes # (Auto) 0.9, Eosinophils # (Auto) 0.3, Basophils # (Auto) 0.0, Sodium Level 141, Potassium Level 3.8, Chloride Level 106, Carbon Dioxide Level 26, Anion Gap 9, Blood Urea Nitrogen 6, Creatinine 0.69, Estimat Glomerular Filtration Rate > 60, BUN/ Creatinine Ratio 9, Glucose Level 90, Calcium Level 8.4, Total Bilirubin 1.0, Aspartate Amino Transf (AST/SGOT) 103, Alanine Aminotransferase (ALT/SGPT) 127, Alkaline Phosphatase 118, Total Protein 5.6, Albumin 2.8 07/01/17 06:15: White Blood Count 8.7, Red Blood Count 3.90, Hemoglobin 12.3, Hematocrit 36, Mean Corpuscular Volume 93, Mean Corpuscular Hemoglobin 32, Mean Corpuscular Hemoglobin Concent 34, Red Cell Distribution Width 13.9, Platelet Count 203, Mean Platelet Volume 9.4, Neutrophils (%) (Auto) 62, Lymphocytes (%) (Auto) 24, Monocytes (%) (Auto) 11, Eosinophils (%) (Auto) 3, Basophils (%) (Auto) 0, Neutrophils # (Auto) 5.4, Lymphocytes # (Auto) 2.1, Monocytes # (Auto) 1.0, Eosinophils # (Auto) 0.2, Basophils # (Auto) 0.0, Sodium Level 137, Potassium Level 3.8, Chloride Level 102, Carbon Dioxide Level 25, Anion Gap 10, Blood Urea Nitrogen 6, Creatinine 0.70, Estimat Glomerular Filtration Rate > 60, BUN/ Creatinine Ratio 9, Glucose Level 85, Calcium Level 8.6, Total Bilirubin 1.1, Aspartate Amino Transf (AST/SGOT) 61, Alanine Aminotransferase (ALT/SGPT) 98, Alkaline Phosphatase 115, Total Protein 6.2, Albumin 3.1 07/02/17 05:15: White Blood Count 7.4, Red Blood Count 3.99, Hemoglobin 12.6, Hematocrit 37, Mean Corpuscular Volume 93, Mean Corpuscular Hemoglobin 32, Mean Corpuscular Hemoglobin Concent 34, Red Cell Distribution Width 13.8, Platelet Count 193, Mean Platelet Volume 9.3, Neutrophils (%) (Auto) 62, Lymphocytes (%) (Auto) 21, Monocytes (%) (Auto) 14, Eosinophils (%) (Auto) 2, Basophils (%) (Auto) 0, Neutrophils # (Auto) 4.6, Lymphocytes # (Auto) 1.6, Monocytes # (Auto) 1.1, Eosinophils # (Auto) 0.1, Basophils # (Auto) 0.0, Sodium Level 139, Potassium Level 3.7, Chloride Level 104, Carbon Dioxide Level 26, Anion Gap 9, Blood Urea Nitrogen 8, Creatinine 0.73, Estimat Glomerular Filtration Rate > 60, BUN/ Creatinine Ratio 11, Glucose Level 96, Calcium Level 8.5, Total Bilirubin 0.5, Aspartate Amino Transf (AST/SGOT) 41, Alanine Aminotransferase (ALT/SGPT) 68, Alkaline Phosphatase 109, Total Protein 6.0, Albumin 2.9 Discussion & Recommendations patient to go back to [facility] [facility]. Discharge Home Medications: Active Scripts Active Tramadol HCl 50 Mg Tablet 50 Mg PO BID PRN Lorazepam 1 Mg Tablet 1 Mg PO HS 30 Days Reported Mirtazapine 15 Mg Tablet 15 Mg PO HS Quetiapine Fumarate 100 Mg Tablet 100 Mg PO HS Rivastigmine 1 Each Patch.td24 4.6 Mg TD DAILY LAST FILLED #30 05-17-17 Lactulose 10 Gm/15 Ml Solution 30 Ml PO 1700 Haloperidol 1 Mg Tablet 2 Mg PO BID TAKES 2 (1MG) TABLETS Desvenlafaxine Succinate ER (Desvenlafaxine Succinate) 50 Mg Tab.er.24h 50 Mg PO DAILY Gabapentin 300 Mg Capsule 300 Mg PO TID PRN Flomax (Tamsulosin HCl) 0.4 Mg Cap 0.4 Mg PO HS Ondansetron HCl 4 Mg Tablet 4 Mg PO TID PRN I-Caps with Lutein-Candia 3 Sfg (Antiox#10/Om3/Dha/Epa/Lut/Zeax) 1 Each Capsule 1 Cap PO DAILY Move Free Joint Health Tablet (Glucosam/Chond/Hyalu/Cf Borate) 1 Each Tablet 1 Tab PO DAILY Levothyroxine Sodium 75 Mcg Tablet 75 Mcg PO DAILY Digoxin 125 Mcg Tablet 125 Mcg PO DAILY Potassium Citrate ER (Potassium Citrate) 10 Meq Tablet.er 10 Meq PO BID Omeprazole 20 Mg Capsule.dr 20 Mg PO DAILY Instructions to patient/family Please see electronic discharge instructions given to patient. Clinical Quality Measures DVT/VTE Risk/Contraindication: Risk Factor Score Per Nursin RFS Level Per Nursing on Admit: 4+=Very High ARRON ELLISON DO Jul 05, 2017 07:35
== END 2017-07-03 14:48 | DRG 690 ==
LOC: EDUNIT# 23:50 → ER 23:53 → 4TH 06-29 01:58
PROVIDERS: ADMIT Family Medicine; ATTEND Family Medicine
DX: N39.0 Urinary tract infection, site not specified (principal); F31.9 Bipolar disorder, unspecified; R74.0 Nonspecific elevation of levels of transaminase and lactic acid dehydrogenase [LDH]; J44.9 Chronic obstructive pulmonary disease, unspecified; G30.9 Alzheimer's disease, unspecified; F02.80 Dementia in other diseases classified elsewhere, unspecified severity, without behavioral disturbance, psychotic disturbance, mood disturbance, and anxiety; R13.12 Dysphagia, oropharyngeal phase; G47.30 Sleep apnea, unspecified; I48.91 Unspecified atrial fibrillation; I10 Essential (primary) hypertension; K59.09 Other constipation; M81.0 Age-related osteoporosis without current pathological fracture; M54.9 Dorsalgia, unspecified; E03.9 Hypothyroidism, unspecified; F41.9 Anxiety disorder, unspecified; B95.5 Unspecified streptococcus as the cause of diseases classified elsewhere; Z87.01 Personal history of pneumonia (recurrent); Z90.5 Acquired absence of kidney
CPT/HCPCS: 36415; 70450; 71010; 80053; 81000; 83605; 85025; 85610; 85730; 86141; 87040; 87088; 96361; 96374

== ENCOUNTER → 2017-07-25 | Outpatient (CLI) | payer MEDICARE, OTHER ==
[~2017-07-25] MED LIST changes: +ALBU2.5V4 NEB; +ALPR0.5T7 PO; +BISA10SU6 RC; +GUAI600T43 PO; +LORA10TA7 PO; +QUET50TA55 PO
[2017-07-25 15:53] LABS: BUN/CREATININE RATIO 15; CALCIUM 9.4 MG/DL (8.5-10.1); CARBON DIOXIDE 30 MMOL/L (21-32); CHLORIDE 100 MMOL/L (98-107); GFR ESTIMATED > 60; GLUCOSE 90 MG/DL (70-105); POTASSIUM 4.3 MMOL/L (3.6-5.0); SODIUM 138 MMOL/L (135-145)
--- NOTE | 2017-07-25 16:41 | Diagnostic Imaging Report ---
INDICATION: Congestive heart failure. EXAMINATION: PA and lateral chest. FINDINGS: The heart size and pulmonary vascularity are normal. The lungs are clear. There are no effusions or pneumothoraces. IMPRESSION: No acute abnormality is seen in the chest. Dictated by: Dictated on workstation # [id number]
== END ==
LOC: LAB 15:03
PROVIDERS: ATTEND Family Medicine
DX: I50.9 Heart failure, unspecified (principal); R60.0 Localized edema
CPT/HCPCS: 36415; 71046; 80048; 83880

== ENCOUNTER 2017-07-26 07:59 | Inpatient (IN) | payer MEDICARE, OTHER ==
[2017-07-26] VITALS (13 sets, daily range): BP systolic 82–127; BP diastolic 45–63
[~2017-07-26] VITALS: Ht 177.8 cm; Wt 76.9 kg
[~2017-07-26 07:59] MED LIST changes: -ALBU2.5V4 NEB; -ALPR0.5T7 PO; -BISA10SU6 RC; -GUAI600T43 PO; -LORA10TA7 PO; -QUET50TA55 PO
--- OUTSIDE RECORDS SUMMARY | 2017-07-26 08:05 | XMS REPORT | Clinical Summary ---
Author Author [facility] Organization [facility] Address Unknown Phone Unavailable Care Team Providers Care Visual Inspector Name Role Phone PCP Unavailable Source Comments Some departments are not documenting in the electronic medical record. If you do not see the information that you expected, contact Release of Information in the Health Information Management department at [phone] for further assistance in locating additional records.[facility] Allergies Active Allergy Reactions Severity Noted Date [...] PO) OMEPRAZOLE PO Take by mouth. Active [id number] Take by mouth. Active D2 PO DOCOSAHEXANOIC [...]
[2017-07-26] MEDS ORDERED: IBUPROFEN 800 MG (MOTRIN) TAB PO ONE (08:15)
[2017-07-26] MEDS ORDERED: NS IV PRN (08:15)
[2017-07-26] MEDS ORDERED: ACETAMINOPHEN 500 MG TAB (TYLENOL) PO ONE (08:15)
--- NOTE | 2017-07-26 08:17 | ED Fever ---
History of Present Illness General Chief Complaint: Respiratory Problems Stated Complaint: FLU Source: EMS, [facility] records History of Present Illness Time seen by provider: 07:59 Initial Comments PT ARRIVES VIA EMS FROM VIA [facility]--NO REPORT FROM INTERMEDIATE ALL INFORMATION IS FROM EMS: PT HAS BEEN SICK X 1 WEEK WITH COUGH/COLD/FLU SYMPTOMS HAD CXR YESTERDAY-REPORTEDLY NEGATIVE TEMP 103.3 JUST PRIOR TO ARRIVAL O2 SAT 88% ON ROOM AIR FOR EMS--UP TO 98% ON 10L/MASK BP 98/56, HR 142 VERY LETHARGIC, NO SIGNIFICANT COUGH, BUT SNEEZING ALOT UPPER AIRWAY NOISE PER EMS NO IV ACCESS NEB TREATMENT AT 0200 NO OTHER INFORMATION IS OBTAINABLE ON ARRIVAL PCP: DR. ELLISON Allergies and Home Medications Allergies Coded Allergies: Penicillins (Verified Allergy, Severe, PT HAS RECEIVED CEFEPIME & ROCEPHIN W/O ISSUE, 07/26/17) temazepam (Verified Adverse Reaction, Mild, PATIENT TAKES LORAZEPAM, ) VERY BAD DREAMS Home Medications Albuterol Sulfate 2.5 Mg/3 Ml Vial.neb, 2.5 MG NEB Q4H PRN for CONGESTION, ( Reported) Antiox#10/Om3/Dha/Epa/Lut/Zeax 1 Each Capsule, 1 CAP PO DAILY, (Reported) Bisacodyl 10 Mg Supp.rect, 10 MG RC DAILY PRN for CONSTIPATION-4TH LINE, ( Reported) Desvenlafaxine Succinate 50 Mg Tab.er.24h, 50 MG PO DAILY, (Reported) Digoxin 125 Mcg Tablet, 125 MCG PO DAILY, (Reported) Gabapentin 300 Mg Capsule, 300 MG PO TID, (Reported) Glucosam/Chond/Hyalu/Cf Borate 1 Each Tablet, 1 TAB PO DAILY, (Reported) Guaifenesin 600 Mg Tab.er.12h, 600 MG PO BID PRN for CONGESTION, (Reported) Haloperidol 1 Mg Tablet, 2 MG PO BID, (Reported) TAKES 2 (1MG) TABLETS Lactulose 10 Gm/15 Ml Solution, 30 ML PO 1700, (Reported) Levothyroxine Sodium 75 Mcg Tablet, 75 MCG PO DAILY, (Reported) Loratadine 10 Mg Tablet, 10 MG PO DAILY, (Reported) Lorazepam 0.5 Mg Tablet, 0.5 MG PO DAILY, (Reported) Ondansetron 4 Mg Tab.rapdis, 4 MG PO TID PRN for NAUSEA/VOMITING-1ST LINE, ( Reported) Quetiapine Fumarate 50 Mg Tablet, 50 MG PO HS, (Reported) Rivastigmine 1 Each Patch.td24, 4.6 MG TD DAILY, (Reported) Tamsulosin HCl 0.4 Mg Cap, 0.4 MG PO HS, (Reported) Tramadol HCl 50 Mg Tablet, 50 MG PO BID PRN for PAIN-MODERATE, (Reported) Constitutional: see HPI Past Wbtbtnj-Wdqogc-Vpsduq Hx Patient Social History Smoking Status: Unknown if Ever Smoked 2nd Hand Smoke Exposure: No Recent Hopitalizations: Yes Immunizations Up To Date Tetanus Booster (TDap): More than 5yrs PED Vaccines UTD: No Date of Pneumonia Vaccine: Jan 29, 2017 Date of Influenza Vaccine: May 23, 2017 Seasonal Allergies Seasonal Allergies: No Surgeries History of Surgeries: Yes Surgeries: Gallbladder, Orthopedic Respiratory History of Respiratory Disorde: Yes Respiratory Disorders: Pneumonia, Sleep Apnea, COPD Currently Using CPAP: Yes (PT REFUSES TO USE PER SIG. 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, Renal Failure Gastrointestinal History of Gastrointestinal Di: Yes Gastrointestinal Disorders: Chronic Constipation, Pancreatitis Musculoskeletal History of Musculoskeletal Dis: Yes Musculoskeletal Disorders: Osteoporosis, Chronic Back Pain, Fractures Endocrine History of Endocrine Disorders: Yes Endocrine Disorders: Hypothyroidsim HEENT History of HEENT Disorders: No Loss of Vision: Denies Hearing Impairment: Denies Cancer History of Cancer: No Did You Recieve Any Treatments: No Psychosocial History of Psychiatric Problem: Yes Behavioral Health Disorders: Anxiety, Depression Integumentary History of Skin or Integumenta: No Blood Transfusions History of Blood Disorders: No Adverse Reaction to a Blood Tr: No Family Medical History Significant Family History: No Pertinent Family Hx Family Medial History: FH: stroke G8 SISTER, Onset:75 Physical Exam Vital Signs Vital Sign - Last 12Hours 07/26/17 07/26/17 08:27 08:30 Temp 100.3 Pulse 120 Resp 24 B/P (MAP) 104/56 (72) Pulse Ox 94 O2 Delivery Room Air O2 Flow Rate 2.00 Capillary Refill : General Appearance: no apparent distress, other (AWAKE BUT VERY LETHARGIC, NOT TALKING OR ANSWERING QUESTIONS OR FOLLOWING COMMANDS, TREMULOUS. ) HEENT: PERRL/EOMI, other (ORAL MUCOSA DRYA) Neck: normal inspection Respiratory: decreased breath sounds (IN ALL LUNG BAZZI), other (OCCASIONALLY APPEARS TO HAVE UPPER AIRWAY NOISE, SCATTERED RHONCHI) Cardiovascular: no murmur, tachycardia Gastrointestinal: soft Extremities: no pedal edema, normal capillary refill Neurologic/Psychiatric: other (MOVES ALL EXTREMITIES. MENTATION ABOVE) Skin: normal color, warm/dry Focused Exam Evaluation Lactate Level Laboratory Tests 07/26/17 08:15: Lactic Acid Level 1.91 Lactic Acid Level Laboratory Tests Test 07/26/17 08:15 Lactic Acid Level 1.91 MMOL/L (0.50-2.00) Progress/Results/Core Measures Suspected Sepsis SIRS Temperature: Pulse: Respiratory Rate: Blood Pressure / Mean: Laboratory Tests 07/26/17 08:15: Lactic Acid Level 1.91 Laboratory Tests 07/26/17 08:15: INR Comment 1.0, Total Bilirubin 0.9 Results/Orders Lab Results Laboratory Tests Test 07/26/17 08:15 Range/Units White Blood Count 18.7 H 4.3-11.0 10^3/uL Red Blood Count 4.48 4.35-5.85 10^6/uL Hemoglobin 14.1 13.3-17.7 G/DL Hematocrit 41 40-54 % Mean Corpuscular Volume 92 80-99 FL Mean Corpuscular Hemoglobin 32 25-34 PG Mean Corpuscular Hemoglobin Concent 34 32-36 G/DL Red Cell Distribution Width 14.7 H 10.0-14.5 % Platelet Count 235 130-400 10^3/uL Mean Platelet Volume 9.2 7.4-10.4 FL Neutrophils (%) (Auto) 83 H 42-75 % Lymphocytes (%) (Auto) 5 L 12-44 % Monocytes (%) (Auto) 12 0-12 % Eosinophils (%) (Auto) 0 0-10 % Basophils (%) (Auto) 0 0-10 % Neutrophils # (Auto) 15.5 H 1.8-7.8 X 10^3 Lymphocytes # (Auto) 1.0 1.0-4.0 X 10^3 Monocytes # (Auto) 2.2 H 0.0-1.0 X 10^3 Eosinophils # (Auto) 0.0 0.0-0.3 10^3/uL Basophils # (Auto) 0.0 0.0-0.1 10^3/uL Neutrophils % (Manual) 87 % Lymphocytes % (Manual) 4 % Monocytes % (Manual) 9 % Blood Morphology Comment NORMAL Prothrombin Time 13.2 12.2-14.7 SEC INR Comment 1.0 0.8-1.4 Activated Partial Thromboplast Time 36 H 24-35 SEC Sodium Level 138 135-145 MMOL/L Potassium Level 4.2 3.6-5.0 MMOL/L Chloride Level 100 98-107 MMOL/L Carbon Dioxide Level 26 21-32 MMOL/L Anion Gap 12 5-14 MMOL/L Blood Urea Nitrogen 21 H 7-18 MG/DL Creatinine 1.31 H 0.60-1.30 MG/DL Estimat Glomerular Filtration Rate 53 BUN/Creatinine Ratio 16 Glucose Level 124 H 70-105 MG/DL Lactic Acid Level 1.91 0.50-2.00 MMOL/L Calcium Level 8.9 8.5-10.1 MG/DL Total Bilirubin 0.9 0.1-1.0 MG/DL Aspartate Amino Transf (AST/SGOT) 67 H 5-34 U/L Alanine Aminotransferase (ALT/SGPT) 67 H 0-55 U/L Alkaline Phosphatase 113 40-136 U/L B-Type Natriuretic Peptide 21.6 <100.0 PG/ML Total Protein 6.7 6.4-8.2 GM/DL Albumin 3.4 3.2-4.5 GM/DL Micro Results Microbiology 07/26/17 Blood Culture - Preliminary, Resulted No growth 07/26/17 Blood Culture - Preliminary, Resulted No growth 07/26/17 Gram Stain - Final, Complete 07/26/17 Sputum Culture - Final, Complete Staphylococcus Aureus 07/26/17 Influenza Types A,B Antigen (ANJANA) - Final, Complete My Orders Orders - SHONDA JAMES DO O2 (07/26/17 08:08) Cbc And Manual Diff (07/26/17 08:08) Sputum Culture (07/26/17 08:08) Monitor-Rhythm Ecg Trace Only (07/26/17 08:08) Blood Culture (07/26/17 08:08) Ua Culture If Indicated (07/26/17 08:08) Protime With Inr (07/26/17 08:08) Partial Thromboplastin Time (07/26/17 08:08) Chest 1 View, Ap/Pa Only (07/26/17 08:08) O2 (07/26/17 08:08) Saline Lock/Iv-Start (07/26/17 08:08) Saline Lock/Iv-Start (07/26/17 08:08) Ekg Tracing (07/26/17 08:08) Ns Iv 1000 Ml (Sodium Chloride 0.9%) (07/26/17 08:15) Vital Signs Adult Sepsis Patie Q1H (07/26/17 08:08) Influenza A And B Antigens (07/26/17 08:08) Acetaminophen Tablet (Tylenol Tablet) (07/26/17 08:15) Ibuprofen Tablet (Motrin Tablet) (07/26/17 08:15) Albuterol/Ipra Inhalation Soln (Duoneb I (07/26/17 08:30) Dexamethasone Injection (Decadron Inject (07/26/17 08:30) Rt Request For Service (07/26/17 08:17) Svn Sm Volume Nebulizer Rt-Rfs (07/26/17 08:17) Comprehensive Metabolic Panel (07/26/17 08:15) Lactic Acid Analyzer (07/26/17 08:15) Medications Given in ED Vital Signs/I&O Vital Sign - Last 12Hours 07/26/17 07/26/17 07/26/17 08:27 08:30 08:40 Temp 100.3 Pulse 120 Resp 24 B/P (MAP) 104/56 (72) Pulse Ox 94 94 O2 Delivery Room Air Nasal Cannula Non Rebreather O2 Flow Rate 2.00 10.00 Capillary Refill : Progress Note : Progress Note ON ARRIVAL, HR 130-140, BP 84/57, RR 17, O2 SATS 95% ON 5L/NC VITALS IMPROVED AT TIME OF ADMIT. BP > 100 SYSTOLIC, HR DOWN TO 110'S, O2 SATS REMAINED IN MID 90'S ON O2 ECG Initial ECG Impression Time: 10:47 Initial ECG Rate: 125 Initial ECG Rhythm: S.Tach Initial ECG Comparisson: No Previous ECG Available Diagnostic Imaging Comments CXR--RUL INFILTRATE, PER RADIOLOGIST REPORT @ 0920 Reviewed: Reviewed by Me Departure Communication (Admissions) Progress Notes 0930--SPOKE WITH DR. ELLISON, ACCEPTS PT FOR ADMIT. HE STATES PT HAS BEEN ON ANTIBIOTICS RECENTLY. WILL CONSULT DR. RODRIGUEZ Impression Impression: Primary Impression: RUL PNEUMONIA Additional Impressions: Severe sepsis Dehydration Hypoxia Disposition: ADMITTED INPATIENT Condition: Stable Admissions Decision to Admit Reason: Admit from ER (General) Decision to Admit/Date: Jul 26, 2017 Time/Decision to Admit Time: 09:30 Departure-Patient Inst. Referrals: ARRON ELLISON DO (PCP/Family) Primary Care Physician HSONDA JAMES DO Jul 26, 2017 08:17
[2017-07-26 08:29] LABS: BASOPHILS % (AUTO) 0 % (0-10); EOSINOPHILS % (AUTO) 0 % (0-10); HEMATOCRIT 41 % (40-54); HEMOGLOBIN 14.1 G/DL (13.3-17.7); LYMPHOCYTES % (AUTO) 5 % (12-44); MEAN CORPUSCULAR HEMOGLOBIN 32 PG (25-34); MEAN CORPUSCULAR HGB CONC 34 G/DL (32-36); MEAN CORPUSCULAR VOLUME 92 FL (80-99); MEAN PLATELET VOLUME 9.2 FL (7.4-10.4); MONOCYTES # (AUTO) 2.2 X 10^3 (0.0-1.0); MONOCYTES % (AUTO) 12 % (0-12); NEUTROPHILS # (AUTO) 15.5 X 10^3 (1.8-7.8); NEUTROPHILS % (AUTO) 83 % (42-75); PLATELET COUNT 235 10^3/uL (130-400); RED BLOOD COUNT 4.48 10^6/uL (4.35-5.85); RED CELL DISTRIBUTION WIDTH 14.7 % (10.0-14.5); WHITE BLOOD COUNT 18.7 10^3/uL (4.3-11.0)
[2017-07-26] MEDS ORDERED: RT-ALBUTEROL/IPRATROPIUM 3 ML (DUONEB) VIAL INH ONE (08:30)
[2017-07-26] MEDS ORDERED: DEXAMETHASONE 4 MG/ML SDV (DECADRON) IH ONE (08:30)
[2017-07-26 08:46] LABS: LYMPHOCYTES % (MANUAL) 4 %; MONOCYTES % (MANUAL) 9 %; NEUTROPHILS % (MANUAL) 87 %; PROTHROMBIN TIME PATIENT 13.2 SEC (12.2-14.7)
[2017-07-26 08:47] LABS: RBC MORPH NORMAL
--- NOTE | 2017-07-26 08:49 | Diagnostic Imaging Report ---
EXAM: CHEST 1 VIEW, AP/PA ONLY INDICATION: Flu symptoms. COMPARISON: Chest radiograph 07/25/2017. FINDINGS: Normal heart size and pulmonary vascularity. Interstitial prominence throughout both lungs, greatest in the right upper lobe. Bronchial wall thickening. No pleural effusion or pneumothorax. No acute osseous findings. IMPRESSION: Increased interstitial prominence throughout both lungs, greatest in the right upper lobe is suspicious for an infectious/inflammatory process. Bronchial wall thickening consistent with small airway inflammation. Dictated by: Dictated on workstation # [id number]
[2017-07-26 09:24] LABS: CALCIUM 8.9 MG/DL (8.5-10.1); CREATININE SERUM 1.31 MG/DL (0.60-1.30); POTASSIUM 4.2 MMOL/L (3.6-5.0)
[2017-07-26 09:25] LABS: ALBUMIN 3.4 GM/DL (3.2-4.5); BILIRUBIN,TOTAL 0.9 MG/DL (0.1-1.0); TOTAL PROTEIN 6.7 GM/DL (6.4-8.2)
[2017-07-26] MEDS ORDERED: methylPREDNISolone 125 MG (Solu-MEDROL) VIAL IVP ONE (09:45)
[2017-07-26] MEDS ORDERED: CEFEPIME INJECTION 2,000 MG in NS (IVPB) 50 ML IV ONE (09:45)
[2017-07-26] MEDS ORDERED: NS IV 1000 ML 1,000 ML IV ONE (10:09)
[2017-07-26 10:25] LABS: ABG BASE EXCESS 3.4 MMOL/L (-2.5-2.5); ABG OXYGEN SATURATION 98 % (94-100); ABG PCO2 51 MMHG (35-45); ABG PH 7.37 (7.37-7.43); ABG PO2 96 MMHG (79-93); ABG TCO2 29.2 MMOL/L (21.0-31.0)
[2017-07-26 10:29] LABS: ALLENS TEST YES-POS; INSPIRED O2 5 NC; PATIENT TEMP 103; VENTILATOR NO
--- OUTSIDE RECORDS SUMMARY | 2017-07-26 10:37 | XMS REPORT | Clinical Summary ---
Author Author [facility] Organization [facility] Address Unknown Phone Unavailable Care Team Providers Care Mechanical Product Design Engineer Name Role Phone PCP Unavailable Source Comments Some departments are not documenting in the electronic medical record. If you do not see the information that you expected, contact Release of Information in the Health Information Management department at [phone] for further assistance in locating additional records.[facility] Allergies Active Allergy Reactions Severity Noted Date [...] PO) OMEPRAZOLE PO Take by mouth. Active [id number] Take by mouth. Active D2 PO DOCOSAHEXANOIC [...] this. L ast Assessment & Plan: Continue RASHIM prn. Calculus of kidney 07/11/2007 Overview: Known [...]
--- NOTE | 2017-07-26 11:09 | Pulmonary Consultation ---
History of Present Illness History of Present Illness Date of Consultation 07/26/17 11:03 Time Seen by Provider: 11:03 Date of Admission History of Present Illness 81yo with hx of multiple hospitalizations from [facility] presented to ED from [facility] secondary to worsening cough, fever 103.3, hypoxia, SOB. CXR done yesterday was negative. Symptoms started 1 wk ago. Pt was placed on a NRB in the ED at [address] [place] [address] and admitted to 4th floor. PT is lethargic upon ED arrival. Unable to obtain ROS. Allergies and Home Medications Allergies Coded Allergies: Penicillins (Verified Allergy, Severe, PT HAS RECEIVED CEFEPIME & ROCEPHIN W/O ISSUE, 07/26/17) temazepam (Verified Adverse Reaction, Mild, PATIENT TAKES LORAZEPAM, ) VERY BAD DREAMS Home Medications Albuterol Sulfate 2.5 Mg/3 Ml Vial.neb, 2.5 MG NEB Q4H PRN for CONGESTION, ( Reported) Antiox#10/Om3/Dha/Epa/Lut/Zeax 1 Each Capsule, 1 CAP PO DAILY, (Reported) Bisacodyl 10 Mg Supp.rect, 10 MG RC DAILY PRN for CONSTIPATION-4TH LINE, ( Reported) Desvenlafaxine Succinate 50 Mg Tab.er.24h, 50 MG PO DAILY, (Reported) Digoxin 125 Mcg Tablet, 125 MCG PO DAILY, (Reported) Gabapentin 300 Mg Capsule, 300 MG PO TID, (Reported) Glucosam/Chond/Hyalu/Cf Borate 1 Each Tablet, 1 TAB PO DAILY, (Reported) Guaifenesin 600 Mg Tab.er.12h, 600 MG PO BID PRN for CONGESTION, (Reported) Haloperidol 1 Mg Tablet, 2 MG PO BID, (Reported) TAKES 2 (1MG) TABLETS Lactulose 10 Gm/15 Ml Solution, 30 ML PO 1700, (Reported) Levothyroxine Sodium 75 Mcg Tablet, 75 MCG PO DAILY, (Reported) Loratadine 10 Mg Tablet, 10 MG PO DAILY, (Reported) Lorazepam 0.5 Mg Tablet, 0.5 MG PO DAILY, (Reported) Ondansetron 4 Mg Tab.rapdis, 4 MG PO TID PRN for NAUSEA/VOMITING-1ST LINE, ( Reported) Quetiapine Fumarate 50 Mg Tablet, 50 MG PO HS, (Reported) Rivastigmine 1 Each Patch.td24, 4.6 MG TD DAILY, (Reported) Tamsulosin HCl 0.4 Mg Cap, 0.4 MG PO HS, (Reported) Tramadol HCl 50 Mg Tablet, 50 MG PO BID PRN for PAIN-MODERATE, (Reported) Past Ontpahz-Quadrw-Phdcbo Hx Patient Social History Alcohol Use: Denies Use Recreational Drug Use: No Smoking Status: Unknown if Ever Smoked 2nd Hand Smoke Exposure: No Recent Foreign Travel: No Contact w/Someone Who Travel: No Recent Infectious Disease Expo: No Recent Hopitalizations: Yes Immunizations Up To Date Tetanus Booster (TDap): More than 5yrs PED Vaccines UTD: No Date of Pneumonia Vaccine: Jan 29, 2017 Date of Influenza Vaccine: May 23, 2017 Seasonal Allergies Seasonal Allergies: No Surgeries History of Surgeries: Yes Surgeries: Gallbladder, Orthopedic Respiratory History of Respiratory Disorde: Yes Respiratory Disorders: Pneumonia, Sleep Apnea, COPD Currently Using CPAP: Yes (PT REFUSES TO USE PER SIG. 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, Renal Failure Gastrointestinal History of Gastrointestinal Di: Yes Gastrointestinal Disorders: Chronic Constipation, Pancreatitis Musculoskeletal History of Musculoskeletal Dis: Yes Musculoskeletal Disorders: Osteoporosis, Chronic Back Pain, Fractures Endocrine History of Endocrine Disorders: Yes Endocrine Disorders: Hypothyroidsim HEENT History of HEENT Disorders: No Loss of Vision: Denies Hearing Impairment: Denies Cancer History of Cancer: No Did You Recieve Any Treatments: No Psychosocial History of Psychiatric Problem: Yes Behavioral Health Disorders: Anxiety, Depression Integumentary History of Skin or Integumenta: No Blood Transfusions History of Blood Disorders: No Adverse Reaction to a Blood Tr: No Family Medical History Significant Family History: No Pertinent Family Hx Family Medial History: FH: stroke G8 SISTER, Onset:75 Review of Systems Time Seen by Provider: 09:54 Exam Exam Vital Signs Date Time Temp Pulse Resp B/P (MAP) Pulse Ox O2 Delivery O2 Flow Rate FiO2 07/26/17 10:19 100.3 07/26/17 10:18 100.3 07/26/17 08:40 Non Rebreather 10.00 07/26/17 08:27 100.3 120 24 104/56 (72) 94 Room Air General Appearance: Moderate Distress HEENT: Normal ENT Inspection, Pale Conjunctivae (L) Neck: Full Range of Motion, Supple Respiratory: Accessory Muscle Use, Decreased Breath Sounds, Rhonci Cardiovascular: Regular Rate, Rhythm, No Gallop Capillary Refill: Less Than 3 Seconds Gastrointestinal: soft Extremity: Normal Inspection, Normal Range of Motion, Non Tender Neurologic/Psychiatric: Alert, Depressed Affect Skin: Cool, Pallor Lymphatic: No Adenopathy Results Lab Laboratory Tests 07/26/17 08:15 Assessment/Plan Assessment/Plan Acute Respiratory failure -BiPAP PRN pneumonia with sepsis and hypoxia -Influenza swab is negative - -start cefepime and vanco -Check casillas cultures -strep, legionella urine Ag -SVNs hx of SHANT Dementia. Bipolar. Confusion Will order vital signs every 2 hrs. I expect pt is going to get worse. Currently there are no ICU beds open. Will monitor closely. 255 JERRY RODRIGUEZ DO Jul 26, 2017 11:09
[2017-07-26] MEDS ORDERED: methylPREDNISolone 40 MG/ML (Solu-MEDROL) VIAL IV SCH (11:15)
[2017-07-26] MEDS ORDERED: PHARMACY TO DOSE IV SCH (11:15)
[2017-07-26] MEDS ORDERED: VANCOMYCIN 1,750 MG/NS 500 ML IVPB IV NR ×2 (11:30)
[2017-07-26] MEDS ORDERED: LIDOCAINE UROJET 2% GEL 10 ML PKG TOP ONE (12:00)
[2017-07-26 12:35] LABS: BILIRUBIN,URINE NEGATIVE (NEGATIVE); CLARITY,URINE CLEAR; COLOR,URINE YELLOW; GLUCOSE, URINE (UA) NEGATIVE (NEGATIVE); KETONES,URINE NEGATIVE (NEGATIVE); LEUKOCYTE ESTERASE ,URINE 1+ (NEGATIVE); NITRITE,URINE NEGATIVE (NEGATIVE); PH,URINE 5 (5-9); PROTEIN,URINE NEGATIVE (NEGATIVE); UROBILINOGEN,URINE NORMAL (NORMAL)
[2017-07-26] MEDS ORDERED: IBUPROFEN 800 MG (MOTRIN) TAB PO PRN (12:45)
[2017-07-26] MEDS: D5 1/2 NS W/KCL 20 MEQ/L 1,000 ML IV SCH ×2 (12:49→20:11)
[2017-07-26 12:59] LABS: BACTERIA,URINE NEGATIVE /HPF
[2017-07-26] MEDS ORDERED: BISA10SU6 RC (14:01)
[2017-07-26] MEDS ORDERED: LORA10TA7 PO (14:01)
[2017-07-26] MEDS ORDERED: TRAM50TA2 PO (14:01)
[2017-07-26] MEDS ORDERED: GUAI600T43 PO (14:01)
[2017-07-26] MEDS ORDERED: ALPR0.5T7 PO (14:01)
[2017-07-26] MEDS ORDERED: LACT10SO PO (14:01)
[2017-07-26] MEDS ORDERED: ONDA4TAB8 PO (14:01)
[2017-07-26] MEDS ORDERED: ALBU2.5V4 NEB (14:01)
[2017-07-26] MEDS ORDERED: QUET50TA55 PO (14:01)
[2017-07-26] MEDS ORDERED: LORA0.5T PO (14:14)
[2017-07-26] MEDS ORDERED: RT-ALBUTEROL/IPRATROPIUM 3 ML (DUONEB) VIAL INH SCH (15:15)
[2017-07-26] MEDS: methylPREDNISolone 40 MG/ML (Solu-MEDROL) VIAL IV SCH ×2 (15:39→20:15)
[2017-07-26] MEDS ORDERED: methylPREDNISolone 125 MG (Solu-MEDROL) VIAL IV SCH (16:00)
[2017-07-26] MEDS: RT-ALBUTEROL/IPRATROPIUM 3 ML (DUONEB) VIAL INH SCH ×3 (17:57→22:01)
--- NOTE | 2017-07-26 18:55 | History & Physicial ---
History of Present Illness History of Present Illness Reason for visit/HPI PATIENT IS A RESIDENT OF A CORRECTION. [facility]. Patient ran a temperature of 103. Patient hypoxic . Patient coughing and congested. Patient has been at the hospital for pneumonia previously. Patient sent out to the emergency room. Patient has acute respiratory failure. Pneumonia. Sepsis. Dementia. Bipolar. SHANT. Confusion Patient did talk to me but not able to answer questions Patient in emergency not able to give any history Date of Admission Jul 26, 2017 at 09:30 Time Seen by Provider: 18:50 I consulted on this patient on 07/26/17 18:50 Attending Physician Arron Ellison DO Admitting Physician Arron Ellison DO Consult Allergies and Home Medications Allergies Coded Allergies: Penicillins (Verified Allergy, Severe, PT HAS RECEIVED CEFEPIME & ROCEPHIN W/O ISSUE, 07/26/17) temazepam (Verified Adverse Reaction, Mild, PATIENT TAKES LORAZEPAM, ) VERY BAD DREAMS Home Medications Albuterol Sulfate 2.5 Mg/3 Ml Vial.neb, 2.5 MG NEB Q4H PRN for CONGESTION, ( Reported) Antiox#10/Om3/Dha/Epa/Lut/Zeax 1 Each Capsule, 1 CAP PO DAILY, (Reported) Bisacodyl 10 Mg Supp.rect, 10 MG RC DAILY PRN for CONSTIPATION-4TH LINE, ( Reported) Desvenlafaxine Succinate 50 Mg Tab.er.24h, 50 MG PO DAILY, (Reported) Digoxin 125 Mcg Tablet, 125 MCG PO DAILY, (Reported) Gabapentin 300 Mg Capsule, 300 MG PO TID, (Reported) Glucosam/Chond/Hyalu/Cf Borate 1 Each Tablet, 1 TAB PO DAILY, (Reported) Guaifenesin 600 Mg Tab.er.12h, 600 MG PO BID PRN for CONGESTION, (Reported) Haloperidol 1 Mg Tablet, 2 MG PO BID, (Reported) TAKES 2 (1MG) TABLETS Lactulose 10 Gm/15 Ml Solution, 30 ML PO 1700, (Reported) Levothyroxine Sodium 75 Mcg Tablet, 75 MCG PO DAILY, (Reported) Loratadine 10 Mg Tablet, 10 MG PO DAILY, (Reported) Lorazepam 0.5 Mg Tablet, 0.5 MG PO DAILY, (Reported) Ondansetron 4 Mg Tab.rapdis, 4 MG PO TID PRN for NAUSEA/VOMITING-1ST LINE, ( Reported) Quetiapine Fumarate 50 Mg Tablet, 50 MG PO HS, (Reported) Rivastigmine 1 Each Patch.td24, 4.6 MG TD DAILY, (Reported) Tamsulosin HCl 0.4 Mg Cap, 0.4 MG PO HS, (Reported) Tramadol HCl 50 Mg Tablet, 50 MG PO BID PRN for PAIN-MODERATE, (Reported) Past Icoqonp-Rpntzl-Ixxoyu Hx Patient Social History Alcohol Use: Denies Use Recreational Drug Use: No Smoking Status: Unknown if Ever Smoked 2nd Hand Smoke Exposure: No Physical Abuse Screen: No Sexual Abuse: No Recent Hopitalizations: Yes Immunizations Up To Date Tetanus Booster (TDap): More than 5yrs Pediatric: No Date of Pneumonia Vaccine: Jan 29, 2017 Date of Influenza Vaccine: May 23, 2017 Seasonal Allergies Seasonal Allergies: No Surgeries Yes Gallbladder, Orthopedic Respiratory Yes Pneumonia Currently Using CPAP: Yes (PT REFUSES TO USE PER SIG. OTHER) Currently Using BIPAP: No Cardiovascular Yes (TACHYCARDIA) Atrial Fibrillation, Hypertension Neurological Yes (OCCASSIONAL CONFUSION) Dementia Reproductive System Hx Reproductive Disorders: No Sexually Transmitted Disease: No HIV/AIDS: No Genitourinary Yes (ONE KIDNEY) Kidney Stones, Renal Failure Gastrointestinal Yes Chronic Constipation, Pancreatitis Musculoskeletal Yes Osteoporosis, Chronic Back Pain, Fractures Endocrine History of Endocrine Disorders: Yes Endocrine Disorders: Hypothyroidsim HEENT History of HEENT Disorders: No Loss of Vision: Denies Hearing Impairment: Denies Cancer No Did You Recieve Any Treatments: No Psychosocial History of Psychiatric Problem: Yes Behavioral Health Disorders: Anxiety, Depression Integumentary History of Skin or Integumenta: No Blood Transfusions History of Blood Disorders: No Adverse Reaction to a Blood Tr: No Family Medical History Significant Family History: No Pertinent Family Hx Family Hx: FH: stroke G8 SISTER, Onset:75 Constitutional: malaise, weakness, other (confusion) EENTM: no symptoms reported Respiratory: cough, short of breath Cardiovascular: no symptoms reported Gastrointestinal: no symptoms reported Genitourinary: no symptoms reported Physical Exam Vital Signs Vital Sign - Last 12Hours 07/26/17 07/26/17 08:27 08:40 Temp 100.3 Pulse 120 Resp 24 B/P (MAP) 104/56 (72) Pulse Ox 94 O2 Delivery Room Air O2 Flow Rate 10.00 Capillary Refill : Less Than 3 Seconds General Appearance: No Apparent Distress, WD/WN Eyes: Bilateral Eye Normal Inspection HEENT: Normal ENT Inspection Neck: Normal Inspection Respiratory: Decreased Breath Sounds Cardiovascular: Regular Rate, Rhythm, No Murmur Gastrointestinal: Non Tender, Soft Assessment/Plan Assessment and Plan acute respiratory failure. Pneumonia. Sepsis. SHANT. Dementia. Bipolar. Confusion Patient cannot start home medicines due to lethargy. We'll start them tomorrow morning Problems: Clinical Quality Measures DVT/VTE Risk/Contraindication: Risk Factor Score Per Nursin RFS Level Per Nursing on Admit: 4+=Very High ARRON ELLISON DO Jul 26, 2017 18:55
[2017-07-26] MEDS: ENOXAPARIN 40 MG/0.4 ML (LOVENOX) SYR SC SCH (20:15)
[2017-07-27] VITALS (15 sets, daily range): BP systolic 100–126; BP diastolic 53–79
[2017-07-27] MEDS: RT-ALBUTEROL/IPRATROPIUM 3 ML (DUONEB) VIAL INH SCH ×10 (00:56→22:24)
[2017-07-27] MEDS: D5 1/2 NS W/KCL 20 MEQ/L 1,000 ML IV SCH ×4 (02:19→20:49)
[2017-07-27] MEDS: methylPREDNISolone 40 MG/ML (Solu-MEDROL) VIAL IV SCH ×4 (03:48→22:04)
[2017-07-27 06:38] LABS: BASOPHILS % (AUTO) 0 % (0-10); EOSINOPHILS % (AUTO) 0 % (0-10); HEMATOCRIT 38 % (40-54); HEMOGLOBIN 12.5 G/DL (13.3-17.7); LYMPHOCYTES # (AUTO) 0.7 X 10^3 (1.0-4.0); LYMPHOCYTES % (AUTO) 3 % (12-44); MEAN CORPUSCULAR HEMOGLOBIN 31 PG (25-34); MEAN CORPUSCULAR HGB CONC 33 G/DL (32-36); MEAN CORPUSCULAR VOLUME 94 FL (80-99); MEAN PLATELET VOLUME 9.8 FL (7.4-10.4); MONOCYTES # (AUTO) 1.3 X 10^3 (0.0-1.0); MONOCYTES % (AUTO) 5 % (0-12); NEUTROPHILS # (AUTO) 22.3 X 10^3 (1.8-7.8); NEUTROPHILS % (AUTO) 92 % (42-75); PLATELET COUNT 196 10^3/uL (130-400); RED CELL DISTRIBUTION WIDTH 14.6 % (10.0-14.5); WHITE BLOOD COUNT 24.3 10^3/uL (4.3-11.0)
[2017-07-27 06:51] LABS: ANISOCYTOSIS SLIGHT; BAND NEUTROPHILS 26 %; BASOPHILS % (MANUAL) 0 %; EOSINOPHILS % (MANUAL) 0 %; LYMPHOCYTES % (MANUAL) 2 %; MONOCYTES % (MANUAL) 5 %; NEUTROPHILS % (MANUAL) 67 %
--- NOTE | 2017-07-27 06:59 | Pulmonary Progress Note ---
Subjective Time Seen by Provider: 07:53 Subjective/Events-last exam pt is now awake and alert and appears improved. Exam Exam Vital Signs Date Time Temp Pulse Resp B/P (MAP) Pulse Ox O2 Delivery O2 Flow Rate FiO2 07/27/17 06:47 98.7 114 20 101/53 (69) 95 Vapotherm 50.00 30.00 07/27/17 06:00 98.7 114 20 101/53 95 07/27/17 04:00 98.5 107 18 100/63 95 07/27/17 04:00 98.5 107 18 100/63 (75) 95 Vapotherm 50.00 30.00 07/27/17 03:48 93 Vapotherm 30.00 50 07/27/17 02:43 112 20 94 Vapotherm 50.00 30.00 07/27/17 02:43 94 Vapotherm 30.00 50 07/27/17 02:00 99.0 116 20 104/65 95 07/27/17 02:00 116 17 104/64 (77) 94 Vapotherm 50.00 30.00 07/27/17 01:00 117 07/27/17 00:56 94 Vapotherm 30.00 50 07/27/17 00:20 121 18 112/70 (84) 94 Vapotherm 50.00 30.00 07/27/17 00:00 99.7 119 20 120/61 (80) 95 Vapotherm 50.00 30.00 07/27/17 00:00 99.7 119 20 120/61 95 07/26/17 22:01 93 Vapotherm 30.00 50 07/26/17 22:00 100.0 110 24 07/26/17 21:00 93 Vapotherm 30.00 07/26/17 20:36 92 Vapotherm 30.00 50 07/26/17 20:36 Vapotherm 92.00 07/26/17 20:00 100.5 123 24 118/63 (81) 96 OxyMask 5.00 07/26/17 20:00 100.5 123 24 118/63 96 07/26/17 19:15 94 Vapotherm 30.00 50 07/26/17 19:00 124 07/26/17 18:48 124 17 94 OxyMask 6.00 07/26/17 18:10 127 20 92 OxyMask 6.00 07/26/17 17:50 88 OxyMask 5.00 07/26/17 17:26 96.6 125 20 127/59 95 OxyMask 5.00 07/26/17 16:55 121 94 OxyMask 5.00 07/26/17 16:10 96.8 120 124/58 (80) 93 OxyMask 5.00 07/26/17 15:36 96.7 120 20 106/57 95 OxyMask 5.00 07/26/17 15:05 120 96 OxyMask 5.00 07/26/17 15:03 97.1 118 20 126/57 96 OxyMask 5.00 07/26/17 14:29 96.9 120 20 116/57 (76) 96 OxyMask 5.00 07/26/17 14:03 96.9 116 20 109/55 (73) 96 OxyMask 5.00 07/26/17 13:47 113 07/26/17 13:35 98.5 114 20 98/55 93 Nasal Cannula 3.00 07/26/17 12:50 96.8 114 20 92/55 95 Nasal Cannula 5.00 07/26/17 12:36 97.7 114 25 95/54 96 Nasal Cannula 5.00 07/26/17 12:21 99.4 115 16 88/53 95 Nasal Cannula 5.00 07/26/17 12:06 97.6 118 20 91/53 96 Nasal Cannula 5.00 07/26/17 11:51 98.7 119 19 82/45 96 Nasal Cannula 5.00 07/26/17 11:51 98.7 119 19 82/45 (57) 96 Nasal Cannula 5.00 07/26/17 11:50 100.1 115 24 94 Nasal Cannula 5.00 07/26/17 11:43 Nasal Cannula 5.00 07/26/17 10:19 100.3 07/26/17 10:18 100.3 07/26/17 08:40 Non Rebreather 10.00 07/26/17 08:30 94 Nasal Cannula 2.00 07/26/17 08:27 100.3 120 24 104/56 (72) 94 Room Air I & O 07/27/17 07:00 Intake Total 4088.48 ml Output Total 1300 ml Balance 2788.48 ml General Appearance: No Apparent Distress, WD/WN HEENT: Normal ENT Inspection Neck: Normal Inspection Respiratory: Decreased Breath Sounds Cardiovascular: Regular Rate, Rhythm, No Murmur Capillary Refill: Less Than 3 Seconds Gastrointestinal: soft Extremity: Normal Inspection, Normal Range of Motion, Non Tender Neurologic/Psychiatric: Alert, Depressed Affect Skin: Cool, Pallor Lymphatic: No Adenopathy Results Lab Laboratory Tests 07/26/17 08:15 07/27/17 05:20 Assessment/Plan Assessment/Plan Acute Respiratory failure -BiPAP PRN -Solumedrol pneumonia with sepsis and hypoxia -Influenza swab is negative - cefepime and vanco -Check casillas cultures -strep, legionella urine Ag -SVNs hx of SHANT Dementia. Bipolar. Confusion Pt is now a DNR 232 Clinical Quality Measures DVT/VTE Risk/Contraindication: Risk Factor Score Per Nursin RFS Level Per Nursing on Admit: 4+=Very High JERRY RODRIGUEZ DO Jul 27, 2017 06:59
[2017-07-27 07:05] LABS: BUN/CREATININE RATIO 20; CALCIUM 8.5 MG/DL (8.5-10.1); CARBON DIOXIDE 22 MMOL/L (21-32); CHLORIDE 108 MMOL/L (98-107); CREATININE SERUM 0.85 MG/DL (0.60-1.30); GFR ESTIMATED > 60; GLUCOSE 128 MG/DL (70-105); MAGNESIUM 1.7 MG/DL (1.8-2.4); POTASSIUM 4.4 MMOL/L (3.6-5.0); SODIUM 140 MMOL/L (135-145)
--- NOTE | 2017-07-27 07:38 | Progress Note (SOAP) ---
Subjective Time Seen by Provider: 07:35 Subjective/Events-last exam he shouldn't looking better this morning. Patient awake. Patient knows who I am. Confusion less. lungs wheezing with coughing Right upper lobe pneumonia. Hypoxia. Dementia.. Bipolar Objective Exam Vital Signs Date Time Temp Pulse Resp B/P (MAP) Pulse Ox O2 Delivery O2 Flow Rate FiO2 07/27/17 07:30 97 Vapotherm 30.00 50 07/27/17 06:47 98.7 114 20 101/53 (69) 95 Vapotherm 50.00 30.00 07/27/17 06:00 98.7 114 20 101/53 95 07/27/17 04:00 98.5 107 18 100/63 95 07/27/17 04:00 98.5 107 18 100/63 (75) 95 Vapotherm 50.00 30.00 07/27/17 03:48 93 Vapotherm 30.00 50 07/27/17 02:43 112 20 94 Vapotherm 50.00 30.00 07/27/17 02:43 94 Vapotherm 30.00 50 07/27/17 02:00 99.0 116 20 104/65 95 07/27/17 02:00 116 17 104/64 (77) 94 Vapotherm 50.00 30.00 07/27/17 01:00 117 07/27/17 00:56 94 Vapotherm 30.00 50 07/27/17 00:20 121 18 112/70 (84) 94 Vapotherm 50.00 30.00 07/27/17 00:00 99.7 119 20 120/61 (80) 95 Vapotherm 50.00 30.00 07/27/17 00:00 99.7 119 20 120/61 95 07/26/17 22:01 93 Vapotherm 30.00 50 07/26/17 22:00 100.0 110 24 07/26/17 21:00 93 Vapotherm 30.00 07/26/17 20:36 92 Vapotherm 30.00 50 07/26/17 20:36 Vapotherm 92.00 07/26/17 20:00 100.5 123 24 118/63 (81) 96 OxyMask 5.00 07/26/17 20:00 100.5 123 24 118/63 96 07/26/17 19:15 94 Vapotherm 30.00 50 07/26/17 19:00 124 18 18:48 124 17 94 OxyMask 6.00 07/26/17 18:10 127 20 92 OxyMask 6.00 07/26/17 17:50 88 OxyMask 5.00 07/26/17 17:26 96.6 125 20 127/59 95 OxyMask 5.00 07/26/17 16:55 121 94 OxyMask 5.00 07/26/17 16:10 96.8 120 124/58 (80) 93 OxyMask 5.00 07/26/17 15:36 96.7 120 20 106/57 95 OxyMask 5.00 07/26/17 15:05 120 96 OxyMask 5.00 07/26/17 15:03 97.1 118 20 126/57 96 OxyMask 5.00 07/26/17 14:29 96.9 120 20 116/57 (76) 96 OxyMask 5.00 07/26/17 14:03 96.9 116 20 109/55 (73) 96 OxyMask 5.00 07/26/17 13:47 113 07/26/17 13:35 98.5 114 20 98/55 93 Nasal Cannula 3.00 07/26/17 12:50 96.8 114 20 92/55 95 Nasal Cannula 5.00 07/26/17 12:36 97.7 114 25 95/54 96 Nasal Cannula 5.00 07/26/17 12:21 99.4 115 16 88/53 95 Nasal Cannula 5.00 07/26/17 12:06 97.6 118 20 91/53 96 Nasal Cannula 5.00 07/26/17 11:51 98.7 119 19 82/45 96 Nasal Cannula 5.00 07/26/17 11:51 98.7 119 19 82/45 (57) 96 Nasal Cannula 5.00 07/26/17 11:50 100.1 115 24 94 Nasal Cannula 5.00 07/26/17 11:43 Nasal Cannula 5.00 07/26/17 10:19 100.3 07/26/17 10:18 100.3 07/26/17 08:40 Non Rebreather 10.00 07/26/17 08:30 94 Nasal Cannula 2.00 07/26/17 08:27 100.3 120 24 104/56 (72) 94 Room Air I & O 07/27/17 07:00 Intake Total 4088.48 ml Output Total 1300 ml Balance 2788.48 ml Capillary Refill : Less Than 3 Seconds General Appearance: No Apparent Distress HEENT: Normal ENT Inspection Neck: Full Range of Motion, Normal Inspection Respiratory: No Accessory Muscle Use, No Respiratory Distress, Decreased Breath Sounds, Wheezing, Other (on mask) Cardiovascular: Regular Rate, Rhythm, No Murmur Gastrointestinal: non tender, soft Results Lab Laboratory Tests 07/26/17 08:15 07/27/17 05:20 Laboratory Tests 07/26/17 08:15: White Blood Count 18.7H, Red Blood Count 4.48, Hemoglobin 14.1, Hematocrit 41, Mean Corpuscular Volume 92, Mean Corpuscular Hemoglobin 32, Mean Corpuscular Hemoglobin Concent 34, Red Cell Distribution Width 14.7H, Platelet Count 235, Mean Platelet Volume 9.2, Neutrophils (%) (Auto) 83H, Lymphocytes (%) (Auto) 5L , Monocytes (%) (Auto) 12, Eosinophils (%) (Auto) 0, Basophils (%) (Auto) 0, Neutrophils # (Auto) 15.5H, Lymphocytes # (Auto) 1.0, Monocytes # (Auto) 2.2H, Eosinophils # (Auto) 0.0, Basophils # (Auto) 0.0, Neutrophils % (Manual) 87, Lymphocytes % (Manual) 4, Monocytes % (Manual) 9, Blood Morphology Comment NORMAL, Prothrombin Time 13.2, INR Comment 1.0, Activated Partial Thromboplast Time 36H, Sodium Level 138, Potassium Level 4.2, Chloride Level 100, Carbon Dioxide Level 26, Anion Gap 12, Blood Urea Nitrogen 21H, Creatinine 1.31H, Estimat Glomerular Filtration Rate 53, BUN/Creatinine Ratio 16, Glucose Level 124H, Lactic Acid Level 1.91, Calcium Level 8.9, Total Bilirubin 0.9, Aspartate Amino Transf (AST/SGOT) 67H, Alanine Aminotransferase (ALT/SGPT) 67H, Alkaline Phosphatase 113, B-Type Natriuretic Peptide 21.6, Total Protein 6.7, Albumin 3.4 07/26/17 10:15: Blood Gas Puncture Site RT RAD, Blood Gas Patient Temperature 103, Arterial Blood pH 7.37, Arterial Blood Partial Pressure CO2 51H, Arterial Blood Partial Pressure O2 96H, Arterial Blood HCO3 28H, Arterial Blood Total CO2 29.2, Arterial Blood Oxygen Saturation 98, Arterial Blood Base Excess 3.4H, Scar Test YES-POS, Blood Gas Ventilator Setting NO, Blood Gas Inspired Oxygen 5 NC 07/26/17 11:51: Group A Streptococcus Screen NEGATIVE 07/26/17 12:20: Urine Color YELLOW, Urine Clarity CLEAR, Urine pH 5, Urine Specific [place] 1.015L, Urine Protein NEGATIVE, Urine Glucose (UA) NEGATIVE, Urine Ketones NEGATIVE, Urine Nitrite NEGATIVE, Urine Bilirubin NEGATIVE, Urine Urobilinogen NORMAL, Urine Leukocyte Esterase 1+H, Urine RBC (Auto) NEGATIVE, Urine RBC NONE , Urine WBC 2-5, Urine Squamous Epithelial Cells 2-5, Urine Crystals NONE, Urine Bacteria NEGATIVE, Urine Casts PRESENT, Urine Hyaline Casts 10-25H, Urine Mucus LARGEH, Urine Culture Indicated NO, Urine Legionella pneumophilia Ag Negative, Streptococcus pneumoniae Antigen Negative 07/26/17 13:20: Lactic Acid Level 0.75 07/27/17 05:20: White Blood Count 24.3H, Red Blood Count 4.00L, Hemoglobin 12.5L, Hematocrit 38L , Mean Corpuscular Volume 94, Mean Corpuscular Hemoglobin 31, Mean Corpuscular Hemoglobin Concent 33, Red Cell Distribution Width 14.6H, Platelet Count 196, Mean Platelet Volume 9.8, Neutrophils (%) (Auto) 92H, Lymphocytes (%) (Auto) 3L , Monocytes (%) (Auto) 5, Eosinophils (%) (Auto) 0, Basophils (%) (Auto) 0, Neutrophils # (Auto) 22.3H, Lymphocytes # (Auto) 0.7L, Monocytes # (Auto) 1.3H, Eosinophils # (Auto) 0.0, Basophils # (Auto) 0.0, Neutrophils % (Manual) 67, Lymphocytes % (Manual) 2, Monocytes % (Manual) 5, Eosinophils % (Manual) 0, Basophils % (Manual) 0, Band Neutrophils 26, Anisocytosis SLIGHT, Sodium Level 140, Potassium Level 4.4, Chloride Level 108H, Carbon Dioxide Level 22, Anion Gap 10, Blood Urea Nitrogen 17, Creatinine 0.85, Estimat Glomerular Filtration Rate > 60, BUN/Creatinine Ratio 20, Glucose Level 128H, Calcium Level 8.5, Magnesium Level 1.7L Microbiology 07/26/17 Gram Stain, Resulted Pending 07/26/17 Sputum Culture - Preliminary, Resulted Staphylococcus Aureus See Comments Assessment/Plan Assessment/Plan Assess & Plan/Chief Complaint right upper lobe pneumonia. Confusion. Dementia. Weakness. Bipolar. Patient awake today and less lethargic Can put on some of his psych medicines now Clinical Quality Measures DVT/VTE Risk/Contraindication: Risk Factor Score Per Nursin RFS Level Per Nursing on Admit: 4+=Very High ARRON ELLISON DO Jul 27, 2017 07:38
[2017-07-27] MEDS ORDERED: guaiFENesin (MUCINEX) 600 MG TAB PO PRN (07:45)
[2017-07-27] MEDS ORDERED: MAGNESIUM 1 GM/100 ML IVPB 100 ML IV NR (07:48)
[2017-07-27] MEDS: LEVOTHYROXINE 75 MCG (LEVOTHROID) TABLET PO SCH (08:53)
[2017-07-27] MEDS: GABAPENTIN 300 MG (NEURONTIN) CAP PO SCH ×3 (08:53→22:04)
[2017-07-27] MEDS: DIGOXIN 0.125 MG (LANOXIN) TAB PO SCH (08:53)
[2017-07-27] MEDS: HALOPERIDOL 2 MG (HALDOL) TABLET PO SCH ×2 (08:53→22:04)
[2017-07-27] MEDS: VENlafaxine XR 75 MG (EFFEXOR XR) CAP PO SCH (08:53)
[2017-07-27] MEDS ORDERED: CEFEPIME INJECTION 2,000 MG in NS (IVPB) 50 ML IV SCH (10:00)
[2017-07-27] MEDS ORDERED: VANCOMYCIN 1250 MG/NS 250 ML IVPB IV SCH ×2 (11:30)
--- NOTE | 2017-07-27 11:44 | ST Dysphagia Evaluation ---
Speech Evaluation-General Medical Diagnosis Onset Date: Jul 27, 2017 Therapy Diagnosis Therapy Diagnosis: PHARYNGEAL DYSPHAGIA Precautions Precautions: Aspiration Precautions/Isolations: Fall Prevention, Standard Precautions, Pressure Ulcer Referral Referring Physician: SCOT Reason for Referral: Evaluation/Treatment Medical History Pertinent Medical History: Atrial Fib, Arthritis, Dementia, HTN, Hypothroidism , OA, Renal Insufficiency Social History Home: [facility] Speech PLF/Current-Dysphagia Prior Level of Function NS REPORTS THAT THE PATIENT HAS BEEN SEEN BY CEMENT SPRAYER HELPER DURING OTHER HOSPITAL STAYS. HE HAS A HISTORY OF SWALLOWING DIFFICULTIES. Subjective PATIENT WAS AWAKE BUT HAD DIFFICULTY ANSWERING QUESTIONS. Cognitive Status Patient Orientation: Person, Confused Oral Motor Skills Dentition: Tumbled Denture Type: Partial- Upper & Lower Current Food Consistancy: Regular Ability to Follow Directions: Good Oral Expression Ability: Mild Impairment Voice Voice Phonatory-Based Quality: Breathy Voice Pitch: Mildly Low Voice Loudness: Mildly Soft/Quiet Face Facial Symmetry: Symmetrical Oral-Facial Assessment Oral-Facial Dentition: Normal Labial Seal Description: Normal Smile: Normal Puff Cheeks: Normal Lingual Protrusion: Normal Lingual ROM: Normal Lingual Strength: Normal Gag Reflex Response: Hypoactive Pharynx Velopharyngeal Move.: WEAK BILATERALLY Volitional Dry Swallow: Yes Voluntary Cough: No Can Clear Throat Volitionally: Yes Productive Cough: No Productive Throat Clear: No Dysphagia Evaluation Consistencies Presented: Thin Liquid, Mechanical Soft, [place] Thick Liquid, Honey Thick Liquid Oral Phase: Reduced Oral Transit Pharyngeal Phase: Reduced Laryngeal Elevation, Delayed Swallow Funct. Velo/Pharyngeal Symptom: Clears Throat, Wet Voice Dietary Recommendations: DYSPHAGIA II Liquid Recommendations: Honey Consistancy Swallowing Precautions: Alternate Liquids/Solids, Decreased Bolus 1/4 Tsp, Liquids from Cup, Oral Supervision Staff, Sitting Upright 90 Degrees Dysphagia Evaluation Summary PATIENT PRESENTS WITH PHARYNGEAL DYSPAHGIA. PATIENT HAS WEAK THROAT CLEAR AND UNPRODUCTIVE COUGH. SEVERAL INSTANCES OF WET-GURGLIE VOCAL QUALITY ON THIN & NECTAR-THICK LIQUIDS. Barriers to Learning CONFUSION Speech Short Term Goals Short Term Goals Short Term Goals 1) PATIENT WILL BE ABLE TO TOLERATE COMPENSATORY SWALLOW STRATEGIES TO FACILITATE A SAFE SWALLOW WITH 80% RETURN. 2) THE PATIENT WILL BE ABLE TO DEMONSTRATE LARYNGEAL ELEVATION USING VERBAL CUES WITH 80% RETURN. 3) THE PATIENT WILL FOLLOW CUES TO BE ABLE TO COMPLETE BREATH HOLD THEN SWALLOW WITHOUT CUES FOR LIQUID CONSUMPTION WITH 90% RETURN. Time Frame-ST WEEK Speech Cook Cold Meat Goals Cook Cold Meat Goals 1) PATIENT WILL BE ABLE TO RETURN TO REGULAR FOODS AND THIN LIQUIDS USING STRATEGIES AND CAREGIVER EDUCATION WITHIN 10 DAYS. 2) THE PATIENT WILL TOLERATE CAREGIVER EDUCATION REGARDING SWALLOW SAFETY WITH FEWER THAN 2 QUESTIONS. Speech-Plan Treatment Plan Speech Therapy Treatment Plan: Continue Plan of Care PATIENT AGREED TO POC. Frequency: 5 times per week Estimated Hrs Per Day: .25 hour per day Rehab Potential: Good Pt/Family Agrees to Plan: Yes Discharge Recommendations [facility] ([facility]U/[facility]) Time Speech Therapy Time In: 11:20 Speech Therapy Time Out: 11:40 Total Billed Time: 20 Billed Treatment Time GiorgioBERTHA GENTRY ST Jul 27, 2017 11:44
[2017-07-27] MEDS: ENOXAPARIN 40 MG/0.4 ML (LOVENOX) SYR SC SCH (19:22)
[2017-07-27] MEDS: TAMSULOSIN 0.4 MG (FLOMAX) CAP PO SCH (22:05)
[2017-07-28] VITALS (13 sets, daily range): BP systolic 111–152; BP diastolic 71–87
[2017-07-28] MEDS: RT-ALBUTEROL/IPRATROPIUM 3 ML (DUONEB) VIAL INH SCH ×9 (02:18→22:25)
[2017-07-28] MEDS: methylPREDNISolone 40 MG/ML (Solu-MEDROL) VIAL IV SCH ×4 (04:13→22:54)
[2017-07-28] MEDS: D5 1/2 NS W/KCL 20 MEQ/L 1,000 ML IV SCH ×3 (04:14→20:41)
[2017-07-28 05:15] LABS: BASOPHILS % (AUTO) 0 % (0-10); EOSINOPHILS % (AUTO) 0 % (0-10); HEMATOCRIT 36 % (40-54); LYMPHOCYTES # (AUTO) 0.6 X 10^3 (1.0-4.0); LYMPHOCYTES % (AUTO) 4 % (12-44); MEAN CORPUSCULAR HEMOGLOBIN 31 PG (25-34); MEAN CORPUSCULAR HGB CONC 34 G/DL (32-36); MEAN CORPUSCULAR VOLUME 93 FL (80-99); MONOCYTES # (AUTO) 0.9 X 10^3 (0.0-1.0); MONOCYTES % (AUTO) 6 % (0-12); NEUTROPHILS % (AUTO) 90 % (42-75); PLATELET COUNT 186 10^3/uL (130-400); RED BLOOD COUNT 3.82 10^6/uL (4.35-5.85); RED CELL DISTRIBUTION WIDTH 14.5 % (10.0-14.5); WHITE BLOOD COUNT 15.6 10^3/uL (4.3-11.0)
[2017-07-28] MEDS: LEVOTHYROXINE 75 MCG (LEVOTHROID) TABLET PO SCH (05:40)
[2017-07-28] MEDS: VENlafaxine XR 75 MG (EFFEXOR XR) CAP PO SCH (05:40)
[2017-07-28 05:42] LABS: BUN/CREATININE RATIO 22; CALCIUM 8.4 MG/DL (8.5-10.1); CARBON DIOXIDE 21 MMOL/L (21-32); CHLORIDE 106 MMOL/L (98-107); CREATININE SERUM 0.76 MG/DL (0.60-1.30); GFR ESTIMATED > 60; GLUCOSE 140 MG/DL (70-105); POTASSIUM 4.9 MMOL/L (3.6-5.0); SODIUM 135 MMOL/L (135-145)
[2017-07-28] MEDS: DIGOXIN 0.125 MG (LANOXIN) TAB PO SCH (09:00)
[2017-07-28] MEDS: CEFEPIME 2 GM/D5W 50 ML IVPB IV SCH ×2 (09:00)
[2017-07-28] MEDS: GABAPENTIN 300 MG (NEURONTIN) CAP PO SCH ×3 (09:01→20:41)
[2017-07-28] MEDS: HALOPERIDOL 2 MG (HALDOL) TABLET PO SCH ×2 (09:01→20:41)
[2017-07-28] MEDS ORDERED: TROUGH ORDER-PHARMACY XX NR (10:30)
--- NOTE | 2017-07-28 10:36 | Progress Note-Hospitalist ---
Subjective HPI/CC On Admission Date Seen by Provider: Jul 28, 2017 Time Seen by Provider: 10:00 Subjective/Events-last exam patient is sitting up in bed is awake alert but confused to time and place and to his history. Says that he feels better than he did when he came in but I'm uncertain if he knows whether he really is or not. He has no specific complaints of pain or discomfort. Objective Exam Vital Signs Vital Sign - Last 12Hours 07/26/17 07/26/17 07/26/17 08:27 08:30 19:15 Temp 100.3 Pulse 120 Resp 24 B/P (MAP) 104/56 (72) Pulse Ox 94 O2 Delivery Room Air O2 Flow Rate 2.00 FiO2 50 Capillary Refill : Less Than 3 Seconds General Appearance: Chronically ill Neck: Supple Respiratory: Normal Breath Sounds, No Accessory Muscle Use, No Respiratory Distress, Decreased Breath Sounds Cardiovascular: Regular Rate, Rhythm, No Gallop Gastrointestinal: Non Tender, Soft Rectal: Deferred Extremity: Pedal Edema, Slow Capillary Refill Neurologic/Psychiatric: Alert, Disoriented x3 Skin: Pallor Results/Procedures Lab Laboratory Tests 07/29/17 04:40 Assessment/Plan Assessment and Plan Assess & Plan/Chief Complaint 1. right upper lobe pneumonia day number 3 cefepime and vancomycin as it's facility acquired 2. Exacerbation of COPD-On Solu-Medrol 3. Senile dementia 4. History of obstructive sleep apnea 5. History of bipolar disorder patient is a DO NOT RESUSCITATE and seems to be improving RICHARD QUINTERO MD Jul 28, 2017 10:36 am
[2017-07-28] MEDS ORDERED: RT-ALBUTEROL/IPRATROPIUM 3 ML (DUONEB) VIAL INH PRN (12:00)
[2017-07-28] MEDS: VANCOMYCIN 750 MG/NS 250 ML IVPB IV SCH ×4 (12:39→22:54)
[2017-07-28] MEDS: ENOXAPARIN 40 MG/0.4 ML (LOVENOX) SYR SC SCH (18:46)
[2017-07-28] MEDS: TAMSULOSIN 0.4 MG (FLOMAX) CAP PO SCH (20:41)
[2017-07-29] VITALS (9 sets, daily range): BP systolic 121–150; BP diastolic 71–87
[2017-07-29] MEDS: RT-ALBUTEROL/IPRATROPIUM 3 ML (DUONEB) VIAL INH SCH ×6 (02:24→22:04)
[2017-07-29] MEDS: methylPREDNISolone 40 MG/ML (Solu-MEDROL) VIAL IV SCH (03:47)
[2017-07-29] MEDS: ACETAMINOPHEN 500 MG TAB (TYLENOL) PO PRN (03:48)
[2017-07-29 04:55] LABS: BASOPHILS % (AUTO) 0 % (0-10); EOSINOPHILS % (AUTO) 0 % (0-10); HEMATOCRIT 34 % (40-54); HEMOGLOBIN 11.3 G/DL (13.3-17.7); LYMPHOCYTES # (AUTO) 0.6 X 10^3 (1.0-4.0); LYMPHOCYTES % (AUTO) 5 % (12-44); MEAN CORPUSCULAR HEMOGLOBIN 31 PG (25-34); MEAN CORPUSCULAR HGB CONC 34 G/DL (32-36); MEAN CORPUSCULAR VOLUME 93 FL (80-99); MEAN PLATELET VOLUME 9.9 FL (7.4-10.4); MONOCYTES # (AUTO) 0.7 X 10^3 (0.0-1.0); MONOCYTES % (AUTO) 6 % (0-12); NEUTROPHILS # (AUTO) 10.3 X 10^3 (1.8-7.8); NEUTROPHILS % (AUTO) 89 % (42-75); PLATELET COUNT 171 10^3/uL (130-400); RED BLOOD COUNT 3.63 10^6/uL (4.35-5.85); RED CELL DISTRIBUTION WIDTH 14.3 % (10.0-14.5); WHITE BLOOD COUNT 11.7 10^3/uL (4.3-11.0)
[2017-07-29] MEDS: D5 1/2 NS W/KCL 20 MEQ/L 1,000 ML IV SCH (05:23)
[2017-07-29] MEDS: VENlafaxine XR 75 MG (EFFEXOR XR) CAP PO SCH (05:23)
[2017-07-29] MEDS: LEVOTHYROXINE 75 MCG (LEVOTHROID) TABLET PO SCH (05:23)
[2017-07-29 05:31] LABS: BUN/CREATININE RATIO 21; CALCIUM 7.8 MG/DL (8.5-10.1); CARBON DIOXIDE 20 MMOL/L (21-32); CHLORIDE 107 MMOL/L (98-107); CREATININE SERUM 0.66 MG/DL (0.60-1.30); GFR ESTIMATED > 60; GLUCOSE 163 MG/DL (70-105); MAGNESIUM 1.6 MG/DL (1.8-2.4); POTASSIUM 4.2 MMOL/L (3.6-5.0); SODIUM 135 MMOL/L (135-145)
[2017-07-29] MEDS: predniSONE 20 MG TAB PO SCH (08:59)
[2017-07-29] MEDS: GABAPENTIN 300 MG (NEURONTIN) CAP PO SCH ×3 (08:59→20:31)
[2017-07-29] MEDS: HALOPERIDOL 2 MG (HALDOL) TABLET PO SCH ×2 (08:59→20:31)
[2017-07-29] MEDS: DIGOXIN 0.125 MG (LANOXIN) TAB PO SCH (08:59)
[2017-07-29] MEDS: CEFEPIME 2 GM/D5W 50 ML IVPB IV SCH ×2 (10:16)
[2017-07-29] MEDS: VANCOMYCIN 750 MG/NS 250 ML IVPB IV SCH ×2 (11:04)
--- NOTE | 2017-07-29 12:15 | Progress Note-Hospitalist ---
Subjective HPI/CC On Admission Date Seen by Provider: Jul 29, 2017 Time Seen by Provider: 11:30 Subjective/Events-last exam patient is sitting up eating his lunch and has good color today. His sputum grew out MRSA and he is in isolation. He is off Vapotherm and on 2-3 L nasal cannula. He coughs occasionally while eating confirming that he's at risk for aspiration. He is sitting up at 90. Review of Systems Neurological: Weakness Objective Exam Vital Signs Vital Sign - Last 12Hours 07/26/17 07/26/17 07/26/17 08:27 08:30 19:15 Temp 100.3 Pulse 120 Resp 24 B/P (MAP) 104/56 (72) Pulse Ox 94 O2 Delivery Room Air O2 Flow Rate 2.00 FiO2 50 Capillary Refill : Less Than 3 Seconds General Appearance: No Apparent Distress, Chronically ill HEENT: Normal ENT Inspection Respiratory: No Accessory Muscle Use, No Respiratory Distress, Rales Cardiovascular: Regular Rate, Rhythm, No Gallop Gastrointestinal: Soft Neurologic/Psychiatric: Alert, Normal Mood/Affect, Disoriented x3 Results/Procedures Lab Laboratory Tests 07/29/17 04:40 Assessment/Plan Assessment and Plan Assess & Plan/Chief Complaint 1. right upper lobe-MRSA pneumonia day number 4 cefepime and vancomycin as it's facility acquired 2. Exacerbation of COPD-changed to prednisone 3. Senile dementia 4. History of obstructive sleep apnea 5. History of bipolar disorder 6. hypomagnesemia will replace patient is a DO NOT RESUSCITATE and seems to be improving-probable discharge back to the nursing facility Sunday or Sunday this week RICHARD QUINTERO MD Jul 29, 2017 12:15 pm
[2017-07-29] MEDS: MAGNESIUM 1 GM/100 ML IVPB 100 ML IV SCH (13:09)
[2017-07-29] MEDS: ENOXAPARIN 40 MG/0.4 ML (LOVENOX) SYR SC SCH (18:31)
[2017-07-29] MEDS: TAMSULOSIN 0.4 MG (FLOMAX) CAP PO SCH (20:31)
[2017-07-30 00:20] VITALS: BP 130/75
[2017-07-30] MEDS: VANCOMYCIN 750 MG/NS 250 ML IVPB IV SCH ×6 (01:09→23:08)
[2017-07-30] MEDS: RT-ALBUTEROL/IPRATROPIUM 3 ML (DUONEB) VIAL INH SCH ×6 (02:19→20:56)
[2017-07-30 04:37] VITALS: BP 145/66
[2017-07-30 06:15] LABS: BASOPHILS % (AUTO) 0 % (0-10); EOSINOPHILS % (AUTO) 0 % (0-10); HEMATOCRIT 34 % (40-54); HEMOGLOBIN 11.5 G/DL (13.3-17.7); LYMPHOCYTES # (AUTO) 1.2 X 10^3 (1.0-4.0); LYMPHOCYTES % (AUTO) 9 % (12-44); MEAN CORPUSCULAR HEMOGLOBIN 31 PG (25-34); MEAN CORPUSCULAR HGB CONC 34 G/DL (32-36); MEAN CORPUSCULAR VOLUME 91 FL (80-99); MEAN PLATELET VOLUME 10.2 FL (7.4-10.4); MONOCYTES # (AUTO) 1.9 X 10^3 (0.0-1.0); MONOCYTES % (AUTO) 14 % (0-12); NEUTROPHILS # (AUTO) 10.3 X 10^3 (1.8-7.8); NEUTROPHILS % (AUTO) 77 % (42-75); PLATELET COUNT 177 10^3/uL (130-400); RED BLOOD COUNT 3.68 10^6/uL (4.35-5.85); RED CELL DISTRIBUTION WIDTH 14.2 % (10.0-14.5); WHITE BLOOD COUNT 13.4 10^3/uL (4.3-11.0)
[2017-07-30] MEDS: LEVOTHYROXINE 75 MCG (LEVOTHROID) TABLET PO SCH (06:52)
[2017-07-30] MEDS: VENlafaxine XR 75 MG (EFFEXOR XR) CAP PO SCH (06:52)
[2017-07-30 07:02] LABS: BUN/CREATININE RATIO 19; CARBON DIOXIDE 24 MMOL/L (21-32); CHLORIDE 105 MMOL/L (98-107); CREATININE SERUM 0.63 MG/DL (0.60-1.30); GFR ESTIMATED > 60; GLUCOSE 82 MG/DL (70-105); MAGNESIUM 1.9 MG/DL (1.8-2.4); PHOSPHORUS 1.7 MG/DL (2.3-4.7); SODIUM 137 MMOL/L (135-145)
--- NOTE | 2017-07-30 07:57 | Progress Note (SOAP) ---
Subjective Time Seen by Provider: 07:55 Subjective/Events-last exam patient states he doesn't feel well today. Patient knows who I am. Right upper lobe pneumonia with MRSA. COPD. Dementia area SHANT. Bipolar Patient a work in progress Objective Exam Vital Signs Date Time Temp Pulse Resp B/P (MAP) Pulse Ox O2 Delivery O2 Flow Rate FiO2 07/30/17 07:06 93 Nasal Cannula 3.00 07/30/17 04:37 99.4 96 20 145/66 (92) 100 Nasal Cannula 5.00 07/30/17 02:20 93 Nasal Cannula 3.00 07/30/17 01:00 91 07/30/17 00:20 98.3 86 20 130/75 (93) 98 Nasal Cannula 5.00 07/29/17 22:16 94 Nasal Cannula 3.00 07/29/17 21:30 Nasal Cannula 3.00 07/29/17 19:24 98.4 87 14 125/73 (90) 96 Nasal Cannula 5.00 07/29/17 19:00 100 07/29/17 18:34 94 Nasal Cannula 3.00 07/29/17 16:00 98.7 85 16 121/71 (88) 97 Nasal Cannula 5.00 07/29/17 14:11 96 Nasal Cannula 3.00 07/29/17 13:00 67 07/29/17 12:00 99.0 70 20 136/79 (98) 98 Nasal Cannula 5.00 07/29/17 11:23 95 Nasal Cannula 3.00 07/29/17 10:00 99.0 84 20 143/84 (103) 97 Nasal Cannula 5.00 07/29/17 08:00 98.5 108 20 138/81 (100) 97 Nasal Cannula 5.00 07/29/17 08:00 Nasal Cannula 4.00 I & O 07/30/17 07:00 Intake Total 2750 ml Output Total 1100 ml Balance 1650 ml Capillary Refill : Less Than 3 Seconds General Appearance: No Apparent Distress, WD/WN HEENT: Normal ENT Inspection Neck: Full Range of Motion, Normal Inspection Respiratory: Decreased Breath Sounds, Other (congestion) Cardiovascular: Regular Rate, Rhythm, No Murmur Gastrointestinal: non tender, soft Results Lab Laboratory Tests 07/30/17 05:24 Laboratory Tests 07/30/17 05:24: White Blood Count 13.4H, Red Blood Count 3.68L, Hemoglobin 11.5L, Hematocrit 34L , Mean Corpuscular Volume 91, Mean Corpuscular Hemoglobin 31, Mean Corpuscular Hemoglobin Concent 34, Red Cell Distribution Width 14.2, Platelet Count 177, Mean Platelet Volume 10.2, Neutrophils (%) (Auto) 77H, Lymphocytes (%) (Auto) 9L , Monocytes (%) (Auto) 14H, Eosinophils (%) (Auto) 0, Basophils (%) (Auto) 0, Neutrophils # (Auto) 10.3H, Lymphocytes # (Auto) 1.2, Monocytes # (Auto) 1.9H, Eosinophils # (Auto) 0.0, Basophils # (Auto) 0.0, Sodium Level 137, Potassium Level 4.0, Chloride Level 105, Carbon Dioxide Level 24, Anion Gap 8, Blood Urea Nitrogen 12, Creatinine 0.63, Estimat Glomerular Filtration Rate > 60, BUN/ Creatinine Ratio 19, Glucose Level 82, Calcium Level 8.0L, Phosphorus Level 1.7L , Magnesium Level 1.9 Microbiology 07/26/17 Blood Culture - Preliminary, Resulted No growth 07/26/17 Throat Culture - Final, Complete No Beta Strep isolated Assessment/Plan Assessment/Plan Assess & Plan/Chief Complaint right upper lobe pneumonia. Confusion. Dementia. Weakness. Bipolar. Patient awake today and less lethargic Can put on some of his psych medicines now. . 07/30/17. Right upper lobe pneumonia. MRSA. No confusion today. Dementia. Weakness. Bipolar. COPD. CAD. SHANT. Bipolar Clinical Quality Measures DVT/VTE Risk/Contraindication: Risk Factor Score Per Nursin RFS Level Per Nursing on Admit: 4+=Very High ARRON ELLISON DO Jul 30, 2017 07:57
[2017-07-30 08:00] VITALS: BP 131/75
--- NOTE | 2017-07-30 08:11 | Pulmonary Progress Note ---
Subjective Time Seen by Provider: 07:35 Subjective/Events-last exam No complications noted. Exam Exam Vital Signs Date Time Temp Pulse Resp B/P (MAP) Pulse Ox O2 Delivery O2 Flow Rate FiO2 07/30/17 07:06 93 Nasal Cannula 3.00 07/30/17 04:37 99.4 96 20 145/66 (92) 100 Nasal Cannula 5.00 07/30/17 02:20 93 Nasal Cannula 3.00 07/30/17 01:00 91 07/30/17 00:20 98.3 86 20 130/75 (93) 98 Nasal Cannula 5.00 07/29/17 22:16 94 Nasal Cannula 3.00 07/29/17 21:30 Nasal Cannula 3.00 07/29/17 19:24 98.4 87 14 125/73 (90) 96 Nasal Cannula 5.00 07/29/17 19:00 100 07/29/17 18:34 94 Nasal Cannula 3.00 07/29/17 16:00 98.7 85 16 121/71 (88) 97 Nasal Cannula 5.00 07/29/17 14:11 96 Nasal Cannula 3.00 07/29/17 13:00 67 07/29/17 12:00 99.0 70 20 136/79 (98) 98 Nasal Cannula 5.00 07/29/17 11:23 95 Nasal Cannula 3.00 07/29/17 10:00 99.0 84 20 143/84 (103) 97 Nasal Cannula 5.00 I & O 07/30/17 07:00 Intake Total 2750 ml Output Total 1100 ml Balance 1650 ml General Appearance: No Apparent Distress, WD/WN HEENT: Normal ENT Inspection Neck: Full Range of Motion, Normal Inspection Respiratory: Decreased Breath Sounds, Other (congestion) Cardiovascular: Regular Rate, Rhythm, No Murmur Capillary Refill: Less Than 3 Seconds Gastrointestinal: non tender, soft Extremity: Pedal Edema, Slow Capillary Refill Neurologic/Psychiatric: Alert, Disoriented x3 Skin: Pallor Lymphatic: No Adenopathy Results Lab Laboratory Tests 07/29/17 04:40 07/30/17 05:24 Assessment/Plan Assessment/Plan Acute Respiratory failure -BiPAP PRN -Solumedrol pneumonia with sepsis and hypoxia -Influenza swab is negative - Continue vanco and D/c Cefepime. -Check casillas cultures -strep, legionella urine Ag -SVNs hx of SHANT Dementia. Bipolar. Confusion Pt is now a DNR 232 Clinical Quality Measures DVT/VTE Risk/Contraindication: Risk Factor Score Per Nursin RFS Level Per Nursing on Admit: 4+=Very High JERRY RODRIGUEZ DO Jul 30, 2017 08:11
--- NOTE | 2017-07-30 08:29 | Diagnostic Imaging Report ---
INDICATION: Dyspnea and hypoxemia. 0758 hours Comparison is made study of 07/26/2017. FINDINGS: There has been further increase in patchy areas of airspace disease in both lungs with density greatest in the upper lobe of the right lung. There has also been increase in left basilar atelectasis and/or infiltrate. No pneumothorax is seen. No definite pleural effusion seen on the portable upright image. IMPRESSION: Increasing patchy airspace disease which may be due to edema or pneumonia. Radiographic followup is recommended. Dictated by: Dictated on workstation # [id number]
[2017-07-30] MEDS: DIGOXIN 0.125 MG (LANOXIN) TAB PO SCH (09:52)
[2017-07-30] MEDS: GABAPENTIN 300 MG (NEURONTIN) CAP PO SCH ×3 (09:52→21:48)
[2017-07-30] MEDS: HALOPERIDOL 2 MG (HALDOL) TABLET PO SCH ×2 (09:52→21:48)
[2017-07-30] MEDS: predniSONE 20 MG TAB PO SCH (09:52)
[2017-07-30 12:00] VITALS: BP 153/78
[2017-07-30 16:00] VITALS: BP 138/90
[2017-07-30] MEDS: ENOXAPARIN 40 MG/0.4 ML (LOVENOX) SYR SC SCH (18:22)
[2017-07-30 20:00] VITALS: BP 134/68
[2017-07-30] MEDS: TAMSULOSIN 0.4 MG (FLOMAX) CAP PO SCH (21:48)
[2017-07-31 00:34] VITALS: BP 127/60
[2017-07-31] MEDS: RT-ALBUTEROL/IPRATROPIUM 3 ML (DUONEB) VIAL INH SCH ×6 (02:46→23:01)
[2017-07-31 04:18] VITALS: BP 139/76
[2017-07-31] MEDS: VENlafaxine XR 75 MG (EFFEXOR XR) CAP PO SCH (06:30)
[2017-07-31] MEDS: LEVOTHYROXINE 75 MCG (LEVOTHROID) TABLET PO SCH (06:30)
--- NOTE | 2017-07-31 07:38 | Pulmonary Progress Note ---
Subjective Time Seen by Provider: 07:38 Subjective/Events-last exam Pt complains of only back pain. Exam Exam Vital Signs Date Time Temp Pulse Resp B/P (MAP) Pulse Ox O2 Delivery O2 Flow Rate FiO2 07/31/17 06:44 87 94 32 07/31/17 06:44 94 Nasal Cannula 3.00 07/31/17 04:18 99.5 88 20 139/76 (97) 91 Nasal Cannula 5.00 07/31/17 02:46 94 Nasal Cannula 3.00 07/31/17 01:00 84 07/31/17 00:34 99.1 86 17 127/60 (82) 92 Nasal Cannula 5.00 07/30/17 21:00 Nasal Cannula 3.00 07/30/17 20:56 97 Nasal Cannula 3.00 07/30/17 20:00 99.8 72 20 134/68 (90) 95 Nasal Cannula 5.00 07/30/17 19:00 80 07/30/17 16:00 98.7 78 16 138/90 (106) 99 Nasal Cannula 5.00 07/30/17 13:00 74 07/30/17 12:00 98.0 68 20 153/78 (103) 98 Nasal Cannula 5.00 07/30/17 11:00 93 Nasal Cannula 3.00 07/30/17 09:00 Nasal Cannula 3.00 07/30/17 08:00 98.3 82 20 131/75 (93) 92 Nasal Cannula 5.00 I & O 07/31/17 07:00 Intake Total 1100 ml Balance 1100 ml General Appearance: No Apparent Distress, WD/WN HEENT: Normal ENT Inspection Neck: Full Range of Motion, Normal Inspection Respiratory: Decreased Breath Sounds, Other (congestion) Cardiovascular: Regular Rate, Rhythm, No Murmur Capillary Refill: Less Than 3 Seconds Gastrointestinal: non tender, soft Extremity: Pedal Edema, Slow Capillary Refill Neurologic/Psychiatric: Alert, Disoriented x3 Skin: Pallor Lymphatic: No Adenopathy Results Lab Laboratory Tests 07/30/17 05:24 Assessment/Plan Assessment/Plan Acute Respiratory failure -BiPAP PRN -Prednisone taper. pneumonia with MRSA and hypoxia -Influenza swab is negative - Continue vanco and D/c Cefepime. -Check casillas cultures -strep, legionella urine Ag -SVNs hx of SHANT Dementia. Bipolar. Confusion 232 Clinical Quality Measures DVT/VTE Risk/Contraindication: Risk Factor Score Per Nursin RFS Level Per Nursing on Admit: 4+=Very High JERRY RODRIGUEZ DO Jul 31, 2017 07:38
[2017-07-31 08:00] VITALS: BP 120/77
--- NOTE | 2017-07-31 08:00 | Progress Note (SOAP) ---
Subjective Time Seen by Provider: 07:55 Subjective/Events-last exam chest x-ray looks worse yesterday. clinically patient sounds better today. Patient states he doesn't feel good but does not know why. Right upper lobe pneumonia. Hypoxia. Dementia. Bipolar Objective Exam Vital Signs Date Time Temp Pulse Resp B/P (MAP) Pulse Ox O2 Delivery O2 Flow Rate FiO2 07/31/17 06:44 87 94 32 07/31/17 06:44 94 Nasal Cannula 3.00 07/31/17 04:18 99.5 88 20 139/76 (97) 91 Nasal Cannula 5.00 07/31/17 02:46 94 Nasal Cannula 3.00 07/31/17 01:00 84 07/31/17 00:34 99.1 86 17 127/60 (82) 92 Nasal Cannula 5.00 07/30/17 21:00 Nasal Cannula 3.00 07/30/17 20:56 97 Nasal Cannula 3.00 07/30/17 20:00 99.8 72 20 134/68 (90) 95 Nasal Cannula 5.00 07/30/17 19:00 80 07/30/17 16:00 98.7 78 16 138/90 (106) 99 Nasal Cannula 5.00 07/30/17 13:00 74 07/30/17 12:00 98.0 68 20 153/78 (103) 98 Nasal Cannula 5.00 07/30/17 11:00 93 Nasal Cannula 3.00 07/30/17 09:00 Nasal Cannula 3.00 07/30/17 08:00 98.3 82 20 131/75 (93) 92 Nasal Cannula 5.00 I & O 07/31/17 07:00 Intake Total 1100 ml Balance 1100 ml Capillary Refill : Less Than 3 SecondsLess Than 3 Seconds General Appearance: No Apparent Distress, WD/WN HEENT: Normal ENT Inspection Neck: Normal Inspection Respiratory: No Accessory Muscle Use, No Respiratory Distress, Other (chest sounds improving) Cardiovascular: Regular Rate, Rhythm, No Murmur Gastrointestinal: non tender, soft Results Lab Microbiology 07/26/17 Blood Culture - Preliminary, Resulted No growth 07/26/17 Throat Culture - Final, Complete No Beta Strep isolated Assessment/Plan Assessment/Plan Assess & Plan/Chief Complaint right upper lobe pneumonia. Confusion. Dementia. Weakness. Bipolar. Patient awake today and less lethargic Can put on some of his psych medicines now. . 07/30/17. Right upper lobe pneumonia. MRSA. No confusion today. Dementia. Weakness. Bipolar. COPD. CAD. SHANT. Bipolar. . 07/31/17. Right upper lobe pneumonia. MRSA. No confusion today. Dementia. Weakness. Bipolar. COPD. CAD. SHANT. Patient sounding better today Clinical Quality Measures DVT/VTE Risk/Contraindication: Risk Factor Score Per Nursin RFS Level Per Nursing on Admit: 4+=Very High ARRON ELLISON DO Jul 31, 2017 08:00
[2017-07-31 08:03] LABS: BASOPHILS % (AUTO) 0 % (0-10); EOSINOPHILS % (AUTO) 0 % (0-10); HEMATOCRIT 37 % (40-54); HEMOGLOBIN 12.7 G/DL (13.3-17.7); LYMPHOCYTES # (AUTO) 2.3 X 10^3 (1.0-4.0); LYMPHOCYTES % (AUTO) 16 % (12-44); MEAN CORPUSCULAR HEMOGLOBIN 31 PG (25-34); MEAN CORPUSCULAR HGB CONC 34 G/DL (32-36); MEAN CORPUSCULAR VOLUME 91 FL (80-99); MEAN PLATELET VOLUME 9.9 FL (7.4-10.4); MONOCYTES # (AUTO) 2.8 X 10^3 (0.0-1.0); MONOCYTES % (AUTO) 20 % (0-12); NEUTROPHILS # (AUTO) 9.3 X 10^3 (1.8-7.8); NEUTROPHILS % (AUTO) 64 % (42-75); PLATELET COUNT 188 10^3/uL (130-400); RED BLOOD COUNT 4.09 10^6/uL (4.35-5.85); RED CELL DISTRIBUTION WIDTH 13.9 % (10.0-14.5); WHITE BLOOD COUNT 14.4 10^3/uL (4.3-11.0)
[2017-07-31 08:19] LABS: ALANINE AMINOTRANSFERASE 114 U/L (0-55); ALBUMIN 2.6 GM/DL (3.2-4.5); ALKALINE PHOSPHATASE 79 U/L (40-136); BUN/CREATININE RATIO 21; CALCIUM 7.9 MG/DL (8.5-10.1); CARBON DIOXIDE 27 MMOL/L (21-32); CHLORIDE 100 MMOL/L (98-107); CREATININE SERUM 0.61 MG/DL (0.60-1.30); GFR ESTIMATED > 60; GLUCOSE 75 MG/DL (70-105); MAGNESIUM 1.7 MG/DL (1.8-2.4); PHOSPHORUS 1.4 MG/DL (2.3-4.7); POTASSIUM 3.9 MMOL/L (3.6-5.0); SODIUM 135 MMOL/L (135-145); TOTAL PROTEIN 5.4 GM/DL (6.4-8.2)
[2017-07-31] MEDS: DIGOXIN 0.125 MG (LANOXIN) TAB PO SCH (10:34)
[2017-07-31] MEDS: HALOPERIDOL 2 MG (HALDOL) TABLET PO SCH ×2 (10:35→20:41)
[2017-07-31] MEDS: predniSONE 20 MG TAB PO SCH (10:35)
[2017-07-31] MEDS: VANCOMYCIN 750 MG/NS 250 ML IVPB IV SCH ×4 (10:35→22:38)
[2017-07-31] MEDS: GABAPENTIN 300 MG (NEURONTIN) CAP PO SCH ×3 (10:35→20:41)
[2017-07-31] MEDS ORDERED: LINE600T5 PO (10:56)
[2017-07-31] MEDS: ACETAMINOPHEN 500 MG TAB (TYLENOL) PO PRN (11:38)
[2017-07-31 12:00] VITALS: BP 126/61
--- NOTE | 2017-07-31 14:24 | Diagnostic Imaging Report ---
INDICATION: Pneumonia, hypoxia, shortness of air. TECHNIQUE: Single view chest at 1:53 PM. CORRELATION STUDY: 07/30/2017. FINDINGS: The patient is rotated on this examination. The heart size is enlarged. The vasculature is overall slightly increased from the prior study. The previously noted patchy densities within both lung koo persist but overall are slightly diminished. The findings remain most pronounced involving the right upper lobe and to a lesser degree the lung bases. IMPRESSION: 1. The lung koo appear slightly improved in overall aeration from the prior study. Infiltrate does remain, particularly in the right upper lobe. 2. The vasculature, however, appears to be slightly increased from the prior study. Dictated by: Dictated on workstation # [id number]
[2017-07-31 16:18] VITALS: BP 130/62
[2017-07-31] MEDS: ENOXAPARIN 40 MG/0.4 ML (LOVENOX) SYR SC SCH (18:37)
[2017-07-31 19:27] VITALS: BP 125/68
[2017-07-31] MEDS: TAMSULOSIN 0.4 MG (FLOMAX) CAP PO SCH (20:41)
[2017-08-01 00:10] VITALS: BP 137/78
[2017-08-01] MEDS: RT-ALBUTEROL/IPRATROPIUM 3 ML (DUONEB) VIAL INH SCH ×3 (02:55→10:54)
[2017-08-01 04:22] VITALS: BP 119/62
--- NOTE | 2017-08-01 05:44 | Pulmonary Progress Note ---
Subjective Time Seen by Provider: 05:44 Subjective/Events-last exam No complications noted. Exam Exam Vital Signs Date Time Temp Pulse Resp B/P (MAP) Pulse Ox O2 Delivery O2 Flow Rate FiO2 08/01/17 04:22 99.3 79 18 119/62 (81) 92 Nasal Cannula 1.00 08/01/17 02:56 94 Nasal Cannula 1.00 08/01/17 01:29 99.4 08/01/17 01:00 78 08/01/17 00:10 99.8 94 16 137/78 (97) 93 Nasal Cannula 1.00 07/31/17 23:02 94 Nasal Cannula 2.00 07/31/17 21:00 Nasal Cannula 2.00 07/31/17 19:27 98.1 75 20 125/68 (87) 98 Nasal Cannula 1.50 07/31/17 19:04 97 Nasal Cannula 3.00 07/31/17 19:00 73 07/31/17 16:18 98.5 64 20 130/62 (84) 98 Nasal Cannula 3.00 07/31/17 14:20 97 Nasal Cannula 3.00 07/31/17 13:00 92 07/31/17 12:00 99.0 87 20 126/61 (82) 98 Nasal Cannula 5.00 07/31/17 10:22 95 Nasal Cannula 3.00 07/31/17 08:55 Nasal Cannula 3.00 07/31/17 08:00 97.6 95 18 120/77 (91) 94 Nasal Cannula 5.00 07/31/17 06:44 87 94 32 07/31/17 06:44 94 Nasal Cannula 3.00 I & O 08/01/17 07:00 Intake Total 1675 ml Balance 1675 ml General Appearance: No Apparent Distress, WD/WN HEENT: Normal ENT Inspection, Pale Conjunctivae (L) Neck: Full Range of Motion, Supple Respiratory: Accessory Muscle Use, Decreased Breath Sounds, Rhonci Cardiovascular: Regular Rate, Rhythm, No Gallop Capillary Refill: Less Than 3 Seconds Gastrointestinal: soft Extremity: Normal Inspection, Normal Range of Motion, Non Tender Neurologic/Psychiatric: Alert, Depressed Affect Skin: Cool, Pallor Lymphatic: No Adenopathy Results Lab Laboratory Tests 07/31/17 07:41 Assessment/Plan Assessment/Plan Acute Respiratory failure -BiPAP PRN -Prednisone taper. pneumonia with MRSA and hypoxia -Influenza swab is negative - vanco -SVNs Leukocytosis -PT is on steroids. Pneumonia is improving hx of SHANT Dementia. Bipolar. Confusion CXR reviewed and shows improvement. Pt needs total of 14 days of Vanco. He is ok for discharge from pulmonary standpoint with outpt vanco or zyvox. 232 Clinical Quality Measures DVT/VTE Risk/Contraindication: Risk Factor Score Per Nursin RFS Level Per Nursing on Admit: 4+=Very High JERRY RODRIGUEZ DO Aug 01, 2017 05:44
[2017-08-01 06:00] LABS: BASOPHILS % (AUTO) 0 % (0-10); EOSINOPHILS % (AUTO) 0 % (0-10); HEMATOCRIT 40 % (40-54); HEMOGLOBIN 14.1 G/DL (13.3-17.7); LYMPHOCYTES # (AUTO) 2.4 X 10^3 (1.0-4.0); LYMPHOCYTES % (AUTO) 14 % (12-44); MEAN CORPUSCULAR HEMOGLOBIN 32 PG (25-34); MEAN CORPUSCULAR HGB CONC 35 G/DL (32-36); MEAN CORPUSCULAR VOLUME 90 FL (80-99); MEAN PLATELET VOLUME 10.1 FL (7.4-10.4); MONOCYTES # (AUTO) 2.7 X 10^3 (0.0-1.0); MONOCYTES % (AUTO) 15 % (0-12); NEUTROPHILS # (AUTO) 12.6 X 10^3 (1.8-7.8); NEUTROPHILS % (AUTO) 71 % (42-75); PLATELET COUNT 175 10^3/uL (130-400); RED BLOOD COUNT 4.48 10^6/uL (4.35-5.85); RED CELL DISTRIBUTION WIDTH 13.7 % (10.0-14.5); WHITE BLOOD COUNT 17.6 10^3/uL (4.3-11.0)
[2017-08-01] MEDS: VENlafaxine XR 75 MG (EFFEXOR XR) CAP PO SCH (06:08)
[2017-08-01] MEDS: LEVOTHYROXINE 75 MCG (LEVOTHROID) TABLET PO SCH (06:08)
[2017-08-01 06:29] LABS: BUN/CREATININE RATIO 16; CALCIUM 8.1 MG/DL (8.5-10.1); CARBON DIOXIDE 28 MMOL/L (21-32); CHLORIDE 100 MMOL/L (98-107); CREATININE SERUM 0.63 MG/DL (0.60-1.30); GFR ESTIMATED > 60; GLUCOSE 76 MG/DL (70-105); MAGNESIUM 1.8 MG/DL (1.8-2.4); POTASSIUM 3.8 MMOL/L (3.6-5.0); SODIUM 136 MMOL/L (135-145)
--- NOTE | 2017-08-01 07:09 | Diagnostic Imaging Report ---
INDICATION: Pneumonia EXAMINATION: Portable chest at 4:24 AM. There is infiltrate present in the right upper lobe consistent with pneumonia. This is increased in density from the previous day study. There may be a small patchy infiltrate at the right lung base. IMPRESSION: Right upper lobe infiltrate consistent with pneumonia. Dictated by: Dictated on workstation # [id number]
--- NOTE | 2017-08-01 07:40 | Progress Note (SOAP) ---
Subjective Time Seen by Provider: 07:35 Subjective/Events-last exam patient feels better and looks better today. White blood cell count increased to 17,000. Chest x-ray looks a little worse. Caregiver talk to me about hospice today. Patient and caregiver wants to put on hospice and go home instead of to the alf. To get bilingual social worker involved Objective Exam Vital Signs Date Time Temp Pulse Resp B/P (MAP) Pulse Ox O2 Delivery O2 Flow Rate FiO2 08/01/17 07:09 91 Nasal Cannula 1.00 08/01/17 04:22 99.3 79 18 119/62 (81) 92 Nasal Cannula 1.00 08/01/17 02:56 94 Nasal Cannula 1.00 08/01/17 01:29 99.4 08/01/17 01:00 78 08/01/17 00:10 99.8 94 16 137/78 (97) 93 Nasal Cannula 1.00 07/31/17 23:02 94 Nasal Cannula 2.00 07/31/17 21:00 Nasal Cannula 2.00 07/31/17 19:27 98.1 75 20 125/68 (87) 98 Nasal Cannula 1.50 07/31/17 19:04 97 Nasal Cannula 3.00 07/31/17 19:00 73 07/31/17 16:18 98.5 64 20 130/62 (84) 98 Nasal Cannula 3.00 07/31/17 14:20 97 Nasal Cannula 3.00 07/31/17 13:00 92 07/31/17 12:00 99.0 87 20 126/61 (82) 98 Nasal Cannula 5.00 07/31/17 10:22 95 Nasal Cannula 3.00 07/31/17 08:55 Nasal Cannula 3.00 07/31/17 08:00 97.6 95 18 120/77 (91) 94 Nasal Cannula 5.00 I & O 08/01/17 07:00 Intake Total 2075 ml Balance 2075 ml Capillary Refill : Less Than 3 SecondsLess Than 3 Seconds General Appearance: No Apparent Distress, WD/WN HEENT: Normal ENT Inspection Neck: Full Range of Motion, Normal Inspection Respiratory: Normal Breath Sounds, No Accessory Muscle Use, No Respiratory Distress Cardiovascular: Regular Rate, Rhythm, No Murmur Gastrointestinal: non tender, soft Results Lab Laboratory Tests 07/31/17 07:41 08/01/17 05:16 Laboratory Tests 07/31/17 07:41: White Blood Count 14.4H, Red Blood Count 4.09L, Hemoglobin 12.7L, Hematocrit 37L , Mean Corpuscular Volume 91, Mean Corpuscular Hemoglobin 31, Mean Corpuscular Hemoglobin Concent 34, Red Cell Distribution Width 13.9, Platelet Count 188, Mean Platelet Volume 9.9, Neutrophils (%) (Auto) 64, Lymphocytes (%) (Auto) 16, Monocytes (%) (Auto) 20H, Eosinophils (%) (Auto) 0, Basophils (%) (Auto) 0, Neutrophils # (Auto) 9.3H, Lymphocytes # (Auto) 2.3, Monocytes # (Auto) 2.8H, Eosinophils # (Auto) 0.0, Basophils # (Auto) 0.0, Sodium Level 135, Potassium Level 3.9, Chloride Level 100, Carbon Dioxide Level 27, Anion Gap 8, Blood Urea Nitrogen 13, Creatinine 0.61, Estimat Glomerular Filtration Rate > 60, BUN/ Creatinine Ratio 21, Glucose Level 75, Calcium Level 7.9L, Phosphorus Level 1.4L , Magnesium Level 1.7L, Total Bilirubin 1.0, Aspartate Amino Transf (AST/SGOT) 85H, Alanine Aminotransferase (ALT/SGPT) 114H, Alkaline Phosphatase 79, B-Type Natriuretic Peptide 110.7H, Total Protein 5.4L, Albumin 2.6L 08/01/17 05:16: White Blood Count 17.6H, Red Blood Count 4.48, Hemoglobin 14.1, Hematocrit 40, Mean Corpuscular Volume 90, Mean Corpuscular Hemoglobin 32, Mean Corpuscular Hemoglobin Concent 35, Red Cell Distribution Width 13.7, Platelet Count 175, Mean Platelet Volume 10.1, Neutrophils (%) (Auto) 71, Lymphocytes (%) (Auto) 14 , Monocytes (%) (Auto) 15H, Eosinophils (%) (Auto) 0, Basophils (%) (Auto) 0, Neutrophils # (Auto) 12.6H, Lymphocytes # (Auto) 2.4, Monocytes # (Auto) 2.7H, Eosinophils # (Auto) 0.0, Basophils # (Auto) 0.0, Sodium Level 136, Potassium Level 3.8, Chloride Level 100, Carbon Dioxide Level 28, Anion Gap 8, Blood Urea Nitrogen 10, Creatinine 0.63, Estimat Glomerular Filtration Rate > 60, BUN/ Creatinine Ratio 16, Glucose Level 76, Calcium Level 8.1L, Phosphorus Level 2.1L , Magnesium Level 1.8 Microbiology 07/26/17 Blood Culture - Preliminary, Resulted No growth 07/26/17 Throat Culture - Final, Complete No Beta Strep isolated Assessment/Plan Assessment/Plan Assess & Plan/Chief Complaint right upper lobe pneumonia. Confusion. Dementia. Weakness. Bipolar. Patient awake today and less lethargic Can put on some of his psych medicines now. . 07/30/17. Right upper lobe pneumonia. MRSA. No confusion today. Dementia. Weakness. Bipolar. COPD. CAD. SHANT. Bipolar. . 07/31/17. Right upper lobe pneumonia. MRSA. No confusion today. Dementia. Weakness. Bipolar. COPD. CAD. SHANT. Patient sounding better today. . 08/01/17. Patient and caregiver would like to go home. Low-fat considering hospice. Get bilingual social worker involved. Bipolar. COPD. CAD. Patient sounding better and feeling better. Clinically doing better. White blood cell count more elevated and chest x-ray appears slightly worse. Patient wants to go home with hospice. family services manager involved Clinical Quality Measures DVT/VTE Risk/Contraindication: Risk Factor Score Per Nursin RFS Level Per Nursing on Admit: 4+=Very High ARRON ELLISON DO Aug 01, 2017 07:40
[2017-08-01 08:00] VITALS: BP 127/68
[2017-08-01] MEDS: DIGOXIN 0.125 MG (LANOXIN) TAB PO SCH (10:15)
[2017-08-01] MEDS: GABAPENTIN 300 MG (NEURONTIN) CAP PO SCH ×2 (10:15→13:44)
[2017-08-01] MEDS: predniSONE 20 MG TAB PO SCH (10:15)
[2017-08-01] MEDS: HALOPERIDOL 2 MG (HALDOL) TABLET PO SCH (10:16)
[2017-08-01] MEDS ORDERED: TROUGH ORDER-PHARMACY XX NR (10:30)
[2017-08-01 12:00] VITALS: BP 110/55
[2017-08-01] MEDS: VANCOMYCIN 750 MG/NS 250 ML IVPB IV SCH ×2 (12:28)
[2017-08-01] MEDS: ACETAMINOPHEN 500 MG TAB (TYLENOL) PO PRN (13:36)
[2017-08-01] MEDS ORDERED: VANCOMYCIN 1 GM/NS 250 ML IVPB IV SCH ×2 (21:00)
--- NOTE | 2017-08-02 18:49 | Physician Query Clarification ---
PQ-Uncertain Diagnosis Admission/Discharge Admission Date: Jul 26, 2017 at 09:30 Discharge Date: Aug 01, 2017 at 15:06 The medical record reflects the following clinical scenario: History/Risk Factors: fever, WBC 18.7 Clinical Findings: pneumonia MRSA Treatment: antibiotics Question: Is SEPSIS a clinically valid diagnosis? SEPSIS was documented in the ED RECORD AND H&P with no further documentation in the medical record. Please document a response below. PHYSICIAN RESPONSE Diagnosis clinically valid: Undetermined In responding to this query, please exercise your independent professional judgment. The purpose of this communication is to more accurately reflect the complexity of your patients condition. The fact that a question is asked does not imply that any particular answer is desired or expected. Thank you for your timely response to this clarification. Requestors name: [ ] Phone # [ ] THIS PHYSICIAN QUERY FORM IS A PERMANENT PART OF THE MEDICAL RECORD BEKAH HERNANDEZ Aug 02, 2017 18:49 ARRON ELLISON DO Aug 03, 2017 07:09
--- NOTE | 2017-08-02 18:55 | Discharge Summary ---
Diagnosis/Chief Complaint Date of Admission Jul 26, 2017 at 09:30 Date of Discharge Aug 01, 2017 at 15:06 Discharge Date: Aug 01, 2017 Discharge Time: 1530 Admission Diagnosis Admission Diagnosis acute respiratory failure. Pneumonia. Sepsis. SHANT. Dementia. Bipolar. Confusion Patient cannot start home medicines due to lethargy. We'll start them tomorrow morning Discharge Diagnosis acute respiratory failure. Pneumonia. MRSA. Sepsis. SHANT. Dementia. Bipolar. Confusion. Lethargy Reason Hospital Visit PATIENT IS A RESIDENT OF A CUSTODIAL. [facility]. Patient ran a temperature of 103. Patient hypoxic . Patient coughing and congested. Patient has been at the hospital for pneumonia previously. Patient sent out to the emergency room. Patient has acute respiratory failure. Pneumonia. Sepsis. Dementia. Bipolar. SHANT. Confusion Patient did talk to me but not able to answer questions Patient in emergency not able to give any history Discharge Summary Consultations pulmonology Discharge Physical Examination Allergies: Coded Allergies: Penicillins (Verified Allergy, Severe, PT HAS RECEIVED CEFEPIME & ROCEPHIN W/O ISSUE, 07/26/17) temazepam (Verified Adverse Reaction, Mild, PATIENT TAKES LORAZEPAM, ) VERY BAD DREAMS Vitals & I&Os Vital Signs Date Time Temp Pulse Resp B/P (MAP) Pulse Ox O2 Delivery O2 Flow Rate FiO2 08/01/17 15:06 08/01/17 13:00 87 08/01/17 12:00 99.0 20 96 Nasal Cannula 1.00 07/31/17 06:44 32 Hospital Course patient and caregiver wanted to go to his own home with hospice Patient did not want [facility] Labs (last 24 hrs) Laboratory Tests 07/26/17 08:15: White Blood Count 18.7H, Red Blood Count 4.48, Hemoglobin 14.1, Hematocrit 41, Mean Corpuscular Volume 92, Mean Corpuscular Hemoglobin 32, Mean Corpuscular Hemoglobin Concent 34, Red Cell Distribution Width 14.7H, Platelet Count 235, Mean Platelet Volume 9.2, Neutrophils (%) (Auto) 83H, Lymphocytes (%) (Auto) 5L , Monocytes (%) (Auto) 12, Eosinophils (%) (Auto) 0, Basophils (%) (Auto) 0, Neutrophils # (Auto) 15.5H, Lymphocytes # (Auto) 1.0, Monocytes # (Auto) 2.2H, Eosinophils # (Auto) 0.0, Basophils # (Auto) 0.0, Neutrophils % (Manual) 87, Lymphocytes % (Manual) 4, Monocytes % (Manual) 9, Blood Morphology Comment NORMAL, Prothrombin Time 13.2, INR Comment 1.0, Activated Partial Thromboplast Time 36H, Sodium Level 138, Potassium Level 4.2, Chloride Level 100, Carbon Dioxide Level 26, Anion Gap 12, Blood Urea Nitrogen 21H, Creatinine 1.31H, Estimat Glomerular Filtration Rate 53, BUN/Creatinine Ratio 16, Glucose Level 124H, Lactic Acid Level 1.91, Calcium Level 8.9, Total Bilirubin 0.9, Aspartate Amino Transf (AST/SGOT) 67H, Alanine Aminotransferase (ALT/SGPT) 67H, Alkaline Phosphatase 113, B-Type Natriuretic Peptide 21.6, Total Protein 6.7, Albumin 3.4 07/26/17 10:15: Blood Gas Puncture Site RT RAD, Blood Gas Patient Temperature 103, Arterial Blood pH 7.37, Arterial Blood Partial Pressure CO2 51H, Arterial Blood Partial Pressure O2 96H, Arterial Blood HCO3 28H, Arterial Blood Total CO2 29.2, Arterial Blood Oxygen Saturation 98, Arterial Blood Base Excess 3.4H, Scar Test YES-POS, Blood Gas Ventilator Setting NO, Blood Gas Inspired Oxygen 5 NC 07/26/17 11:51: Group A Streptococcus Screen NEGATIVE 07/26/17 12:20: Urine Color YELLOW, Urine Clarity CLEAR, Urine pH 5, Urine Specific [place] 1.015L, Urine Protein NEGATIVE, Urine Glucose (UA) NEGATIVE, Urine Ketones NEGATIVE, Urine Nitrite NEGATIVE, Urine Bilirubin NEGATIVE, Urine Urobilinogen NORMAL, Urine Leukocyte Esterase 1+H, Urine RBC (Auto) NEGATIVE, Urine RBC NONE , Urine WBC 2-5, Urine Squamous Epithelial Cells 2-5, Urine Crystals NONE, Urine Bacteria NEGATIVE, Urine Casts PRESENT, Urine Hyaline Casts 10-25H, Urine Mucus LARGEH, Urine Culture Indicated NO, Urine Legionella pneumophilia Ag Negative, Streptococcus pneumoniae Antigen Negative 07/26/17 13:20: Lactic Acid Level 0.75, Procalcitonin 2.26H 07/27/17 05:20: White Blood Count 24.3H, Red Blood Count 4.00L, Hemoglobin 12.5L, Hematocrit 38L , Mean Corpuscular Volume 94, Mean Corpuscular Hemoglobin 31, Mean Corpuscular Hemoglobin Concent 33, Red Cell Distribution Width 14.6H, Platelet Count 196, Mean Platelet Volume 9.8, Neutrophils (%) (Auto) 92H, Lymphocytes (%) (Auto) 3L , Monocytes (%) (Auto) 5, Eosinophils (%) (Auto) 0, Basophils (%) (Auto) 0, Neutrophils # (Auto) 22.3H, Lymphocytes # (Auto) 0.7L, Monocytes # (Auto) 1.3H, Eosinophils # (Auto) 0.0, Basophils # (Auto) 0.0, Neutrophils % (Manual) 67, Lymphocytes % (Manual) 2, Monocytes % (Manual) 5, Eosinophils % (Manual) 0, Basophils % (Manual) 0, Band Neutrophils 26, Anisocytosis SLIGHT, Sodium Level 140, Potassium Level 4.4, Chloride Level 108H, Carbon Dioxide Level 22, Anion Gap 10, Blood Urea Nitrogen 17, Creatinine 0.85, Estimat Glomerular Filtration Rate > 60, BUN/Creatinine Ratio 20, Glucose Level 128H, Calcium Level 8.5, Phosphorus Level 2.5, Magnesium Level 1.7L 07/28/17 04:21: White Blood Count 15.6H, Red Blood Count 3.82L, Hemoglobin 12.0L, Hematocrit 36L , Mean Corpuscular Volume 93, Mean Corpuscular Hemoglobin 31, Mean Corpuscular Hemoglobin Concent 34, Red Cell Distribution Width 14.5, Platelet Count 186, Mean Platelet Volume 10.0, Neutrophils (%) (Auto) 90H, Lymphocytes (%) (Auto) 4L , Monocytes (%) (Auto) 6, Eosinophils (%) (Auto) 0, Basophils (%) (Auto) 0, Neutrophils # (Auto) 14.0H, Lymphocytes # (Auto) 0.6L, Monocytes # (Auto) 0.9, Eosinophils # (Auto) 0.0, Basophils # (Auto) 0.0, Sodium Level 135, Potassium Level 4.9, Chloride Level 106, Carbon Dioxide Level 21, Anion Gap 8, Blood Urea Nitrogen 17, Creatinine 0.76, Estimat Glomerular Filtration Rate > 60, BUN/ Creatinine Ratio 22, Glucose Level 140H, Calcium Level 8.4L, Phosphorus Level 2.2L, Magnesium Level 2.0 07/28/17 10:33: Vancomycin Level Trough 9.1L 07/29/17 04:40: White Blood Count 11.7H, Red Blood Count 3.63L, Hemoglobin 11.3L, Hematocrit 34L , Mean Corpuscular Volume 93, Mean Corpuscular Hemoglobin 31, Mean Corpuscular Hemoglobin Concent 34, Red Cell Distribution Width 14.3, Platelet Count 171, Mean Platelet Volume 9.9, Neutrophils (%) (Auto) 89H, Lymphocytes (%) (Auto) 5L , Monocytes (%) (Auto) 6, Eosinophils (%) (Auto) 0, Basophils (%) (Auto) 0, Neutrophils # (Auto) 10.3H, Lymphocytes # (Auto) 0.6L, Monocytes # (Auto) 0.7, Eosinophils # (Auto) 0.0, Basophils # (Auto) 0.0, Sodium Level 135, Potassium Level 4.2, Chloride Level 107, Carbon Dioxide Level 20L, Anion Gap 8, Blood Urea Nitrogen 14, Creatinine 0.66, Estimat Glomerular Filtration Rate > 60, BUN/ Creatinine Ratio 21, Glucose Level 163H, Calcium Level 7.8L, Phosphorus Level 1.6L, Magnesium Level 1.6L 07/30/17 05:24: White Blood Count 13.4H, Red Blood Count 3.68L, Hemoglobin 11.5L, Hematocrit 34L , Mean Corpuscular Volume 91, Mean Corpuscular Hemoglobin 31, Mean Corpuscular Hemoglobin Concent 34, Red Cell Distribution Width 14.2, Platelet Count 177, Mean Platelet Volume 10.2, Neutrophils (%) (Auto) 77H, Lymphocytes (%) (Auto) 9L , Monocytes (%) (Auto) 14H, Eosinophils (%) (Auto) 0, Basophils (%) (Auto) 0, Neutrophils # (Auto) 10.3H, Lymphocytes # (Auto) 1.2, Monocytes # (Auto) 1.9H, Eosinophils # (Auto) 0.0, Basophils # (Auto) 0.0, Sodium Level 137, Potassium Level 4.0, Chloride Level 105, Carbon Dioxide Level 24, Anion Gap 8, Blood Urea Nitrogen 12, Creatinine 0.63, Estimat Glomerular Filtration Rate > 60, BUN/ Creatinine Ratio 19, Glucose Level 82, Calcium Level 8.0L, Phosphorus Level 1.7L , Magnesium Level 1.9 07/31/17 07:41: White Blood Count 14.4H, Red Blood Count 4.09L, Hemoglobin 12.7L, Hematocrit 37L , Mean Corpuscular Volume 91, Mean Corpuscular Hemoglobin 31, Mean Corpuscular Hemoglobin Concent 34, Red Cell Distribution Width 13.9, Platelet Count 188, Mean Platelet Volume 9.9, Neutrophils (%) (Auto) 64, Lymphocytes (%) (Auto) 16, Monocytes (%) (Auto) 20H, Eosinophils (%) (Auto) 0, Basophils (%) (Auto) 0, Neutrophils # (Auto) 9.3H, Lymphocytes # (Auto) 2.3, Monocytes # (Auto) 2.8H, Eosinophils # (Auto) 0.0, Basophils # (Auto) 0.0, Sodium Level 135, Potassium Level 3.9, Chloride Level 100, Carbon Dioxide Level 27, Anion Gap 8, Blood Urea Nitrogen 13, Creatinine 0.61, Estimat Glomerular Filtration Rate > 60, BUN/ Creatinine Ratio 21, Glucose Level 75, Calcium Level 7.9L, Phosphorus Level 1.4L , Magnesium Level 1.7L, Total Bilirubin 1.0, Aspartate Amino Transf (AST/SGOT) 85H, Alanine Aminotransferase (ALT/SGPT) 114H, Alkaline Phosphatase 79, B-Type Natriuretic Peptide 110.7H, Total Protein 5.4L, Albumin 2.6L 08/01/17 05:16: White Blood Count 17.6H, Red Blood Count 4.48, Hemoglobin 14.1, Hematocrit 40, Mean Corpuscular Volume 90, Mean Corpuscular Hemoglobin 32, Mean Corpuscular Hemoglobin Concent 35, Red Cell Distribution Width 13.7, Platelet Count 175, Mean Platelet Volume 10.1, Neutrophils (%) (Auto) 71, Lymphocytes (%) (Auto) 14 , Monocytes (%) (Auto) 15H, Eosinophils (%) (Auto) 0, Basophils (%) (Auto) 0, Neutrophils # (Auto) 12.6H, Lymphocytes # (Auto) 2.4, Monocytes # (Auto) 2.7H, Eosinophils # (Auto) 0.0, Basophils # (Auto) 0.0, Sodium Level 136, Potassium Level 3.8, Chloride Level 100, Carbon Dioxide Level 28, Anion Gap 8, Blood Urea Nitrogen 10, Creatinine 0.63, Estimat Glomerular Filtration Rate > 60, BUN/ Creatinine Ratio 16, Glucose Level 76, Calcium Level 8.1L, Phosphorus Level 2.1L , Magnesium Level 1.8 08/01/17 11:08: Vancomycin Level Trough 13.2 Microbiology 07/26/17 Blood Culture - Preliminary, Resulted No growth 07/26/17 Throat Culture - Final, Complete No Beta Strep isolated Laboratory Tests 07/26/17 08:15 07/27/17 05:20 07/28/17 04:21 07/29/17 04:40 07/30/17 05:24 07/31/17 07:41 08/01/17 05:16 Pending Labs Microbiology Date/Time Source Procedure Growth Status 07/26/17 08:38 Peripheral Rt Hand Blood Culture - Preliminary No growth Resulted 07/26/17 08:15 Peripheral Lt Hand Blood Culture - Preliminary No growth Resulted 07/26/17 11:51 Throat Throat Culture - Final No Beta Strep isolated Complete 07/26/17 09:00 Sputum Induced Gram Stain - Final Complete 07/26/17 09:00 Sputum Culture - Final Staphylococcus Aureus Complete 07/26/17 08:15 Nasopharynx Influenza Types A,B Antigen (ANJANA) - Final Complete Laboratory Tests 07/26/17 08:15: White Blood Count 18.7, Red Blood Count 4.48, Hemoglobin 14.1, Hematocrit 41, Mean Corpuscular Volume 92, Mean Corpuscular Hemoglobin 32, Mean Corpuscular Hemoglobin Concent 34, Red Cell Distribution Width 14.7, Platelet Count 235, Mean Platelet Volume 9.2, Neutrophils (%) (Auto) 83, Lymphocytes (%) (Auto) 5, Monocytes (%) (Auto) 12, Eosinophils (%) (Auto) 0, Basophils (%) (Auto) 0, Neutrophils # (Auto) 15.5, Lymphocytes # (Auto) 1.0, Monocytes # (Auto) 2.2, Eosinophils # (Auto) 0.0, Basophils # (Auto) 0.0, Neutrophils % (Manual) 87, Lymphocytes % (Manual) 4, Monocytes % (Manual) 9, Blood Morphology Comment NORMAL, Prothrombin Time 13.2, INR Comment 1.0, Activated Partial Thromboplast Time 36, Sodium Level 138, Potassium Level 4.2, Chloride Level 100, Carbon Dioxide Level 26, Anion Gap 12, Blood Urea Nitrogen 21, Creatinine 1.31, Estimat Glomerular Filtration Rate 53, BUN/Creatinine Ratio 16, Glucose Level 124, Lactic Acid Level 1.91, Calcium Level 8.9, Total Bilirubin 0.9, Aspartate Amino Transf (AST/SGOT) 67, Alanine Aminotransferase (ALT/SGPT) 67, Alkaline Phosphatase 113, B-Type Natriuretic Peptide 21.6, Total Protein 6.7, Albumin 3.4 07/26/17 10:15: Blood Gas Puncture Site RT RAD, Blood Gas Patient Temperature 103, Arterial Blood pH 7.37, Arterial Blood Partial Pressure CO2 51, Arterial Blood Partial Pressure O2 96, Arterial Blood HCO3 28, Arterial Blood Total CO2 29.2, Arterial Blood Oxygen Saturation 98, Arterial Blood Base Excess 3.4, Scar Test YES-POS, Blood Gas Ventilator Setting NO, Blood Gas Inspired Oxygen 5 NC 07/26/17 11:51: Group A Streptococcus Screen NEGATIVE 07/26/17 12:20: Urine Color YELLOW, Urine Clarity CLEAR, Urine pH 5, Urine Specific [place] 1.015, Urine Protein NEGATIVE, Urine Glucose (UA) NEGATIVE, Urine Ketones NEGATIVE, Urine Nitrite NEGATIVE, Urine Bilirubin NEGATIVE, Urine Urobilinogen NORMAL, Urine Leukocyte Esterase 1+, Urine RBC (Auto) NEGATIVE, Urine RBC NONE, Urine WBC 2-5, Urine Squamous Epithelial Cells 2-5, Urine Crystals NONE, Urine Bacteria NEGATIVE, Urine Casts PRESENT, Urine Hyaline Casts 10-25, Urine Mucus LARGE, Urine Culture Indicated NO, Urine Legionella pneumophilia Ag Negative, Streptococcus pneumoniae Antigen Negative 07/26/17 13:20: Lactic Acid Level 0.75, Procalcitonin 2.26 07/27/17 05:20: White Blood Count 24.3, Red Blood Count 4.00, Hemoglobin 12.5, Hematocrit 38, Mean Corpuscular Volume 94, Mean Corpuscular Hemoglobin 31, Mean Corpuscular Hemoglobin Concent 33, Red Cell Distribution Width 14.6, Platelet Count 196, Mean Platelet Volume 9.8, Neutrophils (%) (Auto) 92, Lymphocytes (%) (Auto) 3, Monocytes (%) (Auto) 5, Eosinophils (%) (Auto) 0, Basophils (%) (Auto) 0, Neutrophils # (Auto) 22.3, Lymphocytes # (Auto) 0.7, Monocytes # (Auto) 1.3, Eosinophils # (Auto) 0.0, Basophils # (Auto) 0.0, Neutrophils % (Manual) 67, Lymphocytes % (Manual) 2, Monocytes % (Manual) 5, Eosinophils % (Manual) 0, Basophils % (Manual) 0, Band Neutrophils 26, Anisocytosis SLIGHT, Sodium Level 140, Potassium Level 4.4, Chloride Level 108, Carbon Dioxide Level 22, Anion Gap 10, Blood Urea Nitrogen 17, Creatinine 0.85, Estimat Glomerular Filtration Rate > 60, BUN/Creatinine Ratio 20, Glucose Level 128, Calcium Level 8.5, Phosphorus Level 2.5, Magnesium Level 1.7 07/28/17 04:21: White Blood Count 15.6, Red Blood Count 3.82, Hemoglobin 12.0, Hematocrit 36, Mean Corpuscular Volume 93, Mean Corpuscular Hemoglobin 31, Mean Corpuscular Hemoglobin Concent 34, Red Cell Distribution Width 14.5, Platelet Count 186, Mean Platelet Volume 10.0, Neutrophils (%) (Auto) 90, Lymphocytes (%) (Auto) 4, Monocytes (%) (Auto) 6, Eosinophils (%) (Auto) 0, Basophils (%) (Auto) 0, Neutrophils # (Auto) 14.0, Lymphocytes # (Auto) 0.6, Monocytes # (Auto) 0.9, Eosinophils # (Auto) 0.0, Basophils # (Auto) 0.0, Sodium Level 135, Potassium Level 4.9, Chloride Level 106, Carbon Dioxide Level 21, Anion Gap 8, Blood Urea Nitrogen 17, Creatinine 0.76, Estimat Glomerular Filtration Rate > 60, BUN/ Creatinine Ratio 22, Glucose Level 140, Calcium Level 8.4, Phosphorus Level 2.2 , Magnesium Level 2.0 07/28/17 10:33: Vancomycin Level Trough 9.1 07/29/17 04:40: White Blood Count 11.7, Red Blood Count 3.63, Hemoglobin 11.3, Hematocrit 34, Mean Corpuscular Volume 93, Mean Corpuscular Hemoglobin 31, Mean Corpuscular Hemoglobin Concent 34, Red Cell Distribution Width 14.3, Platelet Count 171, Mean Platelet Volume 9.9, Neutrophils (%) (Auto) 89, Lymphocytes (%) (Auto) 5, Monocytes (%) (Auto) 6, Eosinophils (%) (Auto) 0, Basophils (%) (Auto) 0, Neutrophils # (Auto) 10.3, Lymphocytes # (Auto) 0.6, Monocytes # (Auto) 0.7, Eosinophils # (Auto) 0.0, Basophils # (Auto) 0.0, Sodium Level 135, Potassium Level 4.2, Chloride Level 107, Carbon Dioxide Level 20, Anion Gap 8, Blood Urea Nitrogen 14, Creatinine 0.66, Estimat Glomerular Filtration Rate > 60, BUN/ Creatinine Ratio 21, Glucose Level 163, Calcium Level 7.8, Phosphorus Level 1.6 , Magnesium Level 1.6 07/30/17 05:24: White Blood Count 13.4, Red Blood Count 3.68, Hemoglobin 11.5, Hematocrit 34, Mean Corpuscular Volume 91, Mean Corpuscular Hemoglobin 31, Mean Corpuscular Hemoglobin Concent 34, Red Cell Distribution Width 14.2, Platelet Count 177, Mean Platelet Volume 10.2, Neutrophils (%) (Auto) 77, Lymphocytes (%) (Auto) 9, Monocytes (%) (Auto) 14, Eosinophils (%) (Auto) 0, Basophils (%) (Auto) 0, Neutrophils # (Auto) 10.3, Lymphocytes # (Auto) 1.2, Monocytes # (Auto) 1.9, Eosinophils # (Auto) 0.0, Basophils # (Auto) 0.0, Sodium Level 137, Potassium Level 4.0, Chloride Level 105, Carbon Dioxide Level 24, Anion Gap 8, Blood Urea Nitrogen 12, Creatinine 0.63, Estimat Glomerular Filtration Rate > 60, BUN/ Creatinine Ratio 19, Glucose Level 82, Calcium Level 8.0, Phosphorus Level 1.7, Magnesium Level 1.9 07/31/17 07:41: White Blood Count 14.4, Red Blood Count 4.09, Hemoglobin 12.7, Hematocrit 37, Mean Corpuscular Volume 91, Mean Corpuscular Hemoglobin 31, Mean Corpuscular Hemoglobin Concent 34, Red Cell Distribution Width 13.9, Platelet Count 188, Mean Platelet Volume 9.9, Neutrophils (%) (Auto) 64, Lymphocytes (%) (Auto) 16, Monocytes (%) (Auto) 20, Eosinophils (%) (Auto) 0, Basophils (%) (Auto) 0, Neutrophils # (Auto) 9.3, Lymphocytes # (Auto) 2.3, Monocytes # (Auto) 2.8, Eosinophils # (Auto) 0.0, Basophils # (Auto) 0.0, Sodium Level 135, Potassium Level 3.9, Chloride Level 100, Carbon Dioxide Level 27, Anion Gap 8, Blood Urea Nitrogen 13, Creatinine 0.61, Estimat Glomerular Filtration Rate > 60, BUN/ Creatinine Ratio 21, Glucose Level 75, Calcium Level 7.9, Phosphorus Level 1.4, Magnesium Level 1.7, Total Bilirubin 1.0, Aspartate Amino Transf (AST/SGOT) 85, Alanine Aminotransferase (ALT/SGPT) 114, Alkaline Phosphatase 79, B-Type Natriuretic Peptide 110.7, Total Protein 5.4, Albumin 2.6 08/01/17 05:16: White Blood Count 17.6, Red Blood Count 4.48, Hemoglobin 14.1, Hematocrit 40, Mean Corpuscular Volume 90, Mean Corpuscular Hemoglobin 32, Mean Corpuscular Hemoglobin Concent 35, Red Cell Distribution Width 13.7, Platelet Count 175, Mean Platelet Volume 10.1, Neutrophils (%) (Auto) 71, Lymphocytes (%) (Auto) 14 , Monocytes (%) (Auto) 15, Eosinophils (%) (Auto) 0, Basophils (%) (Auto) 0, Neutrophils # (Auto) 12.6, Lymphocytes # (Auto) 2.4, Monocytes # (Auto) 2.7, Eosinophils # (Auto) 0.0, Basophils # (Auto) 0.0, Sodium Level 136, Potassium Level 3.8, Chloride Level 100, Carbon Dioxide Level 28, Anion Gap 8, Blood Urea Nitrogen 10, Creatinine 0.63, Estimat Glomerular Filtration Rate > 60, BUN/ Creatinine Ratio 16, Glucose Level 76, Calcium Level 8.1, Phosphorus Level 2.1, Magnesium Level 1.8 08/01/17 11:08: Vancomycin Level Trough 13.2 Radiology Reviewed chest x-ray right upper lobe pneumonia Discussion & Recommendations patient wanted hospice Discharge Home Medications: Active Scripts Active Reported Lorazepam 0.5 Mg Tablet 0.5 Mg PO DAILY Mucinex (Guaifenesin) 600 Mg Tab.er.12h 600 Mg PO BID PRN Albuterol Sulfate 2.5 Mg/3 Ml Vial.neb 2.5 Mg NEB Q4H PRN Bisacodyl 10 Mg Supp.rect 10 Mg RC DAILY PRN Tramadol HCl 50 Mg Tablet 50 Mg PO BID PRN Lactulose 10 Gm/15 Ml Solution 30 Ml PO 1700 Loratadine 10 Mg Tablet 10 Mg PO DAILY Quetiapine Fumarate 50 Mg Tablet 50 Mg PO HS Zofran Odt (Ondansetron) 4 Mg Tab.rapdis 4 Mg PO TID PRN Rivastigmine 1 Each Patch.td24 4.6 Mg TD DAILY Haloperidol 1 Mg Tablet 2 Mg PO BID TAKES 2 (1MG) TABLETS Desvenlafaxine Succinate ER (Desvenlafaxine Succinate) 50 Mg Tab.er.24h 50 Mg PO DAILY Gabapentin 300 Mg Capsule 300 Mg PO TID Flomax (Tamsulosin HCl) 0.4 Mg Cap 0.4 Mg PO HS I-Caps with Lutein-[place] 3 Sfg (Antiox#10/Om3/Dha/Epa/Lut/Zeax) 1 Each Capsule 1 Cap PO DAILY Move Free Joint Health Tablet (Glucosam/Chond/Hyalu/Cf Borate) 1 Each Tablet 1 Tab PO DAILY Levothyroxine Sodium 75 Mcg Tablet 75 Mcg PO DAILY Digoxin 125 Mcg Tablet 125 Mcg PO DAILY Instructions to patient/family Please see electronic discharge instructions given to patient. Clinical Quality Measures DVT/VTE Risk/Contraindication: Risk Factor Score Per Nursin RFS Level Per Nursing on Admit: 4+=Very High ARRON ELLISON DO Aug 02, 2017 18:55
== END 2017-08-01 15:06 | disposition hospice, home (50) | DRG 871 ==
LOC: EDUNIT# 07:59 → ER 08:01 → 4TH 09:30
PROVIDERS: ADMIT Family Medicine; ATTEND Family Medicine
DX: A41.9 Sepsis, unspecified organism (principal); J15.212 Pneumonia due to Methicillin resistant Staphylococcus aureus; J96.01 Acute respiratory failure with hypoxia; J44.1 Chronic obstructive pulmonary disease with (acute) exacerbation; J44.0 Chronic obstructive pulmonary disease with (acute) lower respiratory infection; G47.33 Obstructive sleep apnea (adult) (pediatric); F03.90 Unspecified dementia, unspecified severity, without behavioral disturbance, psychotic disturbance, mood disturbance, and anxiety; I48.91 Unspecified atrial fibrillation; Z66 Do not resuscitate; I10 Essential (primary) hypertension; E83.42 Hypomagnesemia; E03.9 Hypothyroidism, unspecified; K59.09 Other constipation; M81.0 Age-related osteoporosis without current pathological fracture; M54.9 Dorsalgia, unspecified; F41.9 Anxiety disorder, unspecified; F31.9 Bipolar disorder, unspecified; Z90.5 Acquired absence of kidney; Z87.442 Personal history of urinary calculi; Z87.19 Personal history of other diseases of the digestive system
CPT/HCPCS: 36415; 71045; 71046; 80048; 80053; 80202; 81000; 82805; 83605; 83735; 83880; 84100; 84145; 85007; 85025; 85027; 85610; 85730; 87040; 87070; 87077; 87186; 87205; 87430; 87449; 87804; 87899; 93005; 93041; 94640; 94664; 94760; 94799; 96365; 96375